=== PATIENT | male | born 1960 | race American Indian/Alaskan Native ===

== ENCOUNTER 2020-02-11 11:48 | Emergency (ER) | payer MEDICARE ==
--- NOTE | 2020-02-11 13:58 | Event Note ---
ED Screening Note ED Screening Note: lightheaded like he wants to pass out states only occurs when he stands up + exertional SOB and palpitations with standing denies any dizziness states it has been occurring for a week denies any headache states he lost 25 lbs in 6 weeks no fever no n/v/d no vision changes no abd pain no CP PMHx DM, thyroidectomy, HTN no allergies to meds This initial assessment/diagnostic orders/clinical plan/treatment(s) is/are subject to change based on patients health status, clinical progression and re-assessment by fellow clinical providers in the ED. Further treatment and workup at subsequent clinical providers discretion. Patient/guardian urged not to elope from the ED as their condition may be serious if not clinically assessed and managed. Initial orders include: labs, EKG, CXR
--- NOTE | 2020-02-11 14:29 | XRay Report ---
XR chest routine 2V INDICATION / CLINICAL INFORMATION: sob, palpitations, lightheadedness COMPARISON: None available. FINDINGS: SUPPORT DEVICES: None. HEART / MEDIASTINUM: No significant abnormality. LUNGS / PLEURA: Lungs are clear. 1.1 cm right lower lobe nodule. Costophrenic sulci are sharp. No pn eumothorax. ADDITIONAL FINDINGS: No significant additional findings. IMPRESSION: 1. 1.1 cm right lower lobe pulmonary nodule is most consistent with a calcified granuloma. Lungs are clear without acute abnormality. Signer Name: Graham Camara MD Signed: 02/11/2020 2:24 PM Workstation Name: [id number]
[2020-02-11 14:53] LABS: Basophils % (Auto) 0.6 % (0.0-1.8); Eosinophils % (Auto) 0.4 % (0.0-4.3); Hematocrit 32.2 % (35.5-45.6); Hemoglobin 10.8 gm/dl (11.8-15.2); Lymphocytes # (Auto) 1.3 K/mm3 (1.2-5.4); Lymphocytes % (Auto) 18.7 % (13.4-35.0); Mean Corpuscular HGB Conc 34 % (32-34); Mean Corpuscular Volume 79 fl (84-94); Monocytes # (Auto) 0.4 K/mm3 (0.0-0.8); Monocytes % (Auto) 6.1 % (0.0-7.3); Platelet Count 313 K/mm3 (140-440); Red Blood Count 4.09 M/mm3 (3.65-5.03); Red Cell Distribution Width 17.5 % (13.2-15.2)
[2020-02-11 15:16] LABS: Albumin 3.7 g/dL (3.9-5); Calcium 10.4 mg/dL (8.4-10.2)
[2020-02-11] MEDS ORDERED: LORazepam 2 MG/ML VIAL IV ONE (15:45)
--- NOTE | 2020-02-11 15:56 | Emergency Department Report ---
ED General Adult HPI - General Chief complaint: Weakness Stated complaint: DIZZY Time Seen by Provider: 02/11/20 13:55 Source: patient, EMS Mode of arrival: Stretcher Limitations: No Limitations - History of Present Illness Initial comments: Patient is a 59-year-old male past medical history of high blood pressure presents with vertigo that is been going on for 1 week. Patient states that whenever he tries to walk he feels like the room is spinning around nothing makes his symptoms better except for sitting down and walking makes them worse. Patient denies any pain any nausea or any vomiting. - Related Data Allergies Allergy/AdvReac Type Severity Reaction Status Date / Time No Known Allergies Allergy Unverified 02/11/20 12:08 ED Review of Systems ROS: Stated complaint: DIZZY Other details as noted in HPI Constitutional: denies: chills, fever Eyes: denies: eye pain, eye discharge, vision change ENT: denies: ear pain, throat pain Respiratory: denies: cough, shortness of breath, wheezing Cardiovascular: denies: chest pain, palpitations Endocrine: no symptoms reported Gastrointestinal: denies: abdominal pain, nausea, diarrhea Genitourinary: denies: urgency, dysuria Musculoskeletal: denies: back pain, joint swelling, arthralgia Skin: denies: rash, lesions Neurological: vertigo. denies: headache, weakness, paresthesias Psychiatric: denies: anxiety, depression Hematological/Lymphatic: denies: easy bleeding, easy bruising ED Past Medical Hx - Past Medical History Hx Hypertension: Yes Hx Diabetes: Yes Additional medical history: HLD, hypothyroidism - Surgical History Past Surgical History?: No - Social History Smoking Status: Current Every Day Smoker Substance Use Type: Alcohol ED Physical Exam - General Limitations: No Limitations General appearance: alert, in no apparent distress - Head Head exam: Present: atraumatic, normocephalic - Eye Eye exam: Present: normal appearance - ENT ENT exam: Present: mucous membranes moist - Neck Neck exam: Present: normal inspection - Respiratory Respiratory exam: Present: normal lung sounds bilaterally. Absent: respiratory distress - Cardiovascular Cardiovascular Exam: Present: regular rate, normal rhythm. Absent: systolic mur mur, diastolic murmur, rubs, gallop - GI/Abdominal GI/Abdominal exam: Present: soft, normal bowel sounds - Rectal Rectal exam: Present: deferred - Extremities Exam Extremities exam: Present: normal inspection - Back Exam Back exam: Present: normal inspection - Neurological Exam Neurological exam: Present: alert, oriented X3 - Psychiatric Psychiatric exam: Present: normal affect, normal mood - Skin Skin exam: Present: warm, dry, intact, normal color. Absent: rash ED Course Vital Signs 02/11/20 02/11/20 02/11/20 12:06 15:38 15:42 Temperature 98.0 F Pulse Rate 110 H 96 H Respiratory 18 20 17 Rate Blood Pressure 106/72 Blood Pressure [Left] O2 Sat by Pulse 100 100 97 Oximetry 02/11/20 02/11/20 02/11/20 15:46 16:00 16:16 Temperature Pulse Rate 96 H 88 86 Respiratory 24 16 15 Rate Blood Pressure Blood Pressure [Left] O2 Sat by Pulse 100 98 99 Oximetry 02/11/20 02/11/20 02/11/20 16:30 16:46 17:00 Temperature Pulse Rate 94 H 90 Respiratory 22 17 Rate Blood Pressure Blood Pressure [Left] O2 Sat by Pulse 96 Oximetry 02/11/20 02/11/20 02/11/20 17:16 18:10 19:13 Temperature Pulse Rate 89 92 H Respiratory 10 L 17 Rate Blood Pressure 162/90 162/90 Blood Pressure 138/82 [Left] O2 Sat by Pulse 97 Oximetry ED Medical Decision Making - Lab Data Result diagrams: 02/11/20 14:40 02/11/20 14:40 Lab Results 02/11/20 02/11/20 02/11/20 Range/Units 14:40 14:40 14:40 WBC 6.8 (4.5-11.0) K/mm3 RBC 4.09 (3.65-5.03) M/mm3 Hgb 10.8 L (11.8-15.2) gm/dl Hct 32.2 L (35.5-45.6) % MCV 79 L (84-94) fl MCH 26 L (28-32) pg MCHC 34 (32-34) % RDW 17.5 H (13.2-15.2) % Plt Count 313 (140-440) K/mm3 Lymph % (Auto) 18.7 (13.4-35.0) % [place] % (Auto) 6.1 (0.0-7.3) % Eos % (Auto) 0.4 (0.0-4.3) % Baso % (Auto) 0.6 (0.0-1.8) % Lymph # (Auto) 1.3 (1.2-5.4) K/mm3 [place] # (Auto) 0.4 (0.0-0.8) K/mm3 Eos # (Auto) 0.0 (0.0-0.4) K/mm3 Baso # (Auto) 0.0 (0.0-0.1) K/mm3 Seg Neutrophils % 74.2 H (40.0-70.0) % Seg Neutrophils # 5.1 (1.8-7.7) K/mm3 Sodium 127 L (137-145) mmol/L Potassium 4.3 (3.6-5.0) mmol/L Chloride 88.4 L (98-107) mmol/L Carbon Dioxide 19 L (22-30) mmol/L Anion Gap 24 mmol/L BUN 33 H (9-20) mg/dL Creatinine 2.6 H (0.8-1.3) mg/dL Estimated GFR 31 ml/min BUN/Creatinine Ratio 13 % Glucose 336 H (75-100) mg/dL Calcium 10.4 H (8.4-10.2) mg/dL Magnesium 2.10 (1.7-2.3) mg/dL Total Bilirubin 0.20 (0.1-1.2) mg/dL AST 12 (5-40) units/L ALT 9 (7-56) units/L Alkaline Phosphatase 101 (35-129) units/L Total Creatine Kinase 67 (55-170) units/L Total Protein 9.2 H (6.3-8.2) g/dL Albumin 3.7 L (3.9-5) g/dL Albumin/Globulin Ratio 0.7 % TSH 0.791 (0.270-4.200) mlU/mL - EKG Data -: EKG Interpreted by Me - Radiology Data Radiology results: report reviewed, image reviewed CT scan of head: Shows no acute intracranial process - Medical Decision Making Chief medical diagnosis: Benign positional vertigo Differential medical diagnosis: Posterior circulation stroke, electrolyte abnormality I will get CT scan of head neurology consult CBC BMP IV fluids and will reevaluate patient Patient states that he will leave AMA he states that "I will have no damn stroke I am leaving because guys are taking too long "discussed with patient the i mportance of neurology evaluation and the need for admission for further work-up for her symptoms. Patient has decision-making capacity is alert and oriented x4 patient decides to leave AMA Critical care attestation.: If time is entered above; I have spent that time in minutes in the direct care of this critically ill patient, excluding procedure time. ED Disposition Clinical Impression: Dizziness Disposition: DC-07 LEFT AGAINST MED ADVICE Is pt being admited?: No Does the pt Need Aspirin: No Condition: Stable Instructions: Dizziness (ED) Referrals: [facility] [Other] - 3-5 Days Forms: AMA Form
--- NOTE | 2020-02-11 16:39 | Cat Scan Report ---
CT head without contrast INDICATION : dizziness. TECHNIQUE: Axial imaging performed from the skull apex through the skull base without the use of con trast. All CT scans at this location are performed using CT dose reduction for ALARA by means of aut omated exposure control. COMPARISON: None FINDINGS: Parenchyma: No acute intracranial hemorrhage or parenchymal abnormality. Ventricles: Ventricles are normal in size and appear symmetric. Soft tissues: Soft tissues including the orbits appear normal. Bones: No acute osseous abnormality. Sinuses: Sinuses and mastoid air cells are clear. IMPRESSION: No acute abnormality. Signer Name: Iraj Ayala MD Signed: 02/11/2020 4:35 PM Workstation Name: [id number]
[2020-02-11] MEDS ORDERED: ASPIRIN 81 MG TAB CHEW PO ONE (17:22)
[2020-02-11 19:14] VITALS: BP 138/82
== END 2020-02-11 19:13 | disposition left against medical advice (07) ==
LOC: ED 11:48
DX: R42 Dizziness and giddiness (principal); I10 Essential (primary) hypertension; E11.9 Type 2 diabetes mellitus without complications; F17.200 Nicotine dependence, unspecified, uncomplicated
CPT/HCPCS: 36415; 70450; 71046; 80053; 82550; 83735; 84443; 85025; 93005; 96374; 99285; J2060

== ENCOUNTER 2020-10-14 14:08 | Inpatient (IN) | payer MEDICARE ==
--- NOTE | 2020-10-14 14:59 | Emergency Department Report ---
Blank Doc - Documentation Documentation: 60-year-old male who presents with shortness of breath, bilateral leg swelling and abdominal distention. Patient stated has history of cirrhosis of the liver. Patient stated has difficulty walking due to bilateral leg swelling. 1- This is a initial triage assessment/medical screening only. Full assessment and work-up will be completed once the patient is in proper hospital gown, ED bed and in a private room setting. This initial assessment/diagnostic orders/clinical plan/ treatment(s) is/are subject to change based on pt's health status, clinical progression and re-assessment by fellow clinical providers in the ED. Further treatment and workup at subsequent clinical providers discretion. Patient/guardians urged not to elope from ED as their condition may be serious if not clinically assessed and managed. 2-cardiac work-up
--- NOTE | 2020-10-14 15:46 | XRay Report ---
XR chest routine 2V INDICATION / CLINICAL INFORMATION: Chest Pain. COMPARISON: 02/11/2020 FINDINGS: SUPPORT DEVICES: None. HEART /PULMONARY VASCULATURE: Cardiac enlargement with pulmonary vasculature congestion. LUNGS / PLEURA: Patchy perihilar opacities likely reflect edema. No pleural effusion. No pneumothorax . ADDITIONAL FINDINGS: No significant additional findings. IMPRESSION: Findings most consistent with CHF with mild pulmonary edema. Signer Name: Leno Tristan MD Signed: 10/14/2020 3:41 PM Workstation Name: [id number]
[2020-10-14] MEDS ORDERED: DEXTROSE 50% IN WATER (25GM) 50 ML VIAL IV PRN (16:28)
[2020-10-14 16:33] LABS: Basophils % (Auto) 0.5 % (0.0-1.8); Eosinophils # (Auto) 0.1 K/mm3 (0.0-0.4); Eosinophils % (Auto) 1.7 % (0.0-4.3); Lymphocytes # (Auto) 1.1 K/mm3 (1.2-5.4); Lymphocytes % (Auto) 20.7 % (13.4-35.0); Mean Corpuscular HGB Conc 29 % (32-34); Monocytes # (Auto) 0.5 K/mm3 (0.0-0.8); Monocytes % (Auto) 10.2 % (0.0-7.3); Platelet Count 172 K/mm3 (140-440); Red Blood Count 2.67 M/mm3 (3.65-5.03)
[2020-10-14 16:34] LABS: Albumin 3.8 g/dL (3.9-5); Calcium 9.1 mg/dL (8.4-10.2)
--- NOTE | 2020-10-14 16:35 | Emergency Department Report ---
ED General Adult HPI - General Chief complaint: Weakness Stated complaint: LEGS WEAK, UNABLE TO WALK, SWELLING PUI?: No Time Seen by Provider: 10/14/20 14:58 Source: patient, RN notes reviewed, old records reviewed Mode of arrival: Wheelchair Limitations: No Limitations - History of Present Illness Initial comments: Primary CARE doctor: Selena Past medical history: Obesity, renal insufficiency of unknown duration, chronicity, end-stage, high cholesterol, hypertension, diabetes, psychiatric disease. The patient is a 60-year-old gentleman. He is not known to myself previously. He presents to the ER today with a complaint of 3months bilateral lower extremity swelling, cramping and discomfort, that radiates up to his abdominal region. The symptoms are constant. They worsen with physical exertion. They decreased with rest. Currently, denies headache, neck pain, chest pain. He endorses abdominal cramping, and tightness, but no pain. He endorses both constipation and diarrhea. He denies dysuria. He denies bladder/bowel retention or incontinence. He denies focal extremity weakness/numbness. He does not have a vamp stitcher or order dispatcher chief that he is aware of. He has not received his Covid vaccination. Patient has poor ambulation at baseline, walks with a cane and/or walker, and has been participating in home physical therapy for the past 2 months. He does not know if he has a diagnosis of obstructive sleep apnea. He sleeps in bed by himself. He reports he does not have a bed partner. He has intermittent shortness of breath. He has gained and unintentional 30 to 40 pounds in the past few months. He typically states that he takes Novolin, 30 units, in the morning and at night. He believes he took his novel and this morning, he is not quite sure if he ate breakfast. He denies fever. He denies loss of taste and smell. -: Gradual, week(s), month(s) Location: abdomen, left, right, lower extremity Radiation: other (Swelling starts for the bilateral lower extremities and radiates proximally to the mid abdominal region) Quality: constant Improves with: rest Worsens with: movement - Related Data Home Medications Medication Instructions Recorded Confirmed Last Taken Omeprazole 20 mg PO DAILY 10/14/20 10/16/20 Unknown Previous Rx's Medication Instructions Recorded Last Taken Type AtorvaSTATin [Lipitor] 40 mg PO QHS #30 10/17/20 Unknown Rx Furosemide [Lasix TAB] 20 mg PO QDAY #30 tablet 10/17/20 Unknown Rx Insulin NPH Hum/Reg Insulin Hm 30 units SUB-Q Q12HR #2 vial 10/17/20 Unknown Rx [Novolin 70-30 100 Unit/ml Vial] Levothyroxine Sodium 175 mcg PO DAILY #30 cap 10/17/20 Unknown Rx [Levothyroxine] Pantoprazole [Protonix] 40 mg PO BID #60 tablet 10/17/20 Unknown Rx Potassium Chloride [K-Dur] 10 meq PO QDAY #30 tablet 10/17/20 Unknown Rx QUEtiapine [SEROquel] 1,000 mg PO QDAY@2200 #30 tablet 10/17/20 Unknown Rx Sertraline [Zoloft] 100 mg PO QDAY #30 tablet 10/17/20 Unknown Rx Allergies Allergy/AdvReac Type Severity Reaction Status Date / Time No Known Allergies Allergy Unverified 02/11/20 12:08 ED Review of Systems ROS: Stated complaint: LEGS WEAK, UNABLE TO WALK, SWELLING Other details as noted in HPI Constitutional: malaise, weakness, other (Denies loss of taste and smell). denies: fever Eyes: denies: vision change ENT: denies: epistaxis Respiratory: shortness of breath Cardiovascular: dyspnea on exertion, edema. denies: chest pain Gastrointestinal: diarrhea, constipation. denies: nausea Genitourinary: denies: frequency Musculoskeletal: arthralgia, myalgia Neurological: weakness. denies: numbness, paresthesias Hematological/Lymphatic: denies: easy bleeding ED Past Medical Hx - Past Medical History Previous Medical History?: Yes Hx Hypertension: Yes Hx Diabetes: Yes Additional medical history: HLD, hypothyroidism - Surgical History Past Surgical History?: No - Social History Smoking Status: Current Every Day Smoker Substance Use Type: Alcohol - Medications Home Medications: Home Medications Medication Instructions Recorded Confirmed Last Taken Type Omeprazole 20 mg PO DAILY 10/14/20 10/16/20 Unknown History AtorvaSTATin [Lipitor] 40 mg PO QHS #30 10/17/20 Unknown Rx Furosemide [Lasix TAB] 20 mg PO QDAY #30 tablet 10/17/20 Unknown Rx Insulin NPH Hum/Reg Insulin Hm 30 units SUB-Q Q12HR #2 vial 10/17/20 Unknown Rx [Novolin 70-30 100 Unit/ml Vial] Levothyroxine Sodium 175 mcg PO DAILY #30 cap 10/17/20 Unknown Rx [Levothyroxine] Pantoprazole [Protonix] 40 mg PO BID #60 tablet 10/17/20 Unknown Rx Potassium Chloride [K-Dur] 10 meq PO QDAY #30 tablet 10/17/20 Unknown Rx QUEtiapine [SEROquel] 1,000 mg PO QDAY@2200 #30 tablet 10/17/20 Unknown Rx Sertraline [Zoloft] 100 mg PO QDAY #30 tablet 10/17/20 Unknown Rx ED Physical Exam - General Limitations: Physical Limitation General appearance: alert, in no apparent distress, obese - Head Head exam: Present: atraumatic, normocephalic - Eye Eye exam: Present: normal appearance, EOMI. Absent: nystagmus - ENT ENT exam: Present: normal exam, normal orophraynx, mucous membranes moist, normal external ear exam - Neck Neck exam: Present: normal inspection, full ROM. Absent: tenderness, meningismus - Respiratory Respiratory exam: Present: decreased breath sounds. Absent: wheezes, rales, rhonchi, stridor - Cardiovascular Cardiovascular Exam: Present: regular rate, normal rhythm, normal heart sounds, JVD. Absent: bradycardia, tachycardia, irregular rhythm, systolic murmur, diastolic murmur, rubs, gallop - GI/Abdominal GI/Abdominal exam: Present: soft. Absent: distended, tenderness, guarding, rebound, rigid, pulsatile mass - Rectal Rectal exam: Present: normal inspection, normal rectal tone, heme (-) stool, other (Chaperoned by nurse Cesar Ramos). Absent: heme (+) stool, black stool, bloody stool - Extremities Exam Extremities exam: Present: normal inspection, full ROM, pedal edema (3+ edema in the bilateral lower extremities), other (2+ pulses noted in the bilateral upper and lower extremities. There is no palpable cord. negative Homans sign. Muscular compartments are soft. The pelvis is stable.). Absent: calf tenderne ss - Back Exam Back exam: Present: normal inspection, full ROM. Absent: tenderness, CVA tenderness (R), CVA tenderness (L), paraspinal tenderness, vertebral tenderness - Neurological Exam Neurological exam: Present: alert, oriented X3, other (No facial droop. Tongue midline. Extraocular movements intact bilaterally. Facial sensation intact to light touch in V1, V2, V3 distribution bilaterally. 5 and a 5 strength in 4 extremities. Sensation intact to light touch in 4 extremities.). Absent: motor sensory deficit - Psychiatric Psychiatric exam: Present: normal affect, normal mood - Skin Skin exam: Present: warm, dry, intact, normal color. Absent: rash ED Course Vital Signs 10/14/20 10/14/20 10/14/20 14:55 14:59 16:40 Temperature 98.6 F Pulse Rate 81 63 Respiratory 20 19 Rate Blood Pressure 120/63 Blood Pressure 140/78 [Right] O2 Sat by Pulse 99 94 Oximetry 10/14/20 10/14/20 10/14/20 17:24 19:39 20:14 Temperature 98.4 F Pulse Rate 89 85 85 Respiratory 19 20 22 Rate Blood Pressure 122/68 Blood Pressure 139/89 155/84 [Right] O2 Sat by Pulse 97 98 100 Oximetry 10/14/20 20:30 Temperature 98.2 F Pulse Rate 91 H Respiratory 20 Rate Blood Pressure 141/74 Blood Pressure [Right] O2 Sat by Pulse 100 Oximetry - Reevaluation(s) Reevaluation #1: 10/14/20 16:36 Differential diagnosis, including but not limited to: Congestive heart failure, cardiorenal syndrome, electrolyte derangement, renal insufficiency, hepatic insufficiency, pneumonia, urinary tract infection, obesity, obstructive sleep apnea, pulmonary hypertension, hypoglycemia, now resolved Assessment and plan: 60-year-old gentleman, with body mass index of 37, probable undiagnosed obstructive sleep apnea, not currently on nocturnal CPAP/BiPAP, with evidence of decompensated acute congestive heart failure, manifest by JVD, diminished breath sounds, lower extremity edema, and unintentional weight gain. Patient has a GCS of 15, with no focal motor or sensory deficits. He denies most of the typical Covid symptoms. He has not received his Covid vaccination. Laboratory studies ordered and pending. Doubt DVT, but we will obtain bilateral lower extremity DVT study. Anticipate need for admission for diuresis, and medical optimization. Have discussed this plan of care with the patient, who verbalized understanding, and who is agreeable to this plan of care. He states he does not currently have a vamp stitcher or order dispatcher chief. Laboratory studies from prior evaluations have indicated a creatinine of 2.5. He is clinically sober at this time, he will be placed for every 1 hour Accu- Cheks, and as needed D50. 10/14/20 17:17 The patient is found to have an improved Accu-Chek. He is also found to have a microcytic anemia. I suspect that this is anemia of chronic disease. His rectal examination is negative for blood, chaperoned by nurse Cesar Ramos. Discussed recommendation for packed red blood cell with patient. Patient has no objections to receiving packed red blood cells and has provided consent. TSH, free T4 appreciated, defer to inpatient team to further manage this, patient currently on Synthroid. Hospital physician, Dr. Whelan, to admit patient to the medical service. Patient's laboratory studies today corroborate and suggest cardiorenal syndrome, with a probable type II troponin leak, renal insufficiency, microcytic anemia. Lower extremity DVT studies pending at this time. Repeat Accu-Chek is improved. 10/14/20 17:18 - Pulse Oximetry Interpretation Digit-Finger Initial Pulse Oximetry Readin O2 Sat by Pulse Oximetry: 97 Actions Taken: none ED Medical Decision Making - Lab Data Result diagrams: 10/17/20 04:43 10/17/20 04:43 Vital Signs 10/14/20 14:55 Temperature 98.6 F Lab Results 10/14/20 10/14/20 10/14/20 Range/Units 15:33 15:33 15:45 [place] % (Auto) 10.2 H (0.0-7.3) % Eos % (Auto) 1.7 (0.0-4.3) % [place] # (Auto) 0.5 (0.0-0.8) K/mm3 Eos # (Auto) 0.1 (0.0-0.4) K/mm3 Baso # (Auto) 0.0 (0.0-0.1) K/mm3 Seg Neutrophils % 66.9 (40.0-70.0) % Seg Neutrophils # 3.6 (1.8-7.7) K/mm3 Sodium 134 L (137-145) mmol/L Potassium 4.2 (3.6-5.0) mmol/L Chloride 97.6 L (98-107) mmol/L Carbon Dioxide 24 (22-30) mmol/L Anion Gap 17 mmol/L BUN 29 H (9-20) mg/dL Creatinine 2.9 H (0.8-1.3) mg/dL Estimated GFR 27 ml/min BUN/Creatinine Ratio 10 % Glucose 53 L (75-100) mg/dL POC Glucose 46 L (70-105) mg/dL Calcium 9.1 (8.4-10.2) mg/dL Total Bilirubin 0.30 (0.1-1.2) mg/dL AST 51 H (5-40) units/L ALT 52 (7-56) units/L Alkaline Phosphatase 131 H (35-129) units/L Troponin T 0.047 H (0.00-0.029) ng/mL NT-Pro-B Natriuret Pep 1660 H (0-900) pg/mL Total Protein 8.2 (6.3-8.2) g/dL Albumin 3.8 L (3.9-5) g/dL Albumin/Globulin Ratio 0.9 % Lipase 12 L (13-60) units/L Vital Signs 10/14/20 10/14/20 14:55 16:39 Temperature 98.6 F O2 Sat by Pulse 97 Oximetry [ Digit-Finger] Vital Signs 10/14/20 10/14/20 10/14/20 14:55 16:40 16:41 Temperature 98.6 F Pulse Rate 63 Respiratory 19 Rate Blood Pressure 140/78 [Right] O2 Sat by Pulse 94 Oximetry O2 Sat by Pulse 97 Oximetry [ Digit-Finger] - EKG Data -: EKG Interpreted by Ma EKG shows normal: sinus rhythm Rate: normal - EKG Data When compared to previous EKG there are: previous EKG unavailable 10/14/20 16:36 EKG interpreted at 15: 04 This is a sinus rhythm, rate 79 bpm, with a borderline normal P wave axis, first-degree AV block, motion artifact, QTC prolonged, low voltage, and poor R wave progression. This is an abnormal EKG. This is not a STEMI. - Radiology Data Radiology results: pending, report reviewed, image reviewed CHEST 2 VIEWS INDICATION / CLINICAL INFORMATION: NO SYMPTOMS/PPD ALLERGY. COMPARISON: None available. FINDINGS: SUPPORT DEVICES: None. HEART / MEDIASTINUM: No significant abnormality. LUNGS / PLEURA: No significant pulmonary or pleural abnormality. No pneumothorax. ADDITIONAL FINDINGS: No significant additional findings. IMPRESSION: 1. No acute findings. Signer Name: Pankaj Deutsch MD Signed: 10/14/2020 2:04 PM Workstation Name: [id number] Critical Care Time: Yes Critical care time in (mins) excluding proc time.: 35 Critical care attestation.: If time is entered above; I have spent that time in minutes in the direct care of this critically ill patient, excluding procedure time. ED Disposition Clinical Impression: Hypoglycemia, Cardiorenal syndrome with renal failure, Body mass index 37.0- 37.9, adult, Volume overload, History of hypothyroidism, Microcytic anemia Disposition: OP ADMIT IP TO THIS HOSP Is pt being admited?: Yes Does the pt Need Aspirin: Yes Condition: Serious
[2020-10-14] MEDS ORDERED: ASPIRIN 81 MG TAB CHEW PO ONE (16:39)
[2020-10-14] MEDS ORDERED: FUROSEMIDE 40 MG/4 ML INJ IV ONE (16:40)
[2020-10-14 16:45] LABS: Chol/HDL Ratio 1.71 %; INR 1.23 (0.87-1.13)
[2020-10-14 16:46] LABS: Partial Thromboplastin Time 32.8 Sec. (24.2-36.6)
[2020-10-14 16:57] LABS: Mean Corpuscular Volume 54 fl (84-94); Red Cell Distribution Width 22.7 % (13.2-15.2)
[2020-10-14 17:01] LABS: Hematocrit 14.6 % (35.5-45.6); Hemoglobin 4.1 gm/dl (11.8-15.2)
[2020-10-14] MEDS ORDERED: SODIUM CHLORIDE 0.9% 500 ML 500 ML IV ONE ×2 (17:09→17:45)
[2020-10-14 17:15] LABS: Free T4 (Free Thyroxine) 0.9 ng/dL (0.76-1.46)
--- NOTE | 2020-10-14 17:19 | History and Physical Report ---
History of Present Illness Chief complaint: My legs are swollen and I cannot breathe History of present illness: 60 YO Male with HTN, HLD, DM, Obesity Hypoventilation Syndrome, CKD, Hypothyroidism, GERD, Nicotine Dependence, Depression presents ED for evaluation. Patient reports "my legs are swollen, and I can't breathe". Patient states that he had experienced shortness of breath, decreased exercise tolerance, orthopnea, paroxysmal nocturnal dyspnea, dyspnea on exertion, dyspnea at rest over the past 3 months with worsening symptoms over the past 1 week. Patient states that due to his ill weakness he is currently unable to ambulate. Patient also acknowledges a 30 pound weight gain over the past 1 month. Patient transported to [facility] via private vehicle for further care and evaluation of the aforementioned symptoms. The patient was seen and evaluated in the emergency department. All lab and imaging studies reviewed. Patient found to have lab findings and clinical symptoms consistent with CHF decompensation, as well as cardiorenal syndrome, obesity hypoventilation syndrome, and symptomatic anemia with a hemoglobin of 4. Patient placed in observation status and admitted to telemetry and initiated on CHF protocol. Patient also transfused with packed red blood cells. Cardiology team consulted in ED. Nephrology team consulted in ED. Patient denies fever, chills, chest pain, palpitation, productive cough, skin rash, recent ill contacts, or known exposure to COVID-19. No prior admission for review. All medication listed at time of admission has been reconciled. Advanced care planning conducted in ED. Past History Past Medical History: diabetes, GERD, hypertension, hyperlipidemia, hypothyroidism Past Surgical History: No surgical history, Other (Reviewed) Social history: , smoking. denies: alcohol abuse, prescription drug abuse Family history: diabetes, hypertension Medications and Allergies Allergies Allergy/AdvReac Type Severity Reaction Status Date / Time No Known Allergies Allergy Unverified 02/11/20 12:08 Home Medications Medication Instructions Recorded Confirmed Last Taken Type AtorvaSTATin [Lipitor] 40 mg PO QHS 10/14/20 10/14/20 Unknown History Insulin NPH Hum/Reg Insulin Hm 30 1000units SUB-Q Q12HR 10/14/20 10/14/20 Unknown History [Novolin 70-30 100 Unit/ml Vial] Levothyroxine Sodium 175 mcg PO 10/14/20 Unknown History [Levothyroxine] Omeprazole 20 mg PO 10/14/20 Unknown History QUEtiapine [SEROquel] 1,000 mg PO QDAY 10/14/20 10/14/20 Unknown History Sertraline [Zoloft] 100 mg PO QDAY 10/14/20 10/14/20 Unknown History Active Meds: Active Medications Dextrose (Dextrose 50% In Water (25gm) 50 Ml Vial) 50 gm IV Q30MIN PRN; Protocol PRN Reason: Hypoglycemia Review of Systems Constitutional: weight gain, no fever, no chills, no sweats, no night sweats Ears, nose, mouth and throat: no ear pain, no ear discharge, no nose pain, no nasal congestion Cardiovascular: orthopnea, edema, shortness of breath, dyspnea on exertion, paroxysmal nocturnal dyspnea, leg edema, decreased exercise tolerance, no chest pain, no palpitations Respiratory: no cough, no cough with sputum, no hemoptysis Gastrointestinal: no nausea, no vomiting, no diarrhea, no constipation Genitourinary Male: no hematuria, no flank pain, no discharge, no urinary frequency, no urinary hesitancy Rectal: no pain, no incontinence, no bleeding Musculoskeletal: no neck stiffness, no neck pain, no shooting arm pain, no arm numbness/tingling, no low back pain, no shooting leg pain, no leg numbness/tingling Integumentary: no rash, no pruritis, no redness, no sores, no wounds Neurological: no paralysis, no weakness, no parathesias, no numbness, no tingling, no seizures, no syncope Psychiatric: no anxiety, no memory loss, no change in sleep habits, no sleep disturbances, no insomnia, no hypersomnia, no change in appetite, no change in libido Endocrine: no cold intolerance, no heat intolerance, no polyphagia, no polyuria Hematologic/Lymphatic: no easy bruising, no easy bleeding, no lymphadenopathy Allergic/Immunologic: no urticaria, no allergic rhinitis, no persistent i nfections, no anaphylaxis Exam - Constitutional Vitals: Temp Pulse Resp BP Pulse Ox 98.6 F 63 19 140/78 97 10/14/20 14:55 10/14/20 16:40 10/14/20 16:40 10/14/20 16:40 10/14/20 17:18 General appearance: Present: mild distress, obese - EENT Eyes: Present: PERRL (Conjunctival pallor) ENT: hearing intact, clear oral mucosa - Neck Neck: Present: supple, normal ROM, masses or JVD - Respiratory Respiratory effort: normal, labored, accessory muscle use Respiratory: bilateral: diminished, rales - Cardiovascular Heart Sounds: Present: S1 & S2. Absent: rub, click - Extremities Extremities: pulses symmetrical Extremity abnormal: edema Peripheral Pulses: within normal limits - Abdominal General gastrointestinal: Present: soft, non-tender, non-distended, normal bowel sounds Male genitourinary: Present: normal - Integumentary Integumentary: Present: clear, warm, dry - Musculoskeletal Musculoskeletal: generalized weakness - Psychiatric Psychiatric: appropriate mood/affect, intact judgment & insight - Neurologic Neurologic: CNII-XII intact, moves all extremities HEART Score - HEART Score Troponin: Troponin T 0.047 ng/mL (0.00-0.029) H 10/14/20 15:33 Results - Labs CBC & Chem 7: 10/14/20 15:33 10/14/20 15:33 Labs: Abnormal lab results 10/14/20 10/14/20 10/14/20 Range/Units 15:33 15:33 15:33 RBC 2.67 L (3.65-5.03) M/mm3 Hgb 4.1 L* (11.8-15.2) gm/dl Hct 14.6 L* (35.5-45.6) % MCV 54 L (84-94) fl MCH 16 L (28-32) pg MCHC 29 L (32-34) % RDW 22.7 H (13.2-15.2) % [place] % (Auto) 10.2 H (0.0-7.3) % Lymph # (Auto) 1.1 L (1.2-5.4) K/mm3 PT 16.1 H (12.2-14.9) Sec. INR 1.23 H (0.87-1.13) Sodium 134 L (137-145) mmol/L Chloride 97.6 L (98-107) mmol/L BUN 29 H (9-20) mg/dL Creatinine 2.9 H (0.8-1.3) mg/dL Glucose 53 L (75-100) mg/dL POC Glucose (70-105) mg/dL AST 51 H (5-40) units/L Alkaline Phosphatase 131 H (35-129) units/L Troponin T 0.047 H (0.00-0.029) ng/mL NT-Pro-B Natriuret Pep 1660 H (0-900) pg/mL Albumin 3.8 L (3.9-5) g/dL LDL Cholesterol Direct 24 L (50-130) mg/dL Lipase 12 L (13-60) units/L TSH (0.270-4.200) mlU/mL 10/14/20 10/14/20 Range/Units 15:45 16:34 RBC (3.65-5.03) M/mm3 Hgb (11.8-15.2) gm/dl Hct (35.5-45.6) % MCV (84-94) fl MCH (28-32) pg MCHC (32-34) % RDW (13.2-15.2) % [place] % (Auto) (0.0-7.3) % Lymph # (Auto) (1.2-5.4) K/mm3 PT (12.2-14.9) Sec. INR (0.87-1.13) Sodium (137-145) mmol/L Chloride (98-107) mmol/L BUN (9-20) mg/dL Creatinine (0.8-1.3) mg/dL Glucose (75-100) mg/dL POC Glucose 46 L (70-105) mg/dL AST (5-40) units/L Alkaline Phosphatase (35-129) units/L Troponin T (0.00-0.029) ng/mL NT-Pro-B Natriuret Pep (0-900) pg/mL Albumin (3.9-5) g/dL LDL Cholesterol Direct (50-130) mg/dL Lipase (13-60) units/L TSH 7.820 H (0.270-4.200) mlU/mL Assessment and Plan - Patient Problems (1) Heart failure, systolic, with acute decompensation Current Visit: Yes Status: Acute Plan to address problem: CHF protocol: Strict I's/O, monitor urine output every shift, afterload re duction, blood pressure control, thyroid panel, magnesium level, echocardiogram ordered and pending at time of admission, cardiology team consulted, chest x- ray, submental oxygen. (2) Obesity hypoventilation syndrome Current Visit: Yes Status: Acute Plan to address problem: Balanced diet, increase physical activity discharge, outpatient pulmonary follow-up for sleep study. (3) Symptomatic anemia Current Visit: Yes Status: Acute Plan to address problem: Packed red blood cell transfusion, supportive care, repeat CBC in a.m., (4) Cardiorenal syndrome with renal failure Current Visit: Yes Status: Acute Plan to address problem: Nephrology team consulted, monitor urine output every shift, further care and evaluation as per cardiology team as well as renal team. (5) History of hypothyroidism Current Visit: Yes Status: Acute Plan to address problem: Thyroid replacement with Synthroid therapy, thyroid panel, supportive care. (6) Microcytic anemia Current Visit: Yes Status: Acute Plan to address problem: Packed red blood cell transfusion, continue medical management. (7) DVT prophylaxis Current Visit: Yes Status: Acute Plan to address problem: SCD bilateral lower extremities while in bed (8) Advance care planning Current Visit: Yes Status: Acute Plan to address problem: Disease education conducted, care plan discussed, diagnosis discussed, prognosis discussed, patient knowledges understanding and agreement with care plan, +30 minutes.
[2020-10-14] MEDS ORDERED: ONDANSETRON 4 MG/2 ML INJ IV PRN (18:00)
[2020-10-14] MEDS ORDERED: DEXTROSE 50% IN WATER (25GM) 50 ML SYRINGE IV PRN (18:07)
--- NOTE | 2020-10-14 18:09 | Electrocardiograph Report ---
[facility] Test Date: 2020-10-14 Test Time: 15:04:29 Pat Name: JADE COTO Department: Room: Gender: M Mirror Maker: : [id number] Requested By: BRIAN GALICIA Order Number: [id number] Reading MD: Jorge Chilel Measurements Intervals [place] Rate: 79 P: 50 MO: 241 QRS: 5 QRSD: 109 T: 14 QT: 398 QTc: 458 Interpretive Statements Poor data quality with marked baseline artifact Probably sinus rhythm Prolonged MO interval Low voltage, extremity and precordial leads No previous ECG available for comparison Electronically Signed On 10-14-2020 18:09:43 EDT by Jorge Chilel
[2020-10-14] MEDS: FUROSEMIDE 40 MG/4 ML INJ IV SCH (18:28)
[2020-10-14] MEDS ORDERED: oxyCODONE /ACETAMINOPHEN 5-325MG TAB PO PRN (18:30)
[2020-10-14] MEDS ORDERED: ALBUTEROL 2.5 MG/3 ML NEBU IH PRN (18:30)
[2020-10-14] MEDS ORDERED: ACETAMINOPHEN 325 MG TAB PO PRN (18:30)
[2020-10-14] MEDS ORDERED: MORPHINE 4 MG/1 ML INJ IV PRN (18:30)
[2020-10-14] MEDS: INSULIN REGULAR, HUMAN 100 UNITS/1 ML SUB-Q SCH (21:20)
[2020-10-14 23:04] LABS: Bilirubin,Urine NEG (Negative); Blood,Urine SM (Negative); Color,Urine Colorless (Yellow); Protein,Urine <15 mg/dL mg/dL (Negative); RBC,Urine < 1.0 /HPF (0.0-6.0); Urobilinogen,Urine < 2.0 mg/dL (<2.0); WBC,Urine < 1.0 /HPF (0.0-6.0)
[2020-10-14 23:21] LABS: Creatinine,Urine 21.2 mg/dL (0.1-20.0); Protein/Creatinine Ratio,Urine 0.61
[2020-10-14] MEDS: QUEtiapine 200 MG TAB PO SCH (23:59)
[2020-10-15] MEDS: LEVOTHYROXINE 75 MCG TAB PO SCH (06:13)
[2020-10-15] MEDS: FUROSEMIDE 40 MG/4 ML INJ IV SCH ×2 (06:13→18:45)
[2020-10-15] MEDS: LEVOTHYROXINE 100 MCG TAB PO SCH (06:13)
--- NOTE | 2020-10-15 07:53 | Vascular Lab Report ---
Bilateral lower extremity Doppler venous ultrasound INDICATION: Swelling FINDINGS: Bilateral common femoral veins, superficial femoral veins and popliteal veins have normal c ompressibility and phasic flow. IMPRESSION: No evidence for DVT. Signer Name: Pankaj Deutsch MD Signed: 10/14/2020 6:00 PM Workstation Name: [id number]
[2020-10-15] MEDS: INSULIN REGULAR, HUMAN 100 UNITS/1 ML SUB-Q SCH ×4 (07:59→19:02)
[2020-10-15] MEDS ORDERED: NON-FORMULARY EACH (Omeprazole [Omeprazole] 20 MG Capsule.Dr) PO SCH (10:00)
[2020-10-15] MEDS ORDERED: QUEtiapine 100 MG TAB PO SCH (10:00)
[2020-10-15] MEDS ORDERED: LEVOTHYROXINE SODIUM 175 MCG PO SCH (10:00)
--- NOTE | 2020-10-15 10:19 | Progress Note ---
Assessment and Plan Assessment and plan: -- Heart failure, systolic, with acute decompensation Current Visit: Yes Status: Acute IV diuretics , input output monitoring , low-sodium diet , fluid restriction Echo for LV function ejection fraction , cardiology consulted Oxygen titrate O2 sats to more than 90% --Obesity hypoventilation syndrome Current Visit: Yes Status: Acute Dietary modification, exercise as tolerated and weight reduction When medically stable, outpatient pulmonary evaluation and sleep study Rule out CPAP -- Symptomatic anemia Current Visit: Yes Status: Acute Received 3 units PRBC transfusion, fourth unit transfuse Monitor H&H, stool for occult blood, GI consult Rule out GI causes of severe anemia --Cardiorenal syndrome with renal failure Current Visit: Yes Status: Acute Nephrology team consulted, monitor urine output Cardiology and nephrology following , follow echo for EF --History of hypothyroidism Current Visit: Yes Status: Acute Continue Synthroid therapy, thyroid panel, supportive care. --Microcytic anemia Current Visit: Yes Status: Acute Blood transfusion, supportive care Treat underlying cause -- DVT prophylaxis Current Visit: Yes Status: Acute Plan to address problem: SCD, no pharmacologic anticoagulation in view of severe anemia --Advance care planning Current Visit: Yes Status: Acute Discussed extensively with the patient, his condition tests and reports Treatment plan, patient is full CODE STATUS We will closely monitor the patient and adjust management as needed Plan of care reviewed with the patient and his nurse Brief history 60-year-old -[place] male patient was admitted with symptomatic anemia, acute kidney injury and generalized weakness Patient's hemoglobin was 4.1 received 3 units of PRBC and Hb improved to 6.9, fourth unit of PRBC started Patient also has acute kidney injury, nephrology following. Patient feels slightly better still has generalized weakness and abdominal pain GI consulted to rule out GI causes of severe anemia 10/15/2020; received 3 units of PRBC for severe anemia, fourth unit is running, GI consulted to rule out GI causes of anemia Continue supportive care, follow nephrology evaluation recommendations History Interval history: I have seen and examined the patient at the bedside this morning Patient's chart and medications reviewed Patient was admitted with severe anemia received 3 units of PRBC transfusion Acute kidney injury nephrology following Patient feels slightly better still complains of severe weakness Vital signs noted Hospitalist Physical - Constitutional Vitals: Temp Pulse Resp BP Pulse Ox 98.3 F 80 22 144/85 98 10/15/20 07:29 10/15/20 07:29 10/15/20 07:29 10/15/20 07:29 10/15/20 09:27 General appearance: Present: mild distress, well-nourished, obese - EENT Eyes: Present: PERRL, EOM intact - Neck Neck: Present: supple, normal ROM - Respiratory Respiratory effort: normal Respiratory: bilateral: diminished, rales, negative: rhonchi, wheezing - Cardiovascular Rhythm: regular Heart Sounds: Present: S1 & S2 - Extremities Extremities: no ischemia Extremity abnormal: edema - Abdominal General gastrointestinal: soft, non-tender, non-distended, normal bowel sounds - Integumentary Integumentary: Present: clear, warm - Psychiatric Psychiatric: appropriate mood/affect, cooperative - Neurologic Neurologic: CNII-XII intact, moves all extremities HEART Score - HEART Score Troponin: Troponin T 0.047 ng/mL (0.00-0.029) H 10/14/20 15:33 Results - Labs CBC & Chem 7: 10/15/20 10:55 10/15/20 10:55 Labs: Laboratory Last Values WBC 5.3 K/mm3 (4.5-11.0) 10/14/20 15:33 RBC 2.67 M/mm3 (3.65-5.03) L 10/14/20 15:33 Hgb 4.1 gm/dl (11.8-15.2) L* 10/14/20 15:33 Hct 14.6 % (35.5-45.6) L* 10/14/20 15:33 MCV 54 fl (84-94) L 10/14/20 15:33 MCH 16 pg (28-32) L 10/14/20 15:33 MCHC 29 % (32-34) L 10/14/20 15:33 RDW 22.7 % (13.2-15.2) H 10/14/20 15:33 Plt Count 172 K/mm3 (140-440) 10/14/20 15:33 Lymph % (Auto) 20.7 % (13.4-35.0) 10/14/20 15:33 [place] % (Auto) 10.2 % (0.0-7.3) H 10/14/20 15:33 Eos % (Auto) 1.7 % (0.0-4.3) 10/14/20 15:33 Baso % (Auto) 0.5 % (0.0-1.8) 10/14/20 15:33 Lymph # (Auto) 1.1 K/mm3 (1.2-5.4) L 10/14/20 15:33 [place] # (Auto) 0.5 K/mm3 (0.0-0.8) 10/14/20 15:33 Eos # (Auto) 0.1 K/mm3 (0.0-0.4) 10/14/20 15:33 Baso # (Auto) 0.0 K/mm3 (0.0-0.1) 10/14/20 15:33 Seg Neutrophils % 66.9 % (40.0-70.0) 10/14/20 15:33 Seg Neutrophils # 3.6 K/mm3 (1.8-7.7) 10/14/20 15:33 PT 16.1 Sec. (12.2-14.9) H 10/14/20 15:33 INR 1.23 (0.87-1.13) H 10/14/20 15:33 APTT 32.8 Sec. (24.2-36.6) 10/14/20 15:33 Sodium 134 mmol/L (137-145) L 10/14/20 15:33 Potassium 4.2 mmol/L (3.6-5.0) 10/14/20 15:33 Chloride 97.6 mmol/L (98-107) L 10/14/20 15:33 Carbon Dioxide 24 mmol/L (22-30) 10/14/20 15:33 Anion Gap 17 mmol/L 10/14/20 15:33 BUN 29 mg/dL (9-20) H 10/14/20 15:33 Creatinine 2.9 mg/dL (0.8-1.3) H 10/14/20 15:33 Estimated GFR 27 ml/min 10/14/20 15:33 BUN/Creatinine Ratio 10 % 10/14/20 15:33 Glucose 53 mg/dL (75-100) L 10/14/20 15:33 POC Glucose 140 mg/dL (70-105) H 10/15/20 07:40 Calcium 9.1 mg/dL (8.4-10.2) 10/14/20 15:33 Magnesium 1.90 mg/dL (1.7-2.3) 10/14/20 17:52 Total Bilirubin 0.30 mg/dL (0.1-1.2) 10/14/20 15:33 AST 51 units/L (5-40) H 10/14/20 15:33 ALT 52 units/L (7-56) 10/14/20 15:33 Alkaline Phosphatase 131 units/L (35-129) H 10/14/20 15:33 Total Creatine Kinase 140 units/L (55-170) 10/14/20 15:33 Troponin T 0.047 ng/mL (0.00-0.029) H 10/14/20 15:33 NT-Pro-B Natriuret Pep 1660 pg/mL (0-900) H 10/14/20 15:33 Total Protein 8.2 g/dL (6.3-8.2) 10/14/20 15:33 Albumin 3.8 g/dL (3.9-5) L 10/14/20 15:33 Albumin/Globulin Ratio 0.9 % 10/14/20 15:33 Triglycerides 37 mg/dL (2-149) 10/14/20 15:33 Cholesterol 77 mg/dL (50-199) 10/14/20 15:33 LDL Cholesterol Direct 24 mg/dL (50-130) L 10/14/20 15:33 HDL Cholesterol 45 mg/dL (40-59) 10/14/20 15:33 Cholesterol/HDL Ratio 1.71 % 10/14/20 15:33 Lipase 12 units/L (13-60) L 10/14/20 15:33 TSH 7.820 mlU/mL (0.270-4.200) H 10/14/20 16:34 Free T4 0.90 ng/dL (0.76-1.46) 10/14/20 16:34 Urine Color Colorless (Yellow) 10/14/20 22:39 Urine Turbidity Clear (Clear) 10/14/20 22:39 Urine pH 7.0 (5.0-7.0) 10/14/20 22:39 Ur Specific [place] 1.005 (1.003-1.030) 10/14/20 22:39 Urine Protein <15 mg/dl mg/dL (Negative) 10/14/20 22:39 Urine Glucose (UA) Neg mg/dL (Negative) 10/14/20 22:39 Urine Ketones Neg mg/dL (Negative) 10/14/20 22:39 Urine Blood Sm (Negative) 10/14/20 22:39 Urine Nitrite Neg (Negative) 10/14/20 22:39 Urine Bilirubin Neg (Negative) 10/14/20 22:39 Urine Urobilinogen < 2.0 mg/dL (<2.0) 10/14/20 22:39 Ur Leukocyte Esterase Neg (Negative) 10/14/20 22:39 Urine WBC (Auto) < 1.0 /HPF (0.0-6.0) 10/14/20 22:39 Urine RBC (Auto) < 1.0 /HPF (0.0-6.0) 10/14/20 22:39 Urine Creatinine 21.2 mg/dL (0.1-20.0) H 10/14/20 22:39 Protein/Creatinin Ratio 0.61 10/14/20 22:39 Urine Sodium 116 mmol/L 10/14/20 22:39 Urine Total Protein 13 mg/dL (5-11.8) H 10/14/20 22:39 Blood Type B POSITIVE 10/14/20 18:00 Antibody Screen Negative 10/14/20 18:00 Crossmatch See Detail 10/14/20 18:00 Active Medications - Current Medications Current Medications: Generic Name Dose Route Start Last Admin Trade Name Freq PRN Reason Stop Dose Admin Acetaminophen 650 mg 10/14/20 18:30 Acetaminophen 325 Mg Tab PO Q4H PRN Pain MILD(1-3)/Fever >100.5/SEALS Albuterol 2.5 mg 10/14/20 18:30 Albuterol 2.5 Mg/3 Ml Nebu IH Q4HRT PRN Shortness Of Breath Atorvastatin Calcium 40 mg 10/14/20 22:00 10/14/20 23:58 Atorvastatin 40 Mg Tab PO 40 mg QHS CHAKA Administration Dextrose 50 ml 10/14/20 18:07 Dextrose 50% In Water (25gm) 50 Ml Syringe IV Q30MIN PRN Hypoglycemia Protocol Furosemide 40 mg 10/14/20 18:00 10/15/20 06:13 Furosemide 40 Mg/4 Ml Inj IV 40 mg BID@0600,1800 CHAKA Administration Insulin Human Regular 0 units 10/14/20 19:00 10/15/20 00:00 Insulin Regular, Human 100 Units/1 Ml SUB-Q Not Given Q6H [facility] Protocol Levothyroxine Sodium 100 mcg 10/15/20 06:00 10/15/20 06:13 Levothyroxine 100 Mcg Tab PO 100 mcg DAILY@0600 CHAKA Administration Levothyroxine Sodium 75 mcg 10/15/20 06:00 10/15/20 06:13 Levothyroxine 75 Mcg Tab PO 75 mcg DAILY@0600 [facility] Administration Morphine Sulfate 1 mg 10/14/20 18:30 Morphine 4 Mg/1 Ml Inj IV Q6H PRN Pain , Severe (7-10) Ondansetron HCl 4 mg 10/14/20 18:00 Ondansetron 4 Mg/2 Ml Inj IV Q8H PRN Nausea And Vomiting Oxycodone/Acetaminophen 1 tab 10/14/20 18:30 Oxycodone /Acetaminophen 5-325mg Tab PO Q6H PRN Pain, Moderate (4-6) Pantoprazole Sodium 20 mg 10/15/20 10:00 Pantoprazole 20 Mg Tab PO QDAY [facility] Pneumococcal Polyvalent Vaccine 0.5 ml 10/15/20 12:00 Pneumococcal 23 Valent 0.5 Ml Vial IM 10/15/20 12:01 .ONCE ONE Quetiapine Fumarate 1,000 mg 10/14/20 23:00 10/14/20 23:59 Quetiapine 200 Mg Tab PO 1,000 mg QDAY@2200 CHAKA Administration Sertraline HCl 100 mg 10/15/20 10:00 Sertraline 100 Mg Tab PO QDAY [facility] Sodium Chloride 10 ml 10/14/20 22:00 10/14/20 23:59 Sodium Chloride 0.9% 10 Ml Flush Syringe IV 10 ml BID CHAKA Administration Sodium Chloride 10 ml 10/14/20 18:00 Sodium Chloride 0.9% 10 Ml Flush Syringe IV PRN PRN LINE FLUSH
[2020-10-15 11:10] LABS: Hematocrit 21.2 % (35.5-45.6); Hemoglobin 6.9 gm/dl (11.8-15.2); Mean Corpuscular HGB Conc 33 % (32-34); Platelet Count 181 K/mm3 (140-440); Red Blood Count 3.32 M/mm3 (3.65-5.03)
[2020-10-15 11:22] LABS: Mean Corpuscular Volume 64 fl (84-94); Red Cell Distribution Width 33.8 % (13.2-15.2)
[2020-10-15] MEDS ORDERED: PNEUMOCOCCAL 23 Valent 0.5 ML VIAL IM ONE (12:00)
[2020-10-15 12:01] LABS: Albumin 3.7 g/dL (3.9-5)
[2020-10-15 12:09] LABS: Total Cells Counted 100
[2020-10-15 12:14] LABS: Hypochromasia 2+; Ovalocytes 2+; Poikilocytosis 3+; Target Cells 2+
[2020-10-15 12:15] LABS: Platelet Estimate Consistent w Auto; Rouleaux 1+; Tear Drop Cells 1+
--- NOTE | 2020-10-15 12:43 | Consultation ---
History of Present Illness - Reason for Consult Consult date: 10/15/20 acute renal failure - History of Present Illness The patient is a 60 YO male with history significant for Morbid Obesity, HTN, HLD, DM, Hypothyroidism, GERD, Nicotine Dependence, Depression and CKD stage 3 who presented to [facility] 10/14 with c/o PAT for the past 3 months. Admits leg swelling, decreased exercise tolerance, orthopnea, paroxysmal nocturnal dyspnea, dyspnea on exertion and dyspnea at rest with worsening symptoms over the past 1 week. Patient also acknowledges a 30 pound weight gain over the past 1 month. Patient denies fever, chills, chest pain, palpitation, cough, skin rash, N, V, D, abd pain, dysuria, hematuria, recent ill contacts, or known exposure to COVID-19. Patient was seen and evaluated in the ED, found to have decompensated CHF, cardiorenal syndrome and symptomatic anemia with a hemoglobin of 4.1. Labs significant for Creat 3 and BUN 29. Nephrology was consulted for further evaluation and treatment of MOO. Past History Past Medical History: diabetes, GERD, hypertension, hyperlipidemia, hypothyroidism, renal failure Past Surgical History: No surgical history, Other (Reviewed) Social history: , smoking. denies: alcohol abuse, prescription drug abuse Family history: diabetes, hypertension Medications and Allergies Allergies Allergy/AdvReac Type Severity Reaction Status Date / Time No Known Allergies Allergy Unverified 02/11/20 12:08 Home Medications Medication Instructions Recorded Confirmed Last Taken Type AtorvaSTATin [Lipitor] 40 mg PO QHS 10/14/20 10/14/20 Unknown History Insulin NPH Hum/Reg Insulin Hm 30 1000units SUB-Q Q12HR 10/14/20 10/14/20 Unknown History [Novolin 70-30 100 Unit/ml Vial] Levothyroxine Sodium 175 mcg PO 10/14/20 Unknown History [Levothyroxine] Omeprazole 20 mg PO 10/14/20 Unknown History QUEtiapine [SEROquel] 1,000 mg PO QDAY 10/14/20 10/14/20 Unknown History Sertraline [Zoloft] 100 mg PO QDAY 10/14/20 10/14/20 Unknown History Active Meds: Active Medications Acetaminophen (Acetaminophen 325 Mg Tab) 650 mg PO Q4H PRN PRN Reason: Pain MILD(1-3)/Fever >100.5/SEALS Albuterol (Albuterol 2.5 Mg/3 Ml Nebu) 2.5 mg IH Q4HRT PRN PRN Reason: Shortness Of Breath Atorvastatin Calcium (Atorvastatin 40 Mg Tab) 40 mg PO QHS [facility] Last Admin: 10/14/20 23:58 Dose: 40 mg Documented by: Dextrose (Dextrose 50% In Water (25gm) 50 Ml Syringe) 50 ml IV Q30MIN PRN; Protocol PRN Reason: Hypoglycemia Furosemide (Furosemide 40 Mg/4 Ml Inj) 40 mg IV BID@0600,1800 [facility] Last Admin: 10/15/20 06:13 Dose: 40 mg Documented by: Insulin Human Regular (Insulin Regular, Human 100 Units/1 Ml) 0 units SUB-Q Q6H [facility]; Protocol Last Admin: 10/15/20 00:00 Dose: Not Given Documented by: Levothyroxine Sodium (Levothyroxine 100 Mcg Tab) 100 mcg PO DAILY@0600 [facility] Last Admin: 10/15/20 06:13 Dose: 100 mcg Documented by: Levothyroxine Sodium (Levothyroxine 75 Mcg Tab) 75 mcg PO DAILY@0600 [facility] Last Admin: 10/15/20 06:13 Dose: 75 mcg Documented by: Morphine Sulfate (Morphine 4 Mg/1 Ml Inj) 1 mg IV Q6H PRN PRN Reason: Pain , Severe (7-10) Ondansetron HCl (Ondansetron 4 Mg/2 Ml Inj) 4 mg IV Q8H PRN PRN Reason: Nausea And Vomiting Oxycodone/Acetaminophen (Oxycodone /Acetaminophen 5-325mg Tab) 1 tab PO Q6H PRN PRN Reason: Pain, Moderate (4-6) Pantoprazole Sodium (Pantoprazole 20 Mg Tab) 20 mg PO QDAY [facility] Quetiapine Fumarate (Quetiapine 200 Mg Tab) 1,000 mg PO QDAY@2200 [facility] Last Admin: 10/14/20 23:59 Dose: 1,000 mg Documented by: Sertraline HCl (Sertraline 100 Mg Tab) 100 mg PO QDAY [facility] Sodium Chloride (Sodium Chloride 0.9% 10 Ml Flush Syringe) 10 ml IV BID [facility] Last Admin: 10/14/20 23:59 Dose: 10 ml Documented by: Sodium Chloride (Sodium Chloride 0.9% 10 Ml Flush Syringe) 10 ml IV PRN PRN PRN Reason: LINE FLUSH Review of Systems Constitutional: weight gain, weakness, no weight loss, no fever, no chills, no anorexia, no poor appetite Cardiovascular: orthopnea, edema, shortness of breath, dyspnea on exertion, paroxysmal nocturnal dyspnea, high blood pressure, leg edema, no chest pain, no syncope, no lightheadedness Respiratory: shortness of breath, dyspnea on exertion, no cough, no hemoptysis Gastrointestinal: no abdominal pain, no nausea, no vomiting, no diarrhea, no melena Genitourinary Male: no dysuria, no hematuria Integumentary: no rash, no wounds Neurological: no convulsions, no aphasia, no change in speech, no change in mentation, no confusion Exam - Vital Signs Vital signs: Vital Signs Temp 98.6 F 10/14/20 14:55 Results - Lab Results 10/15/20 10:55 10/15/20 10:55 Most recent lab results Calcium 9.0 mg/dL (8.4-10.2) 10/15/20 10:55 Magnesium 1.90 mg/dL (1.7-2.3) 10/14/20 17:52 Urine Creatinine 21.2 mg/dL (0.1-20.0) H 10/14/20 22:39 Urine Sodium 116 mmol/L 10/14/20 22:39 Urine Total Protein 13 mg/dL (5-11.8) H 10/14/20 22:39 Assessment and Plan 1. Acute kidney injury: MOO superimposed on CKD in the setting of Cardio-renal syndrome. Urine studies and Renal US ordered. Monitor renal function. Creatinine level is about the same as yesterday. Renal prognosis is guarded. Avoid nephrotoxic agents. Meds dosage based on GFR. 2. FEN: Volume overload, IV Lasix. Monitor lytes. 3. Acute CHF: Echo pending. Limit fluid intake, low salt diet. Followed by Cards. 4. Elevated Troponin: Trend Troponin. Echocardiogram for LV function ejection fraction. Followed by Cards. 5. Symptomatic anemia: S/p PRBC. Monitor. 6. Diabetes mellitus: Accu-Chek, SSI. ADA diet. 7. Hypertension: Monitor BP. Adjust meds. Subjective: Patient was seen and examined at the bedside. Examination: General appearance: well-developed, obese, appears stated age, no distress HEENT: ATMARLYN, STACIE Neck: trachea midline Respiratory: Clear to Auscultation Heart: regular, S1S2, no murmur Gastrointestinal: soft, normoactive bowel sounds, not tender Integumentary: no obvious rash Neurologic: alert, follows command, able to move extremities Ext: no edema
--- NOTE | 2020-10-15 13:11 | Consultation ---
History of Present Illness Consult date: 10/15/20 Requesting physician: AZAR WRAY Consult reason: congestive heart failure History of present illness: This patient is a 60-year-old male with a significant history of chronic anemia, insulin-dependent diabetes, hypothyroidism secondary to thyroidectomy, Hypertension hyperlipidemia, diabetes, obesity, hypoventilation syndrome, CKD, hypothyroidism, GERD, tobacco use, depression. He is previously unknown to our practice and is followed by [facility]. Patient presents to [facility] ER complaining of bilateral lower extremity edema and shortness of breath x1 month. Patient endorses 30 pound weight gain over the last 3 months. In ER patient was found to be profoundly anemic with a hemoglobin of 4.1 and received PRBC transfusion. Cardiology is consulted for congestive heart failure. BNP is elevated on admission. Patient denies any chest pain, but does endorse decreased ADLs over the last several months. On exam patient has 2+ bilateral lower extremity edema. Patient denies any weakness, dizziness, chest pain, abdominal pain, N/V/D, recent illness or known exposures. Patient smokes half pack per day x40 years. No EtOH or illicit drug use. History of thyroidectomy. Past History Past Medical History: diabetes, GERD, hypertension, hyperlipidemia, hypothyroidism, other (See HPI) Past Surgical History: No surgical history, Other (Reviewed) Social history: , smoking. denies: alcohol abuse, prescription drug abuse Family history: diabetes, hypertension Medications and Allergies Allergies Allergy/AdvReac Type Severity Reaction Status Date / Time No Known Allergies Allergy Unverified 02/11/20 12:08 Home Medications Medication Instructions Recorded Confirmed Last Taken Type AtorvaSTATin [Lipitor] 40 mg PO QHS 10/14/20 10/14/20 Unknown History Insulin NPH Hum/Reg Insulin Hm 30 1000units SUB-Q Q12HR 10/14/20 10/14/20 Unknown History [Novolin 70-30 100 Unit/ml Vial] Levothyroxine Sodium 175 mcg PO 10/14/20 Unknown History [Levothyroxine] Omeprazole 20 mg PO 10/14/20 Unknown History QUEtiapine [SEROquel] 1,000 mg PO QDAY 10/14/20 10/14/20 Unknown History Sertraline [Zoloft] 100 mg PO QDAY 10/14/20 10/14/20 Unknown History Active Meds: Active Medications Acetaminophen (Acetaminophen 325 Mg Tab) 650 mg PO Q4H PRN PRN Reason: Pain MILD(1-3)/Fever >100.5/SEALS Albuterol (Albuterol 2.5 Mg/3 Ml Nebu) 2.5 mg IH Q4HRT PRN PRN Reason: Shortness Of Breath Atorvastatin Calcium (Atorvastatin 40 Mg Tab) 40 mg PO QHS [facility] Last Admin: 10/14/20 23:58 Dose: 40 mg Documented by: Dextrose (Dextrose 50% In Water (25gm) 50 Ml Syringe) 50 ml IV Q30MIN PRN; Protocol PRN Reason: Hypoglycemia Furosemide (Furosemide 40 Mg/4 Ml Inj) 40 mg IV BID@0600,1800 [facility] Last Admin: 10/15/20 06:13 Dose: 40 mg Documented by: Insulin Human Regular (Insulin Regular, Human 100 Units/1 Ml) 0 units SUB-Q Q6H [facility]; Protocol Last Admin: 10/15/20 00:00 Dose: Not Given Documented by: Levothyroxine Sodium (Levothyroxine 100 Mcg Tab) 100 mcg PO DAILY@0600 [facility] Last Admin: 10/15/20 06:13 Dose: 100 mcg Documented by: Levothyroxine Sodium (Levothyroxine 75 Mcg Tab) 75 mcg PO DAILY@0600 [facility] Last Admin: 10/15/20 06:13 Dose: 75 mcg Documented by: Morphine Sulfate (Morphine 4 Mg/1 Ml Inj) 1 mg IV Q6H PRN PRN Reason: Pain , Severe (7-10) Ondansetron HCl (Ondansetron 4 Mg/2 Ml Inj) 4 mg IV Q8H PRN PRN Reason: Nausea And Vomiting Oxycodone/Acetaminophen (Oxycodone /Acetaminophen 5-325mg Tab) 1 tab PO Q6H PRN PRN Reason: Pain, Moderate (4-6) Pantoprazole Sodium (Pantoprazole 20 Mg Tab) 20 mg PO QDAY [facility] Quetiapine Fumarate (Quetiapine 200 Mg Tab) 1,000 mg PO QDAY@2200 [facility] Last Admin: 10/14/20 23:59 Dose: 1,000 mg Documented by: Sertraline HCl (Sertraline 100 Mg Tab) 100 mg PO QDAY [facility] Sodium Chloride (Sodium Chloride 0.9% 10 Ml Flush Syringe) 10 ml IV BID [facility] Last Admin: 10/14/20 23:59 Dose: 10 ml Documented by: Sodium Chloride (Sodium Chloride 0.9% 10 Ml Flush Syringe) 10 ml IV PRN PRN PRN Reason: LINE FLUSH Review of Systems Constitutional: weight gain, no weight loss, no fever, no chills, no sweats Ears, nose, mouth and throat: no ear pain, no ear discharge, no nose pain, no nasal congestion, no nasal discharge Cardiovascular: edema, shortness of breath, dyspnea on exertion, leg edema, no chest pain, no orthopnea, no palpitations, no rapid/irregular heart beat, no syncope, no lightheadedness, no paroxysmal nocturnal dyspnea, no claudication, no high blood pressure Respiratory: shortness of breath, dyspnea on exertion, no cough, no cough with sputum, no hemoptysis Gastrointestinal: no abdominal pain, no nausea, no vomiting, no diarrhea Genitourinary Male: no flank pain Musculoskeletal: no neck stiffness, no neck pain, no shooting arm pain, no arm numbness/tingling, no low back pain Integumentary: no rash, no pruritis, no redness, no sores, no wounds Neurological: no head injury, no paralysis, no weakness, no parathesias, no numbness, no tingling, no seizures, no syncope Psychiatric: no anxiety Endocrine: no cold intolerance, no heat intolerance Hematologic/Lymphatic: no easy bruising, no easy bleeding Allergic/Immunologic: no urticaria Physical Examination Vital Signs Temp 98.6 F 10/14/20 14:55 General appearance: no acute distress HEENT: Positive: PERRL, Normocephaly, Mucus Membranes Moist Neck: Positive: neck supple, trachea midline Cardiac: Positive: Reg Rate and Rhythm, S1/S2 Lungs: Positive: Normal Exam Neuro: Positive: Grossly Intact Abdomen: Positive: Unremarkable, Soft Skin: Negative: Rash, Wound Musculoskeletal: No Pain Extremities: Present: upper extr. pulses, lower extr. pulses, +2 Edema Results 10/15/20 10:55 10/15/20 10:55 Cardiac Enzymes 10/14/20 10/15/20 Range/Units 15:33 10:55 AST 51 H 41 H (5-40) units/L Coagulation 10/14/20 Range/Units 15:33 PT 16.1 H (12.2-14.9) Sec. INR 1.23 H (0.87-1.13) APTT 32.8 (24.2-36.6) Sec. Lipids 10/14/20 Range/Units 15:33 Triglycerides 37 (2-149) mg/dL Cholesterol 77 (50-199) mg/dL HDL Cholesterol 45 (40-59) mg/dL Cholesterol/HDL Ratio 1.71 % CBC 10/14/20 10/15/20 Range/Units 15:33 10:55 WBC 5.3 5.0 (4.5-11.0) K/mm3 RBC 2.67 L 3.32 L (3.65-5.03) M/mm3 Hgb 4.1 L* 6.9 L (11.8-15.2) gm/dl Hct 14.6 L* 21.2 L D (35.5-45.6) % Plt Count 172 181 (140-440) K/mm3 Lymph # (Auto) 1.1 L (1.2-5.4) K/mm3 Dewitt # (Auto) 0.5 (0.0-0.8) K/mm3 Eos # (Auto) 0.1 (0.0-0.4) K/mm3 Baso # (Auto) 0.0 (0.0-0.1) K/mm3 Comprehensive Metabolic Panel 10/14/20 10/15/20 Range/Units 15:33 10:55 Sodium 134 L 137 (137-145) mmol/L Potassium 4.2 4.0 (3.6-5.0) mmol/L Chloride 97.6 L 98.7 (98-107) mmol/L Carbon Dioxide 24 25 (22-30) mmol/L BUN 29 H 29 H (9-20) mg/dL Creatinine 2.9 H 3.0 H (0.8-1.3) mg/dL Glucose 53 L 170 H (75-100) mg/dL Calcium 9.1 9.0 (8.4-10.2) mg/dL AST 51 H 41 H (5-40) units/L ALT 52 46 (7-56) units/L Alkaline Phosphatase 131 H 126 (35-129) units/L Total Protein 8.2 7.9 (6.3-8.2) g/dL Albumin 3.8 L 3.7 L (3.9-5) g/dL - Imaging and Cardiology Echo: pending EKG: report reviewed, image reviewed EKG interpretations - Telemetry EKG Rhythm: Sinus Rhythm - EKG Sinus rhythms and dysrhythmias: sinus rhythm Assessment and Plan Elevated troponins * Patient is currently chest pain-free with no cardiac complaints. Twelve-lead reviewed shows sinus rhythm with no acute ischemic changes. Troponin is elevated x1, subacute and nonspecific. Suspect this is secondary to renal injury. Continue to trend CE's Suspected heart failure with volume overload in setting of MOO * Echocardiogram is pending * 2+ bilateral lower extremity edema. Continue diuresis with Lasix 40 mg IV twice daily pending nephrology recommendations. Strict I/O's. Repeat BMP in a.m. * Avoid nephrotoxic agents. No SAMMY/ARB in setting of MOO Echo is pending. We will follow This patient was seen in conjunction with Dr Fletcher who agrees with assessment and plan of care - Patient Problems (1) Insulin dependent diabetes mellitus Current Visit: Yes Status: Chronic (2) Acute kidney injury Current Visit: Yes Status: Acute (3) DVT prophylaxis Current Visit: Yes Status: Acute (4) History of hypothyroidism Current Visit: Yes Status: Chronic (5) Microcytic anemia Current Visit: Yes Status: Chronic (6) Obesity hypoventilation syndrome Current Visit: Yes Status: Chronic (7) Elevated troponin Current Visit: Yes Status: Acute
[2020-10-15] MEDS: SERTRALINE 100 MG TAB PO SCH (13:20)
[2020-10-15] MEDS: PANTOPRAZOLE 20 MG TAB PO SCH (13:20)
--- NOTE | 2020-10-15 18:49 | Ultrasound Report ---
ULTRASOUND RENAL INDICATION / CLINICAL INFORMATION: Acute renal failure.. COMPARISON: None available. FINDINGS: RIGHT KIDNEY: Length = 10.7 cm. - Echogenicity: Normal. - Cortical Thickness: Normal. - Hydronephrosis: None. - Cyst / Mass: None. - Stones: None seen. LEFT KIDNEY: Length = 10.6 cm. - Echogenicity: Normal. - Cortical Thickness: Normal. - Hydronephrosis: None. - Cyst / Mass: None. - Stones: None seen. URINARY BLADDER: No significant abnormality. FREE FLUID: None. ADDITIONAL FINDINGS: None. IMPRESSION: 1. No significant abnormality. Signer Name: Wilda Juarez MD Signed: 10/15/2020 6:45 PM Workstation Name: [id number]
[2020-10-15] MEDS: QUEtiapine 200 MG TAB PO SCH (22:13)
[2020-10-16] MEDS: INSULIN REGULAR, HUMAN 100 UNITS/1 ML SUB-Q SCH ×5 (01:24→22:39)
[2020-10-16 05:17] LABS: Hemoglobin 7.5 gm/dl (11.8-15.2); Red Blood Count 3.59 M/mm3 (3.65-5.03)
[2020-10-16 05:18] LABS: Hematocrit 23.1 % (35.5-45.6); Mean Corpuscular HGB Conc 32 % (32-34); Mean Corpuscular Volume 65 fl (84-94); Platelet Count 196 K/mm3 (140-440); Red Cell Distribution Width 33.8 % (13.2-15.2)
[2020-10-16 05:19] LABS: Calcium 8.9 mg/dL (8.4-10.2)
[2020-10-16] MEDS: LEVOTHYROXINE 100 MCG TAB PO SCH (06:03)
[2020-10-16] MEDS: LEVOTHYROXINE 75 MCG TAB PO SCH (06:03)
[2020-10-16] MEDS: FUROSEMIDE 40 MG/4 ML INJ IV SCH ×2 (06:03→18:17)
[2020-10-16] MEDS: SERTRALINE 100 MG TAB PO SCH (09:06)
[2020-10-16] MEDS: PANTOPRAZOLE 20 MG TAB PO SCH (09:06)
--- NOTE | 2020-10-16 10:23 | Progress Note ---
Assessment and Plan Elevated troponins * Patient is currently chest pain-free with no cardiac complaints. Twelve-lead reviewed shows sinus rhythm with no acute ischemic changes. Troponin is elevated x2, subacute and nonspecific and stable. Suspect this is secondary to renal injury. Continue to trend CE's. Suspected heart failure with volume overload in setting of MOO * Echocardiogram is pending * 1+ bilateral lower extremity edema. Continue diuresis with Lasix 40 mg IV twice daily pending nephrology recommendations. Anticipate conversion to PO diuretic tomorrow. Strict I/O's. Repeat BMP in a.m. * Avoid nephrotoxic agents. No SAMMY/ARB in setting of MOO Severe Anemia * Mgmt per primary team. Receiving blood products as needed. Echo is pending. We will follow This patient was seen in conjunction with Dr Fletcher who agrees with assessment and plan of care - Patient Problems (1) Insulin dependent diabetes mellitus Current Visit: Yes Status: Chronic (2) Acute kidney injury Current Visit: Yes Status: Acute (3) DVT prophylaxis Current Visit: Yes Status: Acute (4) History of hypothyroidism Current Visit: Yes Status: Chronic (5) Microcytic anemia Current Visit: Yes Status: Chronic (6) Obesity hypoventilation syndrome Current Visit: Yes Status: Chronic (7) Elevated troponin Current Visit: Yes Status: Acute Subjective Date of service: 10/16/20 Principal diagnosis: a/c HF, MOO Interval history: Pt resting comfortably in bed. No CP or PAT overnight. Telemetry Reviewed: SR 80. No events Objective Last Vital Signs Temp 98.2 F 10/16/20 07:29 Pulse 87 10/16/20 08:38 Resp 17 10/16/20 08:38 BP 119/58 10/16/20 07:29 Pulse Ox 97 10/16/20 08:38 - Physical Examination General: No Apparent Distress HEENT: Positive: PERRL, Normocephaly, Mucus Membranes Moist Neck: Positive: neck supple, trachea midline Cardiac: Positive: Reg Rate and Rhythm, S1/S2 Lungs: Positive: Normal Exam, Normal Breath Sounds Neuro: Positive: Grossly Intact Abdomen: Positive: Unremarkable, Soft Skin: Negative: Rash, Wound Musculoskeletal: No Pain Extremities: Present: upper extr. pulses, lower extr. pulses, +1 Edema - Labs and Meds Cardiac Enzymes 10/15/20 Range/Units 10:55 AST 41 H (5-40) units/L CBC 10/15/20 10/16/20 Range/Units 10:55 03:53 WBC 5.0 6.6 (4.5-11.0) K/mm3 RBC 3.32 L 3.59 L (3.65-5.03) M/mm3 Hgb 6.9 L 7.5 L (11.8-15.2) gm/dl Hct 21.2 L D 23.1 L (35.5-45.6) % Plt Count 181 196 (140-440) K/mm3 Comprehensive Metabolic Panel 10/15/20 10/16/20 Range/Units 10:55 03:53 Sodium 137 136 L (137-145) mmol/L Potassium 4.0 3.8 (3.6-5.0) mmol/L Chloride 98.7 99.0 (98-107) mmol/L Carbon Dioxide 25 25 (22-30) mmol/L BUN 29 H 28 H (9-20) mg/dL Creatinine 3.0 H 3.0 H (0.8-1.3) mg/dL Glucose 170 H 160 H (75-100) mg/dL Calcium 9.0 8.9 (8.4-10.2) mg/dL AST 41 H (5-40) units/L ALT 46 (7-56) units/L Alkaline Phosphatase 126 (35-129) units/L Total Protein 7.9 (6.3-8.2) g/dL Albumin 3.7 L (3.9-5) g/dL - Imaging and Cardiology EKG: report reviewed, image reviewed Echo: pending - Telemetry EKG Rhythm: Sinus Rhythm - EKG Sinus rhythms and dysrhythmias: sinus rhythm
--- NOTE | 2020-10-16 10:50 | Progress Note ---
Assessment and Plan 1. Acute kidney injury: MOO superimposed on CKD in the setting of Cardio-renal syndrome. Renal US negative. Monitor renal function. Creatinine level is about the same as yesterday. Renal prognosis is guarded. Avoid nephrotoxic agents. Meds dosage based on GFR. 2. FEN: Volume overload, IV Lasix. Monitor lytes. 3. Acute CHF: EF 50%, DD noted. Limit fluid intake, low salt diet. Followed by Cards. 4. Elevated Troponin: Trend Troponin. Echo showed EF 50%. Followed by Cards. 5. Symptomatic anemia: S/p PRBC. GI consulted. Monitor. 6. Diabetes mellitus: Accu-Chek, SSI. ADA diet. 7. Hypertension: Monitor BP. Adjust meds. Subjective: Patient was seen and examined at the bedside. Doing better. Examination: General appearance: well-developed, obese, appears stated age, no distress HEENT: ATNC, STACIE Neck: trachea midline Respiratory: Clear to Auscultation Heart: regular, S1S2, no murmur Gastrointestinal: soft, normoactive bowel sounds, not tender Integumentary: no obvious rash Neurologic: alert, follows command, able to move extremities Ext: no edema Subjective Date of service: 10/16/20 Principal diagnosis: a/c HF, MOO Objective - Vital Signs Vital signs: Vital Signs - 12hr 10/15/20 10/16/20 10/16/20 23:10 04:04 07:29 Temperature 99.5 F 97.9 F 98.2 F Pulse Rate 84 81 74 Pulse Rate [ Apical] Pulse Rate [ From Monitor] Respiratory 19 19 17 Rate Blood Pressure 126/60 108/56 119/58 O2 Sat by Pulse 97 95 99 Oximetry 10/16/20 08:38 Temperature Pulse Rate Pulse Rate [ 87 Apical] Pulse Rate [ 87 From Monitor] Respiratory 17 Rate Blood Pressure O2 Sat by Pulse 97 Oximetry - Lab 10/16/20 03:53 10/16/20 03:53 Most recent lab results Calcium 8.9 mg/dL (8.4-10.2) 10/16/20 03:53 Magnesium 1.90 mg/dL (1.7-2.3) 10/14/20 17:52 Urine Creatinine 21.2 mg/dL (0.1-20.0) H 10/14/20 22:39 Urine Sodium 116 mmol/L 10/14/20 22:39 Urine Total Protein 13 mg/dL (5-11.8) H 10/14/20 22:39 Medications & Allergies - Medications Allergies/Adverse Reactions: Allergies No Known Allergies Allergy (Unverified 02/11/20 12:08) Home Medications: Home Medications Medication Instructions Recorded Confirmed Last Taken Type AtorvaSTATin [Lipitor] 40 mg PO QHS 10/14/20 10/14/20 Unknown History Insulin NPH Hum/Reg Insulin Hm 30 1000units SUB-Q Q12HR 10/14/20 10/14/20 Unknown History [Novolin 70-30 100 Unit/ml Vial] Levothyroxine Sodium 175 mcg PO 10/14/20 Unknown History [Levothyroxine] Omeprazole 20 mg PO 10/14/20 Unknown History QUEtiapine [SEROquel] 1,000 mg PO QDAY 10/14/20 10/14/20 Unknown History Sertraline [Zoloft] 100 mg PO QDAY 10/14/20 10/14/20 Unknown History Active Medications: Generic Name Dose Route Start Last Admin Trade Name Freq PRN Reason Stop Dose Admin Acetaminophen 650 mg 10/14/20 18:30 Acetaminophen 325 Mg Tab PO Q4H PRN Pain MILD(1-3)/Fever >100.5/SEALS Albuterol 2.5 mg 10/14/20 18:30 Albuterol 2.5 Mg/3 Ml Nebu IH Q4HRT PRN Shortness Of Breath Atorvastatin Calcium 40 mg 10/14/20 22:00 10/15/20 22:12 Atorvastatin 40 Mg Tab PO 40 mg QHS [facility] Administration Furosemide 40 mg 10/14/20 18:00 10/16/20 06:03 Furosemide 40 Mg/4 Ml Inj IV 40 mg BID@0600,1800 [facility] Administration Insulin Human Regular 0 units 10/16/20 11:30 Insulin Regular, Human 100 Units/1 Ml SUB-Q ACHS [facility] Protocol Levothyroxine Sodium 100 mcg 10/15/20 06:00 10/16/20 06:03 Levothyroxine 100 Mcg Tab PO 100 mcg DAILY@0600 [facility] Administration Levothyroxine Sodium 75 mcg 10/15/20 06:00 10/16/20 06:03 Levothyroxine 75 Mcg Tab PO 75 mcg DAILY@0600 [facility] Administration Morphine Sulfate 1 mg 10/14/20 18:30 Morphine 4 Mg/1 Ml Inj IV Q6H PRN Pain , Severe (7-10) Nicotine 14 mg 10/16/20 11:00 Nicotine 14 Mg/24 Hr Patch TD 10/16/20 11:01 ONCE ONE Ondansetron HCl 4 mg 10/14/20 18:00 Ondansetron 4 Mg/2 Ml Inj IV Q8H PRN Nausea And Vomiting Oxycodone/Acetaminophen 1 tab 10/14/20 18:30 Oxycodone /Acetaminophen 5-325mg Tab PO Q6H PRN Pain, Moderate (4-6) Pantoprazole Sodium 20 mg 10/15/20 10:00 10/16/20 09:06 Pantoprazole 20 Mg Tab PO 20 mg QDAY [facility] Administration Quetiapine Fumarate 1,000 mg 10/14/20 23:00 10/15/20 22:13 Quetiapine 200 Mg Tab PO 1,000 mg QDAY@2200 [facility] Administration Sertraline HCl 100 mg 10/15/20 10:00 10/16/20 09:06 Sertraline 100 Mg Tab PO 100 mg QDAY [facility] Administration Sodium Chloride 10 ml 10/14/20 22:00 10/16/20 09:06 Sodium Chloride 0.9% 10 Ml Flush Syringe IV 10 ml BID [facility] Administration Sodium Chloride 10 ml 10/14/20 18:00 10/16/20 06:06 Sodium Chloride 0.9% 10 Ml Flush Syringe IV 10 ml PRN PRN Administration LINE FLUSH
[2020-10-16] MEDS ORDERED: NICOTINE 14 MG/24 HR PATCH TD ONE (11:00)
[2020-10-16] MEDS ORDERED: INSULIN LISPRO 100 UNIT/ML SUB-Q SCH (11:30)
[2020-10-16] MEDS ORDERED: INSULIN REGULAR, HUMAN 100 UNITS/1 ML SUB-Q SCH (11:30)
--- NOTE | 2020-10-16 12:07 | Consultation ---
History of Present Illness - Reason for Consult Consult date: 10/16/20 Anemia Requesting physician: JOSH AGUILAR - History of Present Illness Mr. Greco is a 60-year-old man who comes in with a 3-month history of increasing dyspnea lower extremity edema and lower abdominal pain. He was found to be markedly anemic with a hemoglobin of 4 on admission and an MCV of 54. GI consultation is obtained. Patient does have a longstanding history of anemia and states he underwent a colonoscopy approximately 3 years ago that was unremarkable. His primary care physician just started him on B vitamins. He does not know what his most recent hemoglobin was, though we do have a hemoglobin of 10.8 with an MCV of 79 in February 2020. He takes [place] on a daily basis for headaches. His bowel movements are irregular with constipation alternating with diarrhea, without any recent changes. There is been no hematochezia hematemesis or melena. He has gained for 30 pounds in the last month. He denies any abdominal pain nausea or vomiting. His appetite is good. Medications reviewed. Past History Past Medical History: diabetes, GERD, hypertension, hyperlipidemia, hypothyroidism, renal failure Past Surgical History: Other (Thyroidectomy) Social history: , smoking. denies: alcohol abuse, prescription drug abuse Family history: diabetes, hypertension Medications and Allergies Allergies Allergy/AdvReac Type Severity Reaction Status Date / Time No Known Allergies Allergy Unverified 02/11/20 12:08 Home Medications Medication Instructions Recorded Confirmed Last Taken Type AtorvaSTATin [Lipitor] 40 mg PO QHS 10/14/20 10/14/20 Unknown History Insulin NPH Hum/Reg Insulin Hm 30 1000units SUB-Q Q12HR 10/14/20 10/14/20 Unknown History [Novolin 70-30 100 Unit/ml Vial] Levothyroxine Sodium 175 mcg PO 10/14/20 Unknown History [Levothyroxine] Omeprazole 20 mg PO 10/14/20 Unknown History QUEtiapine [SEROquel] 1,000 mg PO QDAY 10/14/20 10/14/20 Unknown History Sertraline [Zoloft] 100 mg PO QDAY 10/14/20 10/14/20 Unknown History Active Meds: Active Medications Acetaminophen (Acetaminophen 325 Mg Tab) 650 mg PO Q4H PRN PRN Reason: Pain MILD(1-3)/Fever >100.5/SEALS Albuterol (Albuterol 2.5 Mg/3 Ml Nebu) 2.5 mg IH Q4HRT PRN PRN Reason: Shortness Of Breath Atorvastatin Calcium (Atorvastatin 40 Mg Tab) 40 mg PO QHS [facility] Last Admin: 10/15/20 22:12 Dose: 40 mg Documented by: Furosemide (Furosemide 40 Mg/4 Ml Inj) 40 mg IV BID@0600,1800 [facility] Last Admin: 10/16/20 06:03 Dose: 40 mg Documented by: Insulin Human Regular (Insulin Regular, Human 100 Units/1 Ml) 0 units SUB-Q ACHS [facility]; Protocol Levothyroxine Sodium (Levothyroxine 100 Mcg Tab) 100 mcg PO DAILY@0600 [facility] Last Admin: 10/16/20 06:03 Dose: 100 mcg Documented by: Levothyroxine Sodium (Levothyroxine 75 Mcg Tab) 75 mcg PO DAILY@0600 [facility] Last Admin: 10/16/20 06:03 Dose: 75 mcg Documented by: Morphine Sulfate (Morphine 4 Mg/1 Ml Inj) 1 mg IV Q6H PRN PRN Reason: Pain , Severe (7-10) Ondansetron HCl (Ondansetron 4 Mg/2 Ml Inj) 4 mg IV Q8H PRN PRN Reason: Nausea And Vomiting Oxycodone/Acetaminophen (Oxycodone /Acetaminophen 5-325mg Tab) 1 tab PO Q6H PRN PRN Reason: Pain, Moderate (4-6) Pantoprazole Sodium (Pantoprazole 20 Mg Tab) 20 mg PO QDAY [facility] Last Admin: 10/16/20 09:06 Dose: 20 mg Documented by: Quetiapine Fumarate (Quetiapine 200 Mg Tab) 1,000 mg PO QDAY@2200 [facility] Last Admin: 10/15/20 22:13 Dose: 1,000 mg Documented by: Sertraline HCl (Sertraline 100 Mg Tab) 100 mg PO QDAY [facility] Last Admin: 10/16/20 09:06 Dose: 100 mg Documented by: Sodium Chloride (Sodium Chloride 0.9% 10 Ml Flush Syringe) 10 ml IV BID [facility] Last Admin: 10/16/20 09:06 Dose: 10 ml Documented by: Sodium Chloride (Sodium Chloride 0.9% 10 Ml Flush Syringe) 10 ml IV PRN PRN PRN Reason: LINE FLUSH Last Admin: 10/16/20 06:06 Dose: 10 ml Documented by: Review of Systems All systems: negative (as per HPI) Exam - Constitutional Vitals: Temp Pulse Resp BP Pulse Ox 98.2 F 87 17 119/58 97 10/16/20 07:29 10/16/20 08:38 10/16/20 08:38 10/16/20 07:29 10/16/20 08:38 General appearance: Present: no acute distress, other (Obese) - EENT Eyes: Present: PERRL, EOM intact ENT: hearing intact - Respiratory Respiratory effort: normal Respiratory: bilateral: CTA - Cardiovascular Rhythm: regular Heart Sounds: Present: S1 & S2 - Abdominal General gastrointestinal: Present: soft, non-tender Results - Labs CBC & Chem 7: 10/16/20 03:53 10/16/20 03:53 Labs: Abnormal lab results 10/14/20 10/15/20 10/15/20 Range/Units 18:00 10:55 10:55 RBC (3.65-5.03) M/mm3 Hgb (11.8-15.2) gm/dl Hct (35.5-45.6) % MCV (84-94) fl MCH (28-32) pg RDW (13.2-15.2) % Seg Neuts % (Manual) 88.0 H (40.0-70.0) % Lymphocytes % (Manual) 11.0 L (13.4-35.0) % Lymphocytes # (Manual) 0.6 L (1.2-5.4) K/mm3 Sodium (137-145) mmol/L BUN 29 H (9-20) mg/dL Creatinine 3.0 H (0.8-1.3) mg/dL Glucose 170 H (75-100) mg/dL POC Glucose (70-105) mg/dL AST 41 H (5-40) units/L Troponin T (0.00-0.029) ng/mL Albumin 3.7 L (3.9-5) g/dL Crossmatch See Detail 10/15/20 10/15/20 10/16/20 Range/Units 12:20 16:41 01:07 RBC (3.65-5.03) M/mm3 Hgb (11.8-15.2) gm/dl Hct (35.5-45.6) % MCV (84-94) fl MCH (28-32) pg RDW (13.2-15.2) % Seg Neuts % (Manual) (40.0-70.0) % Lymphocytes % (Manual) (13.4-35.0) % Lymphocytes # (Manual) (1.2-5.4) K/mm3 Sodium (137-145) mmol/L BUN (9-20) mg/dL Creatinine (0.8-1.3) mg/dL Glucose (75-100) mg/dL POC Glucose 196 H 180 H 179 H (70-105) mg/dL AST (5-40) units/L Troponin T (0.00-0.029) ng/mL Albumin (3.9-5) g/dL Crossmatch 10/16/20 10/16/20 10/16/20 Range/Units 03:53 03:53 07:27 RBC 3.59 L (3.65-5.03) M/mm3 Hgb 7.5 L (11.8-15.2) gm/dl Hct 23.1 L (35.5-45.6) % MCV 65 L (84-94) fl MCH 21 L (28-32) pg RDW 33.8 H (13.2-15.2) % Seg Neuts % (Manual) (40.0-70.0) % Lymphocytes % (Manual) (13.4-35.0) % Lymphocytes # (Manual) (1.2-5.4) K/mm3 Sodium 136 L (137-145) mmol/L BUN 28 H (9-20) mg/dL Creatinine 3.0 H (0.8-1.3) mg/dL Glucose 160 H (75-100) mg/dL POC Glucose 160 H (70-105) mg/dL AST (5-40) units/L Troponin T 0.041 H (0.00-0.029) ng/mL Albumin (3.9-5) g/dL Crossmatch 10/16/20 Range/Units 11:57 RBC (3.65-5.03) M/mm3 Hgb (11.8-15.2) gm/dl Hct (35.5-45.6) % MCV (84-94) fl MCH (28-32) pg RDW (13.2-15.2) % Seg Neuts % (Manual) (40.0-70.0) % Lymphocytes % (Manual) (13.4-35.0) % Lymphocytes # (Manual) (1.2-5.4) K/mm3 Sodium (137-145) mmol/L BUN (9-20) mg/dL Creatinine (0.8-1.3) mg/dL Glucose (75-100) mg/dL POC Glucose 212 H (70-105) mg/dL AST (5-40) units/L Troponin T (0.00-0.029) ng/mL Albumin (3.9-5) g/dL Crossmatch Assessment and Plan 1. Microcytic anemia -stool is negative for occult blood. Apparently this is not a new problem for the patient, though the degree of anemia this admission is profound. He may well have GI blood loss, or he may malabsorb. He has no active bleeding, and he has been transfused. -Check iron studies and B12 -May discharge home on oral PPI empirically, and have patient follow-up as outpatient with GI so repeat endoscopic evaluation can be performed -Patient advised to stop [place]-Bourbon, and use Tylenol for headaches. Will sign off. Thanks.
[2020-10-16 14:44] LABS: Iron 19 ug/dL (49-181); Total Iron Binding Capacity 382 mcg/dL (250-450)
--- NOTE | 2020-10-16 19:43 | Progress Note ---
Assessment and Plan Assessment and plan: -- Symptomatic severe anemia Current Visit: Yes Status: Acute Received 3-4 units PRBC transfusion, fourth unit transfuse Monitor H&H, stool for occult blood negative GI evaluation noted and appreciated Hb improved from 4.1-7.5 Closely monitor H&H transfuse additional PRBC as needed If GI causes are not found will consult hematology for further evaluation -- Heart failure, systolic, with acute decompensation Current Visit: Yes Status: Acute IV diuretics , input output monitoring , low-sodium diet , fluid restriction Echo for LV function ejection fraction 50%, cardiology evaluation noted and appreciated --Obesity hypoventilation syndrome Current Visit: Yes Status: Acute Dietary modification, exercise as tolerated and weight reduction When medically stable, outpatient pulmonary evaluation and sleep study Rule out CPAP --Cardiorenal syndrome with renal failure Current Visit: Yes Status: Acute Nephrology team consulted, monitor urine output Cardiology and nephrology following , follow echo for EF --History of hypothyroidism Current Visit: Yes Status: Acute Continue Synthroid therapy, thyroid panel, supportive care. --Microcytic anemia Current Visit: Yes Status: Acute Blood transfusion, supportive care Treat underlying cause -- DVT prophylaxis Current Visit: Yes Status: Acute Plan to address problem: SCD, no pharmacologic anticoagulation in view of severe anemia --Advance care planning Current Visit: Yes Status: Acute Discussed extensively with the patient, his condition tests and reports Treatment plan, patient is full CODE STATUS We will closely monitor the patient and adjust management as needed Plan of care reviewed with the patient and his nurse Brief history 60-year-old -[place] male patient was admitted with symptomatic anemia, acute kidney injury and generalized weakness Patient's hemoglobin was 4.1 received 3 units of PRBC and Hb improved to 6.9, fourth unit of PRBC started Patient also has acute kidney injury, nephrology following. Patient feels slightly better still has generalized weakness and abdominal pain GI consulted to rule out GI causes of severe anemia 10/15/2020; received 3 units of PRBC for severe anemia, fourth unit is running, GI consulted to rule out GI causes of anemia Continue supportive care, follow nephrology evaluation recommendations 10/16/2020; patient's Hb increased to 7.2, GI evaluation noted and appreciated, closely monitor the patient Possible discharge in 1 to 2 days if stable Disposition follow consultants recommendations, discharge when clinically stable Hospitalist Physical - Constitutional Vitals: Temp Pulse Resp BP Pulse Ox 98.6 F 81 14 127/68 97 10/16/20 16:38 10/16/20 16:38 10/16/20 16:38 10/16/20 16:38 10/16/20 16:38 General appearance: Present: no acute distress, well-nourished, obese, other (Obese) - EENT Eyes: Present: PERRL, EOM intact - Neck Neck: Present: supple, normal ROM - Respiratory Respiratory effort: normal Respiratory: bilateral: diminished, negative: rales, rhonchi, wheezing - Cardiovascular Rhythm: regular Heart Sounds: Present: S1 & S2 - Extremities Extremities: no ischemia, No edema - Abdominal General gastrointestinal: soft, non-tender, non-distended, normal bowel sounds - Integumentary Integumentary: Present: clear, warm - Psychiatric Psychiatric: agitated, other - Neurologic Neurologic: moves all extremities (Confused), other (Confused) HEART Score - HEART Score Troponin: Troponin T 0.041 ng/mL (0.00-0.029) H 10/16/20 03:53 Results - Labs CBC & Chem 7: 10/16/20 03:53 10/16/20 03:53 Labs: Laboratory Last Values WBC 6.6 K/mm3 (4.5-11.0) 10/16/20 03:53 RBC 3.59 M/mm3 (3.65-5.03) L 10/16/20 03:53 Hgb 7.5 gm/dl (11.8-15.2) L 10/16/20 03:53 Hct 23.1 % (35.5-45.6) L 10/16/20 03:53 MCV 65 fl (84-94) L 10/16/20 03:53 MCH 21 pg (28-32) L 10/16/20 03:53 MCHC 32 % (32-34) 10/16/20 03:53 RDW 33.8 % (13.2-15.2) H 10/16/20 03:53 Plt Count 196 K/mm3 (140-440) 10/16/20 03:53 Lymph % (Auto) 20.7 % (13.4-35.0) 10/14/20 15:33 Becker % (Auto) 10.2 % (0.0-7.3) H 10/14/20 15:33 Eos % (Auto) 1.7 % (0.0-4.3) 10/14/20 15:33 Baso % (Auto) 0.5 % (0.0-1.8) 10/14/20 15:33 Lymph # (Auto) 1.1 K/mm3 (1.2-5.4) L 10/14/20 15:33 Becker # (Auto) 0.5 K/mm3 (0.0-0.8) 10/14/20 15:33 Eos # (Auto) 0.1 K/mm3 (0.0-0.4) 10/14/20 15:33 Baso # (Auto) 0.0 K/mm3 (0.0-0.1) 10/14/20 15:33 Add Manual Diff Complete 10/15/20 10:55 Total Counted 100 10/15/20 10:55 Seg Neutrophils % 66.9 % (40.0-70.0) 10/14/20 15:33 Seg Neuts % (Manual) 88.0 % (40.0-70.0) H 10/15/20 10:55 Lymphocytes % (Manual) 11.0 % (13.4-35.0) L 10/15/20 10:55 Monocytes % (Manual) 1.0 % (0.0-7.3) 10/15/20 10:55 Nucleated RBC % Not Reportable 10/15/20 10:55 Seg Neutrophils # 3.6 K/mm3 (1.8-7.7) 10/14/20 15:33 Seg Neutrophils # Man 4.4 K/mm3 (1.8-7.7) 10/15/20 10:55 Band Neutrophils # 0.0 K/mm3 10/15/20 10:55 Lymphocytes # (Manual) 0.6 K/mm3 (1.2-5.4) L 10/15/20 10:55 Abs React Lymphs (Man) 0.0 K/mm3 10/15/20 10:55 Monocytes # (Manual) 0.1 K/mm3 (0.0-0.8) 10/15/20 10:55 Eosinophils # (Manual) 0.0 K/mm3 (0.0-0.4) 10/15/20 10:55 Basophils # (Manual) 0.0 K/mm3 (0.0-0.1) 10/15/20 10:55 Metamyelocytes # 0.0 K/mm3 10/15/20 10:55 Myelocytes # 0.0 K/mm3 10/15/20 10:55 Promyelocytes # 0.0 K/mm3 10/15/20 10:55 Blast Cells # 0.0 K/mm3 10/15/20 10:55 WBC Morphology Not Reportable 10/15/20 10:55 Hypersegmented Neuts Not Reportable 10/15/20 10:55 Hyposegmented Neuts Not Reportable 10/15/20 10:55 Hypogranular Neuts Not Reportable 10/15/20 10:55 Smudge Cells Not Reportable 10/15/20 10:55 Toxic Granulation Not Reportable 10/15/20 10:55 Toxic Vacuolation Not Reportable 10/15/20 10:55 Dohle Bodies Not Reportable 10/15/20 10:55 Pelger-Huet Anomaly Not Reportable 10/15/20 10:55 Placido Rods Not Reportable 10/15/20 10:55 Platelet Estimate Consistent w auto 10/15/20 10:55 Clumped Platelets Not Reportable 10/15/20 10:55 Plt Clumps, EDTA Not Reportable 10/15/20 10:55 Large Platelets Not Reportable 10/15/20 10:55 Giant Platelets Not Reportable 10/15/20 10:55 Platelet Satelliting Not Reportable 10/15/20 10:55 Plt Morphology Comment Not Reportable 10/15/20 10:55 RBC Morphology Not Reportable 10/15/20 10:55 Dimorphic RBCs Not Reportable 10/15/20 10:55 Polychromasia 1+ 10/15/20 10:55 Hypochromasia 2+ 10/15/20 10:55 Poikilocytosis 3+ 10/15/20 10:55 Anisocytosis Not Reportable 10/15/20 10:55 Microcytosis 3+ 10/15/20 10:55 Macrocytosis Not Reportable 10/15/20 10:55 Spherocytes Not Reportable 10/15/20 10:55 Pappenheimer Bodies Not Reportable 10/15/20 10:55 Sickle Cells Not Reportable 10/15/20 10:55 Target Cells 2+ 10/15/20 10:55 Tear Drop Cells 1+ 10/15/20 10:55 Ovalocytes 2+ 10/15/20 10:55 Helmet Cells Not Reportable 10/15/20 10:55 [place] Bodies Not Reportable 10/15/20 10:55 [place] Rings Not Reportable 10/15/20 10:55 Hussain Cells Not Reportable 10/15/20 10:55 Bite Cells Not Reportable 10/15/20 10:55 Crenated Cell Not Reportable 10/15/20 10:55 Elliptocytes Not Reportable 10/15/20 10:55 Acanthocytes (Spur) 1+ 10/15/20 10:55 Rouleaux 1+ 10/15/20 10:55 Hemoglobin C Crystals Not Reportable 10/15/20 10:55 Schistocytes Not Reportable 10/15/20 10:55 Malaria parasites Not Reportable 10/15/20 10:55 Ezequiel Bodies Not Reportable 10/15/20 10:55 Hem Pathologist Commnt No 10/15/20 10:55 PT 16.1 Sec. (12.2-14.9) H 10/14/20 15:33 INR 1.23 (0.87-1.13) H 10/14/20 15:33 APTT 32.8 Sec. (24.2-36.6) 10/14/20 15:33 Sodium 136 mmol/L (137-145) L 10/16/20 03:53 Potassium 3.8 mmol/L (3.6-5.0) 10/16/20 03:53 Chloride 99.0 mmol/L (98-107) 10/16/20 03:53 Carbon Dioxide 25 mmol/L (22-30) 10/16/20 03:53 Anion Gap 16 mmol/L 10/16/20 03:53 BUN 28 mg/dL (9-20) H 10/16/20 03:53 Creatinine 3.0 mg/dL (0.8-1.3) H 10/16/20 03:53 Estimated GFR 26 ml/min 10/16/20 03:53 BUN/Creatinine Ratio 9 % 10/16/20 03:53 Glucose 160 mg/dL (75-100) H 10/16/20 03:53 POC Glucose 266 mg/dL (70-105) H 10/16/20 16:25 Calcium 8.9 mg/dL (8.4-10.2) 10/16/20 03:53 Magnesium 1.90 mg/dL (1.7-2.3) 10/14/20 17:52 Iron 19 ug/dL (49-181) L 10/16/20 13:48 TIBC 382 mcg/dL (250-450) 10/16/20 13:48 Ferritin 10.7 ng/mL (30.0-300.0) L 10/16/20 13:48 Total Bilirubin 0.80 mg/dL (0.1-1.2) 10/15/20 10:55 AST 41 units/L (5-40) H 10/15/20 10:55 ALT 46 units/L (7-56) 10/15/20 10:55 Alkaline Phosphatase 126 units/L (35-129) 10/15/20 10:55 Total Creatine Kinase 140 units/L (55-170) 10/14/20 15:33 Troponin T 0.041 ng/mL (0.00-0.029) H 10/16/20 03:53 NT-Pro-B Natriuret Pep 1660 pg/mL (0-900) H 10/14/20 15:33 Total Protein 7.9 g/dL (6.3-8.2) 10/15/20 10:55 Albumin 3.7 g/dL (3.9-5) L 10/15/20 10:55 Albumin/Globulin Ratio 0.9 % 10/15/20 10:55 Triglycerides 37 mg/dL (2-149) 10/14/20 15:33 Cholesterol 77 mg/dL (50-199) 10/14/20 15:33 LDL Cholesterol Direct 24 mg/dL (50-130) L 10/14/20 15:33 HDL Cholesterol 45 mg/dL (40-59) 10/14/20 15:33 Cholesterol/HDL Ratio 1.71 % 10/14/20 15:33 Lipase 12 units/L (13-60) L 10/14/20 15:33 Vitamin B12 1040 pg/mL (211-911) H 10/16/20 13:48 TSH 7.820 mlU/mL (0.270-4.200) H 10/14/20 16:34 Free T4 0.90 ng/dL (0.76-1.46) 10/14/20 16:34 PTH Intact 145.8 pg/mL (15-65) H 10/15/20 10:55 Urine Color Colorless (Yellow) 10/14/20 22:39 Urine Turbidity Clear (Clear) 10/14/20 22:39 Urine pH 7.0 (5.0-7.0) 10/14/20 22:39 Ur Specific [place] 1.005 (1.003-1.030) 10/14/20 22:39 Urine Protein <15 mg/dl mg/dL (Negative) 10/14/20 22:39 Urine Glucose (UA) Neg mg/dL (Negative) 10/14/20 22:39 Urine Ketones Neg mg/dL (Negative) 10/14/20 22:39 Urine Blood Sm (Negative) 10/14/20 22:39 Urine Nitrite Neg (Negative) 10/14/20 22:39 Urine Bilirubin Neg (Negative) 10/14/20 22:39 Urine Urobilinogen < 2.0 mg/dL (<2.0) 10/14/20 22:39 Ur Leukocyte Esterase Neg (Negative) 10/14/20 22:39 Urine WBC (Auto) < 1.0 /HPF (0.0-6.0) 10/14/20 22:39 Urine RBC (Auto) < 1.0 /HPF (0.0-6.0) 10/14/20 22:39 Urine Creatinine 21.2 mg/dL (0.1-20.0) H 10/14/20 22:39 Protein/Creatinin Ratio 0.61 10/14/20 22:39 Urine Sodium 116 mmol/L 10/14/20 22:39 Urine Total Protein 13 mg/dL (5-11.8) H 10/14/20 22:39 Blood Type B POSITIVE 10/14/20 18:00 Antibody Screen Negative 10/14/20 18:00 Crossmatch See Detail 10/14/20 18:00 Microbiology: Microbiology 10/15/20 Unknown Stool Stool Occult Blood (DEEPTI) - Final Choudhary/IV: Voiding Method Toilet Active Medications - Current Medications Current Medications: Generic Name Dose Route Start Last Admin Trade Name Freq PRN Reason Stop Dose Admin Acetaminophen 650 mg 10/14/20 18:30 Acetaminophen 325 Mg Tab PO Q4H PRN Pain MILD(1-3)/Fever >100.5/SEALS Albuterol 2.5 mg 10/14/20 18:30 Albuterol 2.5 Mg/3 Ml Nebu IH Q4HRT PRN Shortness Of Breath Atorvastatin Calcium 40 mg 10/14/20 22:00 10/15/20 22:12 Atorvastatin 40 Mg Tab PO 40 mg QHS [facility] Administration Furosemide 40 mg 10/14/20 18:00 10/16/20 18:17 Furosemide 40 Mg/4 Ml Inj IV 40 mg BID@0600,1800 [facility] Administration Insulin Human Isoph/Insulin Regular 10 unit 10/17/20 08:00 Insulin Nph/Regular 70/30 Inj SUB-Q BIDDIAB [facility] Insulin Human Regular 0 units 10/16/20 11:30 10/16/20 16:49 Insulin Regular, Human 100 Units/1 Ml SUB-Q 4 units ACHS [facility] Administration Protocol Levothyroxine Sodium 100 mcg 10/15/20 06:00 10/16/20 06:03 Levothyroxine 100 Mcg Tab PO 100 mcg DAILY@0600 [facility] Administration Levothyroxine Sodium 75 mcg 10/15/20 06:00 10/16/20 06:03 Levothyroxine 75 Mcg Tab PO 75 mcg DAILY@0600 [facility] Administration Morphine Sulfate 1 mg 10/14/20 18:30 Morphine 4 Mg/1 Ml Inj IV Q6H PRN Pain , Severe (7-10) Ondansetron HCl 4 mg 10/14/20 18:00 Ondansetron 4 Mg/2 Ml Inj IV Q8H PRN Nausea And Vomiting Oxycodone/Acetaminophen 1 tab 10/14/20 18:30 Oxycodone /Acetaminophen 5-325mg Tab PO Q6H PRN Pain, Moderate (4-6) Pantoprazole Sodium 20 mg 10/15/20 10:00 10/16/20 09:06 Pantoprazole 20 Mg Tab PO 20 mg QDAY [facility] Administration Quetiapine Fumarate 1,000 mg 10/14/20 23:00 10/15/20 22:13 Quetiapine 200 Mg Tab PO 1,000 mg QDAY@2200 [facility] Administration Sertraline HCl 100 mg 10/15/20 10:00 10/16/20 09:06 Sertraline 100 Mg Tab PO 100 mg QDAY [facility] Administration Sodium Chloride 10 ml 10/14/20 22:00 10/16/20 09:06 Sodium Chloride 0.9% 10 Ml Flush Syringe IV 10 ml BID [facility] Administration Sodium Chloride 10 ml 10/14/20 18:00 10/16/20 06:06 Sodium Chloride 0.9% 10 Ml Flush Syringe IV 10 ml PRN PRN Administration LINE FLUSH
[2020-10-16] MEDS: QUEtiapine 200 MG TAB PO SCH (21:50)
[2020-10-17] MEDS: LEVOTHYROXINE 100 MCG TAB PO SCH (06:17)
[2020-10-17] MEDS: FUROSEMIDE 40 MG/4 ML INJ IV SCH (06:17)
[2020-10-17] MEDS: LEVOTHYROXINE 75 MCG TAB PO SCH (06:17)
[2020-10-17 06:28] LABS: Hematocrit 24.5 % (35.5-45.6); Hemoglobin 7.9 gm/dl (11.8-15.2); Mean Corpuscular HGB Conc 32 % (32-34); Platelet Count 190 K/mm3 (140-440); Red Blood Count 3.76 M/mm3 (3.65-5.03)
[2020-10-17 06:43] LABS: Calcium 8.6 mg/dL (8.4-10.2)
[2020-10-17 06:50] LABS: Mean Corpuscular Volume 65 fl (84-94); Red Cell Distribution Width 34.6 % (13.2-15.2)
[2020-10-17] MEDS ORDERED: POTASSIUM CHLORIDE ER 20 MEQ TAB PO SCH (08:30)
--- NOTE | 2020-10-17 09:04 | Progress Note ---
Assessment and Plan Elevated troponins * Patient is currently chest pain-free with no cardiac complaints. Twelve-lead reviewed shows sinus rhythm with no acute ischemic changes. Troponin is elevated x3, subacute and nonspecific and trending downward. Suspect this is secondary to renal injury. Continue to trend CE's. Heart failure preserved ejection fraction with volume overload in setting of MOO * Echocardiogram 1961: LVEF is 50%. LV normal size. LV SF is borderline. Mild LVH. Mild diastolic dysfunction. RV SF is normal. Right atrium is mil dly dilated. Mild MR. Mild TR RVSP 26 mmHg. * Trace to 1+ bilateral lower extremity edema, significantly improved. * Optimize volume control: Discontinue Lasix IV, initiate Lasix 20 mg p.o. daily. * Avoid nephrotoxic agents. No SAMMY/ARB in setting of MOO Severe Anemia * Mgmt per primary team. Receiving blood products as needed. Patient is currently stable cardiac status. Recommend discharge medication of ASA 81, atorvastatin 40, Lasix 20 mg p.o. daily. Patient may discharge from cardiology standpoint. Will follow on as-needed basis. Patient should follow-up with established cardiology with [facility] care within 1 to 2 weeks of discharge. This patient was seen in conjunction with Dr Fletcher who agrees with assessment and plan of care - Patient Problems (1) Insulin dependent diabetes mellitus Current Visit: Yes Status: Chronic (2) Acute kidney injury Current Visit: Yes Status: Acute (3) DVT prophylaxis Current Visit: Yes Status: Acute (4) History of hypothyroidism Current Visit: Yes Status: Chronic (5) Microcytic anemia Current Visit: Yes Status: Chronic (6) Obesity hypoventilation syndrome Current Visit: Yes Status: Chronic (7) Elevated troponin Current Visit: Yes Status: Acute Subjective Date of service: 10/17/20 Principal diagnosis: a/c HF, MOO Interval history: Patient resting comfortably in bed. No shortness of breath or chest pain overnight Objective Last Vital Signs Temp 97.9 F 10/17/20 07:52 Pulse 78 10/17/20 07:52 Resp 18 10/17/20 07:52 BP 124/65 10/17/20 07:52 Pulse Ox 99 10/17/20 07:52 - Physical Examination General: No Apparent Distress HEENT: Positive: PERRL, Normocephaly, Mucus Membranes Moist Neck: Positive: neck supple, trachea midline Cardiac: Positive: Reg Rate and Rhythm, S1/S2 Lungs: Positive: Normal Exam, Normal Breath Sounds Neuro: Positive: Grossly Intact Abdomen: Positive: Unremarkable, Soft Skin: Negative: Rash, Wound Musculoskeletal: No Pain Extremities: Present: upper extr. pulses, lower extr. pulses, edema, +1 Edema (Trace to 1+ edema) - Labs and Meds CBC 10/17/20 Range/Units 04:43 WBC 8.5 (4.5-11.0) K/mm3 RBC 3.76 (3.65-5.03) M/mm3 Hgb 7.9 L (11.8-15.2) gm/dl Hct 24.5 L (35.5-45.6) % Plt Count 190 (140-440) K/mm3 Comprehensive Metabolic Panel 10/17/20 Range/Units 04:43 Sodium 135 L (137-145) mmol/L Potassium 3.5 L (3.6-5.0) mmol/L Chloride 96.6 L (98-107) mmol/L Carbon Dioxide 26 (22-30) mmol/L BUN 23 H (9-20) mg/dL Creatinine 3.0 H (0.8-1.3) mg/dL Glucose 195 H (75-100) mg/dL Calcium 8.6 (8.4-10.2) mg/dL - Imaging and Cardiology EKG: report reviewed, image reviewed Echo: report reviewed (12.5 mg with hold parameters. Echocardiogram October 14, 2020: LVEF is 50%. LV normal size. LV SF is borderline. Mild LVH. Mild diastolic dysfunction. RV SF is normal. RA is mildly dilated. Mild MR. Mild TR, RVSP is 26 mmHg.) - Telemetry EKG Rhythm: Sinus Rhythm - EKG Sinus rhythms and dysrhythmias: sinus rhythm
[2020-10-17] MEDS: INSULIN NPH/REGULAR 70/30 INJ SUB-Q SCH ×2 (10:16→17:04)
[2020-10-17] MEDS: SERTRALINE 100 MG TAB PO SCH (10:16)
[2020-10-17] MEDS: PANTOPRAZOLE 20 MG TAB PO SCH (10:16)
[2020-10-17] MEDS: INSULIN REGULAR, HUMAN 100 UNITS/1 ML SUB-Q SCH ×3 (10:16→17:03)
--- NOTE | 2020-10-17 14:22 | Progress Note ---
Assessment and Plan 1. Acute kidney injury: MOO superimposed on CKD in the setting of Cardio-renal syndrome. Renal US negative. Monitor renal function. Creatinine leveled off. Renal prognosis is guarded. Avoid nephrotoxic agents. Meds dosage based on GFR. 2. FEN: Volume overload, IV Lasix. Monitor lytes. 3. Acute CHF: EF 50%, DD noted. Limit fluid intake, low salt diet. Followed by Cards. 4. Elevated Troponin: Trend Troponin. Echo showed EF 50%. Followed by Cards. 5. Symptomatic anemia: S/p PRBC. GI consulted. Monitor. 6. Diabetes mellitus: Accu-Chek, SSI. ADA diet. 7. Hypertension: Monitor BP. Adjust meds. F/u with me 1-2 weeks, if discharged. Subjective: Patient was seen and examined at the bedside. Doing better. Examination: General appearance: well-developed, obese, appears stated age, no distress HEENT: ATNC, STACIE Neck: trachea midline Respiratory: Clear to Auscultation Heart: regular, S1S2, no murmur Gastrointestinal: soft, normoactive bowel sounds, not tender Integumentary: no obvious rash Neurologic: alert, follows command, able to move extremities Ext: no edema Subjective Date of service: 10/17/20 Principal diagnosis: a/c HF, MOO Objective - Vital Signs Vital signs: Vital Signs - 12hr 10/17/20 10/17/20 10/17/20 04:00 04:12 07:37 Temperature 97.4 F L 97.4 F L 98.8 F Pulse Rate 87 81 Respiratory 20 20 18 Rate Blood Pressure 145/72 Blood Pressure 160/75 [Right] O2 Sat by Pulse 99 93 Oximetry 10/17/20 10/17/20 07:52 11:45 Temperature 97.9 F 98.2 F Pulse Rate 78 89 Respiratory 18 18 Rate Blood Pressure 124/65 150/84 Blood Pressure [Right] O2 Sat by Pulse 99 99 Oximetry - Lab 10/17/20 04:43 10/17/20 04:43 Most recent lab results Calcium 8.6 mg/dL (8.4-10.2) 10/17/20 04:43 Magnesium 1.90 mg/dL (1.7-2.3) 10/14/20 17:52 Urine Creatinine 21.2 mg/dL (0.1-20.0) H 10/14/20 22:39 Urine Sodium 116 mmol/L 10/14/20 22:39 Urine Total Protein 13 mg/dL (5-11.8) H 10/14/20 22:39 Medications & Allergies - Medications Allergies/Adverse Reactions: Allergies No Known Allergies Allergy (Unverified 02/11/20 12:08) Home Medications: Home Medications Medication Instructions Recorded Confirmed Last Taken Type Omeprazole 20 mg PO DAILY 10/14/20 10/16/20 Unknown History AtorvaSTATin [Lipitor] 40 mg PO QHS #30 10/17/20 Unknown Rx Furosemide [Lasix TAB] 20 mg PO QDAY #30 tablet 10/17/20 Unknown Rx Insulin NPH Hum/Reg Insulin Hm 30 units SUB-Q Q12HR #2 vial 10/17/20 Unknown Rx [Novolin 70-30 100 Unit/ml Vial] Levothyroxine Sodium 175 mcg PO DAILY #30 cap 10/17/20 Unknown Rx [Levothyroxine] Pantoprazole [Protonix] 40 mg PO BID #60 tablet 10/17/20 Unknown Rx Potassium Chloride [K-Dur] 10 meq PO QDAY #30 tablet 10/17/20 Unknown Rx QUEtiapine [SEROquel] 1,000 mg PO QDAY@2200 #30 tablet 10/17/20 Unknown Rx Sertraline [Zoloft] 100 mg PO QDAY #30 tablet 10/17/20 Unknown Rx Active Medications: Generic Name Dose Route Start Last Admin Trade Name Freq PRN Reason Stop Dose Admin Acetaminophen 650 mg 10/14/20 18:30 10/17/20 00:10 Acetaminophen 325 Mg Tab PO 650 mg Q4H PRN Administration Pain MILD(1-3)/Fever >100.5/SEALS Albuterol 2.5 mg 10/14/20 18:30 Albuterol 2.5 Mg/3 Ml Nebu IH Q4HRT PRN Shortness Of Breath Atorvastatin Calcium 40 mg 10/14/20 22:00 10/16/20 21:49 Atorvastatin 40 Mg Tab PO 40 mg QHS CHAKA Administration Furosemide 20 mg 10/18/20 10:00 Furosemide 20 Mg Tab PO QDAY CHAKA Insulin Human Isoph/Insulin Regular 10 unit 10/17/20 08:00 10/17/20 10:16 Insulin Nph/Regular 70/30 Inj SUB-Q 10 unit BIDDIAB CHAKA Administration Insulin Human Regular 0 units 10/16/20 11:30 10/17/20 12:16 Insulin Regular, Human 100 Units/1 Ml SUB-Q 8 units ACHS CHAKA Administration Protocol Levothyroxine Sodium 100 mcg 10/15/20 06:00 10/17/20 06:17 Levothyroxine 100 Mcg Tab PO 100 mcg DAILY@0600 CHAKA Administration Levothyroxine Sodium 75 mcg 10/15/20 06:00 10/17/20 06:17 Levothyroxine 75 Mcg Tab PO 75 mcg DAILY@0600 CHAKA Administration Morphine Sulfate 1 mg 10/14/20 18:30 Morphine 4 Mg/1 Ml Inj IV Q6H PRN Pain , Severe (7-10) Ondansetron HCl 4 mg 10/14/20 18:00 Ondansetron 4 Mg/2 Ml Inj IV Q8H PRN Nausea And Vomiting Oxycodone/Acetaminophen 1 tab 10/14/20 18:30 Oxycodone /Acetaminophen 5-325mg Tab PO Q6H PRN Pain, Moderate (4-6) Pantoprazole Sodium 20 mg 10/15/20 10:00 10/17/20 10:16 Pantoprazole 20 Mg Tab PO 20 mg QDAY CHAKA Administration Quetiapine Fumarate 1,000 mg 10/14/20 23:00 10/16/20 21:50 Quetiapine 200 Mg Tab PO 1,000 mg QDAY@2200 CHAKA Administration Sertraline HCl 100 mg 10/15/20 10:00 10/17/20 10:16 Sertraline 100 Mg Tab PO 100 mg QDAY CHAKA Administration Sodium Chloride 10 ml 10/14/20 22:00 10/17/20 10:17 Sodium Chloride 0.9% 10 Ml Flush Syringe IV 10 ml BID CHAKA Administration Sodium Chloride 10 ml 10/14/20 18:00 10/17/20 06:18 Sodium Chloride 0.9% 10 Ml Flush Syringe IV 10 ml PRN PRN Administration LINE FLUSH
[2020-10-17 16:54] VITALS: BP 142/86
--- NOTE | 2020-10-17 17:35 | Discharge Summary ---
Providers - Providers Date of Admission: 10/15/20 14:12 Date of discharge: 10/17/20 Attending physician: ESSENCE ROOT 10/14/20 17:49 Consult to Physician [CONS] Routine Comment: Consulting Provider: ALFREDO MYERS Physician Instructions: Reason For Exam: cardiorenal syndrome 10/14/20 17:50 Consult to Physician [CONS] Routine Comment: Consulting Provider: ONEAL YEBOAH Physician Instructions: Reason For Exam: chf 10/15/20 12:26 Consult to Physician [CONS] Routine Comment: Consulting Provider: DARSHANA WEISS Physician Instructions: Reason For Exam: Symptomatic anemia/Hb 4.1/rule out GI causes 10/15/20 12:38 Physical Therapy Evaluation and Treat [CONS] Routine Comment: walks with cane Reason For Exam: PT to eval and treat for abnormal gait Primary care physician: [employer] Hospitalization Condition: Serious Hospital course: Brief history 60-year-old -[place]i male patient was admitted with symptomatic anemia, acute kidney injury and generalized weakness Patient's hemoglobin was 4.1 received 3 units of PRBC and Hb improved to 6.9, fourth unit of PRBC started Patient also has acute kidney injury, nephrology following. Patient feels slightly better still has generalized weakness and abdominal pain GI consulted to rule out GI causes of severe anemia 10/15/2020; received 3 units of PRBC for severe anemia, fourth unit is running, GI consulted to rule out GI causes of anemia Continue supportive care, follow nephrology evaluation recommendations 10/16/2020; patient's Hb increased to 7.2, GI evaluation noted and appreciated, closely monitor the patient Possible discharge in 1 to 2 days if stable 10/17/20 Hyperglycemia; blood sugars more than 200s, Accu-Cheks, sliding scale coverage, ADA diet Insulin as needed, check hemoglobin A1c, diabetic education, diabetic diet education and supportive care Possible home health nurse for disease monitoring at discharge Plan of care reviewed with the patient, his nurse and the case management Disposition follow consultants recommendations, discharge when clinically stable Patient has a baseline creatinine of 2.6 on 02/11/2020 Patient does not follow with any renal building energy consultant Patient goes to [facility] for his primary care Patient was advised to follow-up with cardiology and nephrology urgent care and also his primary care physician Labs were given to the patient Patient's hemoglobin is stable now Patient advised not to take any NSAIDs Assessment and Plan Assessment and plan: -- Symptomatic severe anemia Current Visit: Yes Status: Acute Received 3-4 units PRBC transfusion, fourth unit transfuse Monitor H&H, stool for occult blood negative GI evaluation noted and appreciated Hb improved from 4.1-7.9 Patient to follow-up with GI as outpatient -- Heart failure, systolic, with acute decompensation Current Visit: Yes Status: Acute IV diuretics , input output monitoring , low-sodium diet , fluid restriction Echo for LV function ejection fraction 50%, cardiology evaluation noted and appreciated --Obesity hypoventilation syndrome Current Visit: Yes Status: Acute Dietary modification, exercise as tolerated and weight reduction When medically stable, outpatient pulmonary evaluation and sleep study Rule out CPAP --CKD - Patient to follow with nephrology as outpatient --History of hypothyroidism Current Visit: Yes Status: Acute Continue Synthroid therapy, thyroid panel, supportive care. --Microcytic anemia Current Visit: Yes Status: Acute Blood transfusion, supportive care Treat underlying cause -- DVT prophylaxis Current Visit: Yes Status: Acute Plan to address problem: SCD, no pharmacologic anticoagulation in view of severe anemia --Advance care planning Current Visit: Yes Status: Acute Discussed extensively with the patient, his condition tests and reports Treatment plan, patient is full CODE STATUS We will closely monitor the patient and adjust management as needed Plan of care reviewed with the patient and his nurse Disposition: DC-01 TO HOME OR SELFCARE Final Discharge Diagnosis (Prints w/discharge instructions): Symptomatic anemia. Acute kidney injury on CKD. Congestive heart failure. Hypertension. IDDM Time spent for discharge: 35 minutes Core Measure Documentation - Palliative Care Palliative Care/ Comfort Measures: Not Applicable - Core Measures Any of the following diagnoses?: none Exam - Constitutional Vitals: Temp Pulse Resp BP Pulse Ox 97.8 F 79 18 142/86 97 10/17/20 16:03 10/17/20 16:03 10/17/20 16:03 10/17/20 16:03 10/17/20 16:03 General appearance: Present: no acute distress, well-nourished - EENT Eyes: Present: PERRL ENT: hearing intact, clear oral mucosa - Neck Neck: Present: supple, normal ROM - Respiratory Respiratory effort: normal Respiratory: bilateral: CTA - Cardiovascular Heart rate: 78 Rhythm: regular Heart Sounds: Present: S1 & S2. Absent: rub, click - Extremities Extremities: pulses symmetrical, No edema Peripheral Pulses: within normal limits - Abdominal General gastrointestinal: Present: soft, non-tender, non-distended, normal bowel sounds Male genitourinary: Present: normal - Integumentary Integumentary: Present: clear, warm, dry - Musculoskeletal Musculoskeletal: gait normal, strength equal bilaterally - Psychiatric Psychiatric: appropriate mood/affect, intact judgment & insight - Neurologic Neurologic: CNII-XII intact, moves all extremities Plan Activity: no restrictions Diet: low salt, renal Follow up with: PRIMARY CARE, [Primary Care Provider] - 3-5 Days ERNESTINA MEYERS MD [Staff Physician] - 7 Days DARSHANA WEISS MD [Staff Physician] - 7 Days ALFREDO MYERS MD [Staff Physician] - 7 Days
[2020-10-18] MEDS ORDERED: FUROSEMIDE 20 MG TAB PO SCH (10:00)
== END 2020-10-17 18:33 | disposition home health service (06) | DRG 682 ==
LOC: ED 14:08 → 4A 17:45 → OBSVTOIN 10-15 14:12
PROVIDERS: ADMIT Internal Medicine; ATTEND Internal Medicine
PROC: 30233N1 Transfusion of Nonautologous Red Blood Cells into Peripheral Vein, Percutaneous Approach (ICD-10-PCS; principal; 2020-10-14)
DX: N17.9 Acute kidney failure, unspecified (principal); I50.23 Acute on chronic systolic (congestive) heart failure; I13.0 Hypertensive heart and chronic kidney disease with heart failure and stage 1 through stage 4 chronic kidney disease, or unspecified chronic kidney disease; E66.2 Morbid (severe) obesity with alveolar hypoventilation; D50.9 Iron deficiency anemia, unspecified; E78.00 Pure hypercholesterolemia, unspecified; F17.200 Nicotine dependence, unspecified, uncomplicated; E78.5 Hyperlipidemia, unspecified; E03.9 Hypothyroidism, unspecified; E11.22 Type 2 diabetes mellitus with diabetic chronic kidney disease; F32.9 Major depressive disorder, single episode, unspecified; N18.30 Chronic kidney disease, stage 3 unspecified; R79.89 Other specified abnormal findings of blood chemistry; K21.9 Gastro-esophageal reflux disease without esophagitis; E11.649 Type 2 diabetes mellitus with hypoglycemia without coma; E87.70 Fluid overload, unspecified; D64.9 Anemia, unspecified; Z79.899 Other long term (current) drug therapy; Z79.891 Long term (current) use of opiate analgesic; Z79.01 Long term (current) use of anticoagulants; Z79.4 Long term (current) use of insulin; Z68.37 Body mass index [BMI] 37.0-37.9, adult; Z83.3 Family history of diabetes mellitus; Z82.49 Family history of ischemic heart disease and other diseases of the circulatory system; Z63.5 Disruption of family by separation and divorce
CPT/HCPCS: 36415; 71046; 76770; 80048; 80053; 80061; 81001; 82270; 82550; 82570; 82607; 82728; 82962; 83550; 83690; 83735; 83880; 83970; 84156; 84300; 84439; 84443; 84484; 85007; 85014; 85018; 85025; 85027; 85610; 85730; 86850; 86900; 86901; 86920; 90732; 93005; 93306; 93970; 96365; 96375; G0378; A9270-GY; J1815; J1940; J7040; P9016

== ENCOUNTER 2021-08-23 08:40 | Inpatient (IN) | payer MEDICARE ==
[2021-08-23] MEDS ORDERED: MORPHINE 4 MG/1 ML INJ IV ONE (11:24)
[2021-08-23] MEDS ORDERED: ONDANSETRON 4 MG/2 ML INJ IV ONE (11:25)
[2021-08-23 11:51] LABS: Hematocrit 37.5 % (35.5-45.6); Hemoglobin 12.1 gm/dl (11.8-15.2); Mean Corpuscular HGB Conc 32 % (32-34); Mean Corpuscular Volume 85 fl (84-94); Platelet Count 295 K/mm3 (140-440); Red Blood Count 4.43 M/mm3 (3.65-5.03); Red Cell Distribution Width 18.1 % (13.2-15.2)
--- NOTE | 2021-08-23 12:07 | Cat Scan Report ---
CT ABDOMEN AND PELVIS WITHOUT CONTRAST INDICATION / CLINICAL INFORMATION: abdominal pain. TECHNIQUE: Axial CT images were obtained through the abdomen and pelvis without IV contrast. Sagittal and cummings l reformatted images. All CT scans at this location are performed using CT dose reduction for ALARA b y means of automated exposure control. COMPARISON: None available. FINDINGS: LOWER CHEST: No significant abnormality. 1.8 cm calcified granuloma at the right lung base is noted. LIVER: No significant abnormality. GALLBLADDER: No significant abnormality. BILE DUCTS: No significant abnormality. PANCREAS: The pancreatic head is enlarged and contains a 4.3 cm hypodense region with internal densit y measuring 17 Hounsfield units. There are mild inflammatory changes surrounding the pancreatic head. The pancreatic body and tail are unremarkable. SPLEEN: No significant abnormality. ADRENALS: No significant abnormality. RIGHT KIDNEY and URETER: No significant abnormality. LEFT KIDNEY and URETER: No significant abnormality. STOMACH and SMALL BOWEL: No significant abnormality. COLON: No significant abnormality. APPENDIX: No significant abnormality. PERITONEUM: No free fluid. No free air. No fluid collection. LYMPH NODES: No significant adenopathy. AORTA and ARTERIES: Mild atherosclerotic calcification without acute abnormality. IVC and VEINS: No significant abnormality. URINARY BLADDER: No significant abnormality. REPRODUCTIVE ORGANS: No significant abnormality. ADDITIONAL FINDINGS: None. SKELETAL SYSTEM: No significant abnormality. IMPRESSION: Abnormal pancreas. The pancreatic head is enlarged with mild surrounding fat stranding. This may repr esent acute pancreatitis. There is a 4.3 cm hypodense region within the pancreatic head which may rep resent a pseudocyst although cystic neoplasm is difficult to exclude. Further evaluation with CT with contrast or MRI with contrast pancreas protocol is recommended. Please correlate with the clinical p resentation of the patient. There is no obvious evidence for cholelithiasis on noncontrast CT. Signer Name: Anival Wesley Jr, MD Signed: 08/23/2021 12:03 PM Workstation Name: [id number]
[2021-08-23 12:11] LABS: Albumin 2.9 g/dL (3.9-5)
[2021-08-23] MEDS ORDERED: SODIUM CHLORIDE 0.9% 1000 ML 1,000 ML IV ONE (12:20)
[2021-08-23] MEDS ORDERED: INSULIN REGULAR, HUMAN 100 UNITS/1 ML IV ONE (12:42)
[2021-08-23 12:51] LABS: Bilirubin,Urine NEG (Negative); Blood,Urine SM (Negative); Color,Urine Yellow (Yellow)
[2021-08-23] MEDS ORDERED: IBUPROFEN 600 MG TAB PO PRN (15:13)
[2021-08-23] MEDS ORDERED: ALBUTEROL 2.5 MG/3 ML NEBU IH PRN (15:13)
--- NOTE | 2021-08-23 15:13 | History and Physical Report ---
History of Present Illness Chief complaint: My stomach hurts History of present illness: 61 YO Male with HTN, HLD, DM, CKD, Hypothyroidism, GERD, Nicotine Dependence, Depression presents ED for evaluation. Patient reports "my stomach hurts". Patient states that he has experienced abdominal discomfort over the past 3 weeks with persistent and worsening symptoms over the same timeframe. Patient states that symptoms are intermittent. Patient states his pain is currently 4/10, intermittent, associated with nausea, associate with multiple episodes of vomiting. Patient knowledges diminished oral intake. Patient denies polydipsia, polyuria, and noncompliance with home medication due to nausea. Patient also acknowledges a 30 pound weight gain over the past 1 month. EMS was notified and upon arrival the patient was found to be in distress and subsequently transported to [facility] for further care and evaluation of the aforementioned symptoms. The patient was seen and evaluated in the emergency department. All lab and imaging studies reviewed. The patient was found to have diabetic ketoacidosis, metabolic acidosis, acute kidney injury, hyponatremia, and acute pancreatitis. Patient also found to have a pancreatic head mass suspicious for pancreatic malignancy. Patient admitted to ICU and initiated on DKA protocol. Critical care team consulted in ED. GI team consulted in ED. Patient denies fever, chills, chest pain, palpitation, productive cough, skin rash, recent contact, or known exposure to COVID-19. Prior admission on 10/15/2020 reviewed. All medication listed at time of admission has been reconciled. Advanced care planning conducted in ED. Past History Past Medical History: GERD, hypertension, hyperlipidemia, hypothyroidism, renal failure Past Surgical History: No surgical history, Other (Reviewed) Social history: , smoking. denies: alcohol abuse, prescription drug abuse Family history: diabetes, hypertension Medications and Allergies Allergies Allergy/AdvReac Type Severity Reaction Status Date / Time No Known Allergies Allergy Unverified 02/11/20 12:08 Home Medications Medication Instructions Recorded Confirmed Last Taken Type Omeprazole 20 mg PO DAILY 10/14/20 10/16/20 Unknown History AtorvaSTATin [Lipitor] 40 mg PO QHS #30 10/17/20 Unknown Rx Furosemide [Lasix TAB] 20 mg PO QDAY #30 tablet 10/17/20 Unknown Rx Insulin NPH Hum/Reg Insulin Hm 30 units SUB-Q Q12HR #2 vial 10/17/20 Unknown Rx [Novolin 70-30 100 Unit/ml Vial] Levothyroxine Sodium 175 mcg PO DAILY #30 cap 10/17/20 Unknown Rx [Levothyroxine] Pantoprazole [Protonix] 40 mg PO BID #60 tablet 10/17/20 Unknown Rx Potassium Chloride [K-Dur] 10 meq PO QDAY #30 tablet 10/17/20 Unknown Rx QUEtiapine [SEROquel] 1,000 mg PO QDAY@2200 #30 tablet 10/17/20 Unknown Rx Sertraline [Zoloft] 100 mg PO QDAY #30 tablet 10/17/20 Unknown Rx Review of Systems Constitutional: weight loss, fatigue, weakness, no weight gain, no fever Ears, nose, mouth and throat: no ear pain, no tinnitis, no nose pain, no nasal congestion, no nasal discharge Cardiovascular: no chest pain, no orthopnea, no rapid/irregular heart beat, no edema, no syncope Respiratory: no cough, no cough with sputum, no hemoptysis, no shortness of breath Gastrointestinal: abdominal pain, nausea, no diarrhea, no constipation, no coffee ground emesis Genitourinary Male: no hematuria, no flank pain, no discharge, no urinary frequency, no nocturia Rectal: no pain, no incontinence, no bleeding Musculoskeletal: no neck stiffness, no shooting arm pain, no low back pain, no shooting leg pain Integumentary: no rash, no pruritis, no redness, no jaundice, no boils Neurological: no head injury, no paralysis, no parathesias, no tingling, no seiz ures, no tremors Psychiatric: no anxiety, no change in sleep habits, no change in appetite, no suicidal ideation, no disorientation Endocrine: polyphagia, excessive thirst, polydipsia, polyuria, nocturia, high blood sugars, no cold intolerance, no heat intolerance Hematologic/Lymphatic: no easy bruising, no easy bleeding Allergic/Immunologic: no urticaria, no allergic rhinitis Exam - Constitutional Vitals: Temp Pulse Resp BP Pulse Ox 98.5 F 106 H 18 124/88 98 08/23/21 08:48 08/23/21 08:48 08/23/21 08:48 08/23/21 08:48 08/23/21 08:48 General appearance: Present: mild distress - EENT Eyes: Present: PERRL ENT: hearing intact, clear oral mucosa, other (Oral mucosa dry) - Neck Neck: Present: supple, normal ROM - Respiratory Respiratory effort: normal Respiratory: bilateral: CTA - Cardiovascular Heart Sounds: Present: S1 & S2. Absent: rub, click - Extremities Extremities: pulses symmetrical, No edema Peripheral Pulses: within normal limits - Abdominal General gastrointestinal: Present: soft, tender, non-distended, normal bowel sounds Localized gastrointestinal: tender: epigastric periumbilical Male genitourinary: Present: normal - Integumentary Integumentary: Present: dry, clammy, decreased turgor - Musculoskeletal Musculoskeletal: generalized weakness - Psychiatric Psychiatric: appropriate mood/affect, intact judgment & insight - Neurologic Neurologic: CNII-XII intact, moves all extremities Results - Labs CBC & Chem 7: 08/23/21 10:59 08/23/21 15:36 Labs: Abnormal lab results 08/23/21 08/23/21 08/23/21 Range/Units 10:59 10:59 13:28 MCH 27 L (28-32) pg RDW 18.1 H (13.2-15.2) % VBG pH 7.254 L (7.320-7.420) Sodium 130 L (137-145) mmol/L Chloride 87.7 L (98-107) mmol/L Carbon Dioxide 17 L (22-30) mmol/L Creatinine 2.4 H (0.8-1.3) mg/dL Glucose 524 H* (75-100) mg/dL Total Bilirubin 4.20 H (0.1-1.2) mg/dL AST 67 H (5-40) units/L Alkaline Phosphatase 442 H (35-129) units/L Albumin 2.9 L (3.9-5) g/dL Lipase 245 H (13-60) units/L Assessment and Plan - Patient Problems (1) DKA (diabetic ketoacidosis) Current Visit: Yes Status: Acute Qualifiers: Diabetes mellitus type: type 2 Diabetes mellitus complication detail: without coma Qualified Code(s): E11.10 - Type 2 diabetes mellitus with ketoacidosis without coma Plan to address problem: DKA protocol: IV fluid resuscitation therapy, insulin drip, serial BMP, monitor anion gap, monitor urine output every shift, monitor fluid balance, serial BMP, potassium repletion as per protocol. The high probability of a clinically significant, sudden or life threatening deterioration of the [endocrine, pulmonary, cardiac, renal] system(s) required my full and direct attention, intervention and personal management. The aggregate critical care time was [95] minutes. This time is in addition to time spent performing reported procedures but includes the following: [x] Data Review and interpretation [x] Patient assessment and monitoring of vital signs [x] Documentation [x] Medication orders and management (2) Pancreatic mass Current Visit: Yes Status: Acute Plan to address problem: CT scan abdomen and pelvis, GI team consulted. Further care and evaluation as per cardiology team. (3) Acute kidney injury Current Visit: No Status: Acute Plan to address problem: BMP, IV fluid resuscitation therapy, repeat BMP in a.m. to monitor serum creatinine as well as GFR. (4) Nicotine dependence Current Visit: Yes Status: Acute Qualifiers: Nicotine product type: cigarettes Substance use status: in withdrawal Qualified Code(s): F17.213 - Nicotine dependence, cigarettes, with withdrawal Plan to address problem: Smoking cessation counseling, supportive care, behavior change counseling, +15 minutes. (5) Hypothyroidism Current Visit: Yes Status: Acute Plan to address problem: Continue Synthroid therapy, supportive care. (6) Pancreatitis Current Visit: Yes Status: Acute Qualifiers: Chronicity: acute Pancreatitis type: unspecified pancreatitis type Acute pancreatitis complication: unspecified Qualified Code(s): K85.90 - Acute pancreatitis without necrosis or infection, unspecified Plan to address problem: Acute pancreatitis: CT scan abdomen pelvis, IV fluid resuscitation therapy, pain control, bowel rest, supportive care. GI team consulted. Lipase level, repeat lipase level in a.m. (7) DVT prophylaxis Current Visit: No Status: Acute Plan to address problem: SCD to bilateral lower extremities while in bed (8) Hypertension Current Visit: Yes Status: Acute Qualifiers: Hypertension type: primary hypertension Qualified Code(s): I10 - Essential (primary) hypertension Plan to address problem: Monitor blood pressure every shift, continue medical management. (9) Hyperlipidemia Current Visit: Yes Status: Acute Plan to address problem: Low-cholesterol diet, supportive care, statin therapy as clinically indicated. (10) Advance care planning Current Visit: Yes Status: Acute Plan to address problem: Disease education data, care plan discussed, diagnosis discussed, prognosis discussed, patient is full code. Patient acknowledges understanding and agreement with care plan, +30 minutes. (11) Preventative health care Current Visit: Yes Status: Acute Plan to address problem: Patient counseled regarding follow-up with primary care physician for all age and risk factor related screening tests, work-up for pancreatic head mass. Risk of pancreatic cancer. +30 minutes.
--- NOTE | 2021-08-23 15:27 | Emergency Department Report ---
ED Abdominal Pain HPI - General Chief Complaint: Abdominal Pain Stated Complaint: RT FLANK PAIN/RT GROIN/LOWER ABD PAIN Time Seen by Provider: 08/23/21 10:05 Source: patient, EMS Mode of arrival: Stretcher Limitations: No Limitations - History of Present Illness Initial Comments: 61-year-old black male with a past medical history of diabetes, hypertension, hyperlipidemia, and hypothyroidism and a surgical history of a thyroidectomy presents to the emergency department for evaluation of 3-week history of abdominal pain. He states that for the past 3 weeks he has had persistent pain in his epigastric and right upper quadrant that radiates around to his back. He states that pain has been 10 out of 10 and associated with nausea and vomiting. He states that for the past 2 weeks he has not been able to tolerate any solid foods so he has not been taking his diabetes medication. He denies diarrhea, fever, dysuria. MD Complaint: abdominal pain, flank pain -: Gradual, week(s) (3) Location: RUQ, epigastric Radiation: back Migration to: no migration Severity: severe Severity scale (0 -10): 10 Quality: cramping, aching Consistency: constant Worsens With: eating, movement Associated Symptoms: nausea, vomiting. denies: diarrhea, fever, chills, dysuria, hematemesis, hematochezia, melena, hematuria, anorexia, syncope - Related Data Home Medications Medication Instructions Recorded Confirmed Last Taken Omeprazole 20 mg PO DAILY 10/14/20 10/16/20 Unknown Previous Rx's Medication Instructions Recorded Last Taken Type AtorvaSTATin [Lipitor] 40 mg PO QHS #30 10/17/20 Unknown Rx Furosemide [Lasix TAB] 20 mg PO QDAY #30 tablet 10/17/20 Unknown Rx Insulin NPH Hum/Reg Insulin Hm 30 units SUB-Q Q12HR #2 vial 10/17/20 Unknown Rx [Novolin 70-30 100 Unit/ml Vial] Levothyroxine Sodium 175 mcg PO DAILY #30 cap 10/17/20 Unknown Rx [Levothyroxine] Pantoprazole [Protonix] 40 mg PO BID #60 tablet 10/17/20 Unknown Rx Potassium Chloride [K-Dur] 10 meq PO QDAY #30 tablet 10/17/20 Unknown Rx QUEtiapine [SEROquel] 1,000 mg PO QDAY@2200 #30 tablet 10/17/20 Unknown Rx Sertraline [Zoloft] 100 mg PO QDAY #30 tablet 10/17/20 Unknown Rx Allergies Allergy/AdvReac Type Severity Reaction Status Date / Time No Known Allergies Allergy Unverified 02/11/20 12:08 ED Review of Systems ROS: Stated complaint: RT FLANK PAIN/RT GROIN/LOWER ABD PAIN Other details as noted in HPI Comment: All other systems reviewed and negative Constitutional: malaise, weakness. denies: chills, fever Eyes: denies: vision change ENT: denies: throat pain, congestion Respiratory: denies: cough, shortness of breath, SOB with exertion, SOB at rest, stridor, wheezing Cardiovascular: denies: chest pain, palpitations, dyspnea on exertion, orthopnea, edema, syncope, paroxysmal nocturnal dyspnea Gastrointestinal: abdominal pain, nausea, vomiting. denies: diarrhea, hematemesis, melena, hematochezia Genitourinary: denies: urgency, dysuria, frequency, hematuria, discharge, testicular pain Musculoskeletal: back pain Skin: denies: rash, lesions Neurological: weakness. denies: headache, numbness, paresthesias, confusion Hematological/Lymphatic: denies: easy bleeding, easy bruising ED Past Medical Hx - Past Medical History Hx Hypertension: Yes Hx Congestive Heart Failure: No Hx Diabetes: Yes Hx Asthma: No Hx COPD: No Additional medical history: HLD, hypothyroidism - Social History Smoking Status: Current Every Day Smoker Substance Use Type: Alcohol - Medications Home Medications: Home Medications Medication Instructions Recorded Confirmed Last Taken Type Omeprazole 20 mg PO DAILY 10/14/20 10/16/20 Unknown History AtorvaSTATin [Lipitor] 40 mg PO QHS #30 10/17/20 Unknown Rx Furosemide [Lasix TAB] 20 mg PO QDAY #30 tablet 10/17/20 Unknown Rx Insulin NPH Hum/Reg Insulin Hm 30 units SUB-Q Q12HR #2 vial 10/17/20 Unknown Rx [Novolin 70-30 100 Unit/ml Vial] Levothyroxine Sodium 175 mcg PO DAILY #30 cap 10/17/20 Unknown Rx [Levothyroxine] Pantoprazole [Protonix] 40 mg PO BID #60 tablet 10/17/20 Unknown Rx Potassium Chloride [K-Dur] 10 meq PO QDAY #30 tablet 10/17/20 Unknown Rx QUEtiapine [SEROquel] 1,000 mg PO QDAY@2200 #30 tablet 10/17/20 Unknown Rx Sertraline [Zoloft] 100 mg PO QDAY #30 tablet 10/17/20 Unknown Rx ED Physical Exam - General Limitations: No Limitations General appearance: alert, in no apparent distress - Head Head exam: Present: atraumatic, normocephalic - Eye Eye exam: Present: scleral icterus. Absent: periorbital swelling, periorbital tenderness - Neck Neck exam: Present: normal inspection. Absent: tenderness - Respiratory Respiratory exam: Present: normal lung sounds bilaterally. Absent: respiratory distress, wheezes, rales, stridor, chest wall tenderness - Cardiovascular Cardiovascular Exam: Present: tachycardia, normal heart sounds - GI/Abdominal GI/Abdominal exam: Present: soft, tenderness (Generalized), guarding, normal bowel sounds. Absent: distended, rebound, rigid - Extremities Exam Extremities exam: Present: normal inspection, normal capillary refill. Absent: pedal edema, joint swelling, calf tenderness - Back Exam Back exam: Present: normal inspection, tenderness. Absent: CVA tenderness (R), CVA tenderness (L), vertebral tenderness - Neurological Exam Neurological exam: Present: alert, oriented X3 - Psychiatric Psychiatric exam: Present: normal affect, normal mood - Skin Skin exam: Present: warm, dry, intact ED Course Vital Signs 08/23/21 08:48 Temperature 98.5 F Pulse Rate 106 H Respiratory 18 Rate Blood Pressure 124/88 [Left] O2 Sat by Pulse 98 Oximetry ED Medical Decision Making - Lab Data Result diagrams: 08/23/21 10:59 08/23/21 10:59 - Radiology Data Radiology results: report reviewed - Medical Decision Making 61-year-old black male with a past medical history of diabetes, hypertension, hyperlipidemia, and hypothyroidism and a surgical history of a thyroidectomy pre sents to the emergency department for evaluation of 3-week history of abdominal pain. He states that for the past 3 weeks he has had persistent pain in his epigastric and right upper quadrant that radiates around to his back. He states that pain has been 10 out of 10 and associated with nausea and vomiting. He states that for the past 2 weeks he has not been able to tolerate any solid foods so he has not been taking his diabetes medication. He denies diarrhea, fever, dysuria. Patient noted to have elevated LFTs, elevated creatinine, anion gap of 30, serum blood glucose of 524, venous pH of 7.25, and CT scan of abdomen and pelvis concerning for acute pancreatitis along with pancreatic mass. Pain and nausea are moderately improved after medication. Patient given 1 L of normal saline w hile in the emergency department. Case discussed with Dr. Whelan of the hospital medicine service and he has agreed to admit patient for further evaluation and management. Plan of care discussed with patient and he verbalizes understanding of and agreement with it. Critical care attestation.: If time is entered above; I have spent that time in minutes in the direct care of this critically ill patient, excluding procedure time. ED Disposition Clinical Impression: Pancreatic mass Pancreatitis Qualifiers: Chronicity: acute Pancreatitis type: unspecified pancreatitis type Acute pancreatitis complication: unspecified Qualified Code(s): K85.90 - Acute pancreatitis without necrosis or infection, unspecified DKA (diabetic ketoacidosis) Qualifiers: Diabetes mellitus type: type 2 Diabetes mellitus complication detail: without coma Qualified Code(s): E11.10 - Type 2 diabetes mellitus with ketoacidosis without coma Disposition: 09 ADMITTED INPATIENT Is pt being admited?: Yes Does the pt Need Aspirin: No Condition: Stable Instructions: Diabetic Ketoacidosis (ED) Referrals: PRIMARY CARE, [Primary Care Provider] - 3-5 Days
[2021-08-23] MEDS ORDERED: INSULIN REGULAR, HUMAN 100 UNITS in SODIUM CHLORIDE 0.9% 99 ML IV SCH (16:00)
[2021-08-23 16:16] LABS: Calcium 9.5 mg/dL (8.4-10.2)
[2021-08-23] MEDS ORDERED: INSULIN REGULAR, HUMAN 100 UNITS/1 ML ONE (16:39)
[2021-08-23] MEDS: HYDROmorphone 1 MG/1 ML INJ IV PRN ×2 (16:54→21:48)
[2021-08-23 20:02] LABS: Calcium 9.7 mg/dL (8.4-10.2)
[2021-08-23 21:38] LABS: Calcium 9.8 mg/dL (8.4-10.2)
[2021-08-23] MEDS: D5W/0.45% NACL/KCL 20 MEQ 20 MEQ/1,000 ML BAG IV SCH (22:42)
[2021-08-24 00:54] LABS: Calcium 10.2 mg/dL (8.4-10.2)
[2021-08-24] MEDS: HYDROmorphone 1 MG/1 ML INJ IV PRN ×4 (02:15→20:26)
[2021-08-24 06:15] LABS: Basophils % (Auto) 0.3 % (0.0-1.8); Eosinophils # (Auto) 0.1 K/mm3 (0.0-0.4); Eosinophils % (Auto) 0.9 % (0.0-4.3); Hematocrit 35.8 % (35.5-45.6); Hemoglobin 11.8 gm/dl (11.8-15.2); Lymphocytes # (Auto) 0.8 K/mm3 (1.2-5.4); Lymphocytes % (Auto) 6.5 % (13.4-35.0); Mean Corpuscular HGB Conc 33 % (32-34); Mean Corpuscular Volume 82 fl (84-94); Monocytes # (Auto) 0.7 K/mm3 (0.0-0.8); Monocytes % (Auto) 6.1 % (0.0-7.3); Platelet Count 284 K/mm3 (140-440); Red Blood Count 4.38 M/mm3 (3.65-5.03); Red Cell Distribution Width 18.1 % (13.2-15.2)
[2021-08-24 06:40] LABS: Albumin 3.3 g/dL (3.9-5); Calcium 9.7 mg/dL (8.4-10.2)
--- NOTE | 2021-08-24 08:40 | Progress Note ---
Assessment and Plan Assessment and plan: History of present illness (per admitting doctor): 61 YO Male with HTN, HLD, DM, CKD, Hypothyroidism, GERD, Nicotine Dependence, Depression presents ED for evaluation. Patient reports "my stomach hurts". Patient states that he has experienced abdominal discomfort over the past 3 weeks with persistent and worsening symptoms over the same timeframe. Patient states that symptoms are intermittent. Patient states his pain is currently 4/10, intermittent, associated with nausea, associate with multiple episodes of vomiting. Patient knowledges diminished oral intake. Patient denies polydipsia, polyuria, and noncompliance with home medication due to nausea. Patient also acknowledges a 30 pound weight gain over the past 1 month. EMS was notified and upon arrival the patient was found to be in distress and subsequently transported to [facility] for further care and evaluation of the aforementioned symptoms. The patient was seen and evaluated in the emergency department. All lab and imaging studies reviewed. The patient was found to have diabetic ketoacidosis, metabolic acidosis, acute kidney injury, hyponatremia, and acute pancreatitis. Patient also found to have a pancreatic head mass suspicious for pancreatic malignancy. Patient admitted to ICU and initiated on DKA protocol. Critical care team consulted in ED. GI team consulted in ED. Patient denies fever, chills, chest pain, palpitation, productive cough, skin rash, recent contact, or known exposure to COVID-19. Prior admission on 10/15/2020 reviewed. All medication listed at time of admission has been reconciled. Advanced care planning conducted in ED. Hospital Course: 08/24: MRCP ordered to further characterize suspicious mass. Pending results. Will await GI final recommendations. Will likely need to attempt transfer to tertiary tomorrow. DKA resolved, on clear liquid diet. Transfer to floor Assessment and Plan: #Diabetic ketoacidosis - A, BG in 524, ketonuria, VB.25 - abd pain, nausea, vomiting - DKA protocol: IV insulin, IVF. - NPO until AG closes - once AG closed (< 14), can start lantus 10 mg subq. Please run insulin gtt 1hr after lantus admin. Can initiate diabetic diet as well - accuchecks q1 hr until AG closed - BMP q4hr until AG closed - Critical care consulted #Pancreatic head mass - CTAP: findings suggestive of 4.3 cm pancreatic hypoechoic density - MRCP ordered - CA 19-9 ordered - GI consulted #Acute pancreatitis - IVF, NPO, pain control, supportive therapy #Acute kidney injury due to vasomotor nephropathy - Admission Cr: , Baseline Cr: - etiology: - avoid nephrotoxic agents - monitor I/O's - renal adjust medications - daily renal profile #Metabolic Acidosis #Hyponatremia #Essential hypertension #Hyperlipidemia #Type 2 diabetes with hyperglycemia #Nicotine dependence - Smoking cessation counseling, supportive care, behavior change counseling, +15 minutes. #Preventative health care - preventative health counseling regarding management of life stressors, medication compliance and overall effect of chronic medical conditionas on overall health. Encourage patient to follow up closely with with OP providers +30 minutes. The high probability of a clinically significant, sudden or life threatening deterioration of the [pulmonary, neuro] system(s) required my full and direct attention, intervention and personal management. The aggregate critical care time was [60] minutes. This time is in addition to time spent performing reported procedures but includes the following: [x] Data Review and interpretation [x] Patient assessment and monitoring of vital signs [x] Documentation [x] Medication orders and management History Interval history: In mild abdominal discomfort on my encounter. Hemodynamically stable otherwise. S Hospitalist Physical - Physical exam Narrative exam: Physical Exam: VITAL SIGNS: Reviewed. GENERAL: The patient appears normally developed, Vital signs as documented. HEAD: No signs of head trauma. EYES: Pupils are equal. Extraocular motions intact. EARS: Hearing grossly intact. MOUTH: Oropharynx is normal. NECK: No adenopathy, no JVD. CHEST: Chest with clear breath sounds bilaterally. No wheezes, rales, or rhonchi. CARDIAC: Regular rate and rhythm. S1 and S2, without murmurs, gallops, or rubs. VASCULAR: No Edema. Peripheral pulses normal and equal in all extremities. ABDOMEN: mild epigastric tenderness No rebound or guarding, and no masses palpated. Bowel Sounds normal. MUSCULOSKELETAL: Good range of motion of all major joints. Extremities without clubbing, cyanosis or edema. NEUROLOGIC EXAM: Alert and oriented x 4. no focal sensory or strength deficits. PSYCHIATRIC: Mood normal. SKIN: detail exam as documented in skin assessment - Constitutional Vitals: Temp Pulse Resp BP Pulse Ox 98.9 F 86 13 154/97 98 08/24/21 07:11 08/24/21 06:14 08/24/21 06:11 08/24/21 06:11 08/24/21 06:14 General appearance: Present: mild distress Results - Labs CBC & Chem 7: 08/24/21 05:04 08/24/21 05:04 Labs: Laboratory Last Values WBC 11.8 K/mm3 (4.5-11.0) H 08/24/21 05:04 RBC 4.38 M/mm3 (3.65-5.03) 08/24/21 05:04 Hgb 11.8 gm/dl (11.8-15.2) 08/24/21 05:04 Hct 35.8 % (35.5-45.6) 08/24/21 05:04 MCV 82 fl (84-94) L 08/24/21 05:04 MCH 27 pg (28-32) L 08/24/21 05:04 MCHC 33 % (32-34) 08/24/21 05:04 RDW 18.1 % (13.2-15.2) H 08/24/21 05:04 Plt Count 284 K/mm3 (140-440) 08/24/21 05:04 Lymph % (Auto) 6.5 % (13.4-35.0) L 08/24/21 05:04 [place] % (Auto) 6.1 % (0.0-7.3) 08/24/21 05:04 Eos % (Auto) 0.9 % (0.0-4.3) 08/24/21 05:04 Baso % (Auto) 0.3 % (0.0-1.8) 08/24/21 05:04 Lymph # (Auto) 0.8 K/mm3 (1.2-5.4) L 08/24/21 05:04 [place] # (Auto) 0.7 K/mm3 (0.0-0.8) 08/24/21 05:04 Eos # (Auto) 0.1 K/mm3 (0.0-0.4) 08/24/21 05:04 Baso # (Auto) 0.0 K/mm3 (0.0-0.1) 08/24/21 05:04 Seg Neutrophils % 86.2 % (40.0-70.0) H 08/24/21 05:04 Seg Neutrophils # 10.1 K/mm3 (1.8-7.7) H 08/24/21 05:04 VBG pH 7.254 (7.320-7.420) L 08/23/21 13:28 Sodium 137 mmol/L (137-145) 08/24/21 05:04 Potassium 4.2 mmol/L (3.6-5.0) 08/24/21 05:04 Chloride 97.9 mmol/L (98-107) L 08/24/21 05:04 Carbon Dioxide 26 mmol/L (22-30) 08/24/21 05:04 Anion Gap 17 mmol/L 08/24/21 05:04 BUN 14 mg/dL (9-20) 08/24/21 05:04 Creatinine 2.0 mg/dL (0.8-1.3) H 08/24/21 05:04 Estimated GFR 41 ml/min 08/24/21 05:04 BUN/Creatinine Ratio 7 % 08/24/21 05:04 Glucose 133 mg/dL (75-100) H 08/24/21 05:04 POC Glucose 149 mg/dL (70-105) H 08/24/21 03:59 Calcium 9.7 mg/dL (8.4-10.2) 08/24/21 05:04 Phosphorus 3.60 mg/dL (2.5-4.5) 08/23/21 15:36 Magnesium 1.60 mg/dL (1.7-2.3) L 08/23/21 15:36 Total Bilirubin 3.90 mg/dL (0.1-1.2) H 08/24/21 05:04 AST 93 units/L (5-40) H 08/24/21 05:04 ALT 52 units/L (7-56) 08/24/21 05:04 Alkaline Phosphatase 443 units/L (35-129) H 08/24/21 05:04 Total Protein 7.1 g/dL (6.3-8.2) 08/24/21 05:04 Albumin 3.3 g/dL (3.9-5) L 08/24/21 05:04 Albumin/Globulin Ratio 0.9 % 08/24/21 05:04 Lipase 245 units/L (13-60) H 08/23/21 10:59 Urine Color Yellow (Yellow) 08/23/21 11:21 Urine Turbidity Clear (Clear) 08/23/21 11:21 Urine pH 7.0 (5.0-7.0) 08/23/21 11:21 Ur Specific [place] 1.021 (1.003-1.030) 08/23/21 11:21 Urine Protein 100 mg/dl mg/dL (Negative) 08/23/21 11:21 Urine Glucose (UA) >=500 mg/dL (Negative) 08/23/21 11:21 Urine Ketones 20 mg/dL (Negative) 08/23/21 11:21 Urine Blood Sm (Negative) 08/23/21 11:21 Urine Nitrite Neg (Negative) 08/23/21 11:21 Urine Bilirubin Neg (Negative) 08/23/21 11:21 Urine Urobilinogen 2.0 mg/dL (<2.0) 08/23/21 11:21 Ur Leukocyte Esterase Neg (Negative) 08/23/21 11:21 Urine WBC (Auto) 1.0 /HPF (0.0-6.0) 08/23/21 11:21 Urine RBC (Auto) 2.0 /HPF (0.0-6.0) 08/23/21 11:21 Active Medications - Current Medications Current Medications: Generic Name Dose Route Start Last Admin Trade Name Freq PRN Reason Stop Dose Admin Albuterol 2.5 mg 08/23/21 15:13 Albuterol 2.5 Mg/3 Ml Nebu IH Q3HRT PRN Shortness Of Breath Hydromorphone HCl 0.5 mg 08/23/21 15:13 08/24/21 08:29 Hydromorphone 1 Mg/1 Ml Inj IV 0.5 mg Q6H PRN Administration Pain , Severe (7-10) Insulin Human Regular 100 100 mls @ 1 mls/hr 08/23/21 16:00 08/24/21 08:23 units/ Sodium Chloride IV 2 units/hr TITR CHAKA 2 mls/hr Titration Protocol 1 UNITS/HR Potassium Chloride/Dextrose/Sod Cl 20 meq in 1,000 mls @ 75 mls/hr 08/23/21 23:00 08/23/21 22:42 D5w/0.45% Nacl/Kcl 20 Meq IV 75 mls/hr DIRECT CHAKA Administration Ibuprofen 600 mg 08/23/21 15:13 Ibuprofen 600 Mg Tab PO Q6H PRN Pain, Mild (1-3) Oxycodone/Acetaminophen 1 tab 08/23/21 15:13 Oxycodone /Acetaminophen 5-325mg Tab PO Q6H PRN Pain, Moderate (4-6) Pneumococcal Polyvalent Vaccine 0.5 ml 08/24/21 12:00 Pneumococcal 23 Valent 0.5 Ml Vial IM 08/24/21 12:01 .ONCE ONE Sodium Chloride 10 ml 08/23/21 22:00 08/23/21 21:49 Sodium Chloride 0.9% 10 Ml Flush Syringe IV 10 ml BID CHAKA Administration Sodium Chloride 10 ml 08/23/21 15:13 08/24/21 02:15 Sodium Chloride 0.9% 10 Ml Flush Syringe IV 10 ml PRN PRN Administration LINE FLUSH
--- NOTE | 2021-08-24 11:06 | Consultation ---
History of Present Illness - Reason for Consult Consult date: 08/24/21 DKA Requesting physician: AZAR WRAY - History of Present Illness 61 y/o who presents to the ED with one months of abdominal pain, a 30lb weight loss associated with decrease appetite and not able to keep down solids admitted with DKA. Subsequently on CT scan found to have pancreatic head mass with multiple things in differential. BS was elevated so started IVF and insulin drip. This am gap resolved but patient does not feel any better. had MRCP done this am. Per patient was waiting on an outpatient appointment prior to coming to ED after he could not wait any more. Patient has no family here but does have a daughter in [place] and a Mother in [place] but she has Alzheimer's. Past History Past Medical History: diabetes, GERD, hypertension, hyperlipidemia, hypothyroidism, renal failure Past Surgical History: No surgical history, Other (Reviewed) Social history: , smoking. denies: alcohol abuse, prescription drug abuse Family history: diabetes, hypertension, other (mother with alzheimers) Medications and Allergies Allergies Allergy/AdvReac Type Severity Reaction Status Date / Time No Known Allergies Allergy Unverified 02/11/20 12:08 Home Medications Medication Instructions Recorded Confirmed Last Taken Type Omeprazole 20 mg PO DAILY 10/14/20 08/23/21 08/21/21 History Pantoprazole [Protonix] 40 mg PO BID #60 tablet 10/17/20 08/23/21 08/21/21 Rx Potassium Chloride [K-Dur] 10 meq PO QDAY #30 tablet 10/17/20 08/23/21 08/21/21 Rx AtorvaSTATin [Lipitor] 40 mg PO QHS 08/23/21 08/23/21 08/20/21 History Furosemide [Lasix TAB] 20 mg PO QDAY 08/23/21 08/23/21 08/20/21 History Insulin NPH Hum/Reg Insulin Hm 25 units SUB-Q AC 08/23/21 08/23/21 08/22/21 Hi story [Novolin 70-30 100 Unit/ml Vial] Levothyroxine Sodium 175 mcg PO DAILY 08/23/21 08/23/21 08/22/21 History [Levothyroxine] Novolin 70-30 100 Unit/ml Vial 25 units SQ HS 08/23/21 08/23/21 08/22/21 History QUEtiapine [SEROquel] 1,000 mg PO QDAY@2200 08/23/21 08/23/21 08/22/21 History Sertraline [Zoloft] 100 mg PO QDAY 08/23/21 08/23/21 08/22/21 History Active Meds: Active Medications Albuterol (Albuterol 2.5 Mg/3 Ml Nebu) 2.5 mg IH Q3HRT PRN PRN Reason: Shortness Of Breath Hydromorphone HCl (Hydromorphone 1 Mg/1 Ml Inj) 0.5 mg IV Q6H PRN PRN Reason: Pain , Severe (7-10) Last Admin: 08/24/21 08:29 Dose: 0.5 mg Insulin Human Regular 100 (units/ Sodium Chloride) 100 mls @ 1 mls/hr IV TITR CHAKA; Protocol Last Titration: 08/24/21 10:47 Dose: 1.5 units/hr, 1.5 mls/hr Potassium Chloride/Dextrose/Sod Cl (D5w/0.45% Nacl/Kcl 20 Meq) 20 meq in 1,000 mls @ 75 mls/hr IV DIRECT CHAKA Last Admin: 08/23/21 22:42 Dose: 75 mls/hr Oxycodone/Acetaminophen (Oxycodone /Acetaminophen 5-325mg Tab) 1 tab PO Q6H PRN PRN Reason: Pain, Moderate (4-6) Pneumococcal Polyvalent Vaccine (Pneumococcal 23 Valent 0.5 Ml Vial) 0.5 ml IM .ONCE ONE Stop: 08/24/21 12:01 Sodium Chloride (Sodium Chloride 0.9% 10 Ml Flush Syringe) 10 ml IV BID CHAKA Last Admin: 08/24/21 10:47 Dose: 10 ml Sodium Chloride (Sodium Chloride 0.9% 10 Ml Flush Syringe) 10 ml IV PRN PRN PRN Reason: LINE FLUSH Last Admin: 08/24/21 02:15 Dose: 10 ml Review of Systems All systems: negative Constitutional: weight loss, weakness, malaise, poor appetite Exam - Constitutional Vitals: Temp Pulse Resp BP Pulse Ox 98.9 F 89 13 154/97 98 08/24/21 07:11 08/24/21 10:00 08/24/21 06:11 08/24/21 06:11 08/24/21 10:00 Results - Labs CBC & Chem 7: 08/24/21 05:04 08/24/21 05:04 Labs: Abnormal lab results 08/23/21 08/23/21 08/23/21 Range/Units 10:59 10:59 13:28 WBC (4.5-11.0) K/mm3 MCV (84-94) fl MCH 27 L (28-32) pg RDW 18.1 H (13.2-15.2) % Lymph % (Auto) (13.4-35.0) % Lymph # (Auto) (1.2-5.4) K/mm3 Seg Neutrophils % (40.0-70.0) % Seg Neutrophils # (1.8-7.7) K/mm3 VBG pH 7.254 L (7.320-7.420) Sodium 130 L (137-145) mmol/L Potassium (3.6-5.0) mmol/L Chloride 87.7 L (98-107) mmol/L Carbon Dioxide 17 L (22-30) mmol/L Creatinine 2.4 H (0.8-1.3) mg/dL Glucose 524 H* (75-100) mg/dL POC Glucose (70-105) mg/dL Magnesium (1.7-2.3) mg/dL Total Bilirubin 4.20 H (0.1-1.2) mg/dL AST 67 H (5-40) units/L Alkaline Phosphatase 442 H (35-129) units/L Albumin 2.9 L (3.9-5) g/dL Lipase 245 H (13-60) units/L 08/23/21 08/23/21 08/23/21 Range/Units 15:36 16:38 17:58 WBC (4.5-11.0) K/mm3 MCV (84-94) fl MCH (28-32) pg RDW (13.2-15.2) % Lymph % (Auto) (13.4-35.0) % Lymph # (Auto) (1.2-5.4) K/mm3 Seg Neutrophils % (40.0-70.0) % Seg Neutrophils # (1.8-7.7) K/mm3 VBG pH (7.320-7.420) Sodium 128 L (137-145) mmol/L Potassium 5.2 H (3.6-5.0) mmol/L Chloride 88.8 L (98-107) mmol/L Carbon Dioxide 19 L (22-30) mmol/L Creatinine 2.1 H (0.8-1.3) mg/dL Glucose 499 H (75-100) mg/dL POC Glucose 433 H 347 H (70-105) mg/dL Magnesium 1.60 L (1.7-2.3) mg/dL Total Bilirubin (0.1-1.2) mg/dL AST (5-40) units/L Alkaline Phosphatase (35-129) units/L Albumin (3.9-5) g/dL Lipase (13-60) units/L 08/23/21 08/23/21 08/23/21 Range/Units 18:57 19:08 20:28 WBC (4.5-11.0) K/mm3 MCV (84-94) fl MCH (28-32) pg RDW (13.2-15.2) % Lymph % (Auto) (13.4-35.0) % Lymph # (Auto) (1.2-5.4) K/mm3 Seg Neutrophils % (40.0-70.0) % Seg Neutrophils # (1.8-7.7) K/mm3 VBG pH (7.320-7.420) Sodium 133 L (137-145) mmol/L Potassium (3.6-5.0) mmol/L Chloride 93.8 L (98-107) mmol/L Carbon Dioxide (22-30) mmol/L Creatinine 2.2 H (0.8-1.3) mg/dL Glucose 282 H (75-100) mg/dL POC Glucose 306 H 193 H (70-105) mg/dL Magnesium (1.7-2.3) mg/dL Total Bilirubin (0.1-1.2) mg/dL AST (5-40) units/L Alkaline Phosphatase (35-129) units/L Albumin (3.9-5) g/dL Lipase (13-60) units/L 08/23/21 08/23/21 08/23/21 Range/Units 20:58 21:39 22:35 WBC (4.5-11.0) K/mm3 MCV (84-94) fl MCH (28-32) pg RDW (13.2-15.2) % Lymph % (Auto) (13.4-35.0) % Lymph # (Auto) (1.2-5.4) K/mm3 Seg Neutrophils % (40.0-70.0) % Seg Neutrophils # (1.8-7.7) K/mm3 VBG pH (7.320-7.420) Sodium 133 L (137-145) mmol/L Potassium (3.6-5.0) mmol/L Chloride 95.1 L (98-107) mmol/L Carbon Dioxide (22-30) mmol/L Creatinine 2.2 H (0.8-1.3) mg/dL Glucose 183 H (75-100) mg/dL POC Glucose 152 H 116 H (70-105) mg/dL Magnesium (1.7-2.3) mg/dL Total Bilirubin (0.1-1.2) mg/dL AST (5-40) units/L Alkaline Phosphatase (35-129) units/L Albumin (3.9-5) g/dL Lipase (13-60) units/L 08/23/21 08/24/21 08/24/21 Range/Units 23:42 00:24 01:40 WBC (4.5-11.0) K/mm3 MCV (84-94) fl MCH (28-32) pg RDW (13.2-15.2) % Lymph % (Auto) (13.4-35.0) % Lymph # (Auto) (1.2-5.4) K/mm3 Seg Neutrophils % (40.0-70.0) % Seg Neutrophils # (1.8-7.7) K/mm3 VBG pH (7.320-7.420) Sodium 135 L (137-145) mmol/L Potassium (3.6-5.0) mmol/L Chloride 95.2 L (98-107) mmol/L Carbon Dioxide (22-30) mmol/L Creatinine 2.1 H (0.8-1.3) mg/dL Glucose 107 H (75-100) mg/dL POC Glucose 118 H 128 H (70-105) mg/dL Magnesium (1.7-2.3) mg/dL Total Bilirubin (0.1-1.2) mg/dL AST (5-40) units/L Alkaline Phosphatase (35-129) units/L Albumin (3.9-5) g/dL Lipase (13-60) units/L 08/24/21 08/24/21 08/24/21 Range/Units 02:55 03:31 03:59 WBC (4.5-11.0) K/mm3 MCV (84-94) fl MCH (28-32) pg RDW (13.2-15.2) % Lymph % (Auto) (13.4-35.0) % Lymph # (Auto) (1.2-5.4) K/mm3 Seg Neutrophils % (40.0-70.0) % Seg Neutrophils # (1.8-7.7) K/mm3 VBG pH (7.320-7.420) Sodium (137-145) mmol/L Potassium (3.6-5.0) mmol/L Chloride (98-107) mmol/L Carbon Dioxide (22-30) mmol/L Creatinine (0.8-1.3) mg/dL Glucose (75-100) mg/dL POC Glucose 196 H 174 H 149 H (70-105) mg/dL Magnesium (1.7-2.3) mg/dL Total Bilirubin (0.1-1.2) mg/dL AST (5-40) units/L Alkaline Phosphatase (35-129) units/L Albumin (3.9-5) g/dL Lipase (13-60) units/L 08/24/21 08/24/21 08/24/21 Range/Units 05:04 05:04 05:09 WBC 11.8 H (4.5-11.0) K/mm3 MCV 82 L (84-94) fl MCH 27 L (28-32) pg RDW 18.1 H (13.2-15.2) % Lymph % (Auto) 6.5 L (13.4-35.0) % Lymph # (Auto) 0.8 L (1.2-5.4) K/mm3 Seg Neutrophils % 86.2 H (40.0-70.0) % Seg Neutrophils # 10.1 H (1.8-7.7) K/mm3 VBG pH (7.320-7.420) Sodium (137-145) mmol/L Potassium (3.6-5.0) mmol/L Chloride 97.9 L (98-107) mmol/L Carbon Dioxide (22-30) mmol/L Creatinine 2.0 H (0.8-1.3) mg/dL Glucose 133 H (75-100) mg/dL POC Glucose 140 H (70-105) mg/dL Magnesium (1.7-2.3) mg/dL Total Bilirubin 3.90 H (0.1-1.2) mg/dL AST 93 H (5-40) units/L Alkaline Phosphatase 443 H (35-129) units/L Albumin 3.3 L (3.9-5) g/dL Lipase (13-60) units/L 08/24/21 08/24/21 08/24/21 Range/Units 06:17 08:22 09:34 WBC (4.5-11.0) K/mm3 MCV (84-94) fl MCH (28-32) pg RDW (13.2-15.2) % Lymph % (Auto) (13.4-35.0) % Lymph # (Auto) (1.2-5.4) K/mm3 Seg Neutrophils % (40.0-70.0) % Seg Neutrophils # (1.8-7.7) K/mm3 VBG pH (7.320-7.420) Sodium (137-145) mmol/L Potassium (3.6-5.0) mmol/L Chloride (98-107) mmol/L Carbon Dioxide (22-30) mmol/L Creatinine (0.8-1.3) mg/dL Glucose (75-100) mg/dL POC Glucose 121 H 132 H 117 H (70-105) mg/dL Magnesium (1.7-2.3) mg/dL Total Bilirubin (0.1-1.2) mg/dL AST (5-40) units/L Alkaline Phosphatase (35-129) units/L Albumin (3.9-5) g/dL Lipase (13-60) units/L - Imaging and Cardiology CT scan - abdomen: report reviewed CT scan - pelvis: report reviewed Assessment and Plan 61 y/o male with abdominal pain, weight loss and elevated blood sugar admitted w ith DKA, found to have pancreatic head lesion and possibly acute pancreatitis. 1. Endo- DKA has resolved however patient cannot and does not want to eat. May need to just cover with sliding scale for right now. Continue IVF's. Ok with trying to transition off insulin drip. 2. GI- Follow up MRCP results 3. Pain control CCT 31 minutes.
--- NOTE | 2021-08-24 11:12 | Magnetic Resonance Report ---
MR abdomen MRCP INDICATION / CLINICAL INFORMATION: pancreatic head mass, SEVERE ABD PAIN. TECHNIQUE: Multiplanar, multisequence MR images were obtained. Routine MRI abdomen with MRCP COMPARISON: 08/23/2021. FINDINGS: MRI abdomen with MRCP: There is a large solid appearing 6.7 x 5.9 cm mass centered at the pancreatic head. There appears to be a small amount of cystic internal component of this mass. The mass causes severe obstruction of th e distal common bile duct at the pancreatic segment with the more cephalad common bile duct measuring up to 1.5 cm in diameter. The main pancreatic duct is obstructed measuring 1.5 cm in greatest diamet er. There is slight atrophy of the tail the pancreas. The gallbladder is fluid distended and contains small filling defects which could represent sludge or gallstones. No focal hepatic lesion identified within the limited images of the liver. Motion artifact limits evaluation of the kidneys and spleen. Several borderline enlarged nodes are identified in the ana hepatis region that appear suspicious. The mass causes severe mass effect on the portal confluence as well as the common and proper hepatic arteries. IMPRESSION: 1. Large 6.7 x 5.9 cm primary neoplasm of the head of the pancreas probably related to adenocarcinoma . This mass causes moderate obstruction of the pancreatic segment of the common bile duct measuring u p to 1.5 cm in diameter cephalad, as above. There is also prominent obstruction of the main pancreati c duct measuring up to 1.5 cm in diameter. There is only slight intrahepatic biliary dilatation at th is time. Signer Name: Jenaro Allan MD Signed: 08/24/2021 11:08 AM Workstation Name: [id number]
--- NOTE | 2021-08-24 11:55 | Gastroenterology Consultation ---
<STACEY DONALD - Last Filed: 08/24/21 12:21> History of Present Illness - Reason for Consult Consult date: 08/24/21 pancreatic mass/lesion - History of Present Illness Mr. Greco is a 61 y/o M with a PMHx significant for DM, HTN, thyroidectomy, and "liver issues" who presented to the ED with abdominal pain x30 days. Prior to admission pt states that he had been having 9/10 upper abdominal pain that radiated to his back. Pt states that about x30 days ago he started having n/v with solids and then switched to only consuming liquids as these initially did not cause vomiting. Now pt complains of inability to keep liquids down and severe, radiating abdominal pain. Endorses 30 lb wt loss in the last month. Pt states that he has been "drinking bottles of ibuprofen" for the pain w/ relief and reports completing x2 bottles of ibuprofen in the last month. PCP encouraged pt to stop taking and pt has stopped within the last few days. Pt states that he has normal, formed BMs every other day and last BM was x2 days ago. Denies signs of upper/lower GI bleeding. Pt reports last colonoscopy was last year and was "normal." Pt states that he has had nothing to drink for 60 days. Prior to that, endorses consuming a 6 pack every other day and hard liquor (amount unknown). Endorses smoking 1/2 PPD since he was 13. Past History Past Medical History: diabetes, GERD, hypertension, hyperlipidemia, hypothyroidism, renal failure Past Surgical History: No surgical history, Other (Reviewed) Social history: , smoking. denies: alcohol abuse, prescription drug abuse Family history: diabetes, hypertension, other (mother with alzheimers) Medications and Allergies Allergies Allergy/AdvReac Type Severity Reaction Status Date / Time No Known Allergies Allergy Unverified 02/11/20 12:08 Home Medications Medication Instructions Recorded Confirmed Last Taken Type Omeprazole 20 mg PO DAILY 10/14/20 08/23/21 08/21/21 History Pantoprazole [Protonix] 40 mg PO BID #60 tablet 10/17/20 08/23/21 08/21/21 Rx Potassium Chloride [K-Dur] 10 meq PO QDAY #30 tablet 10/17/20 08/23/21 08/21/21 Rx AtorvaSTATin [Lipitor] 40 mg PO QHS 08/23/21 08/23/21 08/20/21 History Furosemide [Lasix TAB] 20 mg PO QDAY 08/23/21 08/23/21 08/20/21 History Insulin NPH Hum/Reg Insulin Hm 25 units SUB-Q AC 08/23/21 08/23/21 08/22/21 History [Novolin 70-30 100 Unit/ml Vial] Levothyroxine Sodium 175 mcg PO DAILY 08/23/21 08/23/21 08/22/21 History [Levothyroxine] Novolin 70-30 100 Unit/ml Vial 25 units SQ HS 08/23/21 08/23/21 08/22/21 History QUEtiapine [SEROquel] 1,000 mg PO QDAY@2200 08/23/21 08/23/21 08/22/21 History Sertraline [Zoloft] 100 mg PO QDAY 08/23/21 08/23/21 08/22/21 History Active Meds: Active Medications Albuterol (Albuterol 2.5 Mg/3 Ml Nebu) 2.5 mg IH Q3HRT PRN PRN Reason: Shortness Of Breath Hydromorphone HCl (Hydromorphone 1 Mg/1 Ml Inj) 0.5 mg IV Q6H PRN PRN Reason: Pain , Severe (7-10) Last Admin: 08/24/21 08:29 Dose: 0.5 mg Insulin Human Regular 100 (units/ Sodium Chloride) 100 mls @ 1 mls/hr IV TITR CHAKA; Protocol Last Titration: 08/24/21 11:27 Dose: 3 units/hr, 3 mls/hr Potassium Chloride/Dextrose/Sod Cl (D5w/0.45% Nacl/Kcl 20 Meq) 20 meq in 1,000 mls @ 75 mls/hr IV DIRECT CHAKA Last Admin: 08/23/21 22:42 Dose: 75 mls/hr Oxycodone/Acetaminophen (Oxycodone /Acetaminophen 5-325mg Tab) 1 tab PO Q6H PRN PRN Reason: Pain, Moderate (4-6) Pneumococcal Polyvalent Vaccine (Pneumococcal 23 Valent 0.5 Ml Vial) 0.5 ml IM .ONCE ONE Stop: 08/24/21 12:01 Last Admin: 08/24/21 11:29 Dose: Not Given Sodium Chloride (Sodium Chloride 0.9% 10 Ml Flush Syringe) 10 ml IV BID CHAKA Last Admin: 08/24/21 10:47 Dose: 10 ml Sodium Chloride (Sodium Chloride 0.9% 10 Ml Flush Syringe) 10 ml IV PRN PRN PRN Reason: LINE FLUSH Last Admin: 08/24/21 02:15 Dose: 10 ml Review of Systems - Review of Systems Constitutional: weight loss Gastrointestinal: abdominal pain, nausea, vomiting Exam - Constitutional Vital Signs: Temp Pulse Resp BP Pulse Ox 98.9 F 89 13 154/97 98 08/24/21 07:11 08/24/21 10:00 08/24/21 06:11 08/24/21 06:11 08/24/21 10:00 General appearance: mild distress - EENT ENT: hearing intact, clear oral mucosa, dentition normal - Neck Neck: supple, normal ROM - Respiratory Respiratory effort: normal - Cardiovascular Rhythm: regular - Gastrointestinal General gastrointestinal: Present: soft, tender, non-distended Rectal Exam: deferred - Integumentary Integumentary: Present: clear, warm, dry - Neurologic Neurological: alert and oriented x3 - Psychiatric Psychiatric: appropriate mood/affect, intact judgment & insight, memory intact, cooperative - Labs CBC & Chem 7: 08/24/21 05:04 08/24/21 05:04 Lab Results: Laboratory Results - last 24 hr 08/23/21 08/23/21 08/23/21 10:59 10:59 11:21 WBC 10.5 RBC 4.43 Hgb 12.1 Hct 37.5 MCV 85 MCH 27 L MCHC 32 RDW 18.1 H Plt Count 295 Lymph % (Auto) [place] % (Auto) Eos % (Auto) Baso % (Auto) Lymph # (Auto) [place] # (Auto) Eos # (Auto) Baso # (Auto) Seg Neutrophils % Seg Neutrophils # VBG pH Sodium 130 L Potassium 4.9 Chloride 87.7 L Carbon Dioxide 17 L Anion Gap 30 BUN 14 Creatinine 2.4 H Estimated GFR 34 BUN/Creatinine Ratio 6 Glucose 524 H* POC Glucose Calcium 10.0 Phosphorus Magnesium Total Bilirubin 4.20 H AST 67 H ALT 45 Alkaline Phosphatase 442 H Total Protein 7.8 Albumin 2.9 L Albumin/Globulin Ratio 0.6 Lipase 245 H Urine Color Yellow Urine Turbidity Clear Urine pH 7.0 Ur Specific Wyatt 1.021 Urine Protein 100 mg/dl Urine Glucose (UA) >=500 Urine Ketones 20 Urine Blood Sm Urine Nitrite Neg Urine Bilirubin Neg Urine Urobilinogen 2.0 Ur Leukocyte Esterase Neg Urine WBC (Auto) 1.0 Urine RBC (Auto) 2.0 08/23/21 08/23/21 08/23/21 13:28 15:36 16:38 WBC RBC Hgb Hct MCV MCH MCHC RDW Plt Count Lymph % (Auto) [place] % (Auto) Eos % (Auto) Baso % (Auto) Lymph # (Auto) [place] # (Auto) Eos # (Auto) Baso # (Auto) Seg Neutrophils % Seg Neutrophils # VBG pH 7.254 L Sodium 128 L Potassium 5.2 H Chloride 88.8 L Carbon Dioxide 19 L Anion Gap 25 BUN 15 Creatinine 2.1 H Estimated GFR 39 BUN/Creatinine Ratio 7 Glucose 499 H POC Glucose 433 H Calcium 9.5 Phosphorus 3.60 Magnesium 1.60 L Total Bilirubin AST ALT Alkaline Phosphatase Total Protein Albumin Albumin/Globulin Ratio Lipase Urine Color Urine Turbidity Urine pH Ur Specific [place] Urine Protein Urine Glucose (UA) Urine Ketones Urine Blood Urine Nitrite Urine Bilirubin Urine Urobilinogen Ur Leukocyte Esterase Urine WBC (Auto) Urine RBC (Auto) 08/23/21 08/23/21 08/23/21 17:58 18:57 19:08 WBC RBC Hgb Hct MCV MCH MCHC RDW Plt Count Lymph % (Auto) [place] % (Auto) Eos % (Auto) Baso % (Auto) Lymph # (Auto) [place] # (Auto) Eos # (Auto) Baso # (Auto) Seg Neutrophils % Seg Neutrophils # VBG pH Sodium 133 L Potassium 3.8 D Chloride 93.8 L Carbon Dioxide 25 Anion Gap 18 BUN 14 Creatinine 2.2 H Estimated GFR 37 BUN/Creatinine Ratio 6 Glucose 282 H POC Glucose 347 H 306 H Calcium 9.7 Phosphorus Magnesium Total Bilirubin AST ALT Alkaline Phosphatase Total Protein Albumin Albumin/Globulin Ratio Lipase Urine Color Urine Turbidity Urine pH Ur Specific [place] Urine Protein Urine Glucose (UA) Urine Ketones Urine Blood Urine Nitrite Urine Bilirubin Urine Urobilinogen Ur Leukocyte Esterase Urine WBC (Auto) Urine RBC (Auto) 08/23/21 08/23/21 08/23/21 20:28 20:58 21:39 WBC RBC Hgb Hct MCV MCH MCHC RDW Plt Count Lymph % (Auto) [place] % (Auto) Eos % (Auto) Baso % (Auto) Lymph # (Auto) [place] # (Auto) Eos # (Auto) Baso # (Auto) Seg Neutrophils % Seg Neutrophils # VBG pH Sodium 133 L Potassium 3.6 Chloride 95.1 L Carbon Dioxide 26 Anion Gap 16 BUN 14 Creatinine 2.2 H Estimated GFR 37 BUN/Creatinine Ratio 6 Glucose 183 H POC Glucose 193 H 152 H Calcium 9.8 Phosphorus Magnesium Total Bilirubin AST ALT Alkaline Phosphatase Total Protein Albumin Albumin/Globulin Ratio Lipase Urine Color Urine Turbidity Urine pH Ur Specific [place] Urine Protein Urine Glucose (UA) Urine Ketones Urine Blood Urine Nitrite Urine Bilirubin Urine Urobilinogen Ur Leukocyte Esterase Urine WBC (Auto) Urine RBC (Auto) 08/23/21 08/23/21 08/24/21 22:35 23:42 00:24 WBC RBC Hgb Hct MCV MCH MCHC RDW Plt Count Lymph % (Auto) [place] % (Auto) Eos % (Auto) Baso % (Auto) Lymph # (Auto) [place] # (Auto) Eos # (Auto) Baso # (Auto) Seg Neutrophils % Seg Neutrophils # VBG pH Sodium 135 L Potassium 4.3 Chloride 95.2 L Carbon Dioxide 27 Anion Gap 17 BUN 14 Creatinine 2.1 H Estimated GFR 39 BUN/Creatinine Ratio 7 Glucose 107 H POC Glucose 116 H 118 H Calcium 10.2 Phosphorus Magnesium Total Bilirubin AST ALT Alkaline Phosphatase Total Protein Albumin Albumin/Globulin Ratio Lipase Urine Color Urine Turbidity Urine pH Ur Specific [place] Urine Protein Urine Glucose (UA) Urine Ketones Urine Blood Urine Nitrite Urine Bilirubin Urine Urobilinogen Ur Leukocyte Esterase Urine WBC (Auto) Urine RBC (Auto) 08/24/21 08/24/21 08/24/21 01:40 02:55 03:31 WBC RBC Hgb Hct MCV MCH MCHC RDW Plt Count Lymph % (Auto) [place] % (Auto) Eos % (Auto) Baso % (Auto) Lymph # (Auto) [place] # (Auto) Eos # (Auto) Baso # (Auto) Seg Neutrophils % Seg Neutrophils # VBG pH Sodium Potassium Chloride Carbon Dioxide Anion Gap BUN Creatinine Estimated GFR BUN/Creatinine Ratio Glucose POC Glucose 128 H 196 H 174 H Calcium Phosphorus Magnesium Total Bilirubin AST ALT Alkaline Phosphatase Total Protein Albumin Albumin/Globulin Ratio Lipase Urine Color Urine Turbidity Urine pH Ur Specific [place] Urine Protein Urine Glucose (UA) Urine Ketones Urine Blood Urine Nitrite Urine Bilirubin Urine Urobilinogen Ur Leukocyte Esterase Urine WBC (Auto) Urine RBC (Auto) 08/24/21 08/24/21 08/24/21 03:59 05:04 05:04 WBC 11.8 H RBC 4.38 Hgb 11.8 Hct 35.8 MCV 82 L MCH 27 L MCHC 33 RDW 18.1 H Plt Count 284 Lymph % (Auto) 6.5 L [place] % (Auto) 6.1 Eos % (Auto) 0.9 Baso % (Auto) 0.3 Lymph # (Auto) 0.8 L [place] # (Auto) 0.7 Eos # (Auto) 0.1 Baso # (Auto) 0.0 Seg Neutrophils % 86.2 H Seg Neutrophils # 10.1 H VBG pH Sodium 137 Potassium 4.2 Chloride 97.9 L Carbon Dioxide 26 Anion Gap 17 BUN 14 Creatinine 2.0 H Estimated GFR 41 BUN/Creatinine Ratio 7 Glucose 133 H POC Glucose 149 H Calcium 9.7 Phosphorus Magnesium Total Bilirubin 3.90 H AST 93 H ALT 52 Alkaline Phosphatase 443 H Total Protein 7.1 Albumin 3.3 L Albumin/Globulin Ratio 0.9 Lipase Urine Color Urine Turbidity Urine pH Ur Specific [place] Urine Protein Urine Glucose (UA) Urine Ketones Urine Blood Urine Nitrite Urine Bilirubin Urine Urobilinogen Ur Leukocyte Esterase Urine WBC (Auto) Urine RBC (Auto) 08/24/21 08/24/21 08/24/21 05:09 06:17 07:06 WBC RBC Hgb Hct MCV MCH MCHC RDW Plt Count Lymph % (Auto) [place] % (Auto) Eos % (Auto) Baso % (Auto) Lymph # (Auto) [place] # (Auto) Eos # (Auto) Baso # (Auto) Seg Neutrophils % Seg Neutrophils # VBG pH Sodium Potassium Chloride Carbon Dioxide Anion Gap BUN Creatinine Estimated GFR BUN/Creatinine Ratio Glucose POC Glucose 140 H 121 H 123 H Calcium Phosphorus Magnesium Total Bilirubin AST ALT Alkaline Phosphatase Total Protein Albumin Albumin/Globulin Ratio Lipase Urine Color Urine Turbidity Urine pH Ur Specific [place] Urine Protein Urine Glucose (UA) Urine Ketones Urine Blood Urine Nitrite Urine Bilirubin Urine Urobilinogen Ur Leukocyte Esterase Urine WBC (Auto) Urine RBC (Auto) 08/24/21 08/24/21 08/24/21 08:22 09:34 10:45 WBC RBC Hgb Hct MCV MCH MCHC RDW Plt Count Lymph % (Auto) [place] % (Auto) Eos % (Auto) Baso % (Auto) Lymph # (Auto) [place] # (Auto) Eos # (Auto) Baso # (Auto) Seg Neutrophils % Seg Neutrophils # VBG pH Sodium Potassium Chloride Carbon Dioxide Anion Gap BUN Creatinine Estimated GFR BUN/Creatinine Ratio Glucose POC Glucose 132 H 117 H 126 H Calcium Phosphorus Magnesium Total Bilirubin AST ALT Alkaline Phosphatase Total Protein Albumin Albumin/Globulin Ratio Lipase Urine Color Urine Turbidity Urine pH Ur Specific [place] Urine Protein Urine Glucose (UA) Urine Ketones Urine Blood Urine Nitrite Urine Bilirubin Urine Urobilinogen Ur Leukocyte Esterase Urine WBC (Auto) Urine RBC (Auto) 08/24/21 11:23 WBC RBC Hgb Hct MCV MCH MCHC RDW Plt Count Lymph % (Auto) [place] % (Auto) Eos % (Auto) Baso % (Auto) Lymph # (Auto) [place] # (Auto) Eos # (Auto) Baso # (Auto) Seg Neutrophils % Seg Neutrophils # VBG pH Sodium Potassium Chloride Carbon Dioxide Anion Gap BUN Creatinine Estimated GFR BUN/Creatinine Ratio Glucose POC Glucose 170 H Calcium Phosphorus Magnesium Total Bilirubin AST ALT Alkaline Phosphatase Total Protein Albumin Albumin/Globulin Ratio Lipase Urine Color Urine Turbidity Urine pH Ur Specific [place] Urine Protein Urine Glucose (UA) Urine Ketones Urine Blood Urine Nitrite Urine Bilirubin Urine Urobilinogen Ur Leukocyte Esterase Urine WBC (Auto) Urine RBC (Auto) Assessment and Plan 1. Pancreatic head mass/lesion -Per MRCP: 6.7x5.9 cm likely d/t adenocarcinoma, moderate obs of pancreatic segment of common bile duct (1.5cm), slight intrahepatic biliary dilation -CA-[id number] ordered <DARSHANA WEISS - Last Filed: 08/24/21 18:28> Medications and Allergies Active Meds: Active Medications Albuterol (Albuterol 2.5 Mg/3 Ml Nebu) 2.5 mg IH Q3HRT PRN PRN Reason: Shortness Of Breath Dextrose (Dextrose 50% In Water (25gm) 50 Ml Syringe) 50 ml IV Q30MIN PRN; Protocol PRN Reason: Hypoglycemia Hydromorphone HCl (Hydromorphone 1 Mg/1 Ml Inj) 0.5 mg IV Q6H PRN PRN Reason: Pain , Severe (7-10) Last Admin: 08/24/21 14:40 Dose: 0.5 mg Potassium Chloride/Dextrose/Sod Cl (D5w/0.45% Nacl/Kcl 20 Meq) 20 meq in 1,000 mls @ 75 mls/hr IV DIRECT CHAKA Last Admin: 08/24/21 14:16 Dose: 75 mls/hr Insulin Glargine (Insulin Glargine 100 Units/Ml) 10 units SUB-Q QHS CHAKA Insulin Human Lispro (Insulin Lispro 100 Unit/Ml) 0 unit SUB-Q ACHS CHAKA; Protocol Last Admin: 08/24/21 16:57 Dose: 2 unit Oxycodone/Acetaminophen (Oxycodone /Acetaminophen 5-325mg Tab) 1 tab PO Q6H PRN PRN Reason: Pain, Moderate (4-6) Sodium Chloride (Sodium Chloride 0.9% 10 Ml Flush Syringe) 10 ml IV BID CHAKA Last Admin: 08/24/21 10:47 Dose: 10 ml Sodium Chloride (Sodium Chloride 0.9% 10 Ml Flush Syringe) 10 ml IV PRN PRN PRN Reason: LINE FLUSH Last Admin: 08/24/21 02:15 Dose: 10 ml Exam - Constitutional Vital Signs: Temp Pulse Resp BP Pulse Ox 99.0 F 111 H 17 122/67 100 08/24/21 17:35 08/24/21 17:30 08/24/21 17:30 08/24/21 17:30 08/24/21 17:30 - Labs CBC & Chem 7: 08/24/21 05:04 08/24/21 05:04 Lab Results: Laboratory Results - last 24 hr 08/23/21 08/23/21 08/23/21 17:58 18:57 19:08 WBC RBC Hgb Hct MCV MCH MCHC RDW Plt Count Lymph % (Auto) [place] % (Auto) Eos % (Auto) Baso % (Auto) Lymph # (Auto) [place] # (Auto) Eos # (Auto) Baso # (Auto) Seg Neutrophils % Seg Neutrophils # Sodium 133 L Potassium 3.8 D Chloride 93.8 L Carbon Dioxide 25 Anion Gap 18 BUN 14 Creatinine 2.2 H Estimated GFR 37 BUN/Creatinine Ratio 6 Glucose 282 H POC Glucose 347 H 306 H Calcium 9.7 Total Bilirubin AST ALT Alkaline Phosphatase Total Protein Albumin Albumin/Globulin Ratio 08/23/21 08/23/21 08/23/21 20:28 20:58 21:39 WBC RBC Hgb Hct MCV MCH MCHC RDW Plt Count Lymph % (Auto) [place] % (Auto) Eos % (Auto) Baso % (Auto) Lymph # (Auto) [place] # (Auto) Eos # (Auto) Baso # (Auto) Seg Neutrophils % Seg Neutrophils # Sodium 133 L Potassium 3.6 Chloride 95.1 L Carbon Dioxide 26 Anion Gap 16 BUN 14 Creatinine 2.2 H Estimated GFR 37 BUN/Creatinine Ratio 6 Glucose 183 H POC Glucose 193 H 152 H Calcium 9.8 Total Bilirubin AST ALT Alkaline Phosphatase Total Protein Albumin Albumin/Globulin Ratio 08/23/21 08/23/21 08/24/21 22:35 23:42 00:24 WBC RBC Hgb Hct MCV MCH MCHC RDW Plt Count Lymph % (Auto) [place] % (Auto) Eos % (Auto) Baso % (Auto) Lymph # (Auto) [place] # (Auto) Eos # (Auto) Baso # (Auto) Seg Neutrophils % Seg Neutrophils # Sodium 135 L Potassium 4.3 Chloride 95.2 L Carbon Dioxide 27 Anion Gap 17 BUN 14 Creatinine 2.1 H Estimated GFR 39 BUN/Creatinine Ratio 7 Glucose 107 H POC Glucose 116 H 118 H Calcium 10.2 Total Bilirubin AST ALT Alkaline Phosphatase Total Protein Albumin Albumin/Globulin Ratio 08/24/21 08/24/21 08/24/21 01:40 02:55 03:31 WBC RBC Hgb Hct MCV MCH MCHC RDW Plt Count Lymph % (Auto) [place] % (Auto) Eos % (Auto) Baso % (Auto) Lymph # (Auto) [place] # (Auto) Eos # (Auto) Baso # (Auto) Seg Neutrophils % Seg Neutrophils # Sodium Potassium Chloride Carbon Dioxide Anion Gap BUN Creatinine Estimated GFR BUN/Creatinine Ratio Glucose POC Glucose 128 H 196 H 174 H Calcium Total Bilirubin AST ALT Alkaline Phosphatase Total Protein Albumin Albumin/Globulin Ratio 08/24/21 08/24/21 08/24/21 03:59 05:04 05:04 WBC 11.8 H RBC 4.38 Hgb 11.8 Hct 35.8 MCV 82 L MCH 27 L MCHC 33 RDW 18.1 H Plt Count 284 Lymph % (Auto) 6.5 L [place] % (Auto) 6.1 Eos % (Auto) 0.9 Baso % (Auto) 0.3 Lymph # (Auto) 0.8 L [place] # (Auto) 0.7 Eos # (Auto) 0.1 Baso # (Auto) 0.0 Seg Neutrophils % 86.2 H Seg Neutrophils # 10.1 H Sodium 137 Potassium 4.2 Chloride 97.9 L Carbon Dioxide 26 Anion Gap 17 BUN 14 Creatinine 2.0 H Estimated GFR 41 BUN/Creatinine Ratio 7 Glucose 133 H POC Glucose 149 H Calcium 9.7 Total Bilirubin 3.90 H AST 93 H ALT 52 Alkaline Phosphatase 443 H Total Protein 7.1 Albumin 3.3 L Albumin/Globulin Ratio 0.9 08/24/21 08/24/21 08/24/21 05:09 06:17 07:06 WBC RBC Hgb Hct MCV MCH MCHC RDW Plt Count Lymph % (Auto) [place] % (Auto) Eos % (Auto) Baso % (Auto) Lymph # (Auto) [place] # (Auto) Eos # (Auto) Baso # (Auto) Seg Neutrophils % Seg Neutrophils # Sodium Potassium Chloride Carbon Dioxide Anion Gap BUN Creatinine Estimated GFR BUN/Creatinine Ratio Glucose POC Glucose 140 H 121 H 123 H Calcium Total Bilirubin AST ALT Alkaline Phosphatase Total Protein Albumin Albumin/Globulin Ratio 08/24/21 08/24/21 08/24/21 08:22 09:34 10:45 WBC RBC Hgb Hct MCV MCH MCHC RDW Plt Count Lymph % (Auto) [place] % (Auto) Eos % (Auto) Baso % (Auto) Lymph # (Auto) [place] # (Auto) Eos # (Auto) Baso # (Auto) Seg Neutrophils % Seg Neutrophils # Sodium Potassium Chloride Carbon Dioxide Anion Gap BUN Creatinine Estimated GFR BUN/Creatinine Ratio Glucose POC Glucose 132 H 117 H 126 H Calcium Total Bilirubin AST ALT Alkaline Phosphatase Total Protein Albumin Albumin/Globulin Ratio 08/24/21 11:23 WBC RBC Hgb Hct MCV MCH MCHC RDW Plt Count Lymph % (Auto) [place] % (Auto) Eos % (Auto) Baso % (Auto) Lymph # (Auto) [place] # (Auto) Eos # (Auto) Baso # (Auto) Seg Neutrophils % Seg Neutrophils # Sodium Potassium Chloride Carbon Dioxide Anion Gap BUN Creatinine Estimated GFR BUN/Creatinine Ratio Glucose POC Glucose 170 H Calcium Total Bilirubin AST ALT Alkaline Phosphatase Total Protein Albumin Albumin/Globulin Ratio Assessment and Plan 61-year-old man who is on disability with PTSD and bipolar disorder as well as other medical problems. He has abdominal pain and abnormal liver enzymes, with a 6.7 x 5.9 cm mass at the head of the pancreas with biliary obstruction and mass-effect on the portal confluence and hepatic artery. He also has some mild lymphadenopathy. Findings are most consistent with pancreatic neoplasm. -Would manage pain -Ideally, if can manage pain and tolerate p.o., would discharge to home with rapid outpatient evaluation at [facility] for endoscopic ultrasound and biliary decompression as well as biopsies and further planning. -If patient cannot be discharged due to inability to tolerate p.o. or some other process, would transfer to [facility]. I have discussed the situation with Dr. Dwight Jauregui, surgeon at [facility], and he is willing to see the patient either is outpatient, or help arrange transfer.
[2021-08-24] MEDS ORDERED: PNEUMOCOCCAL 23 Valent 0.5 ML VIAL IM ONE (12:00)
[2021-08-24] MEDS ORDERED: FLU VACC QUAD 2021-22(6MOS UP)/PF 60 MCG/0.5 ML SYRINGE IM ONE (12:00)
[2021-08-24] MEDS: D5W/0.45% NACL/KCL 20 MEQ 20 MEQ/1,000 ML BAG IV SCH (14:16)
[2021-08-24] MEDS ORDERED: DEXTROSE 50% IN WATER (25GM) 50 ML SYRINGE IV PRN (15:11)
[2021-08-24] MEDS: INSULIN LISPRO 100 UNIT/ML SUB-Q SCH ×2 (16:57→21:32)
[2021-08-24] MEDS: INSULIN GLARGINE 100 UNITS/ML SUB-Q SCH (21:32)
[2021-08-25] MEDS: hydrALAZINE 20 MG/1 ML INJ IV PRN (01:54)
[2021-08-25] MEDS: HYDROmorphone 1 MG/1 ML INJ IV PRN ×4 (02:33→23:21)
[2021-08-25 06:40] LABS: Albumin 3.1 g/dL (3.9-5); Calcium 9.8 mg/dL (8.4-10.2)
[2021-08-25] MEDS: ONDANSETRON 4 MG/2 ML INJ IV PRN (09:57)
[2021-08-25] MEDS: oxyCODONE /ACETAMINOPHEN 5-325MG TAB PO PRN (10:09)
[2021-08-25] MEDS: INSULIN LISPRO 100 UNIT/ML SUB-Q SCH ×4 (10:17→22:06)
--- NOTE | 2021-08-25 10:42 | Gastroenterology Progress Note ---
<STACEY DONALD - Last Filed: 08/25/21 10:43> Assessment and Plan 1. Pancreatic head mass/lesion -Per MRCP: 6.7x5.9 cm likely d/t adenocarcinoma, moderate obs of pancreatic segment of common bile duct (1.5cm), slight intrahepatic biliary dilation -CA-19-9 ordered, waiting on results - Pt will be transferred to [facility] and admitted under hospital medicine and will be cared for by Dr. Shirley. - Keep NPO as Dr. Shirley has opening is his schedule today and tomorrow - GI will sign off Subjective Date of service: 08/25/21 Interval history: Pt seen an examined. Stated he's in much pain and needs pain medication. Notified RN. Dr. Hutchinson made contact with Dr. Shirley at [facility] regarding pt. Dr. Shirley has agreed to assume care of pt. Will plan to transfer pt today. Contacted hospitalist, Dr. Santiago, regarding discharge and coordinating transfer to [facility]. Informed pt of plans as well and he agreed. Objective - Constitutional Vitals: Temp Pulse Resp BP Pulse Ox 98.5 F 92 H 20 158/83 94 08/25/21 08:00 08/25/21 08:00 08/25/21 08:00 08/25/21 08:00 08/25/21 08:00 General appearance: mild distress - EENT Eyes: PERRL, EOM intact ENT: hearing intact, clear oral mucosa, dentition normal - Neck Neck: supple, normal ROM - Cardiovascular Rhythm: regular - Extremities Extremities: No edema - Gastrointestinal General gastrointestinal: Present: tender Rectal Exam: deferred - Genitourinary Male Genitourinary: deferred - Integumentary Integumentary: Present: clear, warm, dry - Neurologic Neurological: alert and oriented x3 - Psychiatric Psychiatric: appropriate mood/affect, intact judgment & insight, memory intact, cooperative, agitated - Labs CBC & Chem 7: 08/24/21 05:04 08/25/21 05:38 Labs: Laboratory Results - last 24 hr 08/24/21 08/24/21 08/24/21 05:09 06:17 07:06 Sodium Potassium Chloride Carbon Dioxide Anion Gap BUN Creatinine Estimated GFR BUN/Creatinine Ratio Glucose POC Glucose 140 H 121 H 123 H Calcium Total Bilirubin AST ALT Alkaline Phosphatase Total Protein Albumin Albumin/Globulin Ratio 08/24/21 08/24/21 08/24/21 08:22 09:34 10:45 Sodium Potassium Chloride Carbon Dioxide Anion Gap BUN Creatinine Estimated GFR BUN/Creatinine Ratio Glucose POC Glucose 132 H 117 H 126 H Calcium Total Bilirubin AST ALT Alkaline Phosphatase Total Protein Albumin Albumin/Globulin Ratio 08/24/21 08/24/21 08/24/21 11:23 12:22 14:07 Sodium Potassium Chloride Carbon Dioxide Anion Gap BUN Creatinine Estimated GFR BUN/Creatinine Ratio Glucose POC Glucose 170 H 228 H 195 H Calcium Total Bilirubin AST ALT Alkaline Phosphatase Total Protein Albumin Albumin/Globulin Ratio 08/24/21 08/24/21 08/24/21 16:28 17:14 20:40 Sodium Potassium Chloride Carbon Dioxide Anion Gap BUN Creatinine Estimated GFR BUN/Creatinine Ratio Glucose POC Glucose 191 H 231 H 219 H Calcium Total Bilirubin AST ALT Alkaline Phosphatase Total Protein Albumin Albumin/Globulin Ratio 08/25/21 08/25/21 05:38 08:11 Sodium 133 L Potassium 3.9 Chloride 94.1 L Carbon Dioxide 24 Anion Gap 19 BUN 12 Creatinine 1.8 H Estimated GFR 47 BUN/Creatinine Ratio 7 Glucose 299 H POC Glucose 308 H Calcium 9.8 Total Bilirubin 4.70 H AST 145 H ALT 68 H Alkaline Phosphatase 454 H Total Protein 7.7 Albumin 3.1 L Albumin/Globulin Ratio 0.7 <DARSHANA HUTCHINSON R - Last Filed: 08/25/21 14:06> Assessment and Plan Patient seen and examined. I spoke with Dr. Shirley at [facility] yesterday, and they have agreed to accept the patient in transfer for endoscopic ultrasound to stage and diagnosis as well as stent to relieve biliary obstruction. Transfer is in process, per hospitalist. -Will place empirically on antibiotics to preclude possible onset of cholangitis in the future Otherwise, we will sign off. Please call as needed Objective - Constitutional Vitals: Temp Pulse Resp BP Pulse Ox 98.5 F 90 18 158/83 99 08/25/21 08:00 08/25/21 10:00 08/25/21 10:00 08/25/21 08:00 08/25/21 10:00 - Labs CBC & Chem 7: 08/24/21 05:04 08/25/21 05:38 Labs: Laboratory Results - last 24 hr 08/24/21 08/24/21 08/24/21 12:22 14:07 16:28 Sodium Potassium Chloride Carbon Dioxide Anion Gap BUN Creatinine Estimated GFR BUN/Creatinine Ratio Glucose POC Glucose 228 H 195 H 191 H Calcium Total Bilirubin AST ALT Alkaline Phosphatase Total Protein Albumin Albumin/Globulin Ratio 08/24/21 08/24/21 08/25/21 17:14 20:40 05:38 Sodium 133 L Potassium 3.9 Chloride 94.1 L Carbon Dioxide 24 Anion Gap 19 BUN 12 Creatinine 1.8 H Estimated GFR 47 BUN/Creatinine Ratio 7 Glucose 299 H POC Glucose 231 H 219 H Calcium 9.8 Total Bilirubin 4.70 H AST 145 H ALT 68 H Alkaline Phosphatase 454 H Total Protein 7.7 Albumin 3.1 L Albumin/Globulin Ratio 0.7 08/25/21 08/25/21 08:11 11:50 Sodium Potassium Chloride Carbon Dioxide Anion Gap BUN Creatinine Estimated GFR BUN/Creatinine Ratio Glucose POC Glucose 308 H 313 H Calcium Total Bilirubin AST ALT Alkaline Phosphatase Total Protein Albumin Albumin/Globulin Ratio
--- NOTE | 2021-08-25 12:29 | Discharge Summary ---
Providers - Providers Date of Admission: 08/23/21 15:13 Date of discharge: 08/27/21 Attending physician: JOSH AGUILAR 08/23/21 15:18 Consult to Physician [CONS] Routine Comment: Consulting Provider: PAULINE VILLA Physician Instructions: Reason For Exam: Pancreatic mass/lesion 08/23/21 17:20 Consult to Physician [CONS] Routine Comment: Consulting Provider: ZAHIDA WANG Physician Instructions: Reason For Exam: dka Primary care physician: [facility] Hospitalization Reason for admission: Diabetic ketoacidosis/abdominal pain Condition: Fair Pertinent studies: CT abdomen and pelvis; 08/23/2021 abnormal pancreas, the pancreatic head is enlarged with mild surrounding fat stranding may represent acute pancreatitis, there is a 4.3 centimeters hypodense lesion within the pancreatic head which may represent pseudocyst or cystic neoplasm is difficult to exclude no evidence of cholelithiasis. MRCP: 08/25/2019 large 6.7 x 5.9 cm primary neoplasm of the head of the pancreas probably related to adenocarcinoma This mass causes moderate obstruction of the pancreatic segment of the common bile duct measuring 1.5 cm in diameter there is also prominent obstruction of the main pancreatic duct measuring up to 1.5 cm in diameter there is only slight intrahepatic biliary dilation at the time of evaluation Hospital course: 61-year-old male patient with significant past medical history of hypertension, dyslipidemia, diabetes mellitus, chronic kidney disease, hypothyroidism, GERD, nicotine dependence, depression was admitted through emergency room with abdominal pain and diabetic ketoacidosis. Patient was admitted to ICU managed per DKA pathway and transition to long-act ing insulin stabilized and transferred to the floor Patient CT abdomen and pelvis, showed abnormal pancreas and enlarged pancreatic head. Patient was evaluated by GI in consultation and recommended MRCP, which revealed large 6.7 x 5.9 cm primary neoplasm of the head of the pancreas probably related to adenocarcinoma with moderate obstruction of common bile duct as well as pancreatic duct. GI recommended endoscopic ultrasound and ERCP and advised to transfer the patient to [facility] for higher level of care, consulted Dr. Pilo Shirley who accepted the patient for further evaluation and management. [facility] transfer center was contacted at [phone] and discussed with transfer center nurse and the accepting hospitalist Dr. Waggoner. They accepted the patient for transfer. COVID-19 test is negative Beds were not available, transfer center will call back pending bed availability Patient is hemodynamically stable for discharge and transfer. As requested, patient's CT scan and MRI imaging studies CD will be sent along with the patient. However patient could not be transferred till this afternoon 08/27/2021. GI specialist , recommended to discharge on Protonix, Levaquin Follow-up with GI Dr. Mitch Hernandez, on 08/31/2021 at 9 AM Patient was given the details of the appointment Patient is hemodynamically and clinically stable at discharge home Final diagnosis: # Pancreatic head mass/lesion GI evaluated the patient -Per MRCP: 6.7x5.9 cm likely d/t adenocarcinoma, moderate obs of pancreatic segment of common bile duct (1.5cm), slight intrahepatic biliary dilation -CA-19-9 ordered, waiting on results Initiated transfer to [facility] to be evaluated by by Dr. Shirley. However beds were not available, could not accept the patient even today GI advised to discharge on Levaquin and Protonix, and follow-up with Dr. Mitch Hernandez, on 08/31/2021 at 9 AM #Diabetic ketoacidosis; on admission now resolved s/p DKA pathway, blood sugars reasonable control Accu-Cheks sliding scale coverage , long-acting insulin Monitor blood sugars and adjust as needed Patient takes Novolin 70/30 insulin 30 units a.m. and 30 units p.m. Patient is advised to follow the same dosages upon discharge #Acute pancreatitis : - IVF, NPO, pain control, supportive therapy #Acute kidney injury: Mild improvement due to vasomotor nephropathy Closely monitor renal function Avoid nephrotoxins, gentle hydration Follow-up with nutrition assistant #Metabolic Acidosis: IV hydration, supportive care #Hyponatremia; Closely monitor electrolytes IV hydration Supportive care #Essential hypertension Moderate control, continue current antihypertensives As needed medications #Hyperlipidemia #Type 2 diabetes with hyperglycemia #Nicotine dependence - Smoking cessation counseling, supportive care, behavior change counseling, +15 minutes. Advised nicotine patch as needed #Preventive health care - preventative health counseling regarding management of life stressors, medication compliance and overall effect of chronic medical conditionas on overall health. Encourage patient to follow up closely with with OP providers +30 minutes. Initially patient was being transferred to [facility] to be evaluated and managed by Dr. Pilo Shirley However beds were not available in the last 3 days, GI reevaluated patient today and cleared for discharge home And recommended outpatient follow-up by Dr. Mitch Hernandez, The details of the follow-up visits was given to the patient Stable at discharge Disposition: 01 HOME / SELF CARE / HOMELESS Final Discharge Diagnosis (Prints w/discharge instructions): Pancreatic head mass/lesion. Acute pancreatitis. Diabetic ketoacidosis. Acute kidney injury/vasomotor nephropathy. Metabolic acidosis. Hyponatremia. Hypertension. Hyperlipidemia. Type 2 diabetes mellitus. Nicotine dependence. Preventative health care Time spent for discharge: 45 min Core Measure Documentation - Palliative Care Palliative Care/ Comfort Measures: Not Applicable - Core Measures Any of the following diagnoses?: none Exam - Constitutional Vitals: Temp Pulse Resp BP Pulse Ox 98.5 F 90 18 158/83 99 08/25/21 08:00 08/25/21 10:00 08/25/21 10:00 08/25/21 08:00 08/25/21 10:00 General appearance: Present: no acute distress, well-nourished - EENT Eyes: Present: PERRL, EOM intact - Neck Neck: Present: supple, normal ROM - Respiratory Respiratory effort: normal Respiratory: bilateral: diminished, negative: rales, rhonchi, wheezing - Cardiovascular Rhythm: regular - Extremities Extremities: no ischemia, No edema - Abdominal General gastrointestinal: Present: soft, non-tender, non-distended, normal bowel sounds - Integumentary Integumentary: Present: clear, warm - Musculoskeletal Musculoskeletal: strength equal bilaterally - Psychiatric Psychiatric: appropriate mood/affect, cooperative - Neurologic Neurologic: moves all extremities Plan Activity: advance as tolerated, fall precautions Diet: other (NPO status) Additional Instructions: Outpatient follow-up by Dr. Mitch Gomez, scheduled08/31/21 at 9:30 am. Follow GI in 2 weeks. If you have worsening symptoms contact MD or go to the nearest emergency room as needed. Advised to continue your home insulin 70/30, 25 units a.m. and 25 units p.m. as before. Avoid hypoglycemia Follow up with: DARSHANA WEISS MD [Staff Physician] - 14 Days PRIMARY CARE, [Primary Care Provider] - 3-5 Days Prescriptions: Cyclobenzaprine [Flexeril 10 MG TAB] 5 mg PO TID PRN #15 tablet PRN Reason: Muscle Spasm levoFLOXacin [Levaquin TAB] 500 mg PO QDAY #5 tablet oxyCODONE /ACETAMINOPHEN [Percocet 5/325] 1 tab PO Q6HR PRN #12 tablet PRN Reason: Pain Pantoprazole [Protonix] 40 mg PO QDAY #30 tablet
--- NOTE | 2021-08-25 12:44 | Event Note ---
Date: 08/25/21 I called [facility] transfer center at [phone] and discussed with transfer center nurse Ms. Ortiz patient's condition tests and reports, GI recomm endations of transfer to [facility] and that [facility] Dr. Pilo Nava has accepted the patient, She took the information and he informed me that she would call me back with the status. I informed patient's nurse Ms. Mtz and also requested a stat rapid COVID test prior to transfer. We will follow-up with the transfer process
--- NOTE | 2021-08-25 13:17 | Progress Note ---
Assessment and Plan 61 y/o male with abdominal pain, weight loss and elevated blood sugar admitted with DKA, found to have pancreatic head lesion and possibly acute pancreatitis. 08/25/21: Transfer to [facility]. 1. Endo- DKA has resolved however patient cannot and does not want to eat. May need to just cover with sliding scale for right now. Continue IVF's. Ok with trying to transition off insulin drip. 2. GI- Follow up MRCP results 3. Pain control CCT 31 minutes. Subjective Date of service: 08/25/21 Interval history: Successful transfer out of unit, patient being transferred to [facility] today for further work up of pancreatic mass. Objective - Constitutional Vitals: Vital Signs - 12hr 08/25/21 08/25/21 08/25/21 01:54 04:23 08:00 Temperature 98.5 F 98.5 F Pulse Rate 105 H 92 H Pulse Rate [ From Monitor] Respiratory 14 20 Rate Blood Pressure 157/106 Blood Pressure 161/97 158/83 [Left] O2 Sat by Pulse 97 94 Oximetry 08/25/21 10:00 Temperature Pulse Rate 90 Pulse Rate [ 90 From Monitor] Respiratory 18 Rate Blood Pressure Blood Pressure [Left] O2 Sat by Pulse 99 Oximetry - Labs CBC & Chem 7: 08/24/21 05:04 08/25/21 05:38 Labs: Abnormal lab results 08/24/21 08/24/21 08/24/21 Range/Units 12:22 14:07 16:28 Sodium (137-145) mmol/L Chloride (98-107) mmol/L Creatinine (0.8-1.3) mg/dL Glucose (75-100) mg/dL POC Glucose 228 H 195 H 191 H (70-105) mg/dL Total Bilirubin (0.1-1.2) mg/dL AST (5-40) units/L ALT (7-56) units/L Alkaline Phosphatase (35-129) units/L Albumin (3.9-5) g/dL 08/24/21 08/24/21 08/25/21 Range/Units 17:14 20:40 05:38 Sodium 133 L (137-145) mmol/L Chloride 94.1 L (98-107) mmol/L Creatinine 1.8 H (0.8-1.3) mg/dL Glucose 299 H (75-100) mg/dL POC Glucose 231 H 219 H (70-105) mg/dL Total Bilirubin 4.70 H (0.1-1.2) mg/dL AST 145 H (5-40) units/L ALT 68 H (7-56) units/L Alkaline Phosphatase 454 H (35-129) units/L Albumin 3.1 L (3.9-5) g/dL 08/25/21 08/25/21 Range/Units 08:11 11:50 Sodium (137-145) mmol/L Chloride (98-107) mmol/L Creatinine (0.8-1.3) mg/dL Glucose (75-100) mg/dL POC Glucose 308 H 313 H (70-105) mg/dL Total Bilirubin (0.1-1.2) mg/dL AST (5-40) units/L ALT (7-56) units/L Alkaline Phosphatase (35-129) units/L Albumin (3.9-5) g/dL Medications & Allergies - Medications Allergies/Adverse Reactions: Allergies No Known Allergies Allergy (Unverified 02/11/20 12:08) Home Medications: Home Medications Medication Instructions Recorded Confirmed Last Taken Type Omeprazole 20 mg PO DAILY 10/14/20 08/23/21 08/21/21 History Pantoprazole [Protonix] 40 mg PO BID #60 tablet 10/17/20 08/23/21 08/21/21 Rx Potassium Chloride [K-Dur] 10 meq PO QDAY #30 tablet 10/17/20 08/23/21 08/21/21 Rx AtorvaSTATin [Lipitor] 40 mg PO QHS 08/23/21 08/23/21 08/20/21 History Furosemide [Lasix TAB] 20 mg PO QDAY 08/23/21 08/23/21 08/20/21 History Insulin NPH Hum/Reg Insulin Hm 25 units SUB-Q AC 08/23/21 08/23/21 08/22/21 History [Novolin 70-30 100 Unit/ml Vial] Levothyroxine Sodium 175 mcg PO DAILY 08/23/21 08/23/21 08/22/21 History [Levothyroxine] Novolin 70-30 100 Unit/ml Vial 25 units SQ HS 08/23/21 08/23/21 08/22/21 History QUEtiapine [SEROquel] 1,000 mg PO QDAY@2200 08/23/21 08/23/21 08/22/21 History Sertraline [Zoloft] 100 mg PO QDAY 08/23/21 08/23/21 08/22/21 History Active Medications: Generic Name Dose Route Start Last Admin Trade Name Freq PRN Reason Stop Dose Admin Albuterol 2.5 mg 08/23/21 15:13 Albuterol 2.5 Mg/3 Ml Nebu IH Q3HRT PRN Shortness Of Breath Dextrose 50 ml 08/24/21 15:11 Dextrose 50% In Water (25gm) 50 Ml Syringe IV Q30MIN PRN Hypoglycemia Protocol Hydralazine HCl 10 mg 08/25/21 01:37 08/25/21 01:54 Hydralazine 20 Mg/1 Ml Inj IV 10 mg Q6HR PRN Administration SBP>160 OR DBP>90 Hydromorphone HCl 0.5 mg 08/23/21 15:13 08/25/21 09:56 Hydromorphone 1 Mg/1 Ml Inj IV 0.5 mg Q6H PRN Administration Pain , Severe (7-10) Potassium Chloride/Dextrose/Sod Cl 20 meq in 1,000 mls @ 75 mls/hr 08/23/21 23:00 08/24/21 14:16 D5w/0.45% Nacl/Kcl 20 Meq IV 75 mls/hr DIRECT CHAKA Administration Insulin Glargine 10 units 08/24/21 22:00 08/24/21 21:32 Insulin Glargine 100 Units/Ml SUB-Q 10 units QHS CHAKA Administration Insulin Human Lispro 0 unit 08/24/21 16:30 08/25/21 10:17 Insulin Lispro 100 Unit/Ml SUB-Q 6 unit ACHS CHAKA Administration Protocol Ondansetron HCl 4 mg 08/25/21 02:40 08/25/21 09:57 Ondansetron 4 Mg/2 Ml Inj IV 4 mg Q4H PRN Administration Nausea And Vomiting Oxycodone/Acetaminophen 1 tab 08/23/21 15:13 08/25/21 10:09 Oxycodone /Acetaminophen 5-325mg Tab PO 1 tab Q6H PRN Administration Pain, Moderate (4-6) Sodium Chloride 10 ml 08/23/21 22:00 08/25/21 09:57 Sodium Chloride 0.9% 10 Ml Flush Syringe IV 10 ml BID CHAKA Administration Sodium Chloride 10 ml 08/23/21 15:13 08/24/21 02:15 Sodium Chloride 0.9% 10 Ml Flush Syringe IV 10 ml PRN PRN Administration LINE FLUSH
[2021-08-25] MEDS ORDERED: SODIUM CHLORIDE 0.9% 1000 ML 1,000 ML IV SCH (17:30)
[2021-08-25] MEDS: INSULIN GLARGINE 100 UNITS/ML SUB-Q SCH (22:07)
[2021-08-26] MEDS: ONDANSETRON 4 MG/2 ML INJ IV PRN ×2 (01:09→22:21)
[2021-08-26 06:26] LABS: Basophils % (Auto) 0.2 % (0.0-1.8); Eosinophils % (Auto) 0.2 % (0.0-4.3); Hematocrit 35.4 % (35.5-45.6); Hemoglobin 11.7 gm/dl (11.8-15.2); Lymphocytes # (Auto) 0.6 K/mm3 (1.2-5.4); Lymphocytes % (Auto) 6.3 % (13.4-35.0); Mean Corpuscular HGB Conc 33 % (32-34); Mean Corpuscular Volume 83 fl (84-94); Monocytes # (Auto) 0.4 K/mm3 (0.0-0.8); Monocytes % (Auto) 4.1 % (0.0-7.3); Platelet Count 248 K/mm3 (140-440); Red Blood Count 4.25 M/mm3 (3.65-5.03); Red Cell Distribution Width 18.6 % (13.2-15.2)
[2021-08-26 06:48] LABS: Albumin 3.3 g/dL (3.9-5); Calcium 10.1 mg/dL (8.4-10.2)
[2021-08-26] MEDS: INSULIN LISPRO 100 UNIT/ML SUB-Q SCH ×5 (07:45→21:57)
[2021-08-26] MEDS: PANTOPRAZOLE 40 MG INJ IV SCH (10:15)
[2021-08-26] MEDS: oxyCODONE /ACETAMINOPHEN 5-325MG TAB PO PRN ×2 (10:16→21:09)
[2021-08-26] MEDS: HYDROmorphone 1 MG/1 ML INJ IV PRN ×3 (12:33→23:58)
[2021-08-26] MEDS ORDERED: CYCLOBENZAPRINE 10 MG TAB PO PRN (12:52)
--- NOTE | 2021-08-26 19:53 | Progress Note ---
Assessment and Plan Assessment and plan: GI has recommended to transfer the patient to [facility] under the service of GI Dr.Stephen Shirley For endoscopic ultrasound and ERCP Dr. Shirley accepted the patient for further evaluation and management. Transfer center accepted the patient pending bed availability. Still waiting for callback from [facility] [place] with a bed assignment # Pancreatic head mass/lesion GI evaluated the patient -Per MRCP: 6.7x5.9 cm likely d/t adenocarcinoma, moderate obs of pancreatic se gment of common bile duct (1.5cm), slight intrahepatic biliary dilation -CA-19-9 ordered, waiting on results - Pt will be transferred to [place] and admitted to hospital medicine service and will be consulted by Dr. Shirley. - Keep NPO as Dr. Shirley has opening in his schedule today and tomorrow We will start clear liquids and advance to mechanical soft, and start n.p.o. status once bed is available in [facility] #Diabetic ketoacidosis; on admission now resolved s/p DKA pathway Accu-Cheks sliding scale coverage , long-acting insulin Monitor blood sugars and adjust as needed #Acute pancreatitis : - IVF, NPO, pain control, supportive therapy #Acute kidney injury: due to vasomotor nephropathy Closely monitor renal function Avoid nephrotoxins, gentle hydration Creatinine slowly trending down #Metabolic Acidosis: IV hydration, supportive care #Hyponatremia; Closely monitor electrolytes IV hydration Supportive care #Essential hypertension Moderate control, continue current antihypertensives As needed medications #Hyperlipidemia #Type 2 diabetes with hyperglycemia #Nicotine dependence - Smoking cessation counseling, supportive care, behavior change counseling, +15 minutes. #Preventative health care - preventative health counseling regarding management of life stressors, medication compliance and overall effect of chronic medical conditionas on overall health. Encourage patient to follow up closely with with OP providers +30 minutes. Closely monitor the patient and adjust management as needed Plan of care reviewed with the patient and his nurse Transfer process initiated to transfer the patient to [facility] for further evaluation However they do not have any beds of beds available Patient will be transferred pending bed availability Plan of care reviewed with the patient patient's nurse and the charge nurse Patient still waiting for callback from [facility] with bed availability History Interval history: I have seen and examined the patient at the bedside this morning Patient's chart and medications reviewed. GI has recommended to transfer the patient to [facility] under the service of GI Dr.Stephen Shirley For endoscopic ultrasound and ERCP Dr. Shirley accepted the patient for further evaluation and management. Transfer center accepted the patient pending bed availability. Still waiting for callback from [place] with a bed assignment Patient is upset and frustrated Complains of vague abdominal pain Denies nausea vomiting Hospitalist Physical - Constitutional Vitals: Temp Pulse Resp BP Pulse Ox 98.6 F 89 18 159/99 98 08/26/21 16:17 08/26/21 16:17 08/26/21 16:17 08/26/21 16:17 08/26/21 16:17 General appearance: Present: no acute distress, well-nourished - EENT Eyes: Present: PERRL, EOM intact - Neck Neck: Present: supple, normal ROM - Respiratory Respiratory effort: normal Respiratory: bilateral: diminished, negative: rales, rhonchi, wheezing - Cardiovascular Rhythm: regular Heart Sounds: Present: S1 & S2 - Extremities Extremities: no ischemia, No edema - Abdominal General gastrointestinal: soft, non-tender, non-distended, normal bowel sounds - Integumentary Integumentary: Present: clear, warm - Psychiatric Psychiatric: appropriate mood/affect, cooperative - Neurologic Neurologic: CNII-XII intact, moves all extremities Results - Labs CBC & Chem 7: 08/26/21 05:55 08/27/21 05:52 Labs: Laboratory Last Values WBC 10.1 K/mm3 (4.5-11.0) 08/26/21 05:55 RBC 4.25 M/mm3 (3.65-5.03) 08/26/21 05:55 Hgb 11.7 gm/dl (11.8-15.2) L 08/26/21 05:55 Hct 35.4 % (35.5-45.6) L 08/26/21 05:55 MCV 83 fl (84-94) L 08/26/21 05:55 MCH 28 pg (28-32) 08/26/21 05:55 MCHC 33 % (32-34) 08/26/21 05:55 RDW 18.6 % (13.2-15.2) H 08/26/21 05:55 Plt Count 248 K/mm3 (140-440) 08/26/21 05:55 Lymph % (Auto) 6.3 % (13.4-35.0) L 08/26/21 05:55 [place] % (Auto) 4.1 % (0.0-7.3) 08/26/21 05:55 Eos % (Auto) 0.2 % (0.0-4.3) 08/26/21 05:55 Baso % (Auto) 0.2 % (0.0-1.8) 08/26/21 05:55 Lymph # (Auto) 0.6 K/mm3 (1.2-5.4) L 08/26/21 05:55 [place] # (Auto) 0.4 K/mm3 (0.0-0.8) 08/26/21 05:55 Eos # (Auto) 0.0 K/mm3 (0.0-0.4) 08/26/21 05:55 Baso # (Auto) 0.0 K/mm3 (0.0-0.1) 08/26/21 05:55 Seg Neutrophils % 89.2 % (40.0-70.0) H 08/26/21 05:55 Seg Neutrophils # 9.0 K/mm3 (1.8-7.7) H 08/26/21 05:55 VBG pH 7.254 (7.320-7.420) L 08/23/21 13:28 Sodium 132 mmol/L (137-145) L 08/26/21 05:55 Potassium 4.9 mmol/L (3.6-5.0) D 08/26/21 05:55 Chloride 92.9 mmol/L (98-107) L 08/26/21 05:55 Carbon Dioxide 19 mmol/L (22-30) L 08/26/21 05:55 Anion Gap 25 mmol/L 08/26/21 05:55 BUN 13 mg/dL (9-20) 08/26/21 05:55 Creatinine 1.8 mg/dL (0.8-1.3) H 08/26/21 05:55 Estimated GFR 47 ml/min 08/26/21 05:55 BUN/Creatinine Ratio 7 % 08/26/21 05:55 Glucose 454 mg/dL (75-100) H 08/26/21 05:55 POC Glucose 90 mg/dL (70-105) 08/26/21 16:18 Calcium 10.1 mg/dL (8.4-10.2) 08/26/21 05:55 Phosphorus 3.60 mg/dL (2.5-4.5) 08/23/21 15:36 Magnesium 1.60 mg/dL (1.7-2.3) L 08/26/21 05:55 Total Bilirubin 6.10 mg/dL (0.1-1.2) H 08/26/21 05:55 AST 156 units/L (5-40) H 08/26/21 05:55 ALT 80 units/L (7-56) H 08/26/21 05:55 Alkaline Phosphatase 469 units/L (35-129) H 08/26/21 05:55 Total Protein 7.1 g/dL (6.3-8.2) 08/26/21 05:55 Albumin 3.3 g/dL (3.9-5) L 08/26/21 05:55 Albumin/Globulin Ratio 0.9 % 08/26/21 05:55 Lipase 245 units/L (13-60) H 08/23/21 10:59 Urine Color Yellow (Yellow) 08/23/21 11:21 Urine Turbidity Clear (Clear) 08/23/21 11:21 Urine pH 7.0 (5.0-7.0) 08/23/21 11:21 Ur Specific [place] 1.021 (1.003-1.030) 08/23/21 11:21 Urine Protein 100 mg/dl mg/dL (Negative) 08/23/21 11:21 Urine Glucose (UA) >=500 mg/dL (Negative) 08/23/21 11:21 Urine Ketones 20 mg/dL (Negative) 08/23/21 11:21 Urine Blood Sm (Negative) 08/23/21 11:21 Urine Nitrite Neg (Negative) 08/23/21 11:21 Urine Bilirubin Neg (Negative) 08/23/21 11:21 Urine Urobilinogen 2.0 mg/dL (<2.0) 08/23/21 11:21 Ur Leukocyte Esterase Neg (Negative) 08/23/21 11:21 Urine WBC (Auto) 1.0 /HPF (0.0-6.0) 08/23/21 11:21 Urine RBC (Auto) 2.0 /HPF (0.0-6.0) 08/23/21 11:21 SARS-CoV-2 (PCR) Negative (Negative) 08/25/21 13:48 Choudhary/IV: Voiding Method Urinal Active Medications - Current Medications Current Medications: Generic Name Dose Route Start Last Admin Trade Name Freq PRN Reason Stop Dose Admin Albuterol 2.5 mg 08/23/21 15:13 Albuterol 2.5 Mg/3 Ml Nebu IH Q3HRT PRN Shortness Of Breath Cyclobenzaprine HCl 5 mg 08/26/21 12:52 Cyclobenzaprine 10 Mg Tab PO TID PRN Muscle Spasm Dextrose 50 ml 08/24/21 15:11 Dextrose 50% In Water (25gm) 50 Ml Syringe IV Q30MIN PRN Hypoglycemia Protocol Hydralazine HCl 10 mg 08/25/21 01:37 08/25/21 01:54 Hydralazine 20 Mg/1 Ml Inj IV 10 mg Q6HR PRN Administration SBP>160 OR DBP>90 Hydromorphone HCl 0.5 mg 08/23/21 15:13 08/26/21 17:39 Hydromorphone 1 Mg/1 Ml Inj IV 0.5 mg Q6H PRN Administration Pain , Severe (7-10) Levofloxacin/Dextrose 500 mg in 100 mls @ 100 mls/hr 08/25/21 15:00 08/26/21 15:21 Levaquin 500mg/100ml IV 100 mls/hr Q24H CHAKA Administration Protocol Sodium Chloride 1,000 mls @ 125 mls/hr 08/25/21 17:30 Nacl 0.9% 1000 Ml IV DIRECT CHAKA Insulin Glargine 10 units 08/24/21 22:00 08/25/21 22:07 Insulin Glargine 100 Units/Ml SUB-Q 10 units QHS CHAKA Administration Insulin Human Lispro 0 unit 08/24/21 16:30 08/26/21 16:43 Insulin Lispro 100 Unit/Ml SUB-Q Not Given ACHS CHAKA Protocol Ondansetron HCl 4 mg 08/25/21 02:40 08/26/21 01:09 Ondansetron 4 Mg/2 Ml Inj IV 4 mg Q4H PRN Administration Nausea And Vomiting Oxycodone/Acetaminophen 1 tab 08/23/21 15:13 08/26/21 10:16 Oxycodone /Acetaminophen 5-325mg Tab PO 1 tab Q6H PRN Administration Pain, Moderate (4-6) Pantoprazole Sodium 40 mg 08/26/21 10:00 08/26/21 10:15 Pantoprazole 40 Mg Inj IV 40 mg QDAY CHAKA Administration Sodium Chloride 10 ml 08/23/21 22:00 08/26/21 10:17 Sodium Chloride 0.9% 10 Ml Flush Syringe IV 10 ml BID CHAKA Administration Sodium Chloride 10 ml 08/23/21 15:13 08/24/21 02:15 Sodium Chloride 0.9% 10 Ml Flush Syringe IV 10 ml PRN PRN Administration LINE FLUSH
[2021-08-26] MEDS: hydrALAZINE 20 MG/1 ML INJ IV PRN (21:09)
[2021-08-26] MEDS: INSULIN GLARGINE 100 UNITS/ML SUB-Q SCH ×2 (21:14→23:58)
[2021-08-27 07:12] LABS: Albumin 3.4 g/dL (3.9-5); Calcium 9.9 mg/dL (8.4-10.2)
[2021-08-27] MEDS: INSULIN LISPRO 100 UNIT/ML SUB-Q SCH ×3 (07:50→16:30)
[2021-08-27] MEDS: oxyCODONE /ACETAMINOPHEN 5-325MG TAB PO PRN ×2 (09:10→16:30)
[2021-08-27] MEDS: hydrALAZINE 20 MG/1 ML INJ IV PRN (09:11)
--- NOTE | 2021-08-27 09:57 | Gastroenterology Progress Note ---
<STACEY DONALD - Last Filed: 08/27/21 09:54> Assessment and Plan 1. Pancreatic head mass/lesion -Per MRCP: 6.7x5.9 cm likely d/t adenocarcinoma, moderate obs of pancreatic segment of common bile duct (1.5cm), slight intrahepatic biliary dilation -Pt is waiting for a bed at [place]. If pt is not transferred to [place] by this afternoon, plan to discharge and follow-up outpatient at [place]. Subjective Date of service: 08/27/21 Interval history: Pt seen an examined. No new complaints. Pt is currently waiting on a bed at [place]. Spoke w/ pt regarding discharge and outpatient follow/up. Pt agreed and would like to go home and follow-up outpatient. Objective - Constitutional Vitals: Temp Pulse Resp BP Pulse Ox 98.1 F 99 H 14 170/95 100 08/27/21 04:04 08/27/21 09:11 08/27/21 08:27 08/27/21 09:11 08/27/21 08:27 General appearance: no acute distress - EENT Eyes: PERRL, EOM intact ENT: hearing intact, clear oral mucosa - Neck Neck: supple, normal ROM - Respiratory Respiratory effort: normal - Gastrointestinal General gastrointestinal: Present: soft, tender - Integumentary Integumentary: Present: clear, warm, dry - Neurologic Neurological: alert and oriented x3 - Labs CBC & Chem 7: 08/26/21 05:55 08/27/21 05:52 Labs: Laboratory Results - last 24 hr 08/24/21 08/26/21 08/26/21 09:38 11:31 16:18 Sodium Potassium Chloride Carbon Dioxide Anion Gap BUN Creatinine Estimated GFR BUN/Creatinine Ratio Glucose POC Glucose 376 H 90 Calcium Total Bilirubin AST ALT Alkaline Phosphatase Total Protein Albumin Albumin/Globulin Ratio CA 19-9 Antigen 1190 H 08/26/21 08/27/21 21:37 05:52 Sodium 135 L Potassium 4.1 Chloride 98.4 Carbon Dioxide 18 L Anion Gap 23 BUN 12 Creatinine 1.8 H Estimated GFR 47 BUN/Creatinine Ratio 7 Glucose 228 H POC Glucose 222 H Calcium 9.9 Total Bilirubin 6.10 H AST 155 H ALT 89 H Alkaline Phosphatase 457 H Total Protein 7.0 Albumin 3.4 L Albumin/Globulin Ratio 0.9 CA 19-9 Antigen <DARSHANA WEISS Last Filed: 08/27/21 14:06> Assessment and Plan Patient seen and examined. He is quite frustrated with the waiting for a bed at [place]. Unfortunately, we have no visibility on whether a transfer would occur. He is actually doing well and can be managed as an outpatient. I have spoken with the patient, and made arrangements for him to be managed as an outpatient by Dr. Mitch Hernandez, with [facility] at [facility]. He has the contact information and he will be contacting the patient to bring him in as an outpatient early next week for EUS and ERCP. In the interim, please discharge the patient on Levaquin daily for 5 days to preclude cholangitis. He may go home. I have spoken with Dr. Santiago. We will sign off. Objective - Constitutional Vitals: Temp Pulse Resp BP Pulse Ox 98.1 F 78 14 120/84 97 08/27/21 04:04 08/27/21 11:24 08/27/21 10:55 08/27/21 11:24 08/27/21 10:55 - Labs CBC & Chem 7: 08/26/21 05:55 08/27/21 05:52 Labs: Laboratory Results - last 24 hr 08/24/21 08/26/21 08/26/21 09:38 11:31 16:18 Sodium Potassium Chloride Carbon Dioxide Anion Gap BUN Creatinine Estimated GFR BUN/Creatinine Ratio Glucose POC Glucose 376 H 90 Calcium Total Bilirubin AST ALT Alkaline Phosphatase Total Protein Albumin Albumin/Globulin Ratio CA 19-9 Antigen 1190 H 08/26/21 08/27/21 08/27/21 21:37 05:52 08:26 Sodium 135 L Potassium 4.1 Chloride 98.4 Carbon Dioxide 18 L Anion Gap 23 BUN 12 Creatinine 1.8 H Estimated GFR 47 BUN/Creatinine Ratio 7 Glucose 228 H POC Glucose 222 H 261 H Calcium 9.9 Total Bilirubin 6.10 H AST 155 H ALT 89 H Alkaline Phosphatase 457 H Total Protein 7.0 Albumin 3.4 L Albumin/Globulin Ratio 0.9 CA 19-9 Antigen 08/27/21 11:09 Sodium Potassium Chloride Carbon Dioxide Anion Gap BUN Creatinine Estimated GFR BUN/Creatinine Ratio Glucose POC Glucose 209 H Calcium Total Bilirubin AST ALT Alkaline Phosphatase Total Protein Albumin Albumin/Globulin Ratio CA 19-9 Antigen
[2021-08-27] MEDS: PANTOPRAZOLE 40 MG INJ IV SCH (10:48)
[2021-08-27] MEDS: HYDROmorphone 1 MG/1 ML INJ IV PRN (12:15)
--- NOTE | 2021-08-27 16:07 | Progress Note ---
Assessment and Plan Assessment and plan: GI has recommended to transfer the patient to [facility] under the service of GI Dr.Stephen Shirley For endoscopic ultrasound and ERCP Transfer process initiated Dr. Shirley accepted the patient for further evaluation and management. However beds were not available, patient was accepted pending bed availability Call the transfer arrangements were made, awaiting bed availability Assessment and plan; # Pancreatic head mass/lesion GI evaluated the patient -Per MRCP: 6.7x5.9 cm likely d/t adenocarcinoma, moderate obs of pancreatic segment of common bile duct (1.5cm), slight intrahepatic biliary dilation -CA-19-9 ordered, waiting on results - Pt will be transferred to [place] and admitted to hospital medicine service and will be consulted by Dr. Shirley. - Keep NPO as Dr. Shirley has opening in his schedule today and tomorrow We will start clear liquids and advance to mechanical soft, and start n.p.o. status once bed is available in [facility] #Diabetic ketoacidosis; on admission now resolved s/p DKA pathway Accu-Cheks sliding scale coverage , long-acting insulin Monitor blood sugars and adjust as needed #Acute pancreatitis : - IVF, NPO, pain control, supportive therapy #Acute kidney injury: due to vasomotor nephropathy Closely monitor renal function Avoid nephrotoxins, gentle hydration Creatinine slowly trending down #Metabolic Acidosis: IV hydration, supportive care #Hyponatremia; Closely monitor electrolytes IV hydration Supportive care #Essential hypertension Moderate control, continue current antihypertensives As needed medications #Hyperlipidemia #Type 2 diabetes with hyperglycemia #Nicotine dependence - Smoking cessation counseling, supportive care, behavior change counseling, +15 minutes. #Preventative health care - preventative health counseling regarding management of life stressors, medication compliance and overall effect of chronic medical conditionas on overall health. Encourage patient to follow up closely with with OP providers +30 minutes. Will constantly be in touch with transfer center of [facility] to speed up the transfer process Plan of care reviewed with the patient his nurse and the charge nurse Faviola recommendations and appreciated History Interval history: I have seen and examined the patient in the morning Patient's chart and medications reviewed Patient with DKA, abdominal pain with pancreatic head mass Evaluated by GI, advised transfer to [facility] for further evaluation manag ement Will initiate transfer process Patient complains of some vague abdominal pain Vital signs Hospitalist Physical - Constitutional Vitals: Temp Pulse Resp BP Pulse Ox 98.1 F 78 14 120/84 97 08/27/21 04:04 08/27/21 11:24 08/27/21 10:55 08/27/21 11:24 08/27/21 10:55 General appearance: Present: mild distress, well-nourished - EENT Eyes: Present: PERRL, EOM intact - Neck Neck: Present: supple, normal ROM - Respiratory Respiratory effort: normal Respiratory: bilateral: diminished, negative: rales, rhonchi, wheezing - Cardiovascular Rhythm: regular Heart Sounds: Present: S1 & S2 - Extremities Extremities: no ischemia, No edema - Abdominal General gastrointestinal: soft, non-tender, non-distended, normal bowel sounds - Integumentary Integumentary: Present: clear, warm - Psychiatric Psychiatric: appropriate mood/affect, cooperative - Neurologic Neurologic: moves all extremities Results - Labs CBC & Chem 7: 08/26/21 05:55 08/27/21 05:52 Labs: Laboratory Last Values WBC 10.1 K/mm3 (4.5-11.0) 08/26/21 05:55 RBC 4.25 M/mm3 (3.65-5.03) 08/26/21 05:55 Hgb 11.7 gm/dl (11.8-15.2) L 08/26/21 05:55 Hct 35.4 % (35.5-45.6) L 08/26/21 05:55 MCV 83 fl (84-94) L 08/26/21 05:55 MCH 28 pg (28-32) 08/26/21 05:55 MCHC 33 % (32-34) 08/26/21 05:55 RDW 18.6 % (13.2-15.2) H 08/26/21 05:55 Plt Count 248 K/mm3 (140-440) 08/26/21 05:55 Lymph % (Auto) 6.3 % (13.4-35.0) L 08/26/21 05:55 [place] % (Auto) 4.1 % (0.0-7.3) 08/26/21 05:55 Eos % (Auto) 0.2 % (0.0-4.3) 08/26/21 05:55 Baso % (Auto) 0.2 % (0.0-1.8) 08/26/21 05:55 Lymph # (Auto) 0.6 K/mm3 (1.2-5.4) L 08/26/21 05:55 [place] # (Auto) 0.4 K/mm3 (0.0-0.8) 08/26/21 05:55 Eos # (Auto) 0.0 K/mm3 (0.0-0.4) 08/26/21 05:55 Baso # (Auto) 0.0 K/mm3 (0.0-0.1) 08/26/21 05:55 Seg Neutrophils % 89.2 % (40.0-70.0) H 08/26/21 05:55 Seg Neutrophils # 9.0 K/mm3 (1.8-7.7) H 08/26/21 05:55 VBG pH 7.254 (7.320-7.420) L 08/23/21 13:28 Sodium 135 mmol/L (137-145) L 08/27/21 05:52 Potassium 4.1 mmol/L (3.6-5.0) 08/27/21 05:52 Chloride 98.4 mmol/L (98-107) 08/27/21 05:52 Carbon Dioxide 18 mmol/L (22-30) L 08/27/21 05:52 Anion Gap 23 mmol/L 08/27/21 05:52 BUN 12 mg/dL (9-20) 08/27/21 05:52 Creatinine 1.8 mg/dL (0.8-1.3) H 08/27/21 05:52 Estimated GFR 47 ml/min 08/27/21 05:52 BUN/Creatinine Ratio 7 % 08/27/21 05:52 Glucose 228 mg/dL (75-100) H 08/27/21 05:52 POC Glucose 209 mg/dL (70-105) H 08/27/21 11:09 Calcium 9.9 mg/dL (8.4-10.2) 08/27/21 05:52 Phosphorus 3.60 mg/dL (2.5-4.5) 08/23/21 15:36 Magnesium 1.60 mg/dL (1.7-2.3) L 08/26/21 05:55 Total Bilirubin 6.10 mg/dL (0.1-1.2) H 08/27/21 05:52 AST 155 units/L (5-40) H 08/27/21 05:52 ALT 89 units/L (7-56) H 08/27/21 05:52 Alkaline Phosphatase 457 units/L (35-129) H 08/27/21 05:52 Total Protein 7.0 g/dL (6.3-8.2) 08/27/21 05:52 Albumin 3.4 g/dL (3.9-5) L 08/27/21 05:52 Albumin/Globulin Ratio 0.9 % 08/27/21 05:52 Lipase 245 units/L (13-60) H 08/23/21 10:59 CA 19-9 Antigen 1190 U/mL (<34) H 08/24/21 09:38 Urine Color Yellow (Yellow) 08/23/21 11:21 Urine Turbidity Clear (Clear) 08/23/21 11:21 Urine pH 7.0 (5.0-7.0) 08/23/21 11:21 Ur Specific [place] 1.021 (1.003-1.030) 08/23/21 11:21 Urine Protein 100 mg/dl mg/dL (Negative) 08/23/21 11:21 Urine Glucose (UA) >=500 mg/dL (Negative) 08/23/21 11:21 Urine Ketones 20 mg/dL (Negative) 08/23/21 11:21 Urine Blood Sm (Negative) 08/23/21 11:21 Urine Nitrite Neg (Negative) 08/23/21 11:21 Urine Bilirubin Neg (Negative) 08/23/21 11:21 Urine Urobilinogen 2.0 mg/dL (<2.0) 08/23/21 11:21 Ur Leukocyte Esterase Neg (Negative) 08/23/21 11:21 Urine WBC (Auto) 1.0 /HPF (0.0-6.0) 08/23/21 11:21 Urine RBC (Auto) 2.0 /HPF (0.0-6.0) 08/23/21 11:21 SARS-CoV-2 (PCR) Negative (Negative) 08/25/21 13:48 Choudhary/IV: Voiding Method Toilet Active Medications - Current Medications Current Medications: Generic Name Dose Route Start Last Admin Trade Name Freq PRN Reason Stop Dose Admin Albuterol 2.5 mg 08/23/21 15:13 Albuterol 2.5 Mg/3 Ml Nebu IH Q3HRT PRN Shortness Of Breath Cyclobenzaprine HCl 5 mg 08/26/21 12:52 Cyclobenzaprine 10 Mg Tab PO TID PRN Muscle Spasm Dextrose 50 ml 08/24/21 15:11 Dextrose 50% In Water (25gm) 50 Ml Syringe IV Q30MIN PRN Hypoglycemia Protocol Hydralazine HCl 10 mg 08/25/21 01:37 08/27/21 09:11 Hydralazine 20 Mg/1 Ml Inj IV 10 mg Q6HR PRN Administration SBP>160 OR DBP>90 Hydromorphone HCl 0.5 mg 08/23/21 15:13 08/27/21 12:15 Hydromorphone 1 Mg/1 Ml Inj IV 0.5 mg Q6H PRN Administration Pain , Severe (7-10) Levofloxacin/Dextrose 500 mg in 100 mls @ 100 mls/hr 08/25/21 15:00 08/26/21 15:21 Levaquin 500mg/100ml IV 100 mls/hr Q24H CHAKA Administration Protocol Sodium Chloride 1,000 mls @ 125 mls/hr 08/25/21 17:30 08/26/21 22:21 Nacl 0.9% 1000 Ml IV 125 mls/hr DIRECT CHAKA Administration Insulin Glargine 10 units 08/24/21 22:00 08/26/21 23:58 Insulin Glargine 100 Units/Ml SUB-Q 10 units QHS CHAKA Administration Insulin Human Lispro 0 unit 08/24/21 16:30 08/27/21 12:14 Insulin Lispro 100 Unit/Ml SUB-Q 3 unit ACHS CHAKA Administration Protocol Ondansetron HCl 4 mg 08/25/21 02:40 08/26/21 22:21 Ondansetron 4 Mg/2 Ml Inj IV 4 mg Q4H PRN Administration Nausea And Vomiting Oxycodone/Acetaminophen 1 tab 08/23/21 15:13 08/27/21 09:10 Oxycodone /Acetaminophen 5-325mg Tab PO 1 tab Q6H PRN Administration Pain, Moderate (4-6) Pantoprazole Sodium 40 mg 08/26/21 10:00 08/27/21 10:48 Pantoprazole 40 Mg Inj IV 40 mg QDAY CHAKA Administration Sodium Chloride 10 ml 08/23/21 22:00 08/27/21 10:49 Sodium Chloride 0.9% 10 Ml Flush Syringe IV 10 ml BID CHAKA Administration Sodium Chloride 10 ml 08/23/21 15:13 08/24/21 02:15 Sodium Chloride 0.9% 10 Ml Flush Syringe IV 10 ml PRN PRN Administration LINE FLUSH
[2021-08-27 18:04] VITALS: BP 151/82
== END 2021-08-27 17:50 | disposition home or self-care (01) | DRG 637 ==
LOC: ED 08:40 → CC1 15:13 → 4A 08-24 18:32
PROVIDERS: ADMIT Internal Medicine; ATTEND Internal Medicine
DX: E11.10 Type 2 diabetes mellitus with ketoacidosis without coma (principal); K85.90 Acute pancreatitis without necrosis or infection, unspecified; N17.0 Acute kidney failure with tubular necrosis; E87.1 Hypo-osmolality and hyponatremia; N18.9 Chronic kidney disease, unspecified; E11.22 Type 2 diabetes mellitus with diabetic chronic kidney disease; E78.5 Hyperlipidemia, unspecified; I12.9 Hypertensive chronic kidney disease with stage 1 through stage 4 chronic kidney disease, or unspecified chronic kidney disease; K21.9 Gastro-esophageal reflux disease without esophagitis; Z83.3 Family history of diabetes mellitus; Z82.49 Family history of ischemic heart disease and other diseases of the circulatory system; E03.9 Hypothyroidism, unspecified; E11.65 Type 2 diabetes mellitus with hyperglycemia; Z20.822 Contact with and (suspected) exposure to COVID-19
CPT/HCPCS: 36415; 74176; 74181; 80048; 80053; 81001; 82805; 82962; 83690; 83735; 84100; 85025; 85027; 86301; 99406; G0378; J3480; Q9967; C9113; J0360; J1170; J1815; J1956; J2270; J2405; J7030; U0003

== ENCOUNTER 2021-10-09 22:15 | Inpatient (IN) | payer MEDICARE ==
--- NOTE | 2021-10-09 22:58 | Emergency Department Report ---
ED Altered Mental Status HPI - General Chief Complaint: Altered Mental Status Stated Complaint: UNRESPONSIVE Source: EMS Mode of arrival: Stretcher Limitations: Altered Mental Status - History of Present Illness Initial Comments: Patient is 61-year-old male with history of end-stage renal disease on dialysis brought in by EMS for altered mental status. Apparently he was found at his home on the floor by a friend yesterday and refused to come in for evaluation. He was found today in the same place on the floor altered. EMS was called to scene. Patient with agonal respirations on arrival. Fingerstick glucose was 22. He was given 1 L of D5 normal saline on the way here. GCS 3. - Related Data Home Medications Medication Instructions Recorded Confirmed Last Taken Levothyroxine Sodium 175 mcg PO DAILY 08/23/21 08/23/21 08/22/21 [Levothyroxine] Sertraline [Zoloft] 100 mg PO QDAY 08/23/21 08/23/21 08/22/21 Previous Rx's Medication Instructions Recorded Last Taken Type Cyclobenzaprine [Flexeril 10 MG 5 mg PO TID PRN #15 tablet 08/27/21 Unknown Rx TAB] Pantoprazole [Protonix TAB] 40 mg PO QDAY #30 tablet 08/27/21 Unknown Rx Insulin Glargine [Lantus VIAL] 30 units SUB-Q QHS units 09/02/21 Unknown Rx Lispro Insulin [HumaLOG] 0 unit SUB-Q ACHS units 09/02/21 Unknown Rx Midodrine [Proamatine] 10 mg PO TID tablet 09/02/21 Unknown Rx Allergies Allergy/AdvReac Type Severity Reaction Status Date / Time No Known Allergies Allergy Verified 10/09/21 23:38 ED Review of Systems ROS: Stated complaint: UNRESPONSIVE Other details as noted in HPI Comment: Unobtainable due to pts medical conditions ED Past Medical Hx - Past Medical History Previous Medical History?: Yes Hx Hypertension: Yes Hx Congestive Heart Failure: No Hx Diabetes: Yes Hx GERD: Yes Hx Renal Disease: Yes Hx Sickle Cell Disease: No Hx Asthma: No Hx COPD: No Additional medical history: HLD, hypothyroidism - Surgical History Past Surgical History?: No - Social History Smoking Status: Unknown if ever smoked - Medications Home Medications: Home Medications Medication Instructions Recorded Confirmed Last Taken Type Levothyroxine Sodium 175 mcg PO DAILY 08/23/21 08/23/2122 History [Levothyroxine] Sertraline [Zoloft] 100 mg PO QDAY 08/23/21 08/23/21 08/22/21 History Cyclobenzaprine [Flexeril 10 MG 5 mg PO TID PRN #15 tablet 08/27/21 Unknown Rx TAB] Pantoprazole [Protonix TAB] 40 mg PO QDAY #30 tablet 08/27/21 Unknown Rx Insulin Glargine [Lantus VIAL] 30 units SUB-Q QHS units 09/02/21 Unknown Rx Lispro Insulin [HumaLOG] 0 unit SUB-Q ACHS units 09/02/21 Unknown Rx Midodrine [Proamatine] 10 mg PO TID tablet 09/02/21 Unknown Rx ED Physical Exam - General Limitations: Altered Mental Status General appearance: obtunded - Head Head exam: Present: atraumatic, normocephalic - Eye Eye exam: Present: PERRL - Respiratory Respiratory exam: Present: respiratory distress, rales, accessory muscle use, other (Agonal respirations) - Cardiovascular Cardiovascular Exam: Present: regular rate, normal rhythm, normal heart sounds - GI/Abdominal GI/Abdominal exam: Present: soft. Absent: distended - Rectal Rectal exam: Present: deferred - Extremities Exam Extremities exam: Present: pedal edema - Skin Skin exam: Present: warm, dry, intact, normal color ED Course Vital Signs 10/09/21 10/09/21 10/09/21 22:25 22:30 22:46 Temperature Pulse Rate 65 65 75 Respiratory 19 14 17 Rate Blood Pressure 72/51 O2 Sat by Pulse 88 100 100 Oximetry 10/09/21 10/09/21 10/09/21 23:00 23:11 23:16 Temperature 91.7 F L Pulse Rate 118 H 73 73 Respiratory 17 18 Rate Blood Pressure 95/66 122/88 117/87 O2 Sat by Pulse 91 100 100 Oximetry 10/09/21 10/09/21 10/10/21 23:30 23:46 00:00 Temperature Pulse Rate 71 70 68 Respiratory 17 19 18 Rate Blood Pressure 120/86 120/86 120/86 O2 Sat by Pulse 100 100 100 Oximetry 10/10/21 10/10/21 10/10/21 00:02 00:16 00:37 Temperature Pulse Rate 68 66 Respiratory 18 18 Rate Blood Pressure 120/86 120/86 O2 Sat by Pulse 100 100 100 Oximetry - Intubation Time Out Performed: Yes Sedative: Etomidate Mg Given: 20 Paralytic: Rocuronium Mg Given: 100 Laryngoscope: fiberoptic video scope Size: 4 ET Tube Size: 8 Tube Secured Depth (cm): 22 Tube Secured Location: lips Tube Placement Confirmation: visualized tube passing t Patient Tolerated Procedure: well, no complications Intubation Complications: none Additional Comments: Right mainstem intubation on chest x-ray. Recommended retraction of tube by 5 cm. I notified the respiratory therapist. - Lab Data Result diagrams: 10/09/21 23:30 10/09/21 23:30 Lab Results 10/09/21 10/09/21 10/09/21 Range/Units 22:21 23:20 23:30 WBC 17.4 H (4.5-11.0) K/mm3 RBC 3.32 L (3.65-5.03) M/mm3 Hgb 9.2 L (11.8-15.2) gm/dl Hct 28.2 L (35.5-45.6) % MCV 85 (84-94) fl MCH 28 (28-32) pg MCHC 32 (32-34) % RDW 17.4 H (13.2-15.2) % Plt Count 45 L (140-440) K/mm3 Add Manual Diff Complete Total Counted 100 Seg Neutrophils % Air Shovel Operator Seg Neuts % (Manual) 98.0 H (40.0-70.0) % Band Neutrophils % 0 % Lymphocytes % (Manual) 1.0 L (13.4-35.0) % Reactive Lymphs % (Man) 0 % Monocytes % (Manual) 0 (0.0-7.3) % Eosinophils % (Manual) 1.0 (0.0-4.3) % Basophils % (Manual) 0 (0.0-1.8) % Metamyelocytes % 0 % Myelocytes % 0 % Promyelocytes % 0 % Blast Cells % 0 % Nucleated RBC % Not Reportable Seg Neutrophils # Man 17.1 H (1.8-7.7) K/mm3 Band Neutrophils # 0.0 K/mm3 Lymphocytes # (Manual) 0.2 L (1.2-5.4) K/mm3 Abs React Lymphs (Man) 0.0 K/mm3 Monocytes # (Manual) 0.0 (0.0-0.8) K/mm3 Eosinophils # (Manual) 0.2 (0.0-0.4) K/mm3 Basophils # (Manual) 0.0 (0.0-0.1) K/mm3 Metamyelocytes # 0.0 K/mm3 Myelocytes # 0.0 K/mm3 Promyelocytes # 0.0 K/mm3 Blast Cells # 0.0 K/mm3 WBC Morphology Not Reportable Hypersegmented Neuts Not Reportable Hyposegmented Neuts Not Reportable Hypogranular Neuts Not Reportable Smudge Cells Not Reportable Toxic Granulation Not Reportable Toxic Vacuolation Not Reportable Dohle Bodies Not Reportable Pelger-Huet Anomaly Not Reportable Placido Rods Not Reportable Platelet Estimate Consistent w auto Clumped Platelets Not Reportable Plt Clumps, EDTA Not Reportable Large Platelets Not Reportable Giant Platelets Not Reportable Platelet Satelliting Not Reportable Plt Morphology Comment Not Reportable RBC Morphology Not Reportable Dimorphic RBCs Not Reportable Polychromasia Not Reportable Hypochromasia Not Reportable Poikilocytosis Not Reportable Anisocytosis 1+ Microcytosis Not Reportable Macrocytosis Not Reportable Spherocytes Not Reportable Pappenheimer Bodies Not Reportable Sickle Cells Not Reportable Target Cells Not Reportable Tear Drop Cells Not Reportable Ovalocytes Not Reportable Helmet Cells Not Reportable [place] Bodies Not Reportable [place] Rings Not Reportable [place] Cells Not Reportable Bite Cells Not Reportable Crenated Cell Not Reportable Elliptocytes Not Reportable Acanthocytes (Spur) Not Reportable Rouleaux Not Reportable Hemoglobin C Crystals Not Reportable Schistocytes Not Reportable Malaria parasites Not Reportable Ezequiel Bodies Not Reportable Hem Pathologist Commnt No ABG pH 7.301 L (7.350-7.450) pH Units ABG pCO2 50.4 mm Hg ABG pO2 162.1 H (80.0-90.0) mm Hg ABG HCO3 24.3 (20.0-26.0) mmol/L ABG O2 Saturation 98.9 (95.0-99.0) % ABG O2 Content 14.1 (0.0-44) ABG Base Excess -2.3 L (-2.0-3.0) mmol/L ABG Hemoglobin 10.2 L (14.0-18.0) gm/dl ABG Carboxyhemoglobin 2.6 (0.0-5.0) % ABG Methemoglobin 0.3 (0.0-1.5) % Oxyhemoglobin 95.9 (95.0-99.0) % FiO2 100 % Sodium (137-145) mmol/L Potassium (3.6-5.0) mmol/L Chloride (98-107) mmol/L Carbon Dioxide (22-30) mmol/L Anion Gap mmol/L BUN (9-20) mg/dL Creatinine (0.8-1.3) mg/dL Estimated GFR ml/min BUN/Creatinine Ratio % Glucose (75-100) mg/dL POC Glucose 151 H (70-105) mg/dL Lactic Acid (0.7-2.0) mmol/L Calcium (8.4-10.2) mg/dL Total Bilirubin (0.1-1.2) mg/dL AST (5-40) units/L ALT (7-56) units/L Alkaline Phosphatase (35-129) units/L Total Creatine Kinase (55-170) units/L Troponin T (0.00-0.029) ng/mL Total Protein (6.3-8.2) g/dL Albumin (3.9-5) g/dL Albumin/Globulin Ratio % Triglycerides (2-149) mg/dL Cholesterol (50-199) mg/dL LDL Cholesterol Direct (50-130) mg/dL HDL Cholesterol (40-59) mg/dL Cholesterol/HDL Ratio % Urine Color (Yellow) Urine Turbidity (Clear) Urine pH (5.0-7.0) Ur Specific [place] (1.003-1.030) Urine Protein (Negative) mg/dL Urine Glucose (UA) (Negative) mg/dL Urine Ketones (Negative) mg/dL Urine Blood (Negative) Urine Nitrite (Negative) Urine Bilirubin (Negative) Urine Urobilinogen (<2.0) mg/dL Ur Leukocyte Esterase (Negative) Urine WBC (Auto) (0.0-6.0) /HPF Urine RBC (Auto) (0.0-6.0) /HPF Urine Bacteria (Auto) (Negative) /HPF Urine WBC Clumps /HPF 10/09/21 10/09/21 10/10/21 Range/Units 23:30 23:30 01:30 WBC (4.5-11.0) K/mm3 RBC (3.65-5.03) M/mm3 Hgb (11.8-15.2) gm/dl Hct (35.5-45.6) % MCV (84-94) fl MCH (28-32) pg MCHC (32-34) % RDW (13.2-15.2) % Plt Count (140-440) K/mm3 Add Manual Diff Total Counted Seg Neutrophils % Seg Neuts % (Manual) (40.0-70.0) % Band Neutrophils % % Lymphocytes % (Manual) (13.4-35.0) % Reactive Lymphs % (Man) % Monocytes % (Manual) (0.0-7.3) % Eosinophils % (Manual) (0.0-4.3) % Basophils % (Manual) (0.0-1.8) % Metamyelocytes % % Myelocytes % % Promyelocytes % % Blast Cells % % Nucleated RBC % Seg Neutrophils # Man (1.8-7.7) K/mm3 Band Neutrophils # K/mm3 Lymphocytes # (Manual) (1.2-5.4) K/mm3 Abs React Lymphs (Man) K/mm3 Monocytes # (Manual) (0.0-0.8) K/mm3 Eosinophils # (Manual) (0.0-0.4) K/mm3 Basophils # (Manual) (0.0-0.1) K/mm3 Metamyelocytes # K/mm3 Myelocytes # K/mm3 Promyelocytes # K/mm3 Blast Cells # K/mm3 WBC Morphology Hypersegmented Neuts Hyposegmented Neuts Hypogranular Neuts Smudge Cells Toxic Granulation Toxic Vacuolation Dohle Bodies Pelger-Huet Anomaly Placido Rods Platelet Estimate Clumped Platelets Plt Clumps, EDTA Large Platelets Giant Platelets Platelet Satelliting Plt Morphology Comment RBC Morphology Dimorphic RBCs Polychromasia Hypochromasia Poikilocytosis Anisocytosis Microcytosis Macrocytosis Spherocytes Pappenheimer Bodies Sickle Cells Target Cells Tear Drop Cells Ovalocytes Helmet Cells [place] Bodies [place] Rings [place] Cells Bite Cells Crenated Cell Elliptocytes Acanthocytes (Spur) Rouleaux Hemoglobin C Crystals Schistocytes Malaria parasites Ezequiel Bodies Hem Pathologist Commnt ABG pH (7.350-7.450) pH Units ABG pCO2 mm Hg ABG pO2 (80.0-90.0) mm Hg ABG HCO3 (20.0-26.0) mmol/L ABG O2 Saturation (95.0-99.0) % ABG O2 Content (0.0-44) ABG Base Excess (-2.0-3.0) mmol/L ABG Hemoglobin (14.0-18.0) gm/dl ABG Carboxyhemoglobin (0.0-5.0) % ABG Methemoglobin (0.0-1.5) % Oxyhemoglobin (95.0-99.0) % FiO2 % Sodium 132 L (137-145) mmol/L Potassium 1.7 L* (3.6-5.0) mmol/L Chloride 96.6 L (98-107) mmol/L Carbon Dioxide 25 (22-30) mmol/L Anion Gap 12 mmol/L BUN 17 (9-20) mg/dL Creatinine 4.8 H (0.8-1.3) mg/dL Estimated GFR 15 ml/min BUN/Creatinine Ratio 4 % Glucose 70 L (75-100) mg/dL POC Glucose (70-105) mg/dL Lactic Acid 2.10 H* (0.7-2.0) mmol/L Calcium 8.0 L (8.4-10.2) mg/dL Total Bilirubin 1.10 (0.1-1.2) mg/dL AST 68 H (5-40) units/L ALT 12 (7-56) units/L Alkaline Phosphatase 161 H (35-129) units/L Total Creatine Kinase 644 H (55-170) units/L Troponin T 1.970 H* (0.00-0.029) ng/mL Total Protein 7.1 (6.3-8.2) g/dL Albumin 2.1 L (3.9-5) g/dL Albumin/Globulin Ratio 0.4 % Triglycerides 68 (2-149) mg/dL Cholesterol 81 (50-199) mg/dL LDL Cholesterol Direct 21 L (50-130) mg/dL HDL Cholesterol 44 (40-59) mg/dL Cholesterol/HDL Ratio 1.84 % Urine Color Yellow (Yellow) Urine Turbidity Turbid (Clear) Urine pH 6.0 (5.0-7.0) Ur Specific [place] 1.018 (1.003-1.030) Urine Protein 100 mg/dl (Negative) mg/dL Urine Glucose (UA) Neg (Negative) mg/dL Urine Ketones Tr (Negative) mg/dL Urine Blood Mod (Negative) Urine Nitrite Neg (Negative) Urine Bilirubin Neg (Negative) Urine Urobilinogen < 2.0 (<2.0) mg/dL Ur Leukocyte Esterase Mod (Negative) Urine WBC (Auto) > 182.0 H (0.0-6.0) /HPF Urine RBC (Auto) 70.0 (0.0-6.0) /HPF Urine Bacteria (Auto) 1+ (Negative) /HPF Urine WBC Clumps 3+ /HPF - EKG Data -: EKG Interpreted by Me (Sinus rhythm with prolonged NE interval. Rate 70) Rate: normal - Radiology Data Radiology results: report reviewed Patchy consolidation in the lung bases possibly infiltrate or edema. No acute findings on CT head. - Medical Decision Making Patient brought in by EMS for altered mental status and respiratory distress. He was emergently intubated on arrival with GCS of 3. CT head is unremarkable. Chest x-ray shows bilateral lower patchiness suggestive of possible edema or infiltrate. IV fluids held on account of this. White blood cell count 17. Patient covered empirically with IV Levaquin. Serum potassium 1.7. Patient was started on IV potassium chloride. Troponin 1.9. On review of his previous labs his troponin was 0.15 last month. Started on heparin infusion. I discussed case with Dr. Gilliland. Will admit to ICU. Critical Care Time: Yes Critical care time in (mins) excluding proc time.: 60 Critical care attestation.: If time is entered above; I have spent that time in minutes in the direct care of this critically ill patient, excluding procedure time. ED Disposition Clinical Impression: Acute respiratory failure, Altered mental status, Hypokalemia, NSTEMI (non-ST elevated myocardial infarction) Disposition: 09 ADMITTED INPATIENT Is pt being admited?: Yes Condition: Stable
[2021-10-09] MEDS ORDERED: MIDAZOLAM 2 MG/2 ML INJ IV PRN (23:40)
--- NOTE | 2021-10-09 23:43 | XRay Report ---
XR chest 1V ap, XR abdomen 1V ap INDICATION / CLINICAL INFORMATION: Altered Mental Status. COMPARISON: CT from 09/02/2021 FINDINGS: SUPPORT DEVICES: Endotracheal tube terminates over the right mainstem bronchus. Right IJ central veno us catheter projects in the right atrium. Enteric catheter tip and side-port project in the stomach. Choudhary catheter is not well seen. CHEST: HEART /PULMONARY VASCULATURE: No significant abnormality. LUNGS / PLEURA: Low lung volumes. Patchy airspace consolidation of the right lung base with mild patc hy airspace opacities in the left lung base. No sizable pleural effusion. No pneumothorax. ABDOMEN: Bowel gas pattern is nonobstructive. Biliary stent noted. No free air. IMPRESSION: Endotracheal tube terminates over the right mainstem bronchus. Recommend retraction by approximately 5 cm. Other lines and tubes as above. Patchy airspace consolidation lung bases, may reflect edema or pneumonia. Findings were discussed with Dr. Owen by phone on 10/09/2021 at 10:30 PM Signer Name: Leno Tristan MD Signed: 10/09/2021 11:39 PM Workstation Name: [id number]
[2021-10-09 23:44] LABS: Hematocrit 28.2 % (35.5-45.6); Hemoglobin 9.2 gm/dl (11.8-15.2); Mean Corpuscular HGB Conc 32 % (32-34); Mean Corpuscular Volume 85 fl (84-94); Red Blood Count 3.32 M/mm3 (3.65-5.03); Red Cell Distribution Width 17.4 % (13.2-15.2)
[2021-10-09] MEDS ORDERED: MIDAZOLAM/NS Drip 100mg/100ml 100 MG/100 ML BAG IV SCH (23:45)
[2021-10-09 23:46] LABS: ABG Base Excess -2.3 mmol/L (-2.0-3.0); ABG HCO3 24.3 mmol/L (20.0-26.0); ABG Methemoglobin 0.3 % (0.0-1.5); ABG Oxygen Saturation 98.9 % (95.0-99.0); ABG PCO2 50.4 mm Hg; ABG PH 7.301 pH Units (7.350-7.450); ABG PO2 162.1 mm Hg (80.0-90.0)
[2021-10-10 00:02] LABS: Albumin 2.1 g/dL (3.9-5)
[2021-10-10 00:03] LABS: Platelet Count 45 K/mm3 (140-440)
[2021-10-10 00:49] LABS: Chol/HDL Ratio 1.84 %
[2021-10-10 01:02] LABS: Anisocytosis 1+; Basophils % (Manual) 0 % (0.0-1.8); Monocytes % (Manual) 0 % (0.0-7.3); Platelet Estimate Consistent w Auto; Total Cells Counted 100
--- NOTE | 2021-10-10 01:18 | Cat Scan Report ---
CT HEAD WITHOUT CONTRAST INDICATION / CLINICAL INFORMATION: AMS. TECHNIQUE: All CT scans at this location are performed using CT dose reduction for ALARA by means of automated exposure control. COMPARISON: CT from 08/31/2021 FINDINGS: BRAIN PARENCHYMA: No acute intracranial hemorrhage. No evidence of recent infarct. No mass effect or midline shift. White matter chronic small vessel ischemic changes. VENTRICULAR SYSTEM/EXTRA-AXIAL SPACES: Age-related cerebral atrophy. No extra-axial fluid collection. ORBITS: Normal as visualized. SKELETAL SYSTEM/SOFT TISSUES: Normal bones and soft tissues. PARANASAL SINUSES/MASTOID AIR CELLS: No significant abnormality. ADDITIONAL FINDINGS: None. IMPRESSION: 1. No acute intracranial abnormality. Signer Name: Leno Tristna MD Signed: 10/10/2021 1:14 AM Workstation Name: [id number]
[2021-10-10] MEDS ORDERED: ACETAMINOPHEN 325 MG TAB PO PRN (01:37)
[2021-10-10] MEDS ORDERED: ALBUTEROL 2.5 MG/3 ML NEBU IH PRN (01:37)
[2021-10-10] MEDS ORDERED: MORPHINE 4 MG/1 ML INJ IV PRN (01:37)
[2021-10-10] MEDS ORDERED: ONDANSETRON 4 MG/2 ML INJ IV PRN (01:37)
[2021-10-10] MEDS ORDERED: MORPHINE 2 MG/1 ML INJ IV PRN (01:37)
--- NOTE | 2021-10-10 01:49 | History and Physical Report ---
History of Present Illness Date of examination: 10/10/21 Date of admission: 10/10/21 Chief complaint: Altered mental status History of present illness: 61-year-old male with history of diabetes and end-stage renal disease on dialysis brought in by EMS for altered mental status. Patient was found at his home on the floor by a friend yesterday and refused to come in for evaluation. He was found today in the same place on the floor altered. EMS was called to scene. Patient with agonal respirations on arrival. Fingerstick glucose was 22. He was given 1 L of D5 normal saline on the way here. GCS 3. In the emergency room patient is found to have WBC of 17.4, potassium 1.7 lactic acid 2.10 BUN of 17 creatinine 4.8, ABG shows pH 7.301, PCO2 50.4, PO2 162.1 bicarb 24.3 O2 sat 98.9. Subsequently patient was intubated by the ER physician. We are going to admit the patient to the ICU will consult critical care and nephrology for evaluation Past History Past Medical History: diabetes, ESRD, GERD, hypertension, hyperlipidemia, renal failure, other (Hypothyroidism) Past Surgical History: No surgical history Social history: no significant social history Family history: hypertension Medications and Allergies Allergies Allergy/AdvReac Type Severity Reaction Status Date / Time No Known Allergies Allergy Verified 10/09/21 23:38 Home Medications Medication Instructions Recorded Confirmed Last Taken Type Levothyroxine Sodium 175 mcg PO DAILY 08/23/21 08/23/21 08/22/21 History [Levothyroxine] Sertraline [Zoloft] 100 mg PO QDAY 08/23/21 08/23/21 08/22/21 History Cyclobenzaprine [Flexeril 10 MG 5 mg PO TID PRN #15 tablet 08/27/21 Unknown Rx TAB] Pantoprazole [Protonix TAB] 40 mg PO QDAY #30 tablet 08/27/21 Unknown Rx Insulin Glargine [Lantus VIAL] 30 units SUB-Q QHS units 09/02/21 Unknown Rx Lispro Insulin [HumaLOG] 0 unit SUB-Q ACHS units 09/02/21 Unknown Rx Midodrine [Proamatine] 10 mg PO TID tablet 09/02/21 Unknown Rx Active Meds: Active Medications Acetaminophen (Acetaminophen 325 Mg Tab) 650 mg PO Q4H PRN PRN Reason: Pain MILD(1-3)/Fever >100.5/SEALS Albuterol (Albuterol 2.5 Mg/3 Ml Nebu) 2.5 mg IH Q3HRT PRN PRN Reason: Shortness Of Breath Albuterol/Ipratropium (Ipratropium/Albuterol Sulfate 3 Ml Ampul.Neb) 1 ampul IH Q6HRT [facility] Dextrose (Dextrose 50% In Water (25gm) 50 Ml Syringe) 50 ml IV Q30MIN PRN; Protocol PRN Reason: Hypoglycemia Famotidine (Famotidine 20 Mg/2 Ml Inj) 20 mg IV BID [facility]AKA MIDAZOLAM/NS Drip 100mg/100ml (Midazolam/Ns Drip 100mg/100ml) 100 mg in 100 mls @ 1 mls/hr IV TITR [facility]AKA; Protocol Potassium Chloride (Kcl 10meq/100ml) 10 meq in 100 mls @ 100 mls/hr IV Q1H [facility] Stop: 10/10/21 04:59 Dextrose/Sodium Chloride (D5ns) 1,000 mls @ 75 mls/hr IV DIRECT [facility] Levofloxacin/Dextrose (Levaquin 750mg/150ml) 750 mg in 150 mls @ 100 mls/hr IV Q24H [facility]; Protocol Insulin Human Lispro (Insulin Lispro 100 Unit/Ml) 0 unit SUB-Q Q6HR [facility]AKA; Protocol Midazolam HCl (Midazolam 2 Mg/2 Ml Inj) 2 mg IV Q10MIN PRN PRN Reason: Sedation Midodrine (Midodrine 10 Mg Tab) 10 mg PO TID [facility] Miscellaneous Medication (Levothyroxine Sodium [Levothyroxine]) 175 mcg PO DAILY [facility] Morphine Sulfate (Morphine 2 Mg/1 Ml Inj) 2 mg IV Q4H PRN PRN Reason: Pain, Moderate (4-6) Morphine Sulfate (Morphine 4 Mg/1 Ml Inj) 4 mg IV Q4H PRN PRN Reason: Pain , Severe (7-10) Ondansetron HCl (Ondansetron 4 Mg/2 Ml Inj) 4 mg IV Q8H PRN PRN Reason: Nausea And Vomiting Pantoprazole Sodium (Pantoprazole 40 Mg Tab) 40 mg PO QDAY [facility] Sodium Chloride (Sodium Chloride 0.9% 10 Ml Flush Syringe) 10 ml IV BID [facility] Sodium Chloride (Sodium Chloride 0.9% 10 Ml Flush Syringe) 10 ml IV PRN PRN PRN Reason: LINE FLUSH Review of Systems All systems: negative Constitutional: fatigue, malaise, lethargy, other (Altered mental status) Exam - Constitutional Vitals: Temp Pulse Resp BP Pulse Ox 91.7 F L 66 18 120/86 100 10/09/21 23:00 10/10/21 00:16 10/10/21 00:16 10/10/21 00:16 10/10/21 00:37 General appearance: Present: no acute distress, well-nourished - EENT Eyes: Present: PERRL ENT: hearing intact, clear oral mucosa - Neck Neck: Present: supple, normal ROM - Respiratory Respiratory effort: normal Respiratory: bilateral: CTA - Cardiovascular Heart Sounds: Present: S1 & S2. Absent: rub, click - Extremities Extremities: pulses symmetrical, No edema Peripheral Pulses: within normal limits - Abdominal General gastrointestinal: Present: soft, non-tender, non-distended, normal bowel sounds Male genitourinary: Present: normal - Integumentary Integumentary: Present: clear, warm, dry - Musculoskeletal Musculoskeletal: gait normal, strength equal bilaterally - Psychiatric Psychiatric: other (Patient is altered mental status) - Neurologic Neurologic: CNII-XII intact, moves all extremities, other (Patient is altered mental status) HEART Score - HEART Score Troponin: Troponin T 1.970 ng/mL (0.00-0.029) H* 10/09/21 23:30 Results - Labs CBC & Chem 7: 10/09/21 23:30 10/09/21 23:30 Labs: Laboratory Last Values WBC 17.4 K/mm3 (4.5-11.0) H 10/09/21 23:30 RBC 3.32 M/mm3 (3.65-5.03) L 10/09/21 23:30 Hgb 9.2 gm/dl (11.8-15.2) L 10/09/21 23:30 Hct 28.2 % (35.5-45.6) L 10/09/21 23:30 MCV 85 fl (84-94) 10/09/21 23:30 MCH 28 pg (28-32) 10/09/21 23:30 MCHC 32 % (32-34) 10/09/21 23:30 RDW 17.4 % (13.2-15.2) H 10/09/21 23:30 Plt Count 45 K/mm3 (140-440) L 10/09/21 23:30 Add Manual Diff Complete 10/09/21 23:30 Total Counted 100 10/09/21 23:30 Seg Neutrophils % Unarmed Security Officer 10/09/21 23:30 Seg Neuts % (Manual) 98.0 % (40.0-70.0) H 10/09/21 23:30 Band Neutrophils % 0 % 10/09/21 23:30 Lymphocytes % (Manual) 1.0 % (13.4-35.0) L 10/09/21 23:30 Reactive Lymphs % (Man) 0 % 10/09/21 23:30 Monocytes % (Manual) 0 % (0.0-7.3) 10/09/21 23:30 Eosinophils % (Manual) 1.0 % (0.0-4.3) 10/09/21 23:30 Basophils % (Manual) 0 % (0.0-1.8) 10/09/21 23:30 Metamyelocytes % 0 % 10/09/21 23:30 Myelocytes % 0 % 10/09/21 23:30 Promyelocytes % 0 % 10/09/21 23:30 Blast Cells % 0 % 10/09/21 23:30 Nucleated RBC % Not Reportable 10/09/21 23:30 Seg Neutrophils # Man 17.1 K/mm3 (1.8-7.7) H 10/09/21 23:30 Band Neutrophils # 0.0 K/mm3 10/09/21 23:30 Lymphocytes # (Manual) 0.2 K/mm3 (1.2-5.4) L 10/09/21 23:30 Abs React Lymphs (Man) 0.0 K/mm3 10/09/21 23:30 Monocytes # (Manual) 0.0 K/mm3 (0.0-0.8) 10/09/21 23:30 Eosinophils # (Manual) 0.2 K/mm3 (0.0-0.4) 10/09/21 23:30 Basophils # (Manual) 0.0 K/mm3 (0.0-0.1) 10/09/21 23:30 Metamyelocytes # 0.0 K/mm3 10/09/21 23:30 Myelocytes # 0.0 K/mm3 10/09/21 23:30 Promyelocytes # 0.0 K/mm3 10/09/21 23:30 Blast Cells # 0.0 K/mm3 10/09/21 23:30 WBC Morphology Not Reportable 10/09/21 23:30 Hypersegmented Neuts Not Reportable 10/09/21 23:30 Hyposegmented Neuts Not Reportable 10/09/21 23:30 Hypogranular Neuts Not Reportable 10/09/21 23:30 Smudge Cells Not Reportable 10/09/21 23:30 Toxic Granulation Not Reportable 10/09/21 23:30 Toxic Vacuolation Not Reportable 10/09/21 23:30 Dohle Bodies Not Reportable 10/09/21 23:30 Pelger-Huet Anomaly Not Reportable 10/09/21 23:30 Placido Rods Not Reportable 10/09/21 23:30 Platelet Estimate Consistent w auto 10/09/21 23:30 Clumped Platelets Not Reportable 10/09/21 23:30 Plt Clumps, EDTA Not Reportable 10/09/21 23:30 Large Platelets Not Reportable 10/09/21 23:30 Giant Platelets Not Reportable 10/09/21 23:30 Platelet Satelliting Not Reportable 10/09/21 23:30 Plt Morphology Comment Not Reportable 10/09/21 23:30 RBC Morphology Not Reportable 10/09/21 23:30 Dimorphic RBCs Not Reportable 10/09/21 23:30 Polychromasia Not Reportable 10/09/21 23:30 Hypochromasia Not Reportable 10/09/21 23:30 Poikilocytosis Not Reportable 10/09/21 23:30 Anisocytosis 1+ 10/09/21 23:30 Microcytosis Not Reportable 10/09/21 23:30 Macrocytosis Not Reportable 10/09/21 23:30 Spherocytes Not Reportable 10/09/21 23:30 Pappenheimer Bodies Not Reportable 10/09/21 23:30 Sickle Cells Not Reportable 10/09/21 23:30 Target Cells Not Reportable 10/09/21 23:30 Tear Drop Cells Not Reportable 10/09/21 23:30 Ovalocytes Not Reportable 10/09/21 23:30 Helmet Cells Not Reportable 10/09/21 23:30 [place]-Wil[place] Bodies Not Reportable 10/09/21 23:30 [place] Rings Not Reportable 10/09/21 23:30 [place] Cells Not Reportable 10/09/21 23:30 Bite Cells Not Reportable 10/09/21 23:30 Crenated Cell Not Reportable 10/09/21 23:30 Elliptocytes Not Reportable 10/09/21 23:30 Acanthocytes (Spur) Not Reportable 10/09/21 23:30 Rouleaux Not Reportable 10/09/21 23:30 Hemoglobin C Crystals Not Reportable 10/09/21 23:30 Schistocytes Not Reportable 10/09/21 23:30 Malaria parasites Not Reportable 10/09/21 23:30 Ezequiel Bodies Not Reportable 10/09/21 23:30 Hem Pathologist Commnt No 10/09/21 23:30 ABG pH 7.301 pH Units (7.350-7.450) L 10/09/21 23:20 ABG pCO2 50.4 mm Hg 10/09/21 23:20 ABG pO2 162.1 mm Hg (80.0-90.0) H 10/09/21 23:20 ABG HCO3 24.3 mmol/L (20.0-26.0) 10/09/21 23:20 ABG O2 Saturation 98.9 % (95.0-99.0) 10/09/21 23:20 ABG O2 Content 14.1 (0.0-44) 10/09/21 23:20 ABG Base Excess -2.3 mmol/L (-2.0-3.0) L 10/09/21 23:20 ABG Hemoglobin 10.2 gm/dl (14.0-18.0) L 10/09/21 23:20 ABG Carboxyhemoglobin 2.6 % (0.0-5.0) 10/09/21 23:20 ABG Methemoglobin 0.3 % (0.0-1.5) 10/09/21 23:20 Oxyhemoglobin 95.9 % (95.0-99.0) 10/09/21 23:20 FiO2 100 % 10/09/21 23:20 Sodium 132 mmol/L (137-145) L 10/09/21 23:30 Potassium 1.7 mmol/L (3.6-5.0) L* 10/09/21 23:30 Chloride 96.6 mmol/L (98-107) L 10/09/21 23:30 Carbon Dioxide 25 mmol/L (22-30) 10/09/21 23:30 Anion Gap 12 mmol/L 10/09/21 23:30 BUN 17 mg/dL (9-20) 10/09/21 23:30 Creatinine 4.8 mg/dL (0.8-1.3) H 10/09/21 23:30 Estimated GFR 15 ml/min 10/09/21 23:30 BUN/Creatinine Ratio 4 % 10/09/21 23:30 Glucose 70 mg/dL (75-100) L 10/09/21 23: POC Glucose 151 mg/dL (70-105) H 10/09/21 22:21 Lactic Acid 2.10 mmol/L (0.7-2.0) H* 10/09/21 23:30 Calcium 8.0 mg/dL (8.4-10.2) L 10/09/21 23:30 Total Bilirubin 1.10 mg/dL (0.1-1.2) 10/09/21 23:30 AST 68 units/L (5-40) H 10/09/21 23:30 ALT 12 units/L (7-56) 10/09/21 23:30 Alkaline Phosphatase 161 units/L (35-129) H 10/09/21 23:30 Total Creatine Kinase 644 units/L (55-170) H 10/09/21 23:30 Troponin T 1.970 ng/mL (0.00-0.029) H* 10/09/21 23:30 Total Protein 7.1 g/dL (6.3-8.2) 10/09/21 23:30 Albumin 2.1 g/dL (3.9-5) L 10/09/21 23:30 Albumin/Globulin Ratio 0.4 % 10/09/21 23:30 Triglycerides 68 mg/dL (2-149) 10/09/21 23:30 Cholesterol 81 mg/dL (50-199) 10/09/21 23:30 LDL Cholesterol Direct 21 mg/dL (50-130) L 10/09/21 23:30 HDL Cholesterol 44 mg/dL (40-59) 10/09/21 23:30 Cholesterol/HDL Ratio 1.84 % 10/09/21 23:30 - Imaging and Cardiology Chest x-ray: report reviewed CT Scan - head: report reviewed Assessment and Plan VTE prophylaxis?: Mechanical Plan of care discussed with patient/family: Yes - Patient Problems (1) Acute metabolic encephalopathy Status: Acute Plan to address problem: Admit the patient to the critical care unit. Metabolic encephalopathy most likely secondary to end-stage renal disease, sepsis and hypoglycemia. D5 normal saline at the rate of 75 cc/h. Levaquin 750 IV daily. Will consult nephrology and critical care evaluation (2) End-stage renal disease on hemodialysis Status: Acute Plan to address problem: Avoid nephrotoxic drug. Renally dose medication. Consult nephrology for hemodialysis. recheck BMP in the morning (3) Hypertension Status: Acute Plan to address problem: Hydralazine 10 mg IV every 6 hours as needed. We continue the home medication (4) Elevated troponin Status: Acute Plan to address problem: Aspirin 81 mg p.o. daily. Lipitor 40 mg p.o. daily. Serial cardiac enzymes. Nitroglycerin as needed. Consult cardiology. Echocardiogram (5) Nicotine dependence Status: Acute Qualifiers: Plan to address problem: We counseled the patient regarding quitting smoking. We will put the patient nicotine patch if needed (6) Sepsis Status: Acute Plan to address problem: Levaquin 750 mg IV daily. D5 normal saline at the rate of 75 cc/h. We will do the blood culture. Recheck CBC and lactic acid in the morning (7) History of hypothyroidism Status: Chronic Plan to address problem: Stable continue the home medication (8) Insulin dependent diabetes mellitus Status: Chronic Plan to address problem: Accu-Chek every 6 hours with Humalog low-dose coverage. Diabetic education. (9) Hypokalemia Status: Acute Plan to address problem: Potassium 10 mEq IV x4 is getting in the emergency room. Will consult nephrology for evaluation. Recheck BMP in the morning (10) Hypoglycemia Status: Acute Plan to address problem: Patient is getting D5 normal saline at the rate of 75 cc/h. We will monitor the blood glucose closely. We will consult nutrition for evaluation (11) DVT prophylaxis Status: Acute Plan to address problem: SCD for DVT prophylaxis. Pepcid 20 mg IV every 12 hours for GI prophylaxis. Patient is a full code
[2021-10-10] MEDS: POTASSIUM CHLORIDE 10 MEQ 10 MEQ/100 ML BAG IV SCH ×8 (02:00→16:19)
[2021-10-10] MEDS ORDERED: D5W/0.9% NACL 1,000 ML IV SCH (02:00)
[2021-10-10 02:01] LABS: Bilirubin,Urine NEG (Negative); Blood,Urine MOD (Negative); Color,Urine Yellow (Yellow); Urobilinogen,Urine < 2.0 mg/dL (<2.0)
[2021-10-10 02:04] LABS: Bacteria,Urine 1+ /HPF (Negative)
[2021-10-10 02:05] LABS: WBC,Urine > 182.0 /HPF (0.0-6.0)
[2021-10-10] MEDS: IPRATROPIUM/ALBUTEROL SULFATE 3 ML AMPUL.NEB IH SCH ×2 (02:46→08:58)
[2021-10-10] MEDS ORDERED: SODIUM CHLORIDE 0.9% 1000 ML 1,000 ML IV ONE ×2 (02:52→12:30)
[2021-10-10] MEDS: DEXTROSE 50% IN WATER (25GM) 50 ML SYRINGE IV PRN ×3 (03:08→06:39)
--- NOTE | 2021-10-10 04:12 | XRay Report ---
XR chest 1V ap INDICATION / CLINICAL INFORMATION: Tube placement. COMPARISON: Radiograph from yesterday. FINDINGS: SUPPORT DEVICES: Endotracheal tube projects 5.3 cm above the leonardo. Right IJ central venous catheter projects in the right atrium. Enteric catheter extends below the diaphragm. HEART /PULMONARY VASCULATURE: Unchanged. LUNGS / PLEURA: Lung parenchyma is not significantly changed. No pneumothorax. IMPRESSION: Satisfactory position of endotracheal tube. Otherwise stable chest. Signer Name: Leno Tristan MD Signed: 10/10/2021 4:08 AM Workstation Name: [id number]
[2021-10-10] MEDS ORDERED: LEVOTHYROXINE 75 MCG TAB PO SCH (06:00)
[2021-10-10] MEDS ORDERED: LEVOTHYROXINE 100 MCG TAB PO SCH (06:00)
[2021-10-10] MEDS: INSULIN LISPRO 100 UNIT/ML SUB-Q SCH ×3 (06:35→18:21)
[2021-10-10 06:36] LABS: ABG Base Excess -1.5 mmol/L (-2.0-3.0); ABG HCO3 21.8 mmol/L (20.0-26.0); ABG Methemoglobin 0.5 % (0.0-1.5); ABG Oxygen Saturation 99.4 % (95.0-99.0); ABG PCO2 30.7 mm Hg; ABG PH 7.469 pH Units (7.350-7.450); ABG PO2 217.7 mm Hg (80.0-90.0)
[2021-10-10] MEDS: MIDODRINE 10 MG TAB PO SCH ×3 (07:24→16:18)
--- NOTE | 2021-10-10 08:15 | Progress Note ---
Assessment and Plan Assessment and plan: History of present illness: 61-year-old male with history of diabetes and end-stage renal disease on dialysis brought in by EMS for altered mental status. Patient was found at his home on the floor by a friend yesterday and refused to come in for evaluation. He was found today in the same place on the floor altered. EMS was called to scene. Patient with agonal respirations on arrival. Fingerstick glucose was 22. He was given 1 L of D5 normal saline on the way here. GCS 3. In the emergency room patient is found to have WBC of 17.4, potassium 1.7 lactic acid 2.10 BUN of 17 creatinine 4.8, ABG shows pH 7.301, PCO2 50.4, PO2 162.1 bicarb 24.3 O2 sat 98.9. Subsequently patient was intubated by the ER physician. We are going to admit the patient to the ICU will consult critical care and nephrology for evaluation Hospital Course: 10/10/2021: Assessment and Plan: #Acute Respiratory Failure with Hypoxia #Acute metabolic encephalopathy #Adrenal insufficiency #Hypothyroidism #ESRD on HD # The high probability of a clinically significant, sudden or life threatening deterioration of the [multi] system(s) required my full and direct attention, intervention and personal management. The aggregate critical care time was [60] minutes. This time is in addition to time spent performing reported procedures but includes the following: [x] Data Review and interpretation [x] Patient assessment and monitoring of vital signs [x] Documentation [x] Medication orders and management Hospitalist Physical - Constitutional Vitals: Temp Pulse Resp BP Pulse Ox 97.4 F L 77 21 79/54 100 10/10/21 08:00 10/10/21 08:02 10/10/21 08:00 10/10/21 08:00 10/10/21 08:00 General appearance: Present: no acute distress, well-nourished HEART Score - HEART Score Troponin: Troponin T 1.970 ng/mL (0.00-0.029) H* 10/09/21 23:30 Results - Labs CBC & Chem 7: 10/10/21 12:25 10/10/21 12:25 Labs: Laboratory Last Values WBC 17.4 K/mm3 (4.5-11.0) H 10/09/21 23:30 RBC 3.32 M/mm3 (3.65-5.03) L 10/09/21 23:30 Hgb 9.2 gm/dl (11.8-15.2) L 10/09/21 23:30 Hct 28.2 % (35.5-45.6) L 10/09/21 23:30 MCV 85 fl (84-94) 10/09/21 23:30 MCH 28 pg (28-32) 10/09/21 23:30 MCHC 32 % (32-34) 10/09/21 23:30 RDW 17.4 % (13.2-15.2) H 10/09/21 23:30 Plt Count 45 K/mm3 (140-440) L 10/09/21 23:30 Add Manual Diff Complete 10/09/21 23: Total Counted 100 10/09/21 23:30 Seg Neutrophils % Job Development Specialist 10/09/21 23:30 Seg Neuts % (Manual) 98.0 % (40.0-70.0) H 10/09/21 23:30 Band Neutrophils % 0 % 10/09/21 23:30 Lymphocytes % (Manual) 1.0 % (13.4-35.0) L 10/09/21 23:30 Reactive Lymphs % (Man) 0 % 10/09/21 23:30 Monocytes % (Manual) 0 % (0.0-7.3) 10/09/21 23:30 Eosinophils % (Manual) 1.0 % (0.0-4.3) 10/09/21 23:30 Basophils % (Manual) 0 % (0.0-1.8) 10/09/21 23:30 Metamyelocytes % 0 % 10/09/21 23:30 Myelocytes % 0 % 10/09/21 23:30 Promyelocytes % 0 % 10/09/21 23:30 Blast Cells % 0 % 10/09/21 23:30 Nucleated RBC % Not Reportable 10/09/21 23:30 Seg Neutrophils # Man 17.1 K/mm3 (1.8-7.7) H 10/09/21 23:30 Band Neutrophils # 0.0 K/mm3 10/09/21 23:30 Lymphocytes # (Manual) 0.2 K/mm3 (1.2-5.4) L 10/09/21 23:30 Abs React Lymphs (Man) 0.0 K/mm3 10/09/21 23:30 Monocytes # (Manual) 0.0 K/mm3 (0.0-0.8) 10/09/21 23:30 Eosinophils # (Manual) 0.2 K/mm3 (0.0-0.4) 10/09/21 23:30 Basophils # (Manual) 0.0 K/mm3 (0.0-0.1) 10/09/21 23:30 Metamyelocytes # 0.0 K/mm3 10/09/21 23:30 Myelocytes # 0.0 K/mm3 10/09/21 23:30 Promyelocytes # 0.0 K/mm3 10/09/21 23:30 Blast Cells # 0.0 K/mm3 10/09/21 23:30 WBC Morphology Not Reportable 10/09/21 23:30 Hypersegmented Neuts Not Reportable 10/09/21 23:30 Hyposegmented Neuts Not Reportable 10/09/21 23:30 Hypogranular Neuts Not Reportable 10/09/21 23:30 Smudge Cells Not Reportable 10/09/21 23:30 Toxic Granulation Not Reportable 10/09/21 23:30 Toxic Vacuolation Not Reportable 10/09/21 23:30 Dohle Bodies Not Reportable 10/09/21 23:30 Pelger-Huet Anomaly Not Reportable 10/09/21 23:30 Placido Rods Not Reportable 10/09/21 23:30 Platelet Estimate Consistent w auto 10/09/21 23:30 Clumped Platelets Not Reportable 10/09/21 23:30 Plt Clumps, EDTA Not Reportable 10/09/21 23:30 Large Platelets Not Reportable 10/09/21 23:30 Giant Platelets Not Reportable 10/09/21 23:30 Platelet Satelliting Not Reportable 10/09/21 23:30 Plt Morphology Comment Not Reportable 10/09/21 23:30 RBC Morphology Not Reportable 10/09/21 23:30 Dimorphic RBCs Not Reportable 10/09/21 23:30 Polychromasia Not Reportable 10/09/21 23:30 Hypochromasia Not Reportable 10/09/21 23:30 Poikilocytosis Not Reportable 10/09/21 23:30 Anisocytosis 1+ 10/09/21 23:30 Microcytosis Not Reportable 10/09/21 23:30 Macrocytosis Not Reportable 10/09/21 23:30 Spherocytes Not Reportable 10/09/21 23:30 Pappenheimer Bodies Not Reportable 10/09/21 23:30 Sickle Cells Not Reportable 10/09/21 23:30 Target Cells Not Reportable 10/09/21 23:30 Tear Drop Cells Not Reportable 10/09/21 23:30 Ovalocytes Not Reportable 10/09/21 23:30 Helmet Cells Not Reportable 10/09/21 23:30 [place]ytle Bodies Not Reportable 10/09/21 23:30 [place] Rings Not Reportable 10/09/21 23:30 [place] Cells Not Reportable 10/09/21 23:30 Bite Cells Not Reportable 10/09/21 23:30 Crenated Cell Not Reportable 10/09/21 23:30 Elliptocytes Not Reportable 10/09/21 23:30 Acanthocytes (Spur) Not Reportable 10/09/21 23:30 Rouleaux Not Reportable 10/09/21 23:30 Hemoglobin C Crystals Not Reportable 10/09/21 23:30 Schistocytes Not Reportable 10/09/21 23:30 Malaria parasites Not Reportable 10/09/21 23:30 Ezequiel Bodies Not Reportable 10/09/21 23:30 Hem Pathologist Commnt No 10/09/21 23:30 ABG pH 7.469 pH Units (7.350-7.450) H 10/10/21 05:40 ABG pCO2 30.7 mm Hg 10/10/21 05:40 ABG pO2 217.7 mm Hg (80.0-90.0) H 10/10/21 05:40 ABG HCO3 21.8 mmol/L (20.0-26.0) 10/10/21 05:40 ABG O2 Saturation 99.4 % (95.0-99.0) H 10/10/21 05:40 ABG O2 Content 12.3 (0.0-44) 10/10/21 05:40 ABG Base Excess -1.5 mmol/L (-2.0-3.0) 10/10/21 05:40 ABG Hemoglobin 8.6 gm/dl (14.0-18.0) L 10/10/21 05:40 ABG Carboxyhemoglobin 1.3 % (0.0-5.0) 10/10/21 05:40 ABG Methemoglobin 0.5 % (0.0-1.5) 10/10/21 05:40 Oxyhemoglobin 97.7 % (95.0-99.0) 10/10/21 05:40 FiO2 75 % 10/10/21 05:40 Sodium 132 mmol/L (137-145) L 10/09/21 23:30 Potassium 1.7 mmol/L (3.6-5.0) L* 10/09/21 23:30 Chloride 96.6 mmol/L (98-107) L 10/09/21 23:30 Carbon Dioxide 25 mmol/L (22-30) 10/09/21 23:30 Anion Gap 12 mmol/L 10/09/21 23:30 BUN 17 mg/dL (9-20) 10/09/21 23:30 Creatinine 4.8 mg/dL (0.8-1.3) H 10/09/21 23:30 Estimated GFR 15 ml/min 10/09/21 23:30 BUN/Creatinine Ratio 4 % 10/09/21 23:30 Glucose 70 mg/dL (75-100) L 10/09/21 23:30 POC Glucose 58 mg/dL (70-105) L 10/10/21 04:15 Lactic Acid 2.10 mmol/L (0.7-2.0) H* 10/09/21 23:30 Calcium 8.0 mg/dL (8.4-10.2) L 10/09/21 23:30 Total Bilirubin 1.10 mg/dL (0.1-1.2) 10/09/21 23:30 AST 68 units/L (5-40) H 10/09/21 23:30 ALT 12 units/L (7-56) 10/09/21 23:30 Alkaline Phosphatase 161 units/L (35-129) H 10/09/21 23:30 Total Creatine Kinase 644 units/L (55-170) H 10/09/21 23:30 Troponin T 1.970 ng/mL (0.00-0.029) H* 10/09/21 23:30 Total Protein 7.1 g/dL (6.3-8.2) 10/09/21 23:30 Albumin 2.1 g/dL (3.9-5) L 10/09/21 23:30 Albumin/Globulin Ratio 0.4 % 10/09/21 23:30 Triglycerides 68 mg/dL (2-149) 10/09/21 23:30 Cholesterol 81 mg/dL (50-199) 10/09/21 23:30 LDL Cholesterol Direct 21 mg/dL (50-130) L 10/09/21 23:30 HDL Cholesterol 44 mg/dL (40-59) 10/09/21 23:30 Cholesterol/HDL Ratio 1.84 % 10/09/21 23:30 Urine Color Yellow (Yellow) 10/10/21 01:30 Urine Turbidity Turbid (Clear) 10/10/21 01:30 Urine pH 6.0 (5.0-7.0) 10/10/21 01:30 Ur Specific [place] 1.018 (1.003-1.030) 10/10/21 01:30 Urine Protein 100 mg/dl mg/dL (Negative) 10/10/21 01:30 Urine Glucose (UA) Neg mg/dL (Negative) 10/10/21 01:30 Urine Ketones Tr mg/dL (Negative) 10/10/21 01:30 Urine Blood Mod (Negative) 10/10/21 01:30 Urine Nitrite Neg (Negative) 10/10/21 01:30 Urine Bilirubin Neg (Negative) 10/10/21 01:30 Urine Urobilinogen < 2.0 mg/dL (<2.0) 10/10/21 01:30 Ur Leukocyte Esterase Mod (Negative) 10/10/21 01:30 Urine WBC (Auto) > 182.0 /HPF (0.0-6.0) H 10/10/21 01:30 Urine RBC (Auto) 70.0 /HPF (0.0-6.0) 10/10/21 01:30 Urine Bacteria (Auto) 1+ /HPF (Negative) 10/10/21 01:30 Urine WBC Clumps 3+ /HPF 10/10/21 01:30 Active Medications - Current Medications Current Medications: Generic Name Dose Route Start Last Admin Trade Name Freq PRN Reason Stop Dose Admin Acetaminophen 650 mg 10/10/21 01:37 Acetaminophen 325 Mg Tab PO Q4H PRN Pain MILD(1-3)/Fever >100.5/SEALS Albuterol 2.5 mg 10/10/21 01:37 Albuterol 2.5 Mg/3 Ml Nebu IH Q3HRT PRN Shortness Of Breath Albuterol/Ipratropium 1 ampul 10/10/21 02:00 10/10/21 02:46 Ipratropium/Albuterol Sulfate 3 Ml Ampul.Neb IH Not Given Q6HRT CHAKA Dextrose 50 ml 10/10/21 01:37 10/10/21 06:39 Dextrose 50% In Water (25gm) 50 Ml Syringe IV 50 ml Q30MIN PRN Administration Hypoglycemia Protocol MIDAZOLAM/NS Drip 100mg/100ml 100 mg in 100 mls @ 1 mls/hr 10/09/21 23:45 Midazolam/Ns Drip 100mg/100ml IV TITR [facility] Protocol 1 MG/HR Dextrose/Sodium Chloride 1,000 mls @ 75 mls/hr 10/10/21 02:00 10/10/21 03:10 D5ns IV 75 mls/hr DIRECT [facility] Administration Levofloxacin/Dextrose 750 mg in 150 mls @ 100 mls/hr 10/12/21 00:30 Levaquin 750mg/150ml IV Q48H [facility] Protocol Sodium Chloride 1,000 mls @ 75 mls/hr 10/10/21 02:52 Nacl 0.9% 1000 Ml IV 10/10/21 16:11 ONCE ONE Insulin Human Lispro 0 unit 10/10/21 06:00 10/10/21 06:35 Insulin Lispro 100 Unit/Ml SUB-Q Not Given Q6HR [facility] Protocol Levothyroxine Sodium 100 mcg 10/10/21 06:00 Levothyroxine 100 Mcg Tab PO DAILY@0600 [facility] Levothyroxine Sodium 75 mcg 10/10/21 06:00 Levothyroxine 75 Mcg Tab PO DAILY@0600 [facility] Midazolam HCl 2 mg 10/09/21 23:40 Midazolam 2 Mg/2 Ml Inj IV Q10MIN PRN Sedation Midodrine 10 mg 10/10/21 08:00 10/10/21 07:24 Midodrine 10 Mg Tab PO 10 mg TID@0800,1200,1600 [facility] Administration Morphine Sulfate 2 mg 10/10/21 01:37 Morphine 2 Mg/1 Ml Inj IV Q4H PRN Pain, Moderate (4-6) Morphine Sulfate 4 mg 10/10/21 01:37 Morphine 4 Mg/1 Ml Inj IV Q4H PRN Pain , Severe (7-10) Ondansetron HCl 4 mg 10/10/21 01:37 Ondansetron 4 Mg/2 Ml Inj IV Q8H PRN Nausea And Vomiting Pantoprazole Sodium 40 mg 10/10/21 10:00 Pantoprazole 40 Mg Tab PO QDAY [facility] Sodium Chloride 10 ml 10/10/21 10:00 Sodium Chloride 0.9% 10 Ml Flush Syringe IV BID [facility] Sodium Chloride 10 ml 10/10/21 01:37 Sodium Chloride 0.9% 10 Ml Flush Syringe IV PRN PRN LINE FLUSH
[2021-10-10] MEDS ORDERED: PANTOPRAZOLE 40 MG TAB PO SCH (10:00)
[2021-10-10] MEDS ORDERED: FAMOTIDINE 20 MG/2 ML INJ IV SCH (10:00)
[2021-10-10] MEDS ORDERED: DEXTROSE 10% IN WATER 1,000 ML IV SCH (10:00)
[2021-10-10] MEDS ORDERED: LEVOTHYROXINE SODIUM 175 MCG PO SCH (10:00)
--- NOTE | 2021-10-10 10:03 | Consultation ---
History of Present Illness Consult date: 10/10/21 History of present illness: 61 y/o male found down at home, unresponsive. FSBS was 22. GCS was 3 on arrival so intubated by ED. More awake this am. Not on sedation, but still hypoglycemic. Has some hypotension as well. Weaned down to minimal vent settings. No family present. Past History Past Medical History: diabetes, ESRD, GERD, hypertension, hyperlipidemia, renal failure, other (Hypothyroidism) Past Surgical History: No surgical history Social history: no significant social history Family history: hypertension Medications and Allergies Allergies Allergy/AdvReac Type Severity Reaction Status Date / Time No Known Allergies Allergy Verified 10/09/21 23:38 Home Medications Medication Instructions Recorded Confirmed Last Taken Type Levothyroxine Sodium 175 mcg PO DAILY 08/23/21 08/23/21 08/22/21 History [Levothyroxine] Sertraline [Zoloft] 100 mg PO QDAY 08/23/21 08/23/21 08/22/21 History Cyclobenzaprine [Flexeril 10 MG 5 mg PO TID PRN #15 tablet 08/27/21 Unknown Rx TAB] Pantoprazole [Protonix TAB] 40 mg PO QDAY #30 tablet 08/27/21 Unknown Rx Insulin Glargine [Lantus VIAL] 30 units SUB-Q QHS units 09/02/21 Unknown Rx Lispro Insulin [HumaLOG] 0 unit SUB-Q ACHS units 09/02/21 Unknown Rx Midodrine [Proamatine] 10 mg PO TID tablet 09/02/21 Unknown Rx Active Meds: Active Medications Acetaminophen (Acetaminophen 325 Mg Tab) 650 mg PO Q4H PRN PRN Reason: Pain MILD(1-3)/Fever >100.5/SEALS Dextrose (Dextrose 50% In Water (25gm) 50 Ml Syringe) 50 ml IV Q30MIN PRN; Protocol PRN Reason: Hypoglycemia Last Admin: 10/10/21 06:39 Dose: 50 ml Levofloxacin/Dextrose (Levaquin 750mg/150ml) 750 mg in 150 mls @ 100 mls/hr IV Q48H [facility]; Protocol Dextrose (D10w) 1,000 mls @ 50 mls/hr IV DIRECT [facility] Insulin Human Lispro (Insulin Lispro 100 Unit/Ml) 0 unit SUB-Q Q6HR [facility]; Protocol Last Admin: 10/10/21 06:35 Dose: Not Given Levothyroxine Sodium (Levothyroxine 100 Mcg Tab) 100 mcg PO DAILY@0600 [facility] Levothyroxine Sodium (Levothyroxine 75 Mcg Tab) 75 mcg PO DAILY@0600 [facility] Midodrine (Midodrine 10 Mg Tab) 10 mg PO TID@0800,1200,1600 [facility] Last Admin: 10/10/21 07:24 Dose: 10 mg Morphine Sulfate (Morphine 2 Mg/1 Ml Inj) 2 mg IV Q4H PRN PRN Reason: Pain, Moderate (4-6) Morphine Sulfate (Morphine 4 Mg/1 Ml Inj) 4 mg IV Q4H PRN PRN Reason: Pain , Severe (7-10) Ondansetron HCl (Ondansetron 4 Mg/2 Ml Inj) 4 mg IV Q8H PRN PRN Reason: Nausea And Vomiting Pantoprazole Sodium (Pantoprazole 40 Mg Inj) 40 mg IV QDAY [facility] Sodium Chloride (Sodium Chloride 0.9% 10 Ml Flush Syringe) 10 ml IV BID [facility] Sodium Chloride (Sodium Chloride 0.9% 10 Ml Flush Syringe) 10 ml IV PRN PRN PRN Reason: LINE FLUSH Review of Systems ROS unobtainable: due to endotracheal tube, due to mental status Physical Examination Vital signs: Vital Signs Pulse Resp Pulse Ox 65 19 88 10/09/21 22:25 10/09/21 22:25 10/09/21 22:25 General appearance: no acute distress Eyes: non-icteric ENT: other (orally intubated) Neck: supple Effort: normal Ascultation: Bilateral: clear Percussion: Bilateral: not dull Cardiovascular: regular rate and rhythm Gastrointestinal: normoactive bowel sounds, soft Extremities: no cyanosis, no edema Musculoskeletal: no deformities unable to assess mood appropriate Results - Laboratory Findings CBC and BMP: 10/09/21 23:30 10/09/21 23:30 ABG ABG pH 7.469 pH Units (7.350-7.450) H 10/10/21 05:40 ABG pCO2 30.7 mm Hg 10/10/21 05:40 ABG pO2 217.7 mm Hg (80.0-90.0) H 10/10/21 05:40 ABG O2 Saturation 99.4 % (95.0-99.0) H 10/10/21 05:40 Abnormal lab findings: Abnormal Labs 10/09/21 10/09/21 10/09/21 22:21 23:20 23:30 WBC 17.4 H RBC 3.32 L Hgb 9.2 L Hct 28.2 L RDW 17.4 H Plt Count 45 L Seg Neuts % (Manual) 98.0 H Lymphocytes % (Manual) 1.0 L Seg Neutrophils # Man 17.1 H Lymphocytes # (Manual) 0.2 L ABG pH 7.301 L ABG pO2 162.1 H ABG O2 Saturation ABG Base Excess -2.3 L ABG Hemoglobin 10.2 L Sodium Potassium Chloride Creatinine Glucose POC Glucose 151 H Lactic Acid Calcium AST Alkaline Phosphatase Total Creatine Kinase Troponin T Albumin LDL Cholesterol Direct Urine WBC (Auto) 10/09/21 10/09/21 10/10/21 23:30 23:30 01:30 WBC RBC Hgb Hct RDW Plt Count Seg Neuts % (Manual) Lymphocytes % (Manual) Seg Neutrophils # Man Lymphocytes # (Manual) ABG pH ABG pO2 ABG O2 Saturation ABG Base Excess ABG Hemoglobin Sodium 132 L Potassium 1.7 L* Chloride 96.6 L Creatinine 4.8 H Glucose 70 L POC Glucose Lactic Acid 2.10 H* Calcium 8.0 L AST 68 H Alkaline Phosphatase 161 H Total Creatine Kinase 644 H Troponin T 1.970 H* Albumin 2.1 L LDL Cholesterol Direct 21 L Urine WBC (Auto) > 182.0 H 10/10/21 10/10/21 10/10/21 02:59 04:15 05:40 WBC RBC Hgb Hct RDW Plt Count Seg Neuts % (Manual) Lymphocytes % (Manual) Seg Neutrophils # Man Lymphocytes # (Manual) ABG pH 7.469 H ABG pO2 217.7 H ABG O2 Saturation 99.4 H ABG Base Excess ABG Hemoglobin 8.6 L Sodium Potassium Chloride Creatinine Glucose POC Glucose 16 L 58 L Lactic Acid Calcium AST Alkaline Phosphatase Total Creatine Kinase Troponin T Albumin LDL Cholesterol Direct Urine WBC (Auto) 10/10/21 08:32 WBC RBC Hgb Hct RDW Plt Count Seg Neuts % (Manual) Lymphocytes % (Manual) Seg Neutrophils # Man Lymphocytes # (Manual) ABG pH ABG pO2 ABG O2 Saturation ABG Base Excess ABG Hemoglobin Sodium Potassium Chloride Creatinine Glucose POC Glucose Lactic Acid 3.40 H* Calcium AST Alkaline Phosphatase Total Creatine Kinase Troponin T Albumin LDL Cholesterol Direct Urine WBC (Auto) - Diagnostic Findings Chest x-ray: image reviewed Assessment and Plan 61 y/o male with respiratory failure secondary to altered mental status secondary to hypoglycemia. 1. State repeat CMP and CBC, follow up K replacement 2. Will start stress dose steroids given history of Hypothyroid and current hyoglycemia 3. q1 hour fsbs 4. Stop D5 and start d10 at 50mls/hr 5. Dropped peep to 6 6. No sedation 7. Once more awake will extubate, no matter what time of day 8. guarded prognosis. CCT 31 minutes.
[2021-10-10] MEDS: PANTOPRAZOLE 40 MG INJ IV SCH (10:11)
[2021-10-10] MEDS: HYDROCORTISONE SOD SUCC 100 MG/2 ML VIAL IV SCH ×3 (10:11→21:12)
--- NOTE | 2021-10-10 11:36 | Consultation ---
History of Present Illness - Reason for Consult Consult date: 10/10/21 end stage renal disease - History of Present Illness Patient is 61-year-old male with history of end-stage renal disease on dialysis brought in by EMS for altered mental status. currently intubated in n ICU, he was found to be hypoglycemic and started on IV dextorse. renal consult was requested for HD management Past History Past Medical History: diabetes, ESRD, GERD, hypertension, hyperlipidemia, renal failure, other (Hypothyroidism) Past Surgical History: No surgical history Social history: no significant social history Family history: hypertension Medications and Allergies Allergies Allergy/AdvReac Type Severity Reaction Status Date / Time No Known Allergies Allergy Verified 10/09/21 23:38 Home Medications Medication Instructions Recorded Confirmed Last Taken Type Levothyroxine Sodium 175 mcg PO DAILY 08/23/21 08/23/21 08/22/21 History [Levothyroxine] Sertraline [Zoloft] 100 mg PO QDAY 08/23/21 08/23/21 08/22/21 History Cyclobenzaprine [Flexeril 10 MG 5 mg PO TID PRN #15 tablet 08/27/21 Unknown Rx TAB] Pantoprazole [Protonix TAB] 40 mg PO QDAY #30 tablet 08/27/21 Unknown Rx Insulin Glargine [Lantus VIAL] 30 units SUB-Q QHS units 09/02/21 Unknown Rx Lispro Insulin [HumaLOG] 0 unit SUB-Q ACHS units 09/02/21 Unknown Rx Midodrine [Proamatine] 10 mg PO TID tablet 09/02/21 Unknown Rx Active Meds: Active Medications Acetaminophen (Acetaminophen 325 Mg Tab) 650 mg PO Q4H PRN PRN Reason: Pain MILD(1-3)/Fever >100.5/SEALS Dextrose (Dextrose 50% In Water (25gm) 50 Ml Syringe) 50 ml IV Q30MIN PRN; Protocol PRN Reason: Hypoglycemia Last Admin: 10/10/21 06:39 Dose: 50 ml Hydrocortisone Sodium Succinate (Hydrocortisone Sod Succ 100 Mg/2 Ml Vial) 100 mg IV Q8HR [facility] Last Admin: 10/10/21 10:11 Dose: 100 mg Levofloxacin/Dextrose (Levaquin 750mg/150ml) 750 mg in 150 mls @ 100 mls/hr IV Q48H [facility]; Protocol Dextrose (D10w) 1,000 mls @ 50 mls/hr IV DIRECT [facility] Last Admin: 10/10/21 10:12 Dose: 50 mls/hr Sodium Chloride (Nacl 0.9% 1000 Ml) 1,000 mls @ 999 mls/hr IV BOLUS ONE Stop: 10/10/21 13:30 Last Admin: 10/10/21 11:33 Dose: 999 mls/hr Insulin Human Lispro (Insulin Lispro 100 Unit/Ml) 0 unit SUB-Q Q6HR [facility]; Protoc ol Last Admin: 10/10/21 06:35 Dose: Not Given Levothyroxine Sodium (Levothyroxine 100 Mcg Tab) 100 mcg PO DAILY@0600 [facility] Last Admin: 10/10/21 10:11 Dose: 100 mcg Levothyroxine Sodium (Levothyroxine 75 Mcg Tab) 75 mcg PO DAILY@0600 [facility] Last Admin: 10/10/21 10:11 Dose: 75 mcg Midodrine (Midodrine 10 Mg Tab) 10 mg PO TID@0800,1200,1600 [facility] Last Admin: 10/10/21 07:24 Dose: 10 mg Morphine Sulfate (Morphine 2 Mg/1 Ml Inj) 2 mg IV Q4H PRN PRN Reason: Pain, Moderate (4-6) Morphine Sulfate (Morphine 4 Mg/1 Ml Inj) 4 mg IV Q4H PRN PRN Reason: Pain , Severe (7-10) Ondansetron HCl (Ondansetron 4 Mg/2 Ml Inj) 4 mg IV Q8H PRN PRN Reason: Nausea And Vomiting Pantoprazole Sodium (Pantoprazole 40 Mg Inj) 40 mg IV QDAY [facility] Last Admin: 10/10/21 10:11 Dose: 40 mg Sodium Chloride (Sodium Chloride 0.9% 10 Ml Flush Syringe) 10 ml IV BID [facility] Last Admin: 10/10/21 10:11 Dose: 10 ml Sodium Chloride (Sodium Chloride 0.9% 10 Ml Flush Syringe) 10 ml IV PRN PRN PRN Reason: LINE FLUSH Review of Systems ROS unobtainable: due to endotracheal tube Exam - Vital Signs Vital signs: Vital Signs Pulse Resp Pulse Ox 65 19 88 10/09/21 22:25 10/09/21 22:25 10/09/21 22:25 - General Appearance General appearance: intubated EENT: ATNC, PERRL, mucous membranes dry Respiratory: Clear to Ascultation Heart: tachycardia Gastrointestinal: Present: normoactive bowel sounds. Absent: tenderness, distended Integumentary: no rash, warm and dry Neurologic: other (intubated) Musculoskeletal: Present: other (no edema in BLE) Results - Lab Results 10/09/21 23:30 10/09/21 23:30 Most recent lab results ABG pH 7.469 pH Units (7.350-7.450) H 10/10/21 05:40 ABG pCO2 30.7 mm Hg 10/10/21 05:40 ABG pO2 217.7 mm Hg (80.0-90.0) H 10/10/21 05:40 ABG HCO3 21.8 mmol/L (20.0-26.0) 10/10/21 05:40 ABG O2 Saturation 99.4 % (95.0-99.0) H 10/10/21 05:40 Calcium 8.0 mg/dL (8.4-10.2) L 10/09/21 23:30 Assessment and Plan (1) Acute metabolic encephalopathy (2) End-stage renal disease on hemodialysis (3) Hypertension 4) Elevated troponin (5) Nicotine dependence (6) Sepsis (7) History of hypothyroidism (8) Insulin dependent diabetes mellitus (9) Hypokalemia (10) Hypoglycemia No indication for HD today will assess dialysis needs daily K replacement was ordered, repeated BMP is pending renally dose meds strict I&O daily weight
[2021-10-10 12:36] LABS: Hematocrit 26.6 % (35.5-45.6); Hemoglobin 8.6 gm/dl (11.8-15.2); Mean Corpuscular HGB Conc 32 % (32-34); Mean Corpuscular Volume 86 fl (84-94); Platelet Count 38 K/mm3 (140-440); Red Blood Count 3.11 M/mm3 (3.65-5.03); Red Cell Distribution Width 17.4 % (13.2-15.2)
[2021-10-10 12:52] LABS: Calcium 7.4 mg/dL (8.4-10.2)
[2021-10-10] MEDS ORDERED: MAGNESIUM SULFATE 2 GM/50 ML BAG IV ONE (14:00)
--- NOTE | 2021-10-10 14:03 | Progress Note ---
Assessment and Plan Assessment and plan: History of present illness: 61-year-old male with history of diabetes and end-stage renal disease on dialysis brought in by EMS for altered mental status. Patient was found at his home on the floor by a friend yesterday and refused to come in for evaluation. He was found today in the same place on the floor altered. EMS was called to scene. Patient with agonal respirations on arrival. Fingerstick glucose was 22. He was given 1 L of D5 normal saline on the way here. GCS 3. In the emergency room patient is found to have WBC of 17.4, potassium 1.7 lactic acid 2.10 BUN of 17 creatinine 4.8, ABG shows pH 7.301, PCO2 50.4, PO2 162.1 bicarb 24.3 O2 sat 98.9. Subsequently patient was intubated by the ER physician. We are going to admit the patient to the ICU will consult critical care and nephrology for evaluation Assessment and Plan: #Acute Respiratory Failure with Hypoxia - altered, intubated for airway protection on admission - ABG: pH 7.301, PCO2 50.4, PO2 162.1 bicarb 24.3 O2 sat 98.9 Chest x-ray: no acute abnl identified does not appear to be primary pulmonary process -Serial cxr q48hr while intubated/abg daily -PCCM following #Acute metabolic encephalopathy #Adrenal insufficiency #Hypothyroidism #Hypothermia #Hypoglycemia #Hypotension - AMS, bl le edema, hypotensive, hypothermic, hypoglycemia - etiology: possibly due to hypothyroidism vs adrenal insuffciency - TSH/T4 not ordered on admission, sent - D10W for hypoglycemia - Hydrocortisone 100 mg IV q8hr ordered - Levothyroxine 150 mcg IV ordered - hypothermic since admission, advised ICU to place warming blankets and steve hugger if possible. #Severe sepsis POA #Urinary tract infection - Elevated wbc ct, UA wbc noted - levaquin IV initiated for UTI #ESRD on HD #Hypokalemia #Uremia - correction with hemodialysis - management of HD per nephrology - significant hypokalemia/hypomagnesemia noted: 40 MEQ K, and 2g Mg ordered. Will need to take precaution with replacement given renal fx. - strict I/O, place merrill - nephrology following #GERD GI Ppx with pantoprazole 40 mg IV daily #Hypertension - hypotensive at the moment The high probability of a clinically significant, sudden or life threatening deterioration of the [multi] system(s) required my full and direct attention, intervention and personal management. The aggregate critical care time was [60] minutes. This time is in addition to time spent performing reported procedures but includes the following: [x] Data Review and interpretation [x] Patient assessment and monitoring of vital signs [x] Documentation [x] Medication orders and management History Interval history: intubated and sedated. Hospitalist Physical - Physical exam Narrative exam: Physical Exam: VITAL SIGNS: Reviewed. hypothermic, hypotensive GENERAL: The patient appears normally developed, Vital signs as documented. intubated. Obtunded, MS however now improving on f/u encounter. followed commands. HEAD: No signs of head trauma. EYES: Pupils are equal. Extraocular motions intact. EARS: Hearing grossly intact. MOUTH: Oropharynx is normal. NECK: No adenopathy, no JVD. CHEST: Chest with clear breath sounds bilaterally. No wheezes, rales, or rhonchi. CARDIAC: Regular rate and rhythm. S1 and S2, without murmurs, gallops, or rubs. VASCULAR: bl le edema. Peripheral pulses normal and equal in all extremities. ABDOMEN: Soft, non tender and non distended. No rebound or guarding, and no masses palpated. Bowel Sounds normal. MUSCULOSKELETAL: Good range of motion of all major joints. Extremities without clubbing, cyanosis or edema. NEUROLOGIC EXAM: Fluctuating level of alertness. follows commands mostly, withdraws to pain. PSYCHIATRIC: unable to properly assess SKIN: detail exam as documented in skin assessment - Constitutional Vitals: Temp Pulse Resp BP Pulse Ox 93.6 F L 75 18 79/60 100 10/10/21 13:04 10/10/21 13:00 10/10/21 13:00 10/10/21 13:00 10/10/21 13:00 General appearance: Present: no acute distress, well-nourished HEART Score - HEART Score Troponin: Troponin T 1.970 ng/mL (0.00-0.029) H* 10/09/21 23:30 Results - Labs CBC & Chem 7: 10/10/21 12:25 10/10/21 12:25 Labs: Laboratory Last Values WBC 15.3 K/mm3 (4.5-11.0) H 10/10/21 12:25 RBC 3.11 M/mm3 (3.65-5.03) L 10/10/21 12:25 Hgb 8.6 gm/dl (11.8-15.2) L 10/10/21 12:25 Hct 26.6 % (35.5-45.6) L 10/10/21 12:25 MCV 86 fl (84-94) 10/10/21 12:25 MCH 28 pg (28-32) 10/10/21 12:25 MCHC 32 % (32-34) 10/10/21 12:25 RDW 17.4 % (13.2-15.2) H 10/10/21 12:25 Plt Count 38 K/mm3 (140-440) L 10/10/21 12:25 Add Manual Diff Complete 10/09/21 23:30 Total Counted 100 10/09/21 23:30 Seg Neutrophils % Gleason Operator 10/09/21 23:30 Seg Neuts % (Manual) 98.0 % (40.0-70.0) H 10/09/21 23:30 Band Neutrophils % 0 % 10/09/21 23:30 Lymphocytes % (Manual) 1.0 % (13.4-35.0) L 10/09/21 23:30 Reactive Lymphs % (Man) 0 % 10/09/21 23:30 Monocytes % (Manual) 0 % (0.0-7.3) 10/09/21 23:30 Eosinophils % (Manual) 1.0 % (0.0-4.3) 10/09/21 23:30 Basophils % (Manual) 0 % (0.0-1.8) 10/09/21 23:30 Metamyelocytes % 0 % 10/09/21 23:30 Myelocytes % 0 % 10/09/21 23:30 Promyelocytes % 0 % 10/09/21 23:30 Blast Cells % 0 % 10/09/21 23:30 Nucleated RBC % Not Reportable 10/09/21 23:30 Seg Neutrophils # Man 17.1 K/mm3 (1.8-7.7) H 10/09/21 23:30 Band Neutrophils # 0.0 K/mm3 10/09/21 23:30 Lymphocytes # (Manual) 0.2 K/mm3 (1.2-5.4) L 10/09/21 23:30 Abs React Lymphs (Man) 0.0 K/mm3 10/09/21 23:30 Monocytes # (Manual) 0.0 K/mm3 (0.0-0.8) 10/09/21 23:30 Eosinophils # (Manual) 0.2 K/mm3 (0.0-0.4) 10/09/21 23:30 Basophils # (Manual) 0.0 K/mm3 (0.0-0.1) 10/09/21 23:30 Metamyelocytes # 0.0 K/mm3 10/09/21 23:30 Myelocytes # 0.0 K/mm3 10/09/21 23:30 Promyelocytes # 0.0 K/mm3 10/09/21 23:30 Blast Cells # 0.0 K/mm3 10/09/21 23:30 WBC Morphology Not Reportable 10/09/21 23:30 Hypersegmented Neuts Not Reportable 10/09/21 23:30 Hyposegmented Neuts Not Reportable 10/09/21 23:30 Hypogranular Neuts Not Reportable 10/09/21 23:30 Smudge Cells Not Reportable 10/09/21 23:30 Toxic Granulation Not Reportable 10/09/21 23:30 Toxic Vacuolation Not Reportable 10/09/21 23:30 Dohle Bodies Not Reportable 10/09/21 23:30 Pelger-Huet Anomaly Not Reportable 10/09/21 23:30 Placido Rods Not Reportable 10/09/21 23:30 Platelet Estimate Consistent w auto 10/09/21 23:30 Clumped Platelets Not Reportable 10/09/21 23:30 Plt Clumps, EDTA Not Reportable 10/09/21 23:30 Large Platelets Not Reportable 10/09/21 23:30 Giant Platelets Not Reportable 10/09/21 23:30 Platelet Satelliting Not Reportable 10/09/21 23:30 Plt Morphology Comment Not Reportable 10/09/21 23:30 RBC Morphology Not Reportable 10/09/21 23:30 Dimorphic RBCs Not Reportable 10/09/21 23:30 Polychromasia Not Reportable 10/09/21 23:30 Hypochromasia Not Reportable 10/09/21 23:30 Poikilocytosis Not Reportable 10/09/21 23:30 Anisocytosis 1+ 10/09/21 23:30 Microcytosis Not Reportable 10/09/21 23:30 Macrocytosis Not Reportable 10/09/21 23:30 Spherocytes Not Reportable 10/09/21 23:30 Pappenheimer Bodies Not Reportable 10/09/21 23:30 Sickle Cells Not Reportable 10/09/21 23:30 Target Cells Not Reportable 10/09/21 23:30 Tear Drop Cells Not Reportable 10/09/21 23:30 Ovalocytes Not Reportable 10/09/21 23:30 Helmet Cells Not Reportable 10/09/21 23:30 [place] Bodies Not Reportable 10/09/21 23:30 [place] Rings Not Reportable 10/09/21 23:30 Hussain Cells Not Reportable 10/09/21 23:30 Bite Cells Not Reportable 10/09/21 23:30 Crenated Cell Not Reportable 10/09/21 23:30 Elliptocytes Not Reportable 10/09/21 23:30 Acanthocytes (Spur) Not Reportable 10/09/21 23:30 Rouleaux Not Reportable 10/09/21 23:30 Hemoglobin C Crystals Not Reportable 10/09/21 23:30 Schistocytes Not Reportable 10/09/21 23:30 Malaria parasites Not Reportable 10/09/21 23:30 Ezequiel Bodies Not Reportable 10/09/21 23:30 Hem Pathologist Commnt No 10/09/21 23:30 ABG pH 7.469 pH Units (7.350-7.450) H 10/10/21 05:40 ABG pCO2 30.7 mm Hg 10/10/21 05:40 ABG pO2 217.7 mm Hg (80.0-90.0) H 10/10/21 05:40 ABG HCO3 21.8 mmol/L (20.0-26.0) 10/10/21 05:40 ABG O2 Saturation 99.4 % (95.0-99.0) H 10/10/21 05:40 ABG O2 Content 12.3 (0.0-44) 10/10/21 05:40 ABG Base Excess -1.5 mmol/L (-2.0-3.0) 10/10/21 05:40 ABG Hemoglobin 8.6 gm/dl (14.0-18.0) L 10/10/21 05:40 ABG Carboxyhemoglobin 1.3 % (0.0-5.0) 10/10/21 05:40 ABG Methemoglobin 0.5 % (0.0-1.5) 10/10/21 05:40 Oxyhemoglobin 97.7 % (95.0-99.0) 10/10/21 05:40 FiO2 75 % 10/10/21 05:40 Sodium 131 mmol/L (137-145) L 10/10/21 12:25 Potassium 2.1 mmol/L (3.6-5.0) L* D 10/10/21 12:25 Chloride 97.2 mmol/L (98-107) L 10/10/21 12:25 Carbon Dioxide 20 mmol/L (22-30) L 10/10/21 12:25 Anion Gap 16 mmol/L 10/10/21 12:25 BUN 17 mg/dL (9-20) 10/10/21 12:25 Creatinine 4.9 mg/dL (0.8-1.3) H 10/10/21 12:25 Estimated GFR 15 ml/min 10/10/21 12:25 BUN/Creatinine Ratio 3 % 10/10/21 12:25 Glucose 129 mg/dL (75-100) H 10/10/21 12:25 POC Glucose 58 mg/dL (70-105) L 10/10/21 04:15 Lactic Acid 2.80 mmol/L (0.7-2.0) H* 10/10/21 12:25 Calcium 7.4 mg/dL (8.4-10.2) L 10/10/21 12:25 Magnesium 1.50 mg/dL (1.7-2.3) L 10/10/21 12:25 Total Bilirubin 1.10 mg/dL (0.1-1.2) 10/10/21 12:25 AST 52 units/L (5-40) H 10/10/21 12:25 ALT 12 units/L (7-56) 10/10/21 12:25 Alkaline Phosphatase 169 units/L (35-129) H 10/10/21 12:25 Total Creatine Kinase 644 units/L (55-170) H 10/09/21 23:30 Troponin T 1.970 ng/mL (0.00-0.029) H* 10/09/21 23:30 Total Protein 5.8 g/dL (6.3-8.2) L 10/10/21 12:25 Albumin 2.0 g/dL (3.9-5) L 10/10/21 12:25 Albumin/Globulin Ratio 0.5 % 10/10/21 12:25 Triglycerides 68 mg/dL (2-149) 10/09/21 23:30 Cholesterol 81 mg/dL (50-199) 10/09/21 23:30 LDL Cholesterol Direct 21 mg/dL (50-130) L 10/09/21 23:30 HDL Cholesterol 44 mg/dL (40-59) 10/09/21 23:30 Cholesterol/HDL Ratio 1.84 % 10/09/21 23:30 Urine Color Yellow (Yellow) 10/10/21 01:30 Urine Turbidity Turbid (Clear) 10/10/21 01:30 Urine pH 6.0 (5.0-7.0) 10/10/21 01:30 Ur Specific [place] 1.018 (1.003-1.030) 10/10/21 01:30 Urine Protein 100 mg/dl mg/dL (Negative) 10/10/21 01:30 Urine Glucose (UA) Neg mg/dL (Negative) 10/10/21 01:30 Urine Ketones Tr mg/dL (Negative) 10/10/21 01:30 Urine Blood Mod (Negative) 10/10/21 01:30 Urine Nitrite Neg (Negative) 10/10/21 01:30 Urine Bilirubin Neg (Negative) 10/10/21 01:30 Urine Urobilinogen < 2.0 mg/dL (<2.0) 10/10/21 01:30 Ur Leukocyte Esterase Mod (Negative) 10/10/21 01:30 Urine WBC (Auto) > 182.0 /HPF (0.0-6.0) H 10/10/21 01:30 Urine RBC (Auto) 70.0 /HPF (0.0-6.0) 10/10/21 01:30 Urine Bacteria (Auto) 1+ /HPF (Negative) 10/10/21 01:30 Urine WBC Clumps 3+ /HPF 10/10/21 01:30 Active Medications - Current Medications Current Medications: Generic Name Dose Route Start Last Admin Trade Name Arnaldo PRN Reason Stop Dose Admin Acetaminophen 650 mg 10/10/21 01:37 Acetaminophen 325 Mg Tab PO Q4H PRN Pain MILD(1-3)/Fever >100.5/SEALS Dextrose 50 ml 10/10/21 01:37 10/10/21 06:39 Dextrose 50% In Water (25gm) 50 Ml Syringe IV 50 ml Q30MIN PRN Administration Hypoglycemia Protocol Hydrocortisone Sodium Succinate 100 mg 10/10/21 10:30 10/10/21 10:11 Hydrocortisone Sod Succ 100 Mg/2 Ml Vial IV 100 mg Q8HR [facility] Administration Levofloxacin/Dextrose 500 mg in 100 mls @ 66.667 mls/hr 10/12/21 10:00 Levaquin 500mg/100ml IV Q48H [facility] Protocol Dextrose 1,000 mls @ 50 mls/hr 10/10/21 10:00 10/10/21 10:12 D10w IV 50 mls/hr DIRECT [facility] Administration Potassium Chloride 10 meq in 100 mls @ 100 mls/hr 10/10/21 14:00 10/10/21 13:22 Kcl 10meq/100ml IV 10/10/21 17:59 100 mls/hr Q1H [facility] Administration Magnesium Sulfate 2 gm in 50 mls @ 25 mls/hr 10/10/21 14:00 10/10/21 13:22 Magnesium Sulfate 2gm/50ml IV 10/10/21 15:59 25 mls/hr ONCE ONE Administration Insulin Human Lispro 0 unit 10/10/21 06:00 10/10/21 11:52 Insulin Lispro 100 Unit/Ml SUB-Q Not Given Q6HR [facility] Protocol Levothyroxine Sodium 100 mcg 10/10/21 06:00 10/10/21 10:11 Levothyroxine 100 Mcg Tab PO 100 mcg DAILY@0600 [facility] Administration Levothyroxine Sodium 75 mcg 10/10/21 06:00 10/10/21 10:11 Levothyroxine 75 Mcg Tab PO 75 mcg DAILY@0600 [facility] Administration Midodrine 10 mg 10/10/21 08:00 10/10/21 12:46 Midodrine 10 Mg Tab PO 10 mg TID@0800,1200,1600 [facility] Administration Morphine Sulfate 2 mg 10/10/21 01:37 Morphine 2 Mg/1 Ml Inj IV Q4H PRN Pain, Moderate (4-6) Morphine Sulfate 4 mg 10/10/21 01:37 Morphine 4 Mg/1 Ml Inj IV Q4H PRN Pain , Severe (7-10) Ondansetron HCl 4 mg 10/10/21 01:37 Ondansetron 4 Mg/2 Ml Inj IV Q8H PRN Nausea And Vomiting Pantoprazole Sodium 40 mg 10/10/21 10:00 10/10/21 10:11 Pantoprazole 40 Mg Inj IV 40 mg QDAY [facility] Administration Sodium Chloride 10 ml 10/10/21 10:00 10/10/21 10:11 Sodium Chloride 0.9% 10 Ml Flush Syringe IV 10 ml BID [facility] Administration Sodium Chloride 10 ml 10/10/21 01:37 Sodium Chloride 0.9% 10 Ml Flush Syringe IV PRN PRN LINE FLUSH
[2021-10-10 15:32] LABS: Free T4 (Free Thyroxine) 0.36 ng/dL (0.76-1.46)
[2021-10-11 00:48] LABS: Calcium 7.7 mg/dL (8.4-10.2)
[2021-10-11] MEDS: INSULIN LISPRO 100 UNIT/ML SUB-Q SCH ×4 (00:58→17:33)
[2021-10-11] MEDS: POTASSIUM CHLORIDE 10 MEQ 10 MEQ/100 ML BAG IV SCH ×6 (02:11→10:29)
[2021-10-11 05:49] LABS: ABG HCO3 18.8 mmol/L (20.0-26.0); ABG Methemoglobin 0.4 % (0.0-1.5); ABG Oxygen Saturation 98.3 % (95.0-99.0); ABG PCO2 25.8 mm Hg; ABG PH 7.48 pH Units (7.350-7.450); ABG PO2 111.6 mm Hg (80.0-90.0)
[2021-10-11] MEDS: HYDROCORTISONE SOD SUCC 100 MG/2 ML VIAL IV SCH ×3 (06:00→21:17)
[2021-10-11] MEDS: LEVOTHYROXINE 100 MCG INJ IV SCH (06:57)
[2021-10-11 07:06] LABS: Hematocrit 23.2 % (35.5-45.6); Hemoglobin 7.6 gm/dl (11.8-15.2); Mean Corpuscular HGB Conc 33 % (32-34); Mean Corpuscular Volume 84 fl (84-94); Red Blood Count 2.75 M/mm3 (3.65-5.03); Red Cell Distribution Width 17.4 % (13.2-15.2)
[2021-10-11 07:24] LABS: Platelet Count 52 K/mm3 (140-440)
[2021-10-11 08:18] LABS: Calcium 7.6 mg/dL (8.4-10.2)
[2021-10-11] MEDS: MIDODRINE 10 MG TAB PO SCH ×3 (08:33→17:33)
[2021-10-11 08:50] LABS: Basophils % (Manual) 0 % (0.0-1.8); Eosinophils % (Manual) 0 % (0.0-4.3); Monocytes % (Manual) 0 % (0.0-7.3); Total Cells Counted 100
[2021-10-11 08:52] LABS: Hypochromasia 1+
[2021-10-11 08:56] LABS: Anisocytosis 1+; Platelet Estimate Consistent w Auto; Target Cells 1+
[2021-10-11] MEDS: PANTOPRAZOLE 40 MG INJ IV SCH (09:30)
[2021-10-11] MEDS ORDERED: POTASSIUM CHLORIDE 20 MEQ PACKET FEEDTUBE ONE (10:00)
--- NOTE | 2021-10-11 10:04 | Progress Note ---
Assessment and Plan (1) Acute metabolic encephalopathy (2) End-stage renal disease on hemodialysis (3) Hypertension 4) Elevated troponin (5) Nicotine dependence (6) Sepsis (7) History of hypothyroidism (8) Insulin dependent diabetes mellitus (9) Hypokalemia (10) Hypoglycemia HD today for clearance and volume removal 4k bath for hypokalemia will assess dialysis needs daily renally dose meds strict I&O daily weight Subjective Date of service: 10/11/21 Principal diagnosis: ESRD Interval history: in ICU, hypotensive Objective - Vital Signs Vital signs: Vital Signs - 12hr 10/10/21 10/10/21 10/10/21 22:42 23:00 23:08 Temperature Pulse Rate 81 81 80 Pulse Rate [ From Monitor] Respiratory 18 22 Rate Blood Pressure 113/74 104/63 113/74 O2 Sat by Pulse 100 100 100 Oximetry 10/11/21 10/11/21 10/11/21 00:00 01:00 02:00 Temperature 98.2 F Pulse Rate 78 79 84 Pulse Rate [ 75 From Monitor] Respiratory 15 14 14 Rate Blood Pressure 97/58 109/65 109/65 O2 Sat by Pulse 100 100 100 Oximetry 10/11/21 10/11/21 10/11/21 03:00 03:43 03:49 Temperature 98.5 F Pulse Rate 76 79 Pulse Rate [ From Monitor] Respiratory 17 Rate Blood Pressure 91/60 94/66 O2 Sat by Pulse 100 100 Oximetry 10/11/21 10/11/21 10/11/21 04:00 05:00 05:30 Temperature Pulse Rate 78 79 80 Pulse Rate [ 78 From Monitor] Respiratory 17 18 23 Rate Blood Pressure 91/65 83/57 86/57 O2 Sat by Pulse 100 97 100 Oximetry 10/11/21 10/11/21 10/11/21 06:00 06:30 07:00 Temperature Pulse Rate 79 79 79 Pulse Rate [ From Monitor] Respiratory 22 23 20 Rate Blood Pressure 84/53 92/63 92/66 O2 Sat by Pulse 100 100 100 Oximetry 10/11/21 10/11/21 10/11/21 07:09 07:30 08:00 Temperature 98 F Pulse Rate 77 76 Pulse Rate [ 76 From Monitor] Respiratory 19 29 H Rate Blood Pressure 94/64 94/64 O2 Sat by Pulse 100 100 Oximetry 10/11/21 10/11/21 10/11/21 08:23 08:30 09:00 Temperature Pulse Rate 76 81 73 Pulse Rate [ From Monitor] Respiratory 20 28 H Rate Blood Pressure 94/64 99/68 90/58 O2 Sat by Pulse 100 99 100 Oximetry - Lab 10/11/21 06:59 10/11/21 06:59 Most recent lab results ABG pH 7.480 pH Units (7.350-7.450) H 10/11/21 05:25 ABG pCO2 25.8 mm Hg 10/11/21 05:25 ABG pO2 111.6 mm Hg (80.0-90.0) H 10/11/21 05:25 ABG HCO3 18.8 mmol/L (20.0-26.0) L 10/11/21 05:25 ABG O2 Saturation 98.3 % (95.0-99.0) 10/11/21 05:25 Calcium 7.6 mg/dL (8.4-10.2) L 10/11/21 06:59 Magnesium 1.50 mg/dL (1.7-2.3) L 10/10/21 12:25 Medications & Allergies - Medications Allergies/Adverse Reactions: Allergies No Known Allergies Allergy (Verified 10/09/21 23:38) Home Medications: Home Medications Medication Instructions Recorded Confirmed Last Taken Type Levothyroxine Sodium 175 mcg PO DAILY 08/23/21 08/23/21 08/22/21 History [Levothyroxine] Sertraline [Zoloft] 100 mg PO QDAY 08/23/21 08/23/21 08/22/21 History Cyclobenzaprine [Flexeril 10 MG 5 mg PO TID PRN #15 tablet 08/27/21 Unknown Rx TAB] Pantoprazole [Protonix TAB] 40 mg PO QDAY #30 tablet 08/27/21 Unknown Rx Insulin Glargine [Lantus VIAL] 30 units SUB-Q QHS units 09/02/21 Unknown Rx Lispro Insulin [HumaLOG] 0 unit SUB-Q ACHS units 09/02/21 Unknown Rx Midodrine [Proamatine] 10 mg PO TID tablet 09/02/21 Unknown Rx Active Medications: Generic Name Dose Route Start Last Admin Trade Name Freq PRN Reason Stop Dose Admin Acetaminophen 650 mg 10/10/21 01:37 Acetaminophen 325 Mg Tab PO Q4H PRN Pain MILD(1-3)/Fever >100.5/SEALS Dextrose 50 ml 10/10/21 01:37 10/10/21 06:39 Dextrose 50% In Water (25gm) 50 Ml Syringe IV 50 ml Q30MIN PRN Administration Hypoglycemia Protocol Hydrocortisone Sodium Succinate 100 mg 10/10/21 10:30 10/11/21 06:00 Hydrocortisone Sod Succ 100 Mg/2 Ml Vial IV 100 mg Q8HR CHAKA Administration Levofloxacin/Dextrose 500 mg in 100 mls @ 66.667 mls/hr 10/12/21 10:00 Levaquin 500mg/100ml IV Q48H CHAKA Protocol Potassium Chloride 10 meq in 100 mls @ 100 mls/hr 10/11/21 10:00 10/11/21 09:31 Kcl 10meq/100ml IV 10/11/21 11:59 100 mls/hr Q1H CHAKA Administration Insulin Human Lispro 0 unit 10/10/21 06:00 10/11/21 06:00 Insulin Lispro 100 Unit/Ml SUB-Q 1 unit Q6HR CHAKA Administration Protocol Levothyroxine Sodium 150 mcg 10/11/21 06:00 10/11/21 06:57 Levothyroxine 100 Mcg Inj IV 150 mcg DAILY@0600 CHAKA Administration Midodrine 10 mg 10/10/21 08:00 10/11/21 08:33 Midodrine 10 Mg Tab PO 10 mg TID@0800,1200,1600 CHAKA Administration Ondansetron HCl 4 mg 10/10/21 01:37 Ondansetron 4 Mg/2 Ml Inj IV Q8H PRN Nausea And Vomiting Pantoprazole Sodium 40 mg 10/10/21 10:00 10/11/21 09:30 Pantoprazole 40 Mg Inj IV 40 mg QDAY CHAKA Administration Sodium Chloride 10 ml 10/10/21 10:00 10/11/21 09:31 Sodium Chloride 0.9% 10 Ml Flush Syringe IV 10 ml BID CHAKA Administration Sodium Chloride 10 ml 10/10/21 01:37 Sodium Chloride 0.9% 10 Ml Flush Syringe IV PRN PRN LINE FLUSH
--- NOTE | 2021-10-11 11:07 | Progress Note ---
<KASSY CORNEJO - Last Filed: 10/11/21 19:34> Assessment and Plan Assessment and plan: This is a 61-year-old male with known past medical history of DM and ESRD on HD admitted for AMS and acute hypoxic respiratory failure requiring ventilatory support Hospital Course to Date: 10/11: More awake and alert this am, following simple commands. Plan for PSV trial for possible extubation today. BP remains soft, MAP above 65. Continue midodrine TID and IV steroids. Remains hypokalemic, K repleted. Possible HD today per nephro. Assessment and plan #Acute Respiratory Failure with Hypoxia - altered, intubated for airway protection on admission - ABG: pH 7.301, PCO2 50.4, PO2 162.1 bicarb 24.3 O2 sat 98.9 Chest x-ray: no acute abnl identified does not appear to be primary pulmonary process - Vent setting: PRVC-30%,6,20,500 - AM ABG noted - CCM consulted, appreciate recommendations - VAP bundle addressed - Aspiration precaution HOB above 30 - Plan for PSV trial for possible extubation today - Daily ABG and CXR - Continue SPO2 monitoring for SPO2 goal above 92% #Hypotension 2/2 #Adrenal insufficiency vs Hypothyroidism - Presented with AMS, bl le edema, hypotensive, hypothermic, hypoglycemia - etiology: possibly due to hypothyroidism vs adrenal insuffciency - TSH/T4 noted, correlate with hypothyroidism - Continue Hydrocortisone 100 mg IV q8hr ordered and Levothyroxine 150 mcg IV ordered - BP remains borderline this am, MAP above 65 - Continue Midodrine TID - Continue blood pressure monitor per protocol - Maintain MAP above 65 #Acute Metabolic Encephalopathy - Presented AMS, bl le edema, hypotensive, hypothermic, hypoglycemia - Ct head with no acute intracranial abnormality. - possibly due to hypothyroidism vs adrenal insuffciency vs infectious process - TSH/T4 noted, correlate with hypothyroidism - Hypoglycemia resolved - On IV Hydrocortisone and Levothyroxine - Continue IV Abx - Mentation improved this am, awake and following simple commands - Avoid benzodiazepine to reduce the possibility of delirium - Maintenance of sleep-wake cycle #Severe sepsis POA #Urinary tract infection - Presented AMS, bl le edema, hypotensive, hypothermic, hypoglycemia - Elevated wbc ct, UA wbc noted - levaquin IV initiated for UTI - WBcs downtrending - Continue to F/U on B.cult - Daily CBC monitor - Consider ID consult if febrile or/and if leukocytosis worsen #ESRD on HD #Hypokalemia #Uremia - Nephrology on consult, appreciated recommendation - correction with hemodialysis - management of HD per nephrology - Persistent hypokalemia noted this am: 40 MEQ K administered. Will need to take precaution with replacement given renal fx. - Strict intake and output - oliguric, D/C merrill Bladder scan and straight as needed per protocol - Avoid nephrotoxic medications; Renally dose medications - Monitor and replace electrolytes as needed #GERD - GI Ppx with pantoprazole 40 mg IV daily #Thrombocytopenia - Presented with low plt - Plt improved this am - no s/s of any active bleeding - H&H stable - Continue to trend CBC #Hypertension - hypotensive at the moment - Hold home antihypertensives therapy #Hyperglycemia - Presenyed with hypoglycemia s/p D10w gtt - on IV steroids - Continue BG check Q6hrs, low dose SSI Q6hrs - Avoid hypoglycemia - While critically ill target blood glucose of 140-180 #GI/DVT Prophylaxis - PPI- Protonix - SCDs to bilateral lower extremities while in bed The high probability of a clinically significant, sudden or life threatening deterioration of the [multiple] system(s) required my full and direct attention, intervention and personal management. The aggregate critical care time was [60] minutes. This time is in addition to time spent performing reported procedures but includes the following: [x] Data Review and interpretation [x] Patient assessment and monitoring of vital signs [x] Documentation [x] Medication orders and management Disposition Plan: ICU Total Time Spent with Patient (Minutes): 60 History Interval history: Patient seen and examined at the bedside. Intubated, not on any sedation. Awake and following simple commands. BP remains borderline but MAP above 65. AMANDA overnight Hospitalist Physical - Constitutional Vitals: Temp Pulse Resp BP Pulse Ox 98 F 74 13 90/61 100 10/11/21 07:09 10/11/21 11:00 10/11/21 11:00 10/11/21 11:00 10/11/21 11:00 General appearance: Present: no acute distress, well-nourished, other (Intubated, awake amd following commands) - EENT Eyes: Present: PERRL ENT: hearing intact - Neck Neck: Present: normal ROM - Respiratory Respiratory effort: normal Respiratory: bilateral: rhonchi - Cardiovascular Rhythm: regular Heart Sounds: Present: S1 & S2 - Extremities Extremities: no ischemia, pulses intact, pulses symmetrical Extremity abnormal: edema - Peripheral Assessment Bilateral Lower Extremity Edema Type: Pitting Edema Degree: 3+ Capillary Refill: < 3 seconds Skin Temperature: Warm Generalized Edema Type: Non-pitting Edema Degree: 2+ Capillary Refill: < 3 seconds Skin Temperature: Warm Peripheral Pulses: within normal limits - Abdominal General gastrointestinal: soft, non-distended, normal bowel sounds - Integumentary Integumentary: Present: warm, dry - Psychiatric Psychiatric: appropriate mood/affect, cooperative, other (Intubated, awake and following commands) - Neurologic Neurologic: moves all extremities, other (Intubated, awake and following command s) - Allied Health Allied health notes reviewed: nursing HEART Score - HEART Score Troponin: Troponin T 1.970 ng/mL (0.00-0.029) H* 10/09/21 23:30 Results - Labs CBC & Chem 7: 10/11/21 06:59 10/11/21 11:23 Labs: Laboratory Last Values WBC 14.3 K/mm3 (4.5-11.0) H 10/11/21 06:59 RBC 2.75 M/mm3 (3.65-5.03) L 10/11/21 06:59 Hgb 7.6 gm/dl (11.8-15.2) L 10/11/21 06:59 Hct 23.2 % (35.5-45.6) L 10/11/21 06:59 MCV 84 fl (84-94) 10/11/21 06:59 MCH 28 pg (28-32) 10/11/21 06:59 MCHC 33 % (32-34) 10/11/21 06:59 RDW 17.4 % (13.2-15.2) H 10/11/21 06:59 Plt Count 52 K/mm3 (140-440) L 10/11/21 06:59 Add Manual Diff Complete 10/11/21 06:59 Total Counted 100 10/11/21 06:59 Seg Neutrophils % [place] 10/11/21 06:59 Seg Neuts % (Manual) 99.0 % (40.0-70.0) H 10/11/21 06:59 Band Neutrophils % 0 % 10/11/21 06:59 Lymphocytes % (Manual) 1.0 % (13.4-35.0) L 10/11/21 06:59 Reactive Lymphs % (Man) 0 % 10/11/21 06:59 Monocytes % (Manual) 0 % (0.0-7.3) 10/11/21 06:59 Eosinophils % (Manual) 0 % (0.0-4.3) 10/11/21 06:59 Basophils % (Manual) 0 % (0.0-1.8) 10/11/21 06:59 Metamyelocytes % 0 % 10/11/21 06:59 Myelocytes % 0 % 10/11/21 06:59 Promyelocytes % 0 % 10/11/21 06:59 Blast Cells % 0 % 10/11/21 06:59 Nucleated RBC % Not Reportable 10/11/21 06:59 Seg Neutrophils # Man 14.2 K/mm3 (1.8-7.7) H 10/11/21 06:59 Band Neutrophils # 0.0 K/mm3 10/11/21 06:59 Lymphocytes # (Manual) 0.1 K/mm3 (1.2-5.4) L 10/11/21 06:59 Abs React Lymphs (Man) 0.0 K/mm3 10/11/21 06:59 Monocytes # (Manual) 0.0 K/mm3 (0.0-0.8) 10/11/21 06:59 Eosinophils # (Manual) 0.0 K/mm3 (0.0-0.4) 10/11/21 06:59 Basophils # (Manual) 0.0 K/mm3 (0.0-0.1) 10/11/21 06:59 Metamyelocytes # 0.0 K/mm3 10/11/21 06:59 Myelocytes # 0.0 K/mm3 10/11/21 06:59 Promyelocytes # 0.0 K/mm3 10/11/21 06:59 Blast Cells # 0.0 K/mm3 10/11/21 06:59 WBC Morphology Not Reportable 10/11/21 06:59 Hypersegmented Neuts Not Reportable 10/11/21 06:59 Hyposegmented Neuts Not Reportable 10/11/21 06:59 Hypogranular Neuts Not Reportable 10/11/21 06:59 Smudge Cells Not Reportable 10/11/21 06:59 Toxic Granulation Not Reportable 10/11/21 06:59 Toxic Vacuolation Not Reportable 10/11/21 06:59 Dohle Bodies Not Reportable 10/11/21 06:59 Pelger-Huet Anomaly Not Reportable 10/11/21 06:59 Placido Rods Not Reportable 10/11/21 06:59 Platelet Estimate Consistent w auto 10/11/21 06:59 Clumped Platelets Not Reportable 10/11/21 06:59 Plt Clumps, EDTA Not Reportable 10/11/21 06:59 Large Platelets Not Reportable 10/11/21 06:59 Giant Platelets Not Reportable 10/11/21 06:59 Platelet Satelliting Not Reportable 10/11/21 06:59 Plt Morphology Comment Not Reportable 10/11/21 06:59 RBC Morphology Not Reportable 10/11/21 06:59 Dimorphic RBCs Not Reportable 10/11/21 06:59 Polychromasia Not Reportable 10/11/21 06:59 Hypochromasia 1+ 10/11/21 06:59 Poikilocytosis Not Reportable 10/11/21 06:59 Anisocytosis 1+ 10/11/21 06:59 Microcytosis Not Reportable 10/11/21 06:59 Macrocytosis Not Reportable 10/11/21 06:59 Spherocytes Not Reportable 10/11/21 06:59 Pappenheimer Bodies Not Reportable 10/11/21 06:59 Sickle Cells Not Reportable 10/11/21 06:59 Target Cells 1+ 10/11/21 06:59 Tear Drop Cells Not Reportable 10/11/21 06:59 Ovalocytes Not Reportable 10/11/21 06:59 Helmet Cells Not Reportable 10/11/21 06:59 [place] Bodies Not Reportable 10/11/21 06:59 [place] Rings Not Reportable 10/11/21 06:59 [place] Cells Not Reportable 10/11/21 06:59 Bite Cells Not Reportable 10/11/21 06:59 Crenated Cell Not Reportable 10/11/21 06:59 Elliptocytes Not Reportable 10/11/21 06:59 Acanthocytes (Spur) Not Reportable 10/11/21 06:59 Rouleaux Not Reportable 10/11/21 06:59 Hemoglobin C Crystals Not Reportable 10/11/21 06:59 Schistocytes Not Reportable 10/11/21 06:59 Malaria parasites Not Reportable 10/11/21 06:59 Ezequiel Bodies Not Reportable 10/11/21 06:59 Hem Pathologist Commnt No 10/11/21 06:59 ABG pH 7.480 pH Units (7.350-7.450) H 10/11/21 05:25 ABG pCO2 25.8 mm Hg 10/11/21 05:25 ABG pO2 111.6 mm Hg (80.0-90.0) H 10/11/21 05:25 ABG HCO3 18.8 mmol/L (20.0-26.0) L 10/11/21 05:25 ABG O2 Saturation 98.3 % (95.0-99.0) 10/11/21 05:25 ABG O2 Content 10.9 (0.0-44) 10/11/21 05:25 ABG Base Excess -4.0 mmol/L (-2.0-3.0) L 10/11/21 05:25 ABG Hemoglobin 7.9 gm/dl (14.0-18.0) L 10/11/21 05:25 ABG Carboxyhemoglobin 1.3 % (0.0-5.0) 10/11/21 05:25 ABG Methemoglobin 0.4 % (0.0-1.5) 10/11/21 05:25 Oxyhemoglobin 96.7 % (95.0-99.0) 10/11/21 05:25 FiO2 30 % 10/11/21 05:25 Sodium 127 mmol/L (137-145) L 10/11/21 06:59 Potassium 2.6 mmol/L (3.6-5.0) L* 10/11/21 06:59 Chloride 93.7 mmol/L (98-107) L 10/11/21 06:59 Carbon Dioxide 19 mmol/L (22-30) L 10/11/21 06:59 Anion Gap 17 mmol/L 10/11/21 06:59 BUN 19 mg/dL (9-20) 10/11/21 06:59 Creatinine 5.0 mg/dL (0.8-1.3) H 10/11/21 06:59 Estimated GFR 14 ml/min 10/11/21 06:59 BUN/Creatinine Ratio 4 % 10/11/21 06:59 Glucose 208 mg/dL (75-100) H 10/11/21 06:59 POC Glucose 185 mg/dL (70-105) H 10/11/21 03:26 Lactic Acid 2.80 mmol/L (0.7-2.0) H* 10/10/21 12:25 Calcium 7.6 mg/dL (8.4-10.2) L 10/11/21 06:59 Magnesium 1.50 mg/dL (1.7-2.3) L 10/10/21 12:25 Total Bilirubin 1.10 mg/dL (0.1-1.2) 10/10/21 12:25 AST 52 units/L (5-40) H 10/10/21 12:25 ALT 12 units/L (7-56) 10/10/21 12:25 Alkaline Phosphatase 169 units/L (35-129) H 10/10/21 12:25 Total Creatine Kinase 644 units/L (55-170) H 10/09/21 23:30 Troponin T 1.970 ng/mL (0.00-0.029) H* 10/09/21 23:30 Total Protein 5.8 g/dL (6.3-8.2) L 10/10/21 12:25 Albumin 2.0 g/dL (3.9-5) L 10/10/21 12:25 Albumin/Globulin Ratio 0.5 % 10/10/21 12:25 Triglycerides 68 mg/dL (2-149) 10/09/21 23:30 Cholesterol 81 mg/dL (50-199) 10/09/21 23:30 LDL Cholesterol Direct 21 mg/dL (50-130) L 10/09/21 23:30 HDL Cholesterol 44 mg/dL (40-59) 10/09/21 23:30 Cholesterol/HDL Ratio 1.84 % 10/09/21 23:30 TSH 23.050 mlU/mL (0.270-4.200) H 10/10/21 14:51 Free T4 0.36 ng/dL (0.76-1.46) L 10/10/21 14:51 Urine Color Yellow (Yellow) 10/10/21 01:30 Urine Turbidity Turbid (Clear) 10/10/21 01:30 Urine pH 6.0 (5.0-7.0) 10/10/21 01:30 Ur Specific [place] 1.018 (1.003-1.030) 10/10/21 01:30 Urine Protein 100 mg/dl mg/dL (Negative) 10/10/21 01:30 Urine Glucose (UA) Neg mg/dL (Negative) 10/10/21 01:30 Urine Ketones Tr mg/dL (Negative) 10/10/21 01:30 Urine Blood Mod (Negative) 10/10/21 01:30 Urine Nitrite Neg (Negative) 10/10/21 01:30 Urine Bilirubin Neg (Negative) 10/10/21 01:30 Urine Urobilinogen < 2.0 mg/dL (<2.0) 10/10/21 01:30 Ur Leukocyte Esterase Mod (Negative) 10/10/21 01:30 Urine WBC (Auto) > 182.0 /HPF (0.0-6.0) H 10/10/21 01:30 Urine RBC (Auto) 70.0 /HPF (0.0-6.0) 10/10/21 01:30 Urine Bacteria (Auto) 1+ /HPF (Negative) 10/10/21 01:30 Urine WBC Clumps 3+ /HPF 10/10/21 01:30 Active Medications - Current Medications Current Medications: Generic Name Dose Route Start Last Admin Trade Name Freq PRN Reason Stop Dose Admin Acetaminophen 650 mg 10/10/21 01:37 Acetaminophen 325 Mg Tab PO Q4H PRN Pain MILD(1-3)/Fever >100.5/SEALS Dextrose 50 ml 10/10/21 01:37 10/10/21 06:39 Dextrose 50% In Water (25gm) 50 Ml Syringe IV 50 ml Q30MIN PRN Administration Hypoglycemia Protocol Hydrocortisone Sodium Succinate 100 mg 10/10/21 10:30 10/11/21 06:00 Hydrocortisone Sod Succ 100 Mg/2 Ml Vial IV 100 mg Q8HR CHAKA Administration Levofloxacin/Dextrose 500 mg in 100 mls @ 66.667 mls/hr 10/12/21 10:00 Levaquin 500mg/100ml IV Q48H CHAKA Protocol Potassium Chloride 10 meq in 100 mls @ 100 mls/hr 10/11/21 10:00 10/11/21 10:29 Kcl 10meq/100ml IV 10/11/21 11:59 100 mls/hr Q1H CHAKA Administration Insulin Human Lispro 0 unit 10/10/21 06:00 10/11/21 06:00 Insulin Lispro 100 Unit/Ml SUB-Q 1 unit Q6HR HCAKA Administration Protocol Levothyroxine Sodium 150 mcg 10/11/21 06:00 10/11/21 06:57 Levothyroxine 100 Mcg Inj IV 150 mcg DAILY@0600 CHAKA Administration Midodrine 10 mg 10/10/21 08:00 10/11/21 08:33 Midodrine 10 Mg Tab PO 10 mg TID@0800,1200,1600 CHAKA Administration Ondansetron HCl 4 mg 10/10/21 01:37 Ondansetron 4 Mg/2 Ml Inj IV Q8H PRN Nausea And Vomiting Pantoprazole Sodium 40 mg 10/10/21 10:00 10/11/21 09:30 Pantoprazole 40 Mg Inj IV 40 mg QDAY CHAKA Administration Sodium Chloride 10 ml 10/10/21 10:00 10/11/21 09:31 Sodium Chloride 0.9% 10 Ml Flush Syringe IV 10 ml BID CHAKA Administration Sodium Chloride 10 ml 10/10/21 01:37 Sodium Chloride 0.9% 10 Ml Flush Syringe IV PRN PRN LINE FLUSH <MANUELA LYMAN - Last Filed: 10/14/21 12:15> Assessment and Plan Assessment and plan: I saw and evaluated the patient. Discussed with the nurse practitioner and agree with their findings and plan as documented in this note. Hospitalist Physical - Constitutional Vitals: Temp Pulse Resp BP Pulse Ox 97.8 F 93 H 20 89/61 99 10/14/21 09:15 10/14/21 05:44 10/14/21 10:00 10/14/21 09:15 10/14/21 10:00 HEART Score - HEART Score Troponin: Troponin T 1.970 ng/mL (0.00-0.029) H* 10/09/21 23:30 Results - Labs CBC & Chem 7: 10/14/21 05:00 10/13/21 23:39 Labs: Laboratory Last Values WBC 15.5 K/mm3 (4.5-11.0) H 10/14/21 05:00 RBC 3.07 M/mm3 (3.65-5.03) L 10/14/21 05:00 Hgb 8.5 gm/dl (11.8-15.2) L 10/14/21 05:00 Hct 26.2 % (35.5-45.6) L 10/14/21 05:00 MCV 85 fl (84-94) 10/14/21 05:00 MCH 28 pg (28-32) 10/14/21 05:00 MCHC 33 % (32-34) 10/14/21 05:00 RDW 17.4 % (13.2-15.2) H 10/14/21 05:00 Plt Count 59 K/mm3 (140-440) L 10/14/21 05:00 Add Manual Diff Complete 10/14/21 05:00 Total Counted 100 10/14/21 05:00 Seg Neutrophils % [place] 10/14/21 05:00 Seg Neuts % (Manual) 98.0 % (40.0-70.0) H 10/14/21 05:00 Band Neutrophils % 0 % 10/14/21 05:00 Lymphocytes % (Manual) 1.0 % (13.4-35.0) L 10/14/21 05:00 Reactive Lymphs % (Man) 0 % 10/14/21 05:00 Monocytes % (Manual) 1.0 % (0.0-7.3) 10/14/21 05:00 Eosinophils % (Manual) 0 % (0.0-4.3) 10/14/21 05:00 Basophils % (Manual) 0 % (0.0-1.8) 10/14/21 05:00 Metamyelocytes % 0 % 10/14/21 05:00 Myelocytes % 0 % 10/14/21 05:00 Promyelocytes % 0 % 10/14/21 05:00 Blast Cells % 0 % 10/14/21 05:00 Nucleated RBC % Not Reportable 10/14/21 05:00 Seg Neutrophils # Man 15.2 K/mm3 (1.8-7.7) H 10/14/21 05:00 Band Neutrophils # 0.0 K/mm3 10/14/21 05:00 Lymphocytes # (Manual) 0.2 K/mm3 (1.2-5.4) L 10/14/21 05:00 Abs React Lymphs (Man) 0.0 K/mm3 10/14/21 05:00 Monocytes # (Manual) 0.2 K/mm3 (0.0-0.8) 10/14/21 05:00 Eosinophils # (Manual) 0.0 K/mm3 (0.0-0.4) 10/14/21 05:00 Basophils # (Manual) 0.0 K/mm3 (0.0-0.1) 10/14/21 05:00 Metamyelocytes # 0.0 K/mm3 10/14/21 05:00 Myelocytes # 0.0 K/mm3 10/14/21 05:00 Promyelocytes # 0.0 K/mm3 10/14/21 05:00 Blast Cells # 0.0 K/mm3 10/14/21 05:00 WBC Morphology Not Reportable 10/14/21 05:00 Hypersegmented Neuts Not Reportable 10/14/21 05:00 Hyposegmented Neuts Not Reportable 10/14/21 05:00 Hypogranular Neuts Not Reportable 10/14/21 05:00 Smudge Cells Not Reportable 10/14/21 05:00 Toxic Granulation Not Reportable 10/14/21 05:00 Toxic Vacuolation Not Reportable 10/14/21 05:00 Dohle Bodies Not Reportable 10/14/21 05:00 Pelger-Huet Anomaly Not Reportable 10/14/21 05:00 Placido Rods Not Reportable 10/14/21 05:00 Platelet Estimate Consistent w auto 10/14/21 05:00 Clumped Platelets Not Reportable 10/14/21 05:00 Plt Clumps, EDTA Not Reportable 10/14/21 05:00 Large Platelets Not Reportable 10/14/21 05:00 Giant Platelets Not Reportable 10/14/21 05:00 Platelet Satelliting Not Reportable 10/14/21 05:00 Plt Morphology Comment Not Reportable 10/14/21 05:00 RBC Morphology Not Reportable 10/14/21 05:00 Dimorphic RBCs Not Reportable 10/14/21 05:00 Polychromasia Not Reportable 10/14/21 05:00 Hypochromasia 1+ 10/14/21 05:00 Poikilocytosis 1+ 10/14/21 05:00 Anisocytosis 1+ 10/14/21 05:00 Microcytosis Not Reportable 10/14/21 05:00 Macrocytosis Not Reportable 10/14/21 05:00 Spherocytes Not Reportable 10/14/21 05:00 Pappenheimer Bodies Not Reportable 10/14/21 05:00 Sickle Cells Not Reportable 10/14/21 05:00 Target Cells 1+ 10/14/21 05:00 Tear Drop Cells Not Reportable 10/14/21 05:00 Ovalocytes Not Reportable 10/14/21 05:00 Helmet Cells Not Reportable 10/14/21 05:00 [place] Bodies Not Reportable 10/14/21 05:00 B[place] Rings Not Reportable 10/14/21 05:00 [place] Cells Not Reportable 10/14/21 05:00 Bite Cells Not Reportable 10/14/21 05:00 Crenated Cell Not Reportable 10/14/21 05:00 Elliptocytes Not Reportable 10/14/21 05:00 Acanthocytes (Spur) Not Reportable 10/14/21 05:00 Rouleaux Not Reportable 10/14/21 05:00 Hemoglobin C Crystals Not Reportable 10/14/21 05:00 Schistocytes Not Reportable 10/14/21 05:00 Malaria parasites Not Reportable 10/14/21 05:00 Ezequiel Bodies Not Reportable 10/14/21 05:00 Hem Pathologist Commnt No 10/14/21 05:00 ABG pH 7.480 pH Units (7.350-7.450) H 10/11/21 05:25 ABG pCO2 25.8 mm Hg 10/11/21 05:25 ABG pO2 111.6 mm Hg (80.0-90.0) H 10/11/21 05:25 ABG HCO3 18.8 mmol/L (20.0-26.0) L 10/11/21 05:25 ABG O2 Saturation 98.3 % (95.0-99.0) 10/11/21 05:25 ABG O2 Content 10.9 (0.0-44) 10/11/21 05:25 ABG Base Excess -4.0 mmol/L (-2.0-3.0) L 10/11/21 05:25 ABG Hemoglobin 7.9 gm/dl (14.0-18.0) L 10/11/21 05:25 ABG Carboxyhemoglobin 1.3 % (0.0-5.0) 10/11/21 05:25 ABG Methemoglobin 0.4 % (0.0-1.5) 10/11/21 05:25 Oxyhemoglobin 96.7 % (95.0-99.0) 10/11/21 05:25 FiO2 30 % 10/11/21 05:25 Sodium 139 mmol/L (137-145) 10/13/21 23:39 Potassium 3.2 mmol/L (3.6-5.0) L 10/13/21 23:39 Chloride 102.0 mmol/L (98-107) 10/13/21 23:39 Carbon Dioxide 21 mmol/L (22-30) L 10/13/21 23:39 Anion Gap 19 mmol/L 10/13/21 23:39 BUN 23 mg/dL (9-20) H 10/13/21 23:39 Creatinine 3.7 mg/dL (0.8-1.3) H 10/13/21 23:39 Estimated GFR 20 ml/min 10/13/21 23:39 BUN/Creatinine Ratio 6 % 10/13/21 23:39 Glucose 199 mg/dL (75-100) H 10/13/21 23:39 POC Glucose 231 mg/dL (70-105) H 10/14/21 11:02 Lactic Acid 1.60 mmol/L (0.7-2.0) 10/11/21 11:23 Calcium 8.5 mg/dL (8.4-10.2) 10/13/21 23:39 Phosphorus 2.20 mg/dL (2.5-4.5) L D 10/12/21 05:50 Magnesium 1.80 mg/dL (1.7-2.3) 10/12/21 05:50 Total Bilirubin 1.20 mg/dL (0.1-1.2) 10/13/21 05:17 AST 32 units/L (5-40) 10/13/21 05:17 ALT 11 units/L (7-56) 10/13/21 05:17 Alkaline Phosphatase 167 units/L (35-129) H 10/13/21 05:17 Total Creatine Kinase 644 units/L (55-170) H 10/09/21 23:30 Troponin T 1.970 ng/mL (0.00-0.029) H* 10/09/21 23:30 Total Protein 7.5 g/dL (6.3-8.2) D 10/13/21 05:17 Albumin 2.4 g/dL (3.9-5) L 10/13/21 05:17 Albumin/Globulin Ratio 0.5 % 10/13/21 05:17 Triglycerides 68 mg/dL (2-149) 10/09/21 23:30 Cholesterol 81 mg/dL (50-199) 10/09/21 23:30 LDL Cholesterol Direct 21 mg/dL (50-130) L 10/09/21 23:30 HDL Cholesterol 44 mg/dL (40-59) 10/09/21 23:30 Cholesterol/HDL Ratio 1.84 % 10/09/21 23:30 TSH 23.050 mlU/mL (0.270-4.200) H 10/10/21 14:51 Free T4 0.36 ng/dL (0.76-1.46) L 10/10/21 14:51 Urine Color Yellow (Yellow) 10/10/21 01:30 Urine Turbidity Turbid (Clear) 10/10/21 01:30 Urine pH 6.0 (5.0-7.0) 10/10/21 01:30 Ur Specific [place] 1.018 (1.003-1.030) 10/10/21 01:30 Urine Protein 100 mg/dl mg/dL (Negative) 10/10/21 01:30 Urine Glucose (UA) Neg mg/dL (Negative) 10/10/21 01:30 Urine Ketones Tr mg/dL (Negative) 10/10/21 01:30 Urine Blood Mod (Negative) 10/10/21 01:30 Urine Nitrite Neg (Negative) 10/10/21 01:30 Urine Bilirubin Neg (Negative) 10/10/21 01:30 Urine Urobilinogen < 2.0 mg/dL (<2.0) 10/10/21 01:30 Ur Leukocyte Esterase Mod (Negative) 10/10/21 01:30 Urine WBC (Auto) > 182.0 /HPF (0.0-6.0) H 10/10/21 01:30 Urine RBC (Auto) 70.0 /HPF (0.0-6.0) 10/10/21 01:30 Urine Bacteria (Auto) 1+ /HPF (Negative) 10/10/21 01:30 Urine WBC Clumps 3+ /HPF 10/10/21 01:30 C. difficile Tox (PCR) Positive (Negative) 10/12/21 Unknown Hepatitis A IgM Ab Non-reactive (NonReactive) 10/11/21 11:23 Hep Bs Antigen Non-reactive (Negative) 10/11/21 11:23 Hep B Core IgM Ab Non-reactive (NonReactive) 10/11/21 11:23 Hepatitis C Antibody Reactive (NonReactive) A 10/11/21 11:23 Microbiology: Microbiology 10/09/21 23:20 Tracheal Aspirate Sputum Culture - Preliminary Enterococcus Faecalis Active Medications - Current Medications Current Medications: Generic Name Dose Route Start Last Admin Trade Name Freq PRN Reason Stop Dose Admin Acetaminophen 650 mg 10/10/21 01:37 Acetaminophen 325 Mg Tab PO Q4H PRN Pain MILD(1-3)/Fever >100.5/SEALS Dextrose 50 ml 10/10/21 01:37 10/10/21 06:39 Dextrose 50% In Water (25gm) 50 Ml Syringe IV 50 ml Q30MIN PRN Administration Hypoglycemia Protocol Hydrocortisone Sodium Succinate 100 mg 10/10/21 10:30 10/14/21 05:48 Hydrocortisone Sod Succ 100 Mg/2 Ml Vial IV 100 mg Q8HR CHAKA Administration Insulin Human Lispro 0 unit 10/10/21 06:00 10/14/21 06:40 Insulin Lispro 100 Unit/Ml SUB-Q 3 unit Q6HR CHAKA Administration Protocol Levothyroxine Sodium 150 mcg 10/14/21 06:00 10/14/21 05:48 Levothyroxine 150 Mcg Tab PO 150 mcg DAILY@0600 CHAKA Administration Levothyroxine Sodium 25 mcg 10/14/21 06:00 10/14/21 05:48 Levothyroxine 25 Mcg Tab PO 25 mcg DAILY@0600 CHAKA Administration Midodrine 10 mg 10/10/21 08:00 10/14/21 11:54 Midodrine 10 Mg Tab PO 10 mg TID@0800,1200,1600 CHAKA Administration Ondansetron HCl 4 mg 10/10/21 01:37 Ondansetron 4 Mg/2 Ml Inj IV Q8H PRN Nausea And Vomiting Pantoprazole Sodium 40 mg 10/14/21 07:30 10/14/21 09:16 Pantoprazole 40 Mg Tab PO 40 mg QDAC CHAKA Administration Sodium Chloride 10 ml 10/10/21 10:00 10/14/21 09:17 Sodium Chloride 0.9% 10 Ml Flush Syringe IV 10 ml BID CHAKA Administration Sodium Chloride 10 ml 10/10/21 01:37 Sodium Chloride 0.9% 10 Ml Flush Syringe IV PRN PRN LINE FLUSH Nutrition/Malnutrition Assess - Dietary Evaluation Nutrition/Malnutrition Findings: Nutrition Notes Start: 10/11/21 16:12 Freq: Status: Active Protocol: Document 10/13/21 15:46 ADITYA (Rec: 10/13/21 15:58 [email or web address] [id number]) Nutrition Notes Initial or Follow up Brief Note Current Diagnosis CKD(stage I-IV),Diabetes, Sepsis,Hypertension, Hyperlipidemia Other Pertinent Diagnosis ESRD+HD, Hypoglycemia, GERD, UTI, Metabolic Encephalopathy, Uremia,... Current Diet Renal Diet (since L 10/12). Height 6 ft Weight 99.79 kg [place] Body Weight (kg) 80.90 BMI 29.8 Weight change and time frame No body weight changes in 2 days reported. Weight Status Overweight Subjective/Other Information RD consult for routine F/U on Dietary Advancement. Diet advanced to PO, Pt's PO intake of meals has been Negligible(0%), according to ADL notes. I will assess the need for ONS at F/U. [employer] note on 10/12/21 12:59: Swallowing function has been assessed. No aspiration was identified during the examination. Continue his current diet. Will continue to follow 2-3 days to ensure continued safety. - END OF NOTE. Pt is on Room Air, O2 saturation @ 97%, according to Physical Assessment History notes. Percent of energy/protein needs met: Prescribed Renal Diet provides for energy/protein needs (2, 072 Kcal/77 g) during LOS. #1 Nutrition Diagnosis Inadequate oral intake Comments: [employer]GER note on 10/12/21 12:59: Swallowing function has been assessed. No aspiration was identified during the examination. Continue his current diet. Will continue to follow 2-3 days to ensure continued safety. - END OF NOTE. Diagnosis Progress(for reassessment Resolved documentation) Is patient on ventilator? No Is Patient Ambulatory and/or Out of Bed No REE-([facility]-confined to bed) 1438.751 Calculation Used for Recommendations [facility] Additional Notes Protein: >1.2 g/Kg ABW; >120 g /day. Fluids: 1 ml/Kcal, or as per MD. Nutrition Intervention Change Diet Order: Continue Renal Diet. Nutrition Support: Discontinue. Goal #1 Adjust the dietary intervention to better serve Pt's needs and clinical conditions during LOS. Follow-Up By: 10/18/21 Additional Comments Continue monitoring food tolerance, %PO intake of meals , and BM.Continue monitoring food tolerance, %PO intake of meals, and BM.
[2021-10-11 12:13] LABS: Calcium 7.7 mg/dL (8.4-10.2)
--- NOTE | 2021-10-11 13:11 | Electrocardiograph Report ---
[facility] Test Date: 2021-10-09 Test Time: 23:48:45 Pat Name: JADE COTO Department: Room: A251 1 Gender: M [employer] Hospitalist: KINDRA : 1960 Requested By: NAUN KELLY Order Number: [id number] Reading MD: Lb Fletcher Measurements Intervals [place] Rate: 70 P: -9 PA: 238 QRS: -13 QRSD: 132 T: 221 QT: QTc: 0 Interpretive Statements Sinus rhythm Prolonged PA interval Nonspecific intraventricular conduction delay Nonspecific T abnormalities, diffuse leads Compared to ECG 08/31/2021 13:48:20 Low voltage noted inlimband precordial leads. First degree AV block now present Intraventricular conduction delay now present T-wave abnormality now present Electronically Signed On 10-11-2021 13:11:35 EDT by Lb Fletcher
--- NOTE | 2021-10-11 13:20 | Progress Note ---
Assessment and Plan 61 y/o male with respiratory failure secondary to altered mental status secondary to hypoglycemia. 10/11/21: Off d10, sugars are much better. Will extubate. Would like to keep stress dose steroids and start to wean tomorrow. Electrolytes per renal. 1. State repeat CMP and CBC, follow up K replacement 2. Will start stress dose steroids given history of Hypothyroid and current hyoglycemia 3. q1 hour fsbs 4. Stop D5 and start d10 at 50mls/hr 5. Dropped peep to 6 6. No sedation 7. Once more awake will extubate, no matter what time of day 8. guarded prognosis. CCT 31 minutes. Subjective Date of service: 10/11/21 Principal diagnosis: ESRD Interval history: No acute events. BP better. Sugars are better. More awake. Objective Vital Signs - 12hr 10/11/21 10/11/21 10/11/21 02:00 03:00 03:43 Temperature 98.5 F Pulse Rate 84 76 Pulse Rate [ From Monitor] Respiratory 14 17 Rate Blood Pressure 109/65 91/60 O2 Sat by Pulse 100 100 Oximetry 10/11/21 10/11/21 10/11/21 03:49 04:00 05:00 Temperature Pulse Rate 79 78 79 Pulse Rate [ 78 From Monitor] Respiratory 17 18 Rate Blood Pressure 94/66 91/65 83/57 O2 Sat by Pulse 100 100 97 Oximetry 10/11/21 10/11/21 10/11/21 05:30 06:00 06:30 Temperature Pulse Rate 80 79 79 Pulse Rate [ From Monitor] Respiratory 23 22 23 Rate Blood Pressure 86/57 84/53 92/63 O2 Sat by Pulse 100 100 100 Oximetry 10/11/21 10/11/21 10/11/21 07:00 07:09 07:30 Temperature 98 F Pulse Rate 79 77 Pulse Rate [ From Monitor] Respiratory 20 19 Rate Blood Pressure 92/66 94/64 O2 Sat by Pulse 100 100 Oximetry 10/11/21 10/11/21 10/11/21 08:00 08:23 08:30 Temperature Pulse Rate 76 76 81 Pulse Rate [ 76 From Monitor] Respiratory 29 H 20 Rate Blood Pressure 94/64 94/64 99/68 O2 Sat by Pulse 100 100 99 Oximetry 10/11/21 10/11/21 10/11/21 09:00 09:30 10:00 Temperature Pulse Rate 73 73 75 Pulse Rate [ From Monitor] Respiratory 28 H 16 20 Rate Blood Pressure 90/58 92/63 96/64 O2 Sat by Pulse 100 97 100 Oximetry 10/11/21 10/11/21 10/11/21 10:30 11:00 11:30 Temperature Pulse Rate 73 74 72 Pulse Rate [ From Monitor] Respiratory 14 13 11 L Rate Blood Pressure 95/63 90/61 88/58 O2 Sat by Pulse 100 100 100 Oximetry 10/11/21 10/11/21 10/11/21 11:53 12:00 12:30 Temperature 97.9 F Pulse Rate 72 73 Pulse Rate [ 71 From Monitor] Respiratory 23 14 Rate Blood Pressure 87/58 104/68 O2 Sat by Pulse 100 100 Oximetry 10/11/21 10/11/21 12:31 13:00 Temperature Pulse Rate 71 69 Pulse Rate [ From Monitor] Respiratory 15 14 Rate Blood Pressure 87/58 101/65 O2 Sat by Pulse 100 100 Oximetry Constitutional: no acute distress Eyes: non-icteric ENT: other (orally intubated) Neck: supple Effort: normal Ascultation: Bilateral: clear Percussion: Bilateral: not dull Cardiovascular: regular rate and rhythm Gastrointestinal: normoactive bowel sounds, soft Extremities: no cyanosis, no edema Neurologic: unable to assess Psychiatric: mood appropriate CBC and BMP: 10/11/21 06:59 10/11/21 11:23 ABG, PT/INR, D-dimer: ABG ABG pH 7.480 pH Units (7.350-7.450) H 10/11/21 05:25 ABG pCO2 25.8 mm Hg 10/11/21 05:25 ABG pO2 111.6 mm Hg (80.0-90.0) H 10/11/21 05:25 ABG O2 Saturation 98.3 % (95.0-99.0) 10/11/21 05:25 Abnormal lab findings: Abnormal Labs 10/09/21 10/09/21 10/09/21 22:21 23:20 23:30 WBC 17.4 H RBC 3.32 L Hgb 9.2 L Hct 28.2 L RDW 17.4 H Plt Count 45 L Seg Neuts % (Manual) 98.0 H Lymphocytes % (Manual) 1.0 L Seg Neutrophils # Man 17.1 H Lymphocytes # (Manual) 0.2 L ABG pH 7.301 L ABG pO2 162.1 H ABG HCO3 ABG O2 Saturation ABG Base Excess -2.3 L ABG Hemoglobin 10.2 L Sodium Potassium Chloride Carbon Dioxide BUN Creatinine Glucose POC Glucose 151 H Lactic Acid Calcium Magnesium AST Alkaline Phosphatase Total Creatine Kinase Troponin T Total Protein Albumin LDL Cholesterol Direct TSH Free T4 Urine WBC (Auto) 10/09/21 10/09/21 10/10/21 23:30 23:30 01:30 WBC RBC Hgb Hct RDW Plt Count Seg Neuts % (Manual) Lymphocytes % (Manual) Seg Neutrophils # Man Lymphocytes # (Manual) ABG pH ABG pO2 ABG HCO3 ABG O2 Saturation ABG Base Excess ABG Hemoglobin Sodium 132 L Potassium 1.7 L* Chloride 96.6 L Carbon Dioxide BUN Creatinine 4.8 H Glucose 70 L POC Glucose Lactic Acid 2.10 H* Calcium 8.0 L Magnesium AST 68 H Alkaline Phosphatase 161 H Total Creatine Kinase 644 H Troponin T 1.970 H* Total Protein Albumin 2.1 L LDL Cholesterol Direct 21 L TSH Free T4 Urine WBC (Auto) > 182.0 H 10/10/21 10/10/21 10/10/21 02:59 04:15 05:40 WBC RBC Hgb Hct RDW Plt Count Seg Neuts % (Manual) Lymphocytes % (Manual) Seg Neutrophils # Man Lymphocytes # (Manual) ABG pH 7.469 H ABG pO2 217.7 H ABG HCO3 ABG O2 Saturation 99.4 H ABG Base Excess ABG Hemoglobin 8.6 L Sodium Potassium Chloride Carbon Dioxide BUN Creatinine Glucose POC Glucose 16 L 58 L Lactic Acid Calcium Magnesium AST Alkaline Phosphatase Total Creatine Kinase Troponin T Total Protein Albumin LDL Cholesterol Direct TSH Free T4 Urine WBC (Auto) 10/10/21 10/10/21 10/10/21 08:32 12:25 12:25 WBC 15.3 H RBC 3.11 L Hgb 8.6 L Hct 26.6 L RDW 17.4 H Plt Count 38 L Seg Neuts % (Manual) Lymphocytes % (Manual) Seg Neutrophils # Man Lymphocytes # (Manual) ABG pH ABG pO2 ABG HCO3 ABG O2 Saturation ABG Base Excess ABG Hemoglobin Sodium Potassium Chloride Carbon Dioxide BUN Creatinine Glucose POC Glucose Lactic Acid 3.40 H* 2.80 H* Calcium Magnesium AST Alkaline Phosphatase Total Creatine Kinase Troponin T Total Protein Albumin LDL Cholesterol Direct TSH Free T4 Urine WBC (Auto) 10/10/21 10/10/21 10/10/21 12:25 12:25 14:51 WBC RBC Hgb Hct RDW Plt Count Seg Neuts % (Manual) Lymphocytes % (Manual) Seg Neutrophils # Man Lymphocytes # (Manual) ABG pH ABG pO2 ABG HCO3 ABG O2 Saturation ABG Base Excess ABG Hemoglobin Sodium 131 L Potassium 2.1 L* D Chloride 97.2 L Carbon Dioxide 20 L BUN Creatinine 4.9 H Glucose 129 H POC Glucose Lactic Acid Calcium 7.4 L Magnesium 1.50 L AST 52 H Alkaline Phosphatase 169 H Total Creatine Kinase Troponin T Total Protein 5.8 L Albumin 2.0 L LDL Cholesterol Direct TSH 23.050 H Free T4 0.36 L Urine WBC (Auto) 10/10/21 10/10/21 10/10/21 18:12 19:35 23:50 WBC RBC Hgb Hct RDW Plt Count Seg Neuts % (Manual) Lymphocytes % (Manual) Seg Neutrophils # Man Lymphocytes # (Manual) ABG pH ABG pO2 ABG HCO3 ABG O2 Saturation ABG Base Excess ABG Hemoglobin Sodium 129 L Potassium 2.6 L* D Chloride 95.0 L Carbon Dioxide 20 L BUN Creatinine 5.0 H Glucose 233 H POC Glucose 181 H 194 H Lactic Acid Calcium 7.7 L Magnesium AST Alkaline Phosphatase Total Creatine Kinase Troponin T Total Protein Albumin LDL Cholesterol Direct TSH Free T4 Urine WBC (Auto) 10/11/21 10/11/21 10/11/21 03:26 05:25 06:59 WBC RBC Hgb Hct RDW Plt Count Seg Neuts % (Manual) Lymphocytes % (Manual) Seg Neutrophils # Man Lymphocytes # (Manual) ABG pH 7.480 H ABG pO2 111.6 H ABG HCO3 18.8 L ABG O2 Saturation ABG Base Excess -4.0 L ABG Hemoglobin 7.9 L Sodium 127 L Potassium 2.6 L* Chloride 93.7 L Carbon Dioxide 19 L BUN Creatinine 5.0 H Glucose 208 H POC Glucose 185 H Lactic Acid Calcium 7.6 L Magnesium AST Alkaline Phosphatase Total Creatine Kinase Troponin T Total Protein Albumin LDL Cholesterol Direct TSH Free T4 Urine WBC (Auto) 10/11/21 10/11/21 06:59 11:23 WBC 14.3 H RBC 2.75 L Hgb 7.6 L Hct 23.2 L RDW 17.4 H Plt Count 52 L Seg Neuts % (Manual) 99.0 H Lymphocytes % (Manual) 1.0 L Seg Neutrophils # Man 14.2 H Lymphocytes # (Manual) 0.1 L ABG pH ABG pO2 ABG HCO3 ABG O2 Saturation ABG Base Excess ABG Hemoglobin Sodium 126 L Potassium 3.0 L Chloride 92.7 L Carbon Dioxide 20 L BUN 21 H Creatinine 5.3 H Glucose 214 H POC Glucose Lactic Acid Calcium 7.7 L Magnesium AST Alkaline Phosphatase Total Creatine Kinase Troponin T Total Protein Albumin LDL Cholesterol Direct TSH Free T4 Urine WBC (Auto)
[2021-10-11 14:09] LABS: Hepatitis B Surface Antigen Non-Reactive (Negative); Hepatitis C Virus Antibody Reactive (NonReactive)
[2021-10-12] MEDS: INSULIN LISPRO 100 UNIT/ML SUB-Q SCH ×5 (00:16→23:41)
[2021-10-12 01:54] LABS: Calcium 8.2 mg/dL (8.4-10.2)
[2021-10-12] MEDS: POTASSIUM CHLORIDE 10 MEQ 10 MEQ/100 ML BAG IV SCH ×4 (03:05→08:26)
[2021-10-12 06:15] LABS: Hematocrit 22.8 % (35.5-45.6); Hemoglobin 7.7 gm/dl (11.8-15.2); Mean Corpuscular HGB Conc 34 % (32-34); Mean Corpuscular Volume 83 fl (84-94); Red Blood Count 2.73 M/mm3 (3.65-5.03); Red Cell Distribution Width 16.6 % (13.2-15.2)
[2021-10-12 06:23] LABS: Platelet Count 57 K/mm3 (140-440)
[2021-10-12 06:25] LABS: Calcium 8.2 mg/dL (8.4-10.2)
[2021-10-12] MEDS: HYDROCORTISONE SOD SUCC 100 MG/2 ML VIAL IV SCH ×3 (06:54→21:44)
[2021-10-12] MEDS: LEVOTHYROXINE 100 MCG INJ IV SCH (07:24)
[2021-10-12] MEDS ORDERED: POTASSIUM CHLORIDE ER 20 MEQ TAB PO ONE ×2 (07:35→15:54)
[2021-10-12] MEDS: MIDODRINE 10 MG TAB PO SCH ×3 (08:42→18:55)
[2021-10-12] MEDS: PANTOPRAZOLE 40 MG INJ IV SCH (09:24)
--- NOTE | 2021-10-12 11:12 | Progress Note ---
Assessment and Plan 61 y/o male with respiratory failure secondary to altered mental status secondary to hypoglycemia. 10/12/21: Follow up C. Diff. Per staff, daughter states patient has been having persistent diarrhea since discharge. This is likely the cause of persistent hypokalemia. Would ask renal to only clean and not pull any fluid with HD. Follow up speech. Stable for transfer to floor. 10/11/21: Off d10, sugars are much better. Will extubate. Would like to keep stress dose steroids and start to wean tomorrow. Electrolytes per renal. 1. State repeat CMP and CBC, follow up K replacement 2. Will start stress dose steroids given history of Hypothyroid and current hyoglycemia 3. q1 hour fsbs 4. Stop D5 and start d10 at 50mls/hr 5. Dropped peep to 6 6. No sedation 7. Once more awake will extubate, no matter what time of day 8. guarded prognosis. CCT 31 minutes. Subjective Date of service: 10/12/21 Principal diagnosis: ESRD Interval history: No acute events. STable on room air. Unable to pull volume with HD. Still having Diarrhea. C. diff pending. Objective Vital Signs - 12hr 10/11/21 10/12/21 10/12/21 23:30 00:00 00:30 Temperature 97.5 F L Pulse Rate 79 85 86 Pulse Rate [ 83 From Monitor] Respiratory 15 12 21 Rate Blood Pressure 91/64 94/71 94/72 O2 Sat by Pulse 95 95 94 Oximetry 10/12/21 10/12/21 10/12/21 01:00 01:30 02:00 Temperature Pulse Rate 82 81 80 Pulse Rate [ From Monitor] Respiratory 14 15 19 Rate Blood Pressure 107/77 100/69 102/68 O2 Sat by Pulse 96 98 97 Oximetry 10/12/21 10/12/21 10/12/21 02:30 03:00 03:30 Temperature Pulse Rate 78 80 81 Pulse Rate [ From Monitor] Respiratory 13 14 18 Rate Blood Pressure 94/65 105/66 98/65 O2 Sat by Pulse 97 98 96 Oximetry 10/12/21 10/12/21 10/12/21 04:00 04:30 05:00 Temperature 97.8 F Pulse Rate 79 79 79 Pulse Rate [ 81 From Monitor] Respiratory 14 16 15 Rate Blood Pressure 102/58 100/48 96/64 O2 Sat by Pulse 96 97 96 Oximetry 10/12/21 10/12/21 10/12/21 05:30 06:00 06:30 Temperature Pulse Rate 79 80 80 Pulse Rate [ From Monitor] Respiratory 14 14 14 Rate Blood Pressure 88/63 83/54 84/52 O2 Sat by Pulse 96 96 95 Oximetry 10/12/21 10/12/21 10/12/21 07:00 07:09 07:30 Temperature 97.4 F L Pulse Rate 79 86 Pulse Rate [ From Monitor] Respiratory 12 15 Rate Blood Pressure 90/59 98/61 O2 Sat by Pulse 96 96 Oximetry 10/12/21 10/12/21 10/12/21 07:59 08:00 08:30 Temperature Pulse Rate 80 80 78 Pulse Rate [ 79 From Monitor] Respiratory 13 13 Rate Blood Pressure 90/64 105/79 O2 Sat by Pulse 96 96 Oximetry 10/12/21 10/12/21 10/12/21 09:00 09:30 10:00 Temperature Pulse Rate 80 80 81 Pulse Rate [ From Monitor] Respiratory 13 12 11 L Rate Blood Pressure 95/76 95/76 95/67 O2 Sat by Pulse 96 95 95 Oximetry 10/12/21 10/12/21 10:30 11:00 Temperature Pulse Rate 79 77 Pulse Rate [ From Monitor] Respiratory 13 14 Rate Blood Pressure 88/68 99/71 O2 Sat by Pulse 96 96 Oximetry Constitutional: no acute distress Eyes: non-icteric ENT: other (orally intubated) Neck: supple Effort: normal Ascultation: Bilateral: clear Percussion: Bilateral: not dull Cardiovascular: regular rate and rhythm Gastrointestinal: normoactive bowel sounds, soft Extremities: no cyanosis, no edema Neurologic: unable to assess Psychiatric: mood appropriate CBC and BMP: 10/12/21 05:50 10/12/21 05:50 ABG, PT/INR, D-dimer: ABG ABG pH 7.480 pH Units (7.350-7.450) H 10/11/21 05:25 ABG pCO2 25.8 mm Hg 10/11/21 05:25 ABG pO2 111.6 mm Hg (80.0-90.0) H 10/11/21 05:25 ABG O2 Saturation 98.3 % (95.0-99.0) 10/11/21 05:25 Abnormal lab findings: Abnormal Labs 10/09/21 10/09/21 10/09/21 22:21 23:20 23:30 WBC 17.4 H RBC 3.32 L Hgb 9.2 L Hct 28.2 L MCV RDW 17.4 H Plt Count 45 L Seg Neuts % (Manual) 98.0 H Lymphocytes % (Manual) 1.0 L Seg Neutrophils # Man 17.1 H Lymphocytes # (Manual) 0.2 L ABG pH 7.301 L ABG pO2 162.1 H ABG HCO3 ABG O2 Saturation ABG Base Excess -2.3 L ABG Hemoglobin 10.2 L Sodium Potassium Chloride Carbon Dioxide BUN Creatinine Glucose POC Glucose 151 H Lactic Acid Calcium Phosphorus Magnesium AST Alkaline Phosphatase Total Creatine Kinase Troponin T Total Protein Albumin LDL Cholesterol Direct TSH Free T4 Urine WBC (Auto) Hepatitis C Antibody 10/09/21 10/09/21 10/10/21 23:30 23:30 01:30 WBC RBC Hgb Hct MCV RDW Plt Count Seg Neuts % (Manual) Lymphocytes % (Manual) Seg Neutrophils # Man Lymphocytes # (Manual) ABG pH ABG pO2 ABG HCO3 ABG O2 Saturation ABG Base Excess ABG Hemoglobin Sodium 132 L Potassium 1.7 L* Chloride 96.6 L Carbon Dioxide BUN Creatinine 4.8 H Glucose 70 L POC Glucose Lactic Acid 2.10 H* Calcium 8.0 L Phosphorus Magnesium AST 68 H Alkaline Phosphatase 161 H Total Creatine Kinase 644 H Troponin T 1.970 H* Total Protein Albumin 2.1 L LDL Cholesterol Direct 21 L TSH Free T4 Urine WBC (Auto) > 182.0 H Hepatitis C Antibody 10/10/21 10/10/21 10/10/21 02:59 04:15 05:40 WBC RBC Hgb Hct MCV RDW Plt Count Seg Neuts % (Manual) Lymphocytes % (Manual) Seg Neutrophils # Man Lymphocytes # (Manual) ABG pH 7.469 H ABG pO2 217.7 H ABG HCO3 ABG O2 Saturation 99.4 H ABG Base Excess ABG Hemoglobin 8.6 L Sodium Potassium Chloride Carbon Dioxide BUN Creatinine Glucose POC Glucose 16 L 58 L Lactic Acid Calcium Phosphorus Magnesium AST Alkaline Phosphatase Total Creatine Kinase Troponin T Total Protein Albumin LDL Cholesterol Direct TSH Free T4 Urine WBC (Auto) Hepatitis C Antibody 10/10/21 10/10/21 10/10/21 08:32 12:25 12:25 WBC 15.3 H RBC 3.11 L Hgb 8.6 L Hct 26.6 L MCV RDW 17.4 H Plt Count 38 L Seg Neuts % (Manual) Lymphocytes % (Manual) Seg Neutrophils # Man Lymphocytes # (Manual) ABG pH ABG pO2 ABG HCO3 ABG O2 Saturation ABG Base Excess ABG Hemoglobin Sodium Potassium Chloride Carbon Dioxide BUN Creatinine Glucose POC Glucose Lactic Acid 3.40 H* 2.80 H* Calcium Phosphorus Magnesium AST Alkaline Phosphatase Total Creatine Kinase Troponin T Total Protein Albumin LDL Cholesterol Direct TSH Free T4 Urine WBC (Auto) Hepatitis C Antibody 10/10/21 10/10/21 10/10/21 12:25 12:25 14:51 WBC RBC Hgb Hct MCV RDW Plt Count Seg Neuts % (Manual) Lymphocytes % (Manual) Seg Neutrophils # Man Lymphocytes # (Manual) ABG pH ABG pO2 ABG HCO3 ABG O2 Saturation ABG Base Excess ABG Hemoglobin Sodium 131 L Potassium 2.1 L* D Chloride 97.2 L Carbon Dioxide 20 L BUN Creatinine 4.9 H Glucose 129 H POC Glucose Lactic Acid Calcium 7.4 L Phosphorus Magnesium 1.50 L AST 52 H Alkaline Phosphatase 169 H Total Creatine Kinase Troponin T Total Protein 5.8 L Albumin 2.0 L LDL Cholesterol Direct TSH 23.050 H Free T4 0.36 L Urine WBC (Auto) Hepatitis C Antibody 10/10/21 10/10/21 10/10/21 18:12 19:35 23:50 WBC RBC Hgb Hct MCV RDW Plt Count Seg Neuts % (Manual) Lymphocytes % (Manual) Seg Neutrophils # Man Lymphocytes # (Manual) ABG pH ABG pO2 ABG HCO3 ABG O2 Saturation ABG Base Excess ABG Hemoglobin Sodium 129 L Potassium 2.6 L* D Chloride 95.0 L Carbon Dioxide 20 L BUN Creatinine 5.0 H Glucose 233 H POC Glucose 181 H 194 H Lactic Acid Calcium 7.7 L Phosphorus Magnesium AST Alkaline Phosphatase Total Creatine Kinase Troponin T Total Protein Albumin LDL Cholesterol Direct TSH Free T4 Urine WBC (Auto) Hepatitis C Antibody 10/11/21 10/11/21 10/11/21 03:26 05:25 06:59 WBC RBC Hgb Hct MCV RDW Plt Count Seg Neuts % (Manual) Lymphocytes % (Manual) Seg Neutrophils # Man Lymphocytes # (Manual) ABG pH 7.480 H ABG pO2 111.6 H ABG HCO3 18.8 L ABG O2 Saturation ABG Base Excess -4.0 L ABG Hemoglobin 7.9 L Sodium 127 L Potassium 2.6 L* Chloride 93.7 L Carbon Dioxide 19 L BUN Creatinine 5.0 H Glucose 208 H POC Glucose 185 H Lactic Acid Calcium 7.6 L Phosphorus Magnesium AST Alkaline Phosphatase Total Creatine Kinase Troponin T Total Protein Albumin LDL Cholesterol Direct TSH Free T4 Urine WBC (Auto) Hepatitis C Antibody 10/11/21 10/11/21 10/11/21 06:59 11:23 11:23 WBC 14.3 H RBC 2.75 L Hgb 7.6 L Hct 23.2 L MCV RDW 17.4 H Plt Count 52 L Seg Neuts % (Manual) 99.0 H Lymphocytes % (Manual) 1.0 L Seg Neutrophils # Man 14.2 H Lymphocytes # (Manual) 0.1 L ABG pH ABG pO2 ABG HCO3 ABG O2 Saturation ABG Base Excess ABG Hemoglobin Sodium 126 L Potassium 3.0 L Chloride 92.7 L Carbon Dioxide 20 L BUN 21 H Creatinine 5.3 H Glucose 214 H POC Glucose Lactic Acid Calcium 7.7 L Phosphorus Magnesium AST Alkaline Phosphatase Total Creatine Kinase Troponin T Total Protein Albumin LDL Cholesterol Direct TSH Free T4 Urine WBC (Auto) Hepatitis C Antibody Reactive A 10/11/21 10/11/21 10/11/21 17:03 23:08 23:53 WBC RBC Hgb Hct MCV RDW Plt Count Seg Neuts % (Manual) Lymphocytes % (Manual) Seg Neutrophils # Man Lymphocytes # (Manual) ABG pH ABG pO2 ABG HCO3 ABG O2 Saturation ABG Base Excess ABG Hemoglobin Sodium Potassium 3.0 L Chloride Carbon Dioxide BUN Creatinine 3.5 H Glucose 207 H POC Glucose 220 H 201 H Lactic Acid Calcium 8.2 L Phosphorus Magnesium AST Alkaline Phosphatase Total Creatine Kinase Troponin T Total Protein Albumin LDL Cholesterol Direct TSH Free T4 Urine WBC (Auto) Hepatitis C Antibody 10/12/21 10/12/21 10/12/21 05:33 05:50 05:50 WBC 16.4 H RBC 2.73 L Hgb 7.7 L Hct 22.8 L MCV 83 L RDW 16.6 H Plt Count 57 L Seg Neuts % (Manual) Lymphocytes % (Manual) Seg Neutrophils # Man Lymphocytes # (Manual) ABG pH ABG pO2 ABG HCO3 ABG O2 Saturation ABG Base Excess ABG Hemoglobin Sodium 135 L Potassium 2.9 L* Chloride Carbon Dioxide BUN Creatinine 3.9 H Glucose 166 H POC Glucose 163 H Lactic Acid Calcium 8.2 L Phosphorus 2.20 L D Magnesium AST Alkaline Phosphatase Total Creatine Kinase Troponin T Total Protein Albumin LDL Cholesterol Direct TSH Free T4 Urine WBC (Auto) Hepatitis C Antibody
--- NOTE | 2021-10-12 11:55 | Progress Note ---
<KASSY CORNEJO - Last Filed: 10/12/21 21:04> Assessment and Plan Assessment and plan: This is a 61-year-old male with known past medical history of DM and ESRD on HD admitted for AMS and acute hypoxic respiratory failure requiring ventilatory support Hospital Course to Date: 10/11: More awake and alert this am, following simple commands. Plan for PSV trial for possible extubation today. BP remains soft, MAP above 65. Continue midodrine TID and IV steroids. Remains hypokalemic, K repleted. Possible HD today per nephro. 10/12: S/p extubation, stable on RA this am. BP remains bordeline, continue PO midodrine TID. With persistent hypokalemia, most likely secondary to frequent lo ose stools/diarrhea. Per staffs patient with diarrhea since admit, C. diff PCR pending. Patient is stable for transfer to the floor. PT/OT ordered. Assessment and plan #Acute Respiratory Failure with Hypoxia - altered, intubated for airway protection on admission - ABG: pH 7.301, PCO2 50.4, PO2 162.1 bicarb 24.3 O2 sat 98.9 Chest x-ray: no acute abnl identified does not appear to be primary pulmonary process - 10/11 s/p extubation, now stable on RA - CCM consulted, appreciate recommendations - Aspiration precaution HOB above 30 - Continue SPO2 monitoring for SPO2 goal above 92% - PRN O2 supplementation as needed #Hypotension 2/2 #Myxedema Coma - Presented with AMS, bl le edema, hypotensive, hypothermic, hypoglycemia - etiology: possibly due to hypothyroidism vs adrenal insuffciency - TSH/T4 noted, correlate with hypothyroidism - Continue Hydrocortisone 100 mg IV q8hr ordered and Levothyroxine 150 mcg IV o rdered - BP remains borderline this am, MAP above 65 - Continue Midodrine TID - Continue blood pressure monitor per protocol - Maintain MAP above 65 #Acute Metabolic Encephalopathy - Presented AMS, bl le edema, hypotensive, hypothermic, hypoglycemia - Ct head with no acute intracranial abnormality. - possibly due to hypothyroidism vs adrenal insuffciency vs infectious process - TSH/T4 noted, correlate with hypothyroidism - Hypoglycemia resolved - On IV Hydrocortisone and Levothyroxine - Continue IV Abx - Mentation improved this am, awake and following simple commands - Avoid benzodiazepine to reduce the possibility of delirium - Maintenance of sleep-wake cycle #Severe sepsis POA #Urinary tract infection - Presented AMS, bl le edema, hypotensive, hypothermic, hypoglycemia - Elevated wbc ct, UA wbc noted - levaquin IV initiated for UTI - WBcs downtrending - Continue to F/U on B.cult - Daily CBC monitor - Consider ID consult if febrile or/and if leukocytosis worsen #ESRD on HD #Hypokalemia #Uremia - Nephrology on consult, appreciated recommendation - correction with hemodialysis - management of HD per nephrology - Persistent hypokalemia noted this am: 40 MEQ K administered. Will need to take precaution with replacement given renal fx. - Strict intake and output - oliguric, D/C merrill Bladder scan and straight as needed per protocol - Avoid nephrotoxic medications; Renally dose medications - Monitor and replace electrolytes as needed #GERD - GI Ppx with pantoprazole 40 mg IV daily #Thrombocytopenia - Presented with low plt - Plt improved this am - no s/s of any active bleeding - H&H stable - Continue to trend CBC #Hypertension - hypotensive at the moment - Hold home antihypertensives therapy #Hyperglycemia - Presenyed with hypoglycemia s/p D10w gtt - on IV steroids - Continue BG check Q6hrs, low dose SSI Q6hrs - Avoid hypoglycemia - While critically ill target blood glucose of 140-180 #GI/DVT Prophylaxis - PPI- Protonix - SCDs to bilateral lower extremities while in bed The high probability of a clinically significant, sudden or life threatening deterioration of the [multiple] system(s) required my full and direct attention, intervention and personal management. The aggregate critical care time was [60] minutes. This time is in addition to time spent performing reported procedures but includes the following: [x] Data Review and interpretation [x] Patient assessment and monitoring of vital signs [x] Documentation [x] Medication orders and management Disposition Plan: Transfer to the floor Total Time Spent with Patient (Minutes): 60 History Interval history: Patient seen and examined at the bedside. Awake and following simple commands. S/p extubation, stable on RA, BP remains borderline but MAP above 65. Per RN, patient with frequent diarrhea since admit. Per patient's daughter, patient had frequent loose stools/diarrhea since he was discharge from previous admission Hospitalist Physical - Constitutional Vitals: Temp Pulse Resp BP Pulse Ox 97.4 F L 77 14 99/71 96 10/12/21 07:09 10/12/21 11:00 10/12/21 11:00 10/12/21 11:00 10/12/21 11:00 General appearance: Present: no acute distress, well-nourished, obese, other - EENT Eyes: Present: PERRL ENT: hearing intact - Neck Neck: Present: normal ROM - Respiratory Respiratory effort: normal Respiratory: bilateral: diminished - Cardiovascular Rhythm: regular Heart Sounds: Present: S1 & S2 - Extremities Extremities: no ischemia, pulses intact, pulses symmetrical Extremity abnormal: edema - Peripheral Assessment Generalized Edema Type: Pitting Edema Degree: 2+ Capillary Refill: < 3 seconds Skin Temperature: Warm Peripheral Pulses: within normal limits - Abdominal General gastrointestinal: soft, non-distended, normal bowel sounds - Integumentary Integumentary: Present: warm, dry - Psychiatric Psychiatric: appropriate mood/affect, cooperative - Neurologic Neurologic: moves all extremities (Generalized weakness) - Allied Health Allied health notes reviewed: nursing, case management HEART Score - HEART Score Troponin: Troponin T 1.970 ng/mL (0.00-0.029) H* 10/09/21 23:30 Results - Labs CBC & Chem 7: 10/12/21 05:50 10/12/21 14:42 Labs: Laboratory Last Values WBC 16.4 K/mm3 (4.5-11.0) H 10/12/21 05:50 RBC 2.73 M/mm3 (3.65-5.03) L 10/12/21 05:50 Hgb 7.7 gm/dl (11.8-15.2) L 10/12/21 05:50 Hct 22.8 % (35.5-45.6) L 10/12/21 05:50 MCV 83 fl (84-94) L 10/12/21 05:50 MCH 28 pg (28-32) 10/12/21 05:50 MCHC 34 % (32-34) 10/12/21 05:50 RDW 16.6 % (13.2-15.2) H 10/12/21 05:50 Plt Count 57 K/mm3 (140-440) L 10/12/21 05:50 Add Manual Diff Complete 10/11/21 06:59 Total Counted 100 10/11/21 06:59 Seg Neutrophils % Clinical Lab Technologist 10/11/21 06:59 Seg Neuts % (Manual) 99.0 % (40.0-70.0) H 10/11/21 06:59 Band Neutrophils % 0 % 10/11/21 06:59 Lymphocytes % (Manual) 1.0 % (13.4-35.0) L 10/11/21 06:59 Reactive Lymphs % (Man) 0 % 10/11/21 06:59 Monocytes % (Manual) 0 % (0.0-7.3) 10/11/21 06:59 Eosinophils % (Manual) 0 % (0.0-4.3) 10/11/21 06:59 Basophils % (Manual) 0 % (0.0-1.8) 10/11/21 06:59 Metamyelocytes % 0 % 10/11/21 06:59 Myelocytes % 0 % 10/11/21 06:59 Promyelocytes % 0 % 10/11/21 06:59 Blast Cells % 0 % 10/11/21 06:59 Nucleated RBC % Not Reportable 10/11/21 06:59 Seg Neutrophils # Man 14.2 K/mm3 (1.8-7.7) H 10/11/21 06:59 Band Neutrophils # 0.0 K/mm3 10/11/21 06:59 Lymphocytes # (Manual) 0.1 K/mm3 (1.2-5.4) L 10/11/21 06:59 Abs React Lymphs (Man) 0.0 K/mm3 10/11/21 06:59 Monocytes # (Manual) 0.0 K/mm3 (0.0-0.8) 10/11/21 06:59 Eosinophils # (Manual) 0.0 K/mm3 (0.0-0.4) 10/11/21 06:59 Basophils # (Manual) 0.0 K/mm3 (0.0-0.1) 10/11/21 06:59 Metamyelocytes # 0.0 K/mm3 10/11/21 06:59 Myelocytes # 0.0 K/mm3 10/11/21 06:59 Promyelocytes # 0.0 K/mm3 10/11/21 06:59 Blast Cells # 0.0 K/mm3 10/11/21 06:59 WBC Morphology Not Reportable 10/11/21 06:59 Hypersegmented Neuts Not Reportable 10/11/21 06:59 Hyposegmented Neuts Not Reportable 10/11/21 06:59 Hypogranular Neuts Not Reportable 10/11/21 06:59 Smudge Cells Not Reportable 10/11/21 06:59 Toxic Granulation Not Reportable 10/11/21 06:59 Toxic Vacuolation Not Reportable 10/11/21 06:59 Dohle Bodies Not Reportable 10/11/21 06:59 Pelger-Huet Anomaly Not Reportable 10/11/21 06:59 Placido Rods Not Reportable 10/11/21 06:59 Platelet Estimate Consistent w auto 10/11/21 06:59 Clumped Platelets Not Reportable 10/11/21 06:59 Plt Clumps, EDTA Not Reportable 10/11/21 06:59 Large Platelets Not Reportable 10/11/21 06:59 Giant Platelets Not Reportable 10/11/21 06:59 Platelet Satelliting Not Reportable 10/11/21 06:59 Plt Morphology Comment Not Reportable 10/11/21 06:59 RBC Morphology Not Reportable 10/11/21 06:59 Dimorphic RBCs Not Reportable 10/11/21 06:59 Polychromasia Not Reportable 10/11/21 06:59 Hypochromasia 1+ 10/11/21 06:59 Poikilocytosis Not Reportable 10/11/21 06:59 Anisocytosis 1+ 10/11/21 06:59 Microcytosis Not Reportable 10/11/21 06:59 Macrocytosis Not Reportable 10/11/21 06:59 Spherocytes Not Reportable 10/11/21 06:59 Pappenheimer Bodies Not Reportable 10/11/21 06:59 Sickle Cells Not Reportable 10/11/21 06:59 Target Cells 1+ 10/11/21 06:59 Tear Drop Cells Not Reportable 10/11/21 06:59 Ovalocytes Not Reportable 10/11/21 06:59 Helmet Cells Not Reportable 10/11/21 06:59 [place]-Manning Bodies Not Reportable 10/11/21 06:59 Gadsden Rings Not Reportable 10/11/21 06:59 Hussain Cells Not Reportable 10/11/21 06:59 Bite Cells Not Reportable 10/11/21 06:59 Crenated Cell Not Reportable 10/11/21 06:59 Elliptocytes Not Reportable 10/11/21 06:59 Acanthocytes (Spur) Not Reportable 10/11/21 06:59 Rouleaux Not Reportable 10/11/21 06:59 Hemoglobin C Crystals Not Reportable 10/11/21 06:59 Schistocytes Not Reportable 10/11/21 06:59 Malaria parasites Not Reportable 10/11/21 06:59 Ezequiel Bodies Not Reportable 10/11/21 06:59 Hem Pathologist Commnt No 10/11/21 06:59 ABG pH 7.480 pH Units (7.350-7.450) H 10/11/21 05:25 ABG pCO2 25.8 mm Hg 10/11/21 05:25 ABG pO2 111.6 mm Hg (80.0-90.0) H 10/11/21 05:25 ABG HCO3 18.8 mmol/L (20.0-26.0) L 10/11/21 05:25 ABG O2 Saturation 98.3 % (95.0-99.0) 10/11/21 05:25 ABG O2 Content 10.9 (0.0-44) 10/11/21 05:25 ABG Base Excess -4.0 mmol/L (-2.0-3.0) L 10/11/21 05:25 ABG Hemoglobin 7.9 gm/dl (14.0-18.0) L 10/11/21 05:25 ABG Carboxyhemoglobin 1.3 % (0.0-5.0) 10/11/21 05:25 ABG Methemoglobin 0.4 % (0.0-1.5) 10/11/21 05:25 Oxyhemoglobin 96.7 % (95.0-99.0) 10/11/21 05:25 FiO2 30 % 10/11/21 05:25 Sodium 135 mmol/L (137-145) L 10/12/21 05:50 Potassium 2.9 mmol/L (3.6-5.0) L* 10/12/21 05:50 Chloride 99.3 mmol/L (98-107) 10/12/21 05:50 Carbon Dioxide 22 mmol/L (22-30) 10/12/21 05:50 Anion Gap 17 mmol/L 10/12/21 05:50 BUN 16 mg/dL (9-20) 10/12/21 05:50 Creatinine 3.9 mg/dL (0.8-1.3) H 10/12/21 05:50 Estimated GFR 19 ml/min 10/12/21 05:50 BUN/Creatinine Ratio 4 % 10/12/21 05:50 Glucose 166 mg/dL (75-100) H 10/12/21 05:50 POC Glucose 163 mg/dL (70-105) H 10/12/21 05:33 Lactic Acid 1.60 mmol/L (0.7-2.0) 10/11/21 11:23 Calcium 8.2 mg/dL (8.4-10.2) L 10/12/21 05:50 Phosphorus 2.20 mg/dL (2.5-4.5) L D 10/12/21 05:50 Magnesium 1.80 mg/dL (1.7-2.3) 10/12/21 05:50 Total Bilirubin 1.10 mg/dL (0.1-1.2) 10/10/21 12:25 AST 52 units/L (5-40) H 10/10/21 12:25 ALT 12 units/L (7-56) 10/10/21 12:25 Alkaline Phosphatase 169 units/L (35-129) H 10/10/21 12:25 Total Creatine Kinase 644 units/L (55-170) H 10/09/21 23:30 Troponin T 1.970 ng/mL (0.00-0.029) H* 10/09/21 23:30 Total Protein 5.8 g/dL (6.3-8.2) L 10/10/21 12:25 Albumin 2.0 g/dL (3.9-5) L 10/10/21 12:25 Albumin/Globulin Ratio 0.5 % 10/10/21 12:25 Triglycerides 68 mg/dL (2-149) 10/09/21 23:30 Cholesterol 81 mg/dL (50-199) 10/09/21 23:30 LDL Cholesterol Direct 21 mg/dL (50-130) L 10/09/21 23:30 HDL Cholesterol 44 mg/dL (40-59) 10/09/21 23:30 Cholesterol/HDL Ratio 1.84 % 10/09/21 23:30 TSH 23.050 mlU/mL (0.270-4.200) H 10/10/21 14:51 Free T4 0.36 ng/dL (0.76-1.46) L 10/10/21 14:51 Urine Color Yellow (Yellow) 10/10/21 01:30 Urine Turbidity Turbid (Clear) 10/10/21 01:30 Urine pH 6.0 (5.0-7.0) 10/10/21 01:30 Ur Specific Amalia 1.018 (1.003-1.030) 10/10/21 01:30 Urine Protein 100 mg/dl mg/dL (Negative) 10/10/21 01:30 Urine Glucose (UA) Neg mg/dL (Negative) 10/10/21 01:30 Urine Ketones Tr mg/dL (Negative) 10/10/21 01:30 Urine Blood Mod (Negative) 10/10/21 01:30 Urine Nitrite Neg (Negative) 10/10/21 01:30 Urine Bilirubin Neg (Negative) 10/10/21 01:30 Urine Urobilinogen < 2.0 mg/dL (<2.0) 10/10/21 01:30 Ur Leukocyte Esterase Mod (Negative) 10/10/21 01:30 Urine WBC (Auto) > 182.0 /HPF (0.0-6.0) H 10/10/21 01:30 Urine RBC (Auto) 70.0 /HPF (0.0-6.0) 10/10/21 01:30 Urine Bacteria (Auto) 1+ /HPF (Negative) 10/10/21 01:30 Urine WBC Clumps 3+ /HPF 10/10/21 01:30 Hepatitis A IgM Ab Non-reactive (NonReactive) 10/11/21 11:23 Hep Bs Antigen Non-reactive (Negative) 10/11/21 11:23 Hep B Core IgM Ab Non-reactive (NonReactive) 10/11/21 11:23 Hepatitis C Antibody Reactive (NonReactive) A 10/11/21 11:23 Microbiology: Microbiology 10/09/21 23:20 Tracheal Aspirate Sputum Culture - Preliminary Enterococcus Species Active Medications - Current Medications Current Medications: Generic Name Dose Route Start Last Admin Trade Name Freq PRN Reason Stop Dose Admin Acetaminophen 650 mg 10/10/21 01:37 Acetaminophen 325 Mg Tab PO Q4H PRN Pain MILD(1-3)/Fever >100.5/SEALS Dextrose 50 ml 10/10/21 01:37 10/10/21 06:39 Dextrose 50% In Water (25gm) 50 Ml Syringe IV 50 ml Q30MIN PRN Administration Hypoglycemia Protocol Hydrocortisone Sodium Succinate 100 mg 10/10/21 10:30 10/12/21 06:54 Hydrocortisone Sod Succ 100 Mg/2 Ml Vial IV 100 mg Q8HR CHAKA Administration Insulin Human Lispro 0 unit 10/10/21 06:00 10/12/21 06:55 Insulin Lispro 100 Unit/Ml SUB-Q 1 unit Q6HR CHAKA Administration Protocol Levothyroxine Sodium 150 mcg 10/11/21 06:00 10/12/21 07:24 Levothyroxine 100 Mcg Inj IV 150 mcg DAILY@0600 CHAKA Administration Midodrine 10 mg 10/10/21 08:00 10/12/21 08:42 Midodrine 10 Mg Tab PO 10 mg TID@0800,1200,1600 CHAKA Administration Ondansetron HCl 4 mg 10/10/21 01:37 Ondansetron 4 Mg/2 Ml Inj IV Q8H PRN Nausea And Vomiting Pantoprazole Sodium 40 mg 10/10/21 10:00 10/12/21 09:24 Pantoprazole 40 Mg Inj IV 40 mg QDAY CHAKA Administration Sodium Chloride 10 ml 10/10/21 10:00 10/12/21 09:24 Sodium Chloride 0.9% 10 Ml Flush Syringe IV 10 ml BID CHAKA Administration Sodium Chloride 10 ml 10/10/21 01:37 Sodium Chloride 0.9% 10 Ml Flush Syringe IV PRN PRN LINE FLUSH Nutrition/Malnutrition Assess - Dietary Evaluation Nutrition/Malnutrition Findings: Nutrition Notes Start: 10/11/21 16:12 Freq: Status: Active Protocol: Document 10/11/21 16:12 ADITYA (Rec: 10/11/21 16:42 ADITYA [id number]) Nutrition Notes Need for Assessment generated from: MD Order Initial or Follow up Assessment Current Diagnosis CKD (stage V CKD),Diabetes, Sepsis,Hypertension, Respiratory Failure, Hyperlipidemia Other Pertinent Diagnosis ESRD+HD, Hypoglycemia, GERD, UTI, Metabolic Encephalopathy, Uremia,... Current Diet NPO, TF-Nepro w/CARBSTEADY @ 50 ml/hr (since D 10/10). Labs/Tests 10/11: Na 126, K 3.0, Cl 92.7, CO2 20, BUN 21, Crea 5.3, Glu 214, Ca 7.7. Pertinent Medications 10/11: Humalog 2U, Levothyroxine, others nutritionally unremarkable. Height 6 ft Weight 99.79 kg [place] Body Weight (kg) 80.90 BMI 29.8 Weight change and time frame None provided at admission. Weight Status Overweight Subjective/Other Information RD consult for write/manage TF . Pt currently on NPO. I will prescribe TF to provide Pt with energy protein needs during LOS. Pt on Mechanical Ventilation, O2 saturation @ 100%, according to Physical Assessmenty Histyory notes. Pt has missing teeth, according to Physical Assessmenty Histyory notes. Plans for Pt being extubated when more awake and stop sedation, according to Progress notes. Percent of energy/protein needs met: Pt currently on NPO. Prescribed TF-Nepro w/ CARBSTEADY @ 50 ml/hr provides for energy/protein needs (2, 180 Kcal/98 g) during LOS, 98% Kcal; 82% AA. Burn Absent Trauma Absent GI Symptoms None Food Allergy No Skin Integrity/Comment Assessment WNL. Current % PO Other Minimum of two criteria No Fluid Accumulation N/A Reduced Steward/Stewardess Lounge Strength N/A (non-severe) Protein-Calorie Malnutrition N\A #1 Nutrition Diagnosis Inadequate oral intake Etiology Pt on Mechanical Ventilation. As Evidenced by Signs and Symptoms Pt currently on NPO. Is patient on ventilator? Yes Is Patient Ambulatory and/or Out of Bed No REE-([facility]-confined to bed) 2857.731 Calculation Used for Recommendations Kcal/kg Additional Notes Protein: >1.2 g/Kg ABW; >120 g /day. Fluids: 1 ml/Kcal, or as per MD. Nutrition Intervention Nutrition Support: Start TF-Nepro w/CARBSTEADY @ 50 ml/hr. Flush: 220 ml water Q 4 hr, or as per MD. Kcal 2,180 Protein (gm) 98 Carbohydrates (gm) 195 Fat (gm) 116 Fluid (mL) 880 Fiber (gm) 15 % RDI: 98% Kcal; 82% AA. Goal #1 Provide at least 75% of energy /protein needs through Enteral Feeding during LOS. Follow-Up By: 10/13/21 Additional Comments Continue monitoring TF tolerance and BM. <GEREMIAS LANGE León - Last Filed: 10/13/21 07:12> Assessment and Plan Assessment and plan: I saw and evaluated the patient. I agree with the findings and the plan of care as documented in the Nurse Practitioner's~note, with the following corrections and additions. Follow C-Diff Compliance with medications at home is stressed in a 15 mins counselling. Case management should review for safety at home with his overall medical condition prior to discharge Outpatient Gunnery/Ordnance Officer highly recommended on discharge. Hospitalist Physical - Constitutional Vitals: Temp Pulse Resp BP Pulse Ox 98.0 F 85 18 99/77 95 10/12/21 21:54 10/13/21 01:12 10/12/21 21:54 10/12/21 21:54 10/12/21 22:00 HEART Score - HEART Score Troponin: Troponin T 1.970 ng/mL (0.00-0.029) H* 10/09/21 23:30 Results - Labs CBC & Chem 7: 10/13/21 05:17 10/13/21 05:17 Labs: Laboratory Last Values WBC 17.5 K/mm3 (4.5-11.0) H 10/13/21 05:17 RBC 3.18 M/mm3 (3.65-5.03) L 10/13/21 05:17 Hgb 8.7 gm/dl (11.8-15.2) L 10/13/21 05:17 Hct 26.8 % (35.5-45.6) L 10/13/21 05:17 MCV 84 fl (84-94) 10/13/21 05:17 MCH 27 pg (28-32) L 10/13/21 05:17 MCHC 32 % (32-34) 10/13/21 05:17 RDW 17.6 % (13.2-15.2) H 10/13/21 05:17 Plt Count 64 K/mm3 (140-440) L 10/13/21 05:17 Add Manual Diff Complete 10/11/21 06:59 Total Counted 100 10/11/21 06:59 Seg Neutrophils % Clinical Lab Technologist 10/13/21 05:17 Seg Neuts % (Manual) 99.0 % (40.0-70.0) H 10/11/21 06:59 Band Neutrophils % 0 % 10/11/21 06:59 Lymphocytes % (Manual) 1.0 % (13.4-35.0) L 10/11/21 06:59 Reactive Lymphs % (Man) 0 % 10/11/21 06:59 Monocytes % (Manual) 0 % (0.0-7.3) 10/11/21 06:59 Eosinophils % (Manual) 0 % (0.0-4.3) 10/11/21 06:59 Basophils % (Manual) 0 % (0.0-1.8) 10/11/21 06:59 Metamyelocytes % 0 % 10/11/21 06:59 Myelocytes % 0 % 10/11/21 06:59 Promyelocytes % 0 % 10/11/21 06:59 Blast Cells % 0 % 10/11/21 06:59 Nucleated RBC % Not Reportable 10/11/21 06:59 Seg Neutrophils # Man 14.2 K/mm3 (1.8-7.7) H 10/11/21 06:59 Band Neutrophils # 0.0 K/mm3 10/11/21 06:59 Lymphocytes # (Manual) 0.1 K/mm3 (1.2-5.4) L 10/11/21 06:59 Abs React Lymphs (Man) 0.0 K/mm3 10/11/21 06:59 Monocytes # (Manual) 0.0 K/mm3 (0.0-0.8) 10/11/21 06:59 Eosinophils # (Manual) 0.0 K/mm3 (0.0-0.4) 10/11/21 06:59 Basophils # (Manual) 0.0 K/mm3 (0.0-0.1) 10/11/21 06:59 Metamyelocytes # 0.0 K/mm3 10/11/21 06:59 Myelocytes # 0.0 K/mm3 10/11/21 06:59 Promyelocytes # 0.0 K/mm3 10/11/21 06:59 Blast Cells # 0.0 K/mm3 10/11/21 06:59 WBC Morphology Not Reportable 10/11/21 06:59 Hypersegmented Neuts Not Reportable 10/11/21 06:59 Hyposegmented Neuts Not Reportable 10/11/21 06:59 Hypogranular Neuts Not Reportable 10/11/21 06:59 Smudge Cells Not Reportable 10/11/21 06:59 Toxic Granulation Not Reportable 10/11/21 06:59 Toxic Vacuolation Not Reportable 10/11/21 06:59 Dohle Bodies Not Reportable 10/11/21 06:59 Pelger-Huet Anomaly Not Reportable 10/11/21 06:59 Placido Rods Not Reportable 10/11/21 06:59 Platelet Estimate Consistent w auto 10/11/21 06:59 Clumped Platelets Not Reportable 10/11/21 06:59 Plt Clumps, EDTA Not Reportable 10/11/21 06:59 Large Platelets Not Reportable 10/11/21 06:59 Giant Platelets Not Reportable 10/11/21 06:59 Platelet Satelliting Not Reportable 10/11/21 06:59 Plt Morphology Comment Not Reportable 10/11/21 06:59 RBC Morphology Not Reportable 10/11/21 06:59 Dimorphic RBCs Not Reportable 10/11/21 06:59 Polychromasia Not Reportable 10/11/21 06:59 Hypochromasia 1+ 10/11/21 06:59 Poikilocytosis Not Reportable 10/11/21 06:59 Anisocytosis 1+ 10/11/21 06:59 Microcytosis Not Reportable 10/11/21 06:59 Macrocytosis Not Reportable 10/11/21 06:59 Spherocytes Not Reportable 10/11/21 06:59 Pappenheimer Bodies Not Reportable 10/11/21 06:59 Sickle Cells Not Reportable 10/11/21 06:59 Target Cells 1+ 10/11/21 06:59 Tear Drop Cells Not Reportable 10/11/21 06:59 Ovalocytes Not Reportable 10/11/21 06:59 Helmet Cells Not Reportable 10/11/21 06:59 Kent-Manning Bodies Not Reportable 10/11/21 06:59 Gadsden Rings Not Reportable 10/11/21 06:59 Laotto Cells Not Reportable 10/11/21 06:59 Bite Cells Not Reportable 10/11/21 06:59 Crenated Cell Not Reportable 10/11/21 06:59 Elliptocytes Not Reportable 10/11/21 06:59 Acanthocytes (Spur) Not Reportable 10/11/21 06:59 Rouleaux Not Reportable 10/11/21 06:59 Hemoglobin C Crystals Not Reportable 10/11/21 06:59 Schistocytes Not Reportable 10/11/21 06:59 Malaria parasites Not Reportable 10/11/21 06:59 Ezequiel Bodies Not Reportable 10/11/21 06:59 Hem Pathologist Commnt No 10/11/21 06:59 ABG pH 7.480 pH Units (7.350-7.450) H 10/11/21 05:25 ABG pCO2 25.8 mm Hg 10/11/21 05:25 ABG pO2 111.6 mm Hg (80.0-90.0) H 10/11/21 05:25 ABG HCO3 18.8 mmol/L (20.0-26.0) L 10/11/21 05:25 ABG O2 Saturation 98.3 % (95.0-99.0) 10/11/21 05:25 ABG O2 Content 10.9 (0.0-44) 10/11/21 05:25 ABG Base Excess -4.0 mmol/L (-2.0-3.0) L 10/11/21 05:25 ABG Hemoglobin 7.9 gm/dl (14.0-18.0) L 10/11/21 05:25 ABG Carboxyhemoglobin 1.3 % (0.0-5.0) 10/11/21 05:25 ABG Methemoglobin 0.4 % (0.0-1.5) 10/11/21 05:25 Oxyhemoglobin 96.7 % (95.0-99.0) 10/11/21 05:25 FiO2 30 % 10/11/21 05:25 Sodium 135 mmol/L (137-145) L 10/13/21 05:17 Potassium 3.2 mmol/L (3.6-5.0) L 10/13/21 05:17 Chloride 99.1 mmol/L (98-107) 10/13/21 05:17 Carbon Dioxide 20 mmol/L (22-30) L 10/13/21 05:17 Anion Gap 19 mmol/L 10/13/21 05:17 BUN 26 mg/dL (9-20) H 10/13/21 05:17 Creatinine 4.6 mg/dL (0.8-1.3) H 10/13/21 05:17 Estimated GFR 16 ml/min 10/13/21 05:17 BUN/Creatinine Ratio 6 % 10/13/21 05:17 Glucose 244 mg/dL (75-100) H 10/13/21 05:17 POC Glucose 226 mg/dL (70-105) H 10/13/21 06:01 Lactic Acid 1.60 mmol/L (0.7-2.0) 10/11/21 11:23 Calcium 8.7 mg/dL (8.4-10.2) 10/13/21 05:17 Phosphorus 2.20 mg/dL (2.5-4.5) L D 10/12/21 05:50 Magnesium 1.80 mg/dL (1.7-2.3) 10/12/21 05:50 Total Bilirubin 1.20 mg/dL (0.1-1.2) 10/13/21 05:17 AST 32 units/L (5-40) 10/13/21 05:17 ALT 11 units/L (7-56) 10/13/21 05:17 Alkaline Phosphatase 167 units/L (35-129) H 10/13/21 05:17 Total Creatine Kinase 644 units/L (55-170) H 10/09/21 23:30 Troponin T 1.970 ng/mL (0.00-0.029) H* 10/09/21 23:30 Total Protein 7.5 g/dL (6.3-8.2) D 10/13/21 05:17 Albumin 2.4 g/dL (3.9-5) L 10/13/21 05:17 Albumin/Globulin Ratio 0.5 % 10/13/21 05:17 Triglycerides 68 mg/dL (2-149) 10/09/21 23:30 Cholesterol 81 mg/dL (50-199) 10/09/21 23:30 LDL Cholesterol Direct 21 mg/dL (50-130) L 10/09/21 23:30 HDL Cholesterol 44 mg/dL (40-59) 10/09/21 23:30 Cholesterol/HDL Ratio 1.84 % 10/09/21 23:30 TSH 23.050 mlU/mL (0.270-4.200) H 10/10/21 14:51 Free T4 0.36 ng/dL (0.76-1.46) L 10/10/21 14:51 Urine Color Yellow (Yellow) 10/10/21 01:30 Urine Turbidity Turbid (Clear) 10/10/21 01:30 Urine pH 6.0 (5.0-7.0) 10/10/21 01:30 Ur Specific [place] 1.018 (1.003-1.030) 10/10/21 01:30 Urine Protein 100 mg/dl mg/dL (Negative) 10/10/21 01:30 Urine Glucose (UA) Neg mg/dL (Negative) 10/10/21 01:30 Urine Ketones Tr mg/dL (Negative) 10/10/21 01:30 Urine Blood Mod (Negative) 10/10/21 01:30 Urine Nitrite Neg (Negative) 10/10/21 01:30 Urine Bilirubin Neg (Negative) 10/10/21 01:30 Urine Urobilinogen < 2.0 mg/dL (<2.0) 10/10/21 01:30 Ur Leukocyte Esterase Mod (Negative) 10/10/21 01:30 Urine WBC (Auto) > 182.0 /HPF (0.0-6.0) H 10/10/21 01:30 Urine RBC (Auto) 70.0 /HPF (0.0-6.0) 10/10/21 01:30 Urine Bacteria (Auto) 1+ /HPF (Negative) 10/10/21 01:30 Urine WBC Clumps 3+ /HPF 10/10/21 01:30 Hepatitis A IgM Ab Non-reactive (NonReactive) 10/11/21 11:23 Hep Bs Antigen Non-reactive (Negative) 10/11/21 11:23 Hep B Core IgM Ab Non-reactive (NonReactive) 10/11/21 11:23 Hepatitis C Antibody Reactive (NonReactive) A 10/11/21 11:23 Active Medications - Current Medications Current Medications: Generic Name Dose Route Start Last Admin Trade Name Freq PRN Reason Stop Dose Admin Acetaminophen 650 mg 10/10/21 01:37 Acetaminophen 325 Mg Tab PO Q4H PRN Pain MILD(1-3)/Fever >100.5/SEALS Dextrose 50 ml 10/10/21 01:37 10/10/21 06:39 Dextrose 50% In Water (25gm) 50 Ml Syringe IV 50 ml Q30MIN PRN Administration Hypoglycemia Protocol Hydrocortisone Sodium Succinate 100 mg 07/03/22 10:30 10/13/21 05:28 Hydrocortisone Sod Succ 100 Mg/2 Ml Vial IV 100 mg Q8HR CHAKA Administration Insulin Human Lispro 0 unit 10/10/21 06:00 10/13/21 06:50 Insulin Lispro 100 Unit/Ml SUB-Q 2 unit Q6HR CHAKA Administration Protocol Levothyroxine Sodium 150 mcg 10/11/21 06:00 10/13/21 05:32 Levothyroxine 100 Mcg Inj IV Not Given DAILY@0600 CHAKA Midodrine 10 mg 10/10/21 08:00 10/12/21 18:55 Midodrine 10 Mg Tab PO Not Given TID@0800,1200,1600 CHAKA Ondansetron HCl 4 mg 10/10/21 01:37 Ondansetron 4 Mg/2 Ml Inj IV Q8H PRN Nausea And Vomiting Pantoprazole Sodium 40 mg 10/10/21 10:00 10/12/21 09:24 Pantoprazole 40 Mg Inj IV 40 mg QDAY CHAKA Administration Sodium Chloride 10 ml 10/10/21 10:00 10/12/21 23:01 Sodium Chloride 0.9% 10 Ml Flush Syringe IV 10 ml BID CHAKA Administration Sodium Chloride 10 ml 10/10/21 01:37 Sodium Chloride 0.9% 10 Ml Flush Syringe IV PRN PRN LINE FLUSH Nutrition/Malnutrition Assess - Dietary Evaluation Nutrition/Malnutrition Findings: Nutrition Notes Start: 10/11/21 16:12 Freq: Status: Active Protocol: Document 10/11/21 16:12 ADITYA (Rec: 10/11/21 16:42 [email or web address] [id number]) Nutrition Notes Need for Assessment generated from: MD Order Initial or Follow up Assessment Current Diagnosis CKD (stage V CKD),Diabetes, Sepsis,Hypertension, Respiratory Failure, Hyperlipidemia Other Pertinent Diagnosis ESRD+HD, Hypoglycemia, GERD, UTI, Metabolic Encephalopathy, Uremia,... Current Diet NPO, TF-Nepro w/CARBSTEADY @ 50 ml/hr (since D 10/10). Labs/Tests 10/11: Na 126, K 3.0, Cl 92.7, CO2 20, BUN 21, Crea 5.3, Glu 214, Ca 7.7. Pertinent Medications 10/11: Humalog 2U, Levothyroxine, others nutritionally unremarkable. Height 6 ft Weight 99.79 kg [place] Body Weight (kg) 80.90 BMI 29.8 Weight change and time frame None provided at admission. Weight Status Overweight Subjective/Other Information RD consult for write/manage TF . Pt currently on NPO. I will prescribe TF to provide Pt with energy protein needs during LOS. Pt on Mechanical Ventilation, O2 saturation @ 100%, according to Physical Assessmenty Histyory notes. Pt has missing teeth, according to Physical Assessmenty Histyory notes. Plans for Pt being extubated when more awake and stop sedation, according to Progress notes. Percent of energy/protein needs met: Pt currently on NPO. Prescribed TF-Nepro w/ CARBSTEADY @ 50 ml/hr provides for energy/protein needs (2, 180 Kcal/98 g) during LOS, 98% Kcal; 82% AA. Burn Absent Trauma Absent GI Symptoms None Food Allergy No Skin Integrity/Comment Assessment WNL. Current % PO Other Minimum of two criteria No Fluid Accumulation N/A Reduced Steward/Stewardess Lounge Strength N/A (non-severe) Protein-Calorie Malnutrition N\A #1 Nutrition Diagnosis Inadequate oral intake Etiology Pt on Mechanical Ventilation. As Evidenced by Signs and Symptoms Pt currently on NPO. Is patient on ventilator? Yes Is Patient Ambulatory and/or Out of Bed No REE-([facility]-confined to bed) 8516.016 Calculation Used for Recommendations Kcal/kg Additional Notes Protein: >1.2 g/Kg ABW; >120 g /day. Fluids: 1 ml/Kcal, or as per MD. Nutrition Intervention Nutrition Support: Start TF-Nepro w/CARBSTEADY @ 50 ml/hr. Flush: 220 ml water Q 4 hr, or as per MD. Kcal 2,180 Protein (gm) 98 Carbohydrates (gm) 195 Fat (gm) 116 Fluid (mL) 880 Fiber (gm) 15 % RDI: 98% Kcal; 82% AA. Goal #1 Provide at least 75% of energy /protein needs through Enteral Feeding during LOS. Follow-Up By: 10/13/21 Additional Comments Continue monitoring TF tolerance and BM.
--- NOTE | 2021-10-12 12:27 | Progress Note ---
Assessment and Plan Assessment Acute metabolic encephalopathy End-stage renal disease on hemodialysis Hypertension Elevated troponin Nicotine dependence Sepsis History of hypothyroidism Insulin dependent diabetes mellitus Hypokalemia Hypoglycemia Plan: Received hemodialysis last night for UF and clearance, 1 liter was removed Hypotension-on Midodrine 10 mg po TID Hypokalemia-Got total 20 meq IV KCL earlier this morning and now in repletion with IV KCL 10 meq x 2 bags Total dose of IV KCL today will be 40 meq so far noted Checking BMP every 12 hours Renally dose medications Strict I&O's daily Obtain daily weights Assess dialysis needs daily Plan of care reviewed by Aracelis Subjective Date of service: 10/12/21 Principal diagnosis: ESRD Interval history: Patient seen lying in bed. Moves head, eyes closed, does not follow commands. No family at bedside. Objective - Vital Signs Vital signs: Vital Signs - 12hr 10/12/21 10/12/21 10/12/21 00:30 01:00 01:30 Temperature Pulse Rate 86 82 81 Pulse Rate [ From Monitor] Respiratory 21 14 15 Rate Blood Pressure 94/72 107/77 100/69 O2 Sat by Pulse 94 96 98 Oximetry 10/12/21 10/12/21 10/12/21 02:00 02:30 03:00 Temperature Pulse Rate 80 78 80 Pulse Rate [ From Monitor] Respiratory 19 13 14 Rate Blood Pressure 102/68 94/65 105/66 O2 Sat by Pulse 97 97 98 Oximetry 10/12/21 10/12/21 10/12/21 03:30 04:00 04:30 Temperature 97.8 F Pulse Rate 81 79 79 Pulse Rate [ 81 From Monitor] Respiratory 18 14 16 Rate Blood Pressure 98/65 102/58 100/48 O2 Sat by Pulse 96 96 97 Oximetry 10/12/21 10/12/21 10/12/21 05:00 05:30 06:00 Temperature Pulse Rate 79 79 80 Pulse Rate [ From Monitor] Respiratory 15 14 14 Rate Blood Pressure 96/64 88/63 83/54 O2 Sat by Pulse 96 96 96 Oximetry 10/12/21 10/12/21 10/12/21 06:30 07:00 07:09 Temperature 97.4 F L Pulse Rate 80 79 Pulse Rate [ From Monitor] Respiratory 14 12 Rate Blood Pressure 84/52 90/59 O2 Sat by Pulse 95 96 Oximetry 10/12/21 10/12/21 10/12/21 07:30 07:59 08:00 Temperature Pulse Rate 86 80 80 Pulse Rate [ 79 From Monitor] Respiratory 15 13 Rate Blood Pressure 98/61 90/64 O2 Sat by Pulse 96 96 Oximetry 10/12/21 10/12/21 10/12/21 08:30 09:00 09:30 Temperature Pulse Rate 78 80 80 Pulse Rate [ From Monitor] Respiratory 13 13 12 Rate Blood Pressure 105/79 95/76 95/76 O2 Sat by Pulse 96 96 95 Oximetry 10/12/21 10/12/21 10/12/21 10:00 10:30 11:00 Temperature Pulse Rate 81 79 77 Pulse Rate [ From Monitor] Respiratory 11 L 13 14 Rate Blood Pressure 95/67 88/68 99/71 O2 Sat by Pulse 96 96 96 Oximetry 10/12/21 10/12/21 11:30 12:00 Temperature 97.3 F L Pulse Rate 77 79 Pulse Rate [ 80 From Monitor] Respiratory 14 15 Rate Blood Pressure 91/68 91/68 O2 Sat by Pulse 95 97 Oximetry - General Appearance General appearance: other (No acute distress ) EENT: ATNC Neck: no JVD, supple Respiratory: Present: Decreased Breath Sounds Cardiology: S1S2 Gastrointestinal: normoactive bowel sounds Integumentary: warm and dry Musculoskeletal: other (positive edema) - Lab 10/12/21 05:50 10/12/21 05:50 Most recent lab results ABG pH 7.480 pH Units (7.350-7.450) H 10/11/21 05:25 ABG pCO2 25.8 mm Hg 10/11/21 05:25 ABG pO2 111.6 mm Hg (80.0-90.0) H 10/11/21 05:25 ABG HCO3 18.8 mmol/L (20.0-26.0) L 10/11/21 05:25 ABG O2 Saturation 98.3 % (95.0-99.0) 10/11/21 05:25 Calcium 8.2 mg/dL (8.4-10.2) L 10/12/21 05:50 Phosphorus 2.20 mg/dL (2.5-4.5) L D 10/12/21 05:50 Magnesium 1.80 mg/dL (1.7-2.3) 10/12/21 05:50 Medications & Allergies - Medications Allergies/Adverse Reactions: Allergies No Known Allergies Allergy (Verified 10/09/21 23:38) Home Medications: Home Medications Medication Instructions Recorded Confirmed Last Taken Type Levothyroxine Sodium 175 mcg PO DAILY 08/23/21 08/23/21 08/22/21 History [Levothyroxine] Sertraline [Zoloft] 100 mg PO QDAY 08/23/21 08/23/21 08/22/21 History Cyclobenzaprine [Flexeril 10 MG 5 mg PO TID PRN #15 tablet 08/27/21 Unknown Rx TAB] Pantoprazole [Protonix TAB] 40 mg PO QDAY #30 tablet 08/27/21 Unknown Rx Insulin Glargine [Lantus VIAL] 30 units SUB-Q QHS units 09/02/21 Unknown Rx Lispro Insulin [HumaLOG] 0 unit SUB-Q ACHS units 09/02/21 Unknown Rx Midodrine [Proamatine] 10 mg PO TID tablet 09/02/21 Unknown Rx Active Medications: Generic Name Dose Route Start Last Admin Trade Name Freq PRN Reason Stop Dose Admin Acetaminophen 650 mg 10/10/21 01:37 Acetaminophen 325 Mg Tab PO Q4H PRN Pain MILD(1-3)/Fever >100.5/SEALS Dextrose 50 ml 10/10/21 01:37 10/10/21 06:39 Dextrose 50% In Water (25gm) 50 Ml Syringe IV 50 ml Q30MIN PRN Administration Hypoglycemia Protocol Hydrocortisone Sodium Succinate 100 mg 10/10/21 10:30 10/12/21 06:54 Hydrocortisone Sod Succ 100 Mg/2 Ml Vial IV 100 mg Q8HR CHAKA Administration Insulin Human Lispro 0 unit 10/10/21 06:00 10/12/21 06:55 Insulin Lispro 100 Unit/Ml SUB-Q 1 unit Q6HR CHAKA Administration Protocol Levothyroxine Sodium 150 mcg 10/11/21 06:00 10/12/21 07:24 Levothyroxine 100 Mcg Inj IV 150 mcg DAILY@0600 CHAKA Administration Midodrine 10 mg 10/10/21 08:00 10/12/21 08:42 Midodrine 10 Mg Tab PO 10 mg TID@0800,1200,1600 CHAKA Administration Ondansetron HCl 4 mg 10/10/21 01:37 Ondansetron 4 Mg/2 Ml Inj IV Q8H PRN Nausea And Vomiting Pantoprazole Sodium 40 mg 10/10/21 10:00 10/12/21 09:24 Pantoprazole 40 Mg Inj IV 40 mg QDAY CHAKA Administration Sodium Chloride 10 ml 10/10/21 10:00 10/12/21 09:24 Sodium Chloride 0.9% 10 Ml Flush Syringe IV 10 ml BID CHAKA Administration Sodium Chloride 10 ml 10/10/21 01:37 Sodium Chloride 0.9% 10 Ml Flush Syringe IV PRN PRN LINE FLUSH
[2021-10-12 15:18] LABS: Calcium 8.2 mg/dL (8.4-10.2)
[2021-10-12] MEDS ORDERED: POTASSIUM CHLORIDE 10 MEQ 10 MEQ/100 ML BAG IV SCH (17:30)
[2021-10-12] MEDS: POTASSIUM CHLORIDE 10 MEQ in SODIUM CHLORIDE 0.9% 100 ML IV SCH ×4 (17:39→21:40)
[2021-10-12] MEDS ORDERED: MAGNESIUM SULFATE 1 GM in SODIUM CHLORIDE 0.9% 50 ML IV ONE (18:00)
[2021-10-13 01:03] LABS: Calcium 8.3 mg/dL (8.4-10.2)
[2021-10-13] MEDS: HYDROCORTISONE SOD SUCC 100 MG/2 ML VIAL IV SCH ×3 (05:28→21:15)
[2021-10-13] MEDS: LEVOTHYROXINE 100 MCG INJ IV SCH (05:32)
[2021-10-13 05:48] LABS: Hematocrit 26.8 % (35.5-45.6); Hemoglobin 8.7 gm/dl (11.8-15.2); Mean Corpuscular HGB Conc 32 % (32-34); Mean Corpuscular Volume 84 fl (84-94); Red Blood Count 3.18 M/mm3 (3.65-5.03); Red Cell Distribution Width 17.6 % (13.2-15.2)
[2021-10-13 05:52] LABS: Platelet Count 64 K/mm3 (140-440)
[2021-10-13 06:07] LABS: Albumin 2.4 g/dL (3.9-5); Calcium 8.7 mg/dL (8.4-10.2)
[2021-10-13] MEDS: INSULIN LISPRO 100 UNIT/ML SUB-Q SCH ×4 (06:50→23:57)
[2021-10-13] MEDS: MIDODRINE 10 MG TAB PO SCH ×3 (09:25→16:22)
[2021-10-13] MEDS: PANTOPRAZOLE 40 MG INJ IV SCH (09:25)
--- NOTE | 2021-10-13 10:34 | Progress Note ---
Assessment and Plan Acute metabolic encephalopathy End-stage renal disease on hemodialysis Hypertension Elevated troponin Nicotine dependence Sepsis History of hypothyroidism Insulin dependent diabetes mellitus Hypokalemia Hypoglycemia Plan: HD today. Hypotension-on Midodrine 10 mg po TID Replace k PRN Renally dose medications Strict I&O's daily Obtain daily weights Assess dialysis needs daily Subjective Date of service: 10/13/21 Principal diagnosis: ESRD Interval history: HD today, NAD. Objective - Exam Narrative Exam: General appearance: other (No acute distress ) EENT: ATNC Neck: no JVD, supple Respiratory: Present: Decreased Breath Sounds Cardiology: S1S2 Gastrointestinal: normoactive bowel sounds Integumentary: warm and dry Musculoskeletal: other (positive edema) - Vital Signs Vital signs: Vital Signs - 12hr 10/13/21 10/13/21 10/13/21 01:12 05:17 09:23 Temperature 97.4 F L 97.1 F L Pulse Rate 85 86 Respiratory 18 20 Rate Blood Pressure 92/73 93/54 O2 Sat by Pulse 89 Oximetry - Lab 10/13/21 05:17 10/13/21 14:35 Most recent lab results ABG pH 7.480 pH Units (7.350-7.450) H 10/11/21 05:25 ABG pCO2 25.8 mm Hg 10/11/21 05:25 ABG pO2 111.6 mm Hg (80.0-90.0) H 10/11/21 05:25 ABG HCO3 18.8 mmol/L (20.0-26.0) L 10/11/21 05:25 ABG O2 Saturation 98.3 % (95.0-99.0) 10/11/21 05:25 Calcium 8.7 mg/dL (8.4-10.2) 10/13/21 05:17 Phosphorus 2.20 mg/dL (2.5-4.5) L D 10/12/21 05:50 Magnesium 1.80 mg/dL (1.7-2.3) 10/12/21 05:50 Medications & Allergies - Medications Allergies/Adverse Reactions: Allergies No Known Allergies Allergy (Verified 10/09/21 23:38) Home Medications: Home Medications Medication Instructions Recorded Confirmed Last Taken Type Levothyroxine Sodium 175 mcg PO DAILY 08/23/21 10/13/21 08/22/21 History [Levothyroxine] Sertraline [Zoloft] 100 mg PO QDAY 08/23/21 10/13/21 08/22/21 History Cyclobenzaprine [Flexeril 10 MG 5 mg PO TID PRN #15 tablet 08/27/21 10/13/21 Unknown Rx TAB] Pantoprazole [Protonix TAB] 40 mg PO QDAY #30 tablet 08/27/21 10/13/21 Unknown Rx Insulin Glargine [Lantus VIAL] 30 units SUB-Q QHS units 09/02/21 10/13/21 Unknown Rx Lispro Insulin [HumaLOG] 0 unit SUB-Q ACHS units 09/02/21 10/13/21 Unknown Rx Midodrine [Proamatine] 10 mg PO TID tablet 09/02/21 10/13/21 Unknown Rx Active Medications: Generic Name Dose Route Start Last Admin Trade Name Freq PRN Reason Stop Dose Admin Acetaminophen 650 mg 10/10/21 01:37 Acetaminophen 325 Mg Tab PO Q4H PRN Pain MILD(1-3)/Fever >100.5/SEALS Dextrose 50 ml 10/10/21 01:37 10/10/21 06:39 Dextrose 50% In Water (25gm) 50 Ml Syringe IV 50 ml Q30MIN PRN Administration Hypoglycemia Protocol Hydrocortisone Sodium Succinate 100 mg 10/10/21 10:30 10/13/21 05:28 Hydrocortisone Sod Succ 100 Mg/2 Ml Vial IV 100 mg Q8HR CHAKA Administration Insulin Human Lispro 0 unit 10/10/21 06:00 10/13/21 06:50 Insulin Lispro 100 Unit/Ml SUB-Q 2 unit Q6HR CHAKA Administration Protocol Levothyroxine Sodium 150 mcg 10/11/21 06:00 10/13/21 05:32 Levothyroxine 100 Mcg Inj IV Not Given DAILY@0600 CHAKA Midodrine 10 mg 10/10/21 08:00 10/13/21 09:25 Midodrine 10 Mg Tab PO 10 mg TID@0800,1200,1600 CHAKA Administration Ondansetron HCl 4 mg 10/10/21 01:37 Ondansetron 4 Mg/2 Ml Inj IV Q8H PRN Nausea And Vomiting Pantoprazole Sodium 40 mg 10/10/21 10:00 10/13/21 09:25 Pantoprazole 40 Mg Inj IV 40 mg QDAY CHAKA Administration Sodium Chloride 10 ml 10/10/21 10:00 10/13/21 09:25 Sodium Chloride 0.9% 10 Ml Flush Syringe IV 10 ml BID CHAKA Administration Sodium Chloride 10 ml 10/10/21 01:37 Sodium Chloride 0.9% 10 Ml Flush Syringe IV PRN PRN LINE FLUSH
[2021-10-13 11:45] LABS: Basophils % (Manual) 0 % (0.0-1.8); Eosinophils % (Manual) 0 % (0.0-4.3); Hypochromasia 1+; Platelet Estimate Appears Decreased; Target Cells 1+; Total Cells Counted 100
--- NOTE | 2021-10-13 12:47 | Progress Note ---
Assessment and Plan Assessment and plan: This is a 61-year-old male with known past medical history of DM and ESRD on HD admitted for AMS and acute hypoxic respiratory failure requiring ventilatory support Acute Respiratory Failure with Hypoxia - altered, intubated for airway protection on admission - ABG: pH 7.301, PCO2 50.4, PO2 162.1 bicarb 24.3 O2 sat 98.9 on admission Chest x-ray: no acute abnl identified does not appear to be primary pulmonary process - 10/11 s/p extubation, now stable on RA - Continue SPO2 monitoring for SPO2 goal above 92% - PRN O2 supplementation as needed Hypotension resolved Myxedema Coma - Presented with AMS, bl le edema, hypotensive, hypothermic, hypoglycemia - etiology: possibly due to hypothyroidism vs adrenal insuffciency - TSH/T4 noted, correlate with hypothyroidism - Continue Hydrocortisone 100 mg IV q8hr and Levothyroxine 150 mcg IV - Continue Midodrine TID - Continue blood pressure monitor per protocol - Maintain MAP above 65 Acute Metabolic Encephalopathy - Presented AMS, bl le edema, hypotensive, hypothermic, hypoglycemia - Ct head with no acute intracranial abnormality. - possibly due to hypothyroidism vs adrenal insuffciency vs infectious process - TSH/T4 noted, correlate with hypothyroidism - Continue IV Abx - Mentation improved - Avoid benzodiazepine to reduce the possibility of delirium - Maintenance of sleep-wake cycle Severe sepsis POA Urinary tract infection - Presented AMS, bl le edema, hypotensive, hypothermic, hypoglycemia - Elevated wbc ct, UA wbc noted - levaquin IV initiated for UTI - WBcs downtrending - Continue to F/U on B.cult - Daily CBC monitor - Consider ID consult if febrile or/and if leukocytosis worsen ESRD on HD Hypokalemia - Nephrology on consult, appreciated recommendation - correction with hemodialysis - management of HD per nephrology - Persistent hypokalemia noted this am: 40 MEQ K administered. Will need to take precaution with replacement given renal fx. - Strict intake and output - oliguric, D/C merrill Bladder scan and straight as needed per protocol - Avoid nephrotoxic medications; Renally dose medications - Monitor and replace electrolytes as needed GERD - GI Ppx with pantoprazole 40 mg IV daily Thrombocytopenia - Presented with low plt - Plt improved - no s/s of any active bleeding - H&H stable - Continue to trend CBC Hypertension - hypotensive at the moment - Hold home antihypertensives therapy Hyperglycemia - Presented with hypoglycemia s/p D10w gtt - on IV steroids - Continue BG check Q6hrs, low dose SSI Q6hrs - Avoid hypoglycemia - While critically ill target blood glucose of 140-180 Hospital Course to Date: 10/11: More awake and alert this am, following simple commands. Plan for PSV trial for possible extubation today. BP remains soft, MAP above 65. Continue midodrine TID and IV steroids. Remains hypokalemic, K repleted. Possible HD today per nephro. 10/12: S/p extubation, stable on RA this am. BP remains bordeline, continue PO midodrine TID. With persistent hypokalemia, most likely secondary to frequent loose stools/diarrhea. Per staffs patient with diarrhea since admit, C. diff PCR pending. Patient is stable for transfer to the floor. PT/OT ordered. 10/13: Patient's respiratory status back to baseline. Patient with saturations of 95% on room air. Replete potassium. Transition IV Synthroid and hydrocortisone to p.o. History Interval history: No new issues Hospitalist Physical - Constitutional Vitals: Temp Pulse Resp BP Pulse Ox 97.1 F L 86 20 93/54 97 10/13/21 09:23 10/13/21 05:17 10/13/21 09:23 10/13/21 09:23 10/13/21 10:00 General appearance: Present: no acute distress, well-nourished, obese, other - EENT Eyes: Present: PERRL, EOM intact ENT: hearing intact, clear oral mucosa, dentition normal - Neck Neck: Present: supple, normal ROM - Respiratory Respiratory effort: normal Respiratory: bilateral: CTA - Cardiovascular Rhythm: regular Heart Sounds: Present: S1 & S2. Absent: gallop, rub - Extremities Extremities: no ischemia, No edema, Full ROM - Abdominal General gastrointestinal: soft, non-tender, non-distended, normal bowel sounds - Integumentary Integumentary: Present: clear, warm, dry - Neurologic Neurologic: CNII-XII intact, moves all extremities HEART Score - HEART Score Troponin: Troponin T 1.970 ng/mL (0.00-0.029) H* 10/09/21 23:30 Results - Labs CBC & Chem 7: 10/13/21 05:17 10/13/21 05:17 Labs: Laboratory Last Values WBC 17.5 K/mm3 (4.5-11.0) H 10/13/21 05:17 RBC 3.18 M/mm3 (3.65-5.03) L 10/13/21 05:17 Hgb 8.7 gm/dl (11.8-15.2) L 10/13/21 05:17 Hct 26.8 % (35.5-45.6) L 10/13/21 05:17 MCV 84 fl (84-94) 10/13/21 05:17 MCH 27 pg (28-32) L 10/13/21 05:17 MCHC 32 % (32-34) 10/13/21 05:17 RDW 17.6 % (13.2-15.2) H 10/13/21 05:17 Plt Count 64 K/mm3 (140-440) L 10/13/21 05:17 Add Manual Diff Complete 10/13/21 05:17 Total Counted 100 10/13/21 05:17 Seg Neutrophils % Neonatal Pediatric Nurse 10/13/21 05:17 Seg Neuts % (Manual) 95.0 % (40.0-70.0) H 10/13/21 05:17 Band Neutrophils % 0 % 10/13/21 05:17 Lymphocytes % (Manual) 3.0 % (13.4-35.0) L 10/13/21 05:17 Reactive Lymphs % (Man) 0 % 10/13/21 05:17 Monocytes % (Manual) 2.0 % (0.0-7.3) 10/13/21 05:17 Eosinophils % (Manual) 0 % (0.0-4.3) 10/13/21 05:17 Basophils % (Manual) 0 % (0.0-1.8) 10/13/21 05:17 Metamyelocytes % 0 % 10/13/21 05:17 Myelocytes % 0 % 10/13/21 05:17 Promyelocytes % 0 % 10/13/21 05:17 Blast Cells % 0 % 10/13/21 05:17 Nucleated RBC % Not Reportable 10/13/21 05:17 Seg Neutrophils # Man 16.6 K/mm3 (1.8-7.7) H 10/13/21 05:17 Band Neutrophils # 0.0 K/mm3 10/13/21 05:17 Lymphocytes # (Manual) 0.5 K/mm3 (1.2-5.4) L 10/13/21 05:17 Abs React Lymphs (Man) 0.0 K/mm3 10/13/21 05:17 Monocytes # (Manual) 0.4 K/mm3 (0.0-0.8) 10/13/21 05:17 Eosinophils # (Manual) 0.0 K/mm3 (0.0-0.4) 10/13/21 05:17 Basophils # (Manual) 0.0 K/mm3 (0.0-0.1) 10/13/21 05:17 Metamyelocytes # 0.0 K/mm3 10/13/21 05:17 Myelocytes # 0.0 K/mm3 10/13/21 05:17 Promyelocytes # 0.0 K/mm3 10/13/21 05:17 Blast Cells # 0.0 K/mm3 10/13/21 05:17 WBC Morphology Not Reportable 10/13/21 05:17 Hypersegmented Neuts Not Reportable 10/13/21 05:17 Hyposegmented Neuts Not Reportable 10/13/21 05:17 Hypogranular Neuts Not Reportable 10/13/21 05:17 Smudge Cells Not Reportable 10/13/21 05:17 Toxic Granulation Not Reportable 10/13/21 05:17 Toxic Vacuolation Not Reportable 10/13/21 05:17 Dohle Bodies Not Reportable 10/13/21 05:17 Pelger-Huet Anomaly Not Reportable 10/13/21 05:17 Placido Rods Not Reportable 10/13/21 05:17 Platelet Estimate Appears decreased 10/13/21 05:17 Clumped Platelets Not Reportable 10/13/21 05:17 Plt Clumps, EDTA Not Reportable 10/13/21 05:17 Large Platelets Not Reportable 10/13/21 05:17 Giant Platelets Not Reportable 10/13/21 05:17 Platelet Satelliting Not Reportable 10/13/21 05:17 Plt Morphology Comment Not Reportable 10/13/21 05:17 RBC Morphology Not Reportable 10/13/21 05:17 Dimorphic RBCs Not Reportable 10/13/21 05:17 Polychromasia Not Reportable 10/13/21 05:17 Hypochromasia 1+ 10/13/21 05:17 Poikilocytosis Not Reportable 10/13/21 05:17 Anisocytosis Not Reportable 10/13/21 05:17 Microcytosis Not Reportable 10/13/21 05:17 Macrocytosis Not Reportable 10/13/21 05:17 Spherocytes Not Reportable 10/13/21 05:17 Pappenheimer Bodies Not Reportable 10/13/21 05:17 Sickle Cells Not Reportable 10/13/21 05:17 Target Cells 1+ 10/13/21 05:17 Tear Drop Cells Not Reportable 10/13/21 05:17 Ovalocytes Not Reportable 10/13/21 05:17 Helmet Cells Not Reportable 10/13/21 05:17 Kent-Bliss Bodies Not Reportable 10/13/21 05:17 [place] Rings Not Reportable 10/13/21 05:17 Henderson Cells Not Reportable 10/13/21 05:17 Bite Cells Not Reportable 10/13/21 05:17 Crenated Cell Not Reportable 10/13/21 05:17 Elliptocytes Not Reportable 10/13/21 05:17 Acanthocytes (Spur) Not Reportable 10/13/21 05:17 Rouleaux Not Reportable 10/13/21 05:17 Hemoglobin C Crystals Not Reportable 10/13/21 05:17 Schistocytes Not Reportable 10/13/21 05:17 Malaria parasites Not Reportable 10/13/21 05:17 Ezequiel Bodies Not Reportable 10/13/21 05:17 Hem Pathologist Commnt No 10/13/21 05:17 ABG pH 7.480 pH Units (7.350-7.450) H 10/11/21 05:25 ABG pCO2 25.8 mm Hg 10/11/21 05:25 ABG pO2 111.6 mm Hg (80.0-90.0) H 10/11/21 05:25 ABG HCO3 18.8 mmol/L (20.0-26.0) L 10/11/21 05:25 ABG O2 Saturation 98.3 % (95.0-99.0) 10/11/21 05:25 ABG O2 Content 10.9 (0.0-44) 10/11/21 05:25 ABG Base Excess -4.0 mmol/L (-2.0-3.0) L 10/11/21 05:25 ABG Hemoglobin 7.9 gm/dl (14.0-18.0) L 10/11/21 05:25 ABG Carboxyhemoglobin 1.3 % (0.0-5.0) 10/11/21 05:25 ABG Methemoglobin 0.4 % (0.0-1.5) 10/11/21 05:25 Oxyhemoglobin 96.7 % (95.0-99.0) 10/11/21 05:25 FiO2 30 % 10/11/21 05:25 Sodium 135 mmol/L (137-145) L 10/13/21 05:17 Potassium 3.2 mmol/L (3.6-5.0) L 10/13/21 05:17 Chloride 99.1 mmol/L (98-107) 10/13/21 05:17 Carbon Dioxide 20 mmol/L (22-30) L 10/13/21 05:17 Anion Gap 19 mmol/L 10/13/21 05:17 BUN 26 mg/dL (9-20) H 10/13/21 05:17 Creatinine 4.6 mg/dL (0.8-1.3) H 10/13/21 05:17 Estimated GFR 16 ml/min 10/13/21 05:17 BUN/Creatinine Ratio 6 % 10/13/21 05:17 Glucose 244 mg/dL (75-100) H 10/13/21 05:17 POC Glucose 226 mg/dL (70-105) H 10/13/21 06:01 Lactic Acid 1.60 mmol/L (0.7-2.0) 10/11/21 11:23 Calcium 8.7 mg/dL (8.4-10.2) 10/13/21 05:17 Phosphorus 2.20 mg/dL (2.5-4.5) L D 10/12/21 05:50 Magnesium 1.80 mg/dL (1.7-2.3) 10/12/21 05:50 Total Bilirubin 1.20 mg/dL (0.1-1.2) 10/13/21 05:17 AST 32 units/L (5-40) 10/13/21 05:17 ALT 11 units/L (7-56) 10/13/21 05:17 Alkaline Phosphatase 167 units/L (35-129) H 10/13/21 05:17 Total Creatine Kinase 644 units/L (55-170) H 10/09/21 23:30 Troponin T 1.970 ng/mL (0.00-0.029) H* 10/09/21 23:30 Total Protein 7.5 g/dL (6.3-8.2) D 10/13/21 05:17 Albumin 2.4 g/dL (3.9-5) L 10/13/21 05:17 Albumin/Globulin Ratio 0.5 % 10/13/21 05:17 Triglycerides 68 mg/dL (2-149) 10/09/21 23:30 Cholesterol 81 mg/dL (50-199) 10/09/21 23:30 LDL Cholesterol Direct 21 mg/dL (50-130) L 10/09/21 23:30 HDL Cholesterol 44 mg/dL (40-59) 10/09/21 23:30 Cholesterol/HDL Ratio 1.84 % 10/09/21 23:30 TSH 23.050 mlU/mL (0.270-4.200) H 10/10/21 14:51 Free T4 0.36 ng/dL (0.76-1.46) L 10/10/21 14:51 Urine Color Yellow (Yellow) 10/10/21 01:30 Urine Turbidity Turbid (Clear) 10/10/21 01:30 Urine pH 6.0 (5.0-7.0) 10/10/21 01:30 Ur Specific Bailey 1.018 (1.003-1.030) 10/10/21 01:30 Urine Protein 100 mg/dl mg/dL (Negative) 10/10/21 01:30 Urine Glucose (UA) Neg mg/dL (Negative) 10/10/21 01:30 Urine Ketones Tr mg/dL (Negative) 10/10/21 01:30 Urine Blood Mod (Negative) 10/10/21 01:30 Urine Nitrite Neg (Negative) 10/10/21 01:30 Urine Bilirubin Neg (Negative) 10/10/21 01:30 Urine Urobilinogen < 2.0 mg/dL (<2.0) 10/10/21 01:30 Ur Leukocyte Esterase Mod (Negative) 10/10/21 01:30 Urine WBC (Auto) > 182.0 /HPF (0.0-6.0) H 10/10/21 01:30 Urine RBC (Auto) 70.0 /HPF (0.0-6.0) 10/10/21 01:30 Urine Bacteria (Auto) 1+ /HPF (Negative) 10/10/21 01:30 Urine WBC Clumps 3+ /HPF 10/10/21 01:30 Hepatitis A IgM Ab Non-reactive (NonReactive) 10/11/21 11:23 Hep Bs Antigen Non-reactive (Negative) 10/11/21 11:23 Hep B Core IgM Ab Non-reactive (NonReactive) 10/11/21 11:23 Hepatitis C Antibody Reactive (NonReactive) A 10/11/21 11:23 Active Medications - Current Medications Current Medications: Generic Name Dose Route Start Last Admin Trade Name Freq PRN Reason Stop Dose Admin Acetaminophen 650 mg 10/10/21 01:37 Acetaminophen 325 Mg Tab PO Q4H PRN Pain MILD(1-3)/Fever >100.5/SEALS Dextrose 50 ml 10/10/21 01:37 10/10/21 06:39 Dextrose 50% In Water (25gm) 50 Ml Syringe IV 50 ml Q30MIN PRN Administration Hypoglycemia Protocol Hydrocortisone Sodium Succinate 100 mg 10/10/21 10:30 10/13/21 05:28 Hydrocortisone Sod Succ 100 Mg/2 Ml Vial IV 100 mg Q8HR CHAKA Administration Insulin Human Lispro 0 unit 10/10/21 06:00 10/13/21 06:50 Insulin Lispro 100 Unit/Ml SUB-Q 2 unit Q6HR CHAKA Administration Protocol Levothyroxine Sodium 150 mcg 10/11/21 06:00 10/13/21 05:32 Levothyroxine 100 Mcg Inj IV Not Given DAILY@0600 CHAKA Midodrine 10 mg 10/10/21 08:00 10/13/21 09:25 Midodrine 10 Mg Tab PO 10 mg TID@0800,1200,1600 CHAKA Administration Ondansetron HCl 4 mg 10/10/21 01:37 Ondansetron 4 Mg/2 Ml Inj IV Q8H PRN Nausea And Vomiting Pantoprazole Sodium 40 mg 10/10/21 10:00 10/13/21 09:25 Pantoprazole 40 Mg Inj IV 40 mg QDAY CHAKA Administration Sodium Chloride 10 ml 07/03/22 10:00 10/13/21 09:25 Sodium Chloride 0.9% 10 Ml Flush Syringe IV 10 ml BID CHAKA Administration Sodium Chloride 10 ml 10/10/21 01:37 Sodium Chloride 0.9% 10 Ml Flush Syringe IV PRN PRN LINE FLUSH Nutrition/Malnutrition Assess - Dietary Evaluation Nutrition/Malnutrition Findings: Nutrition Notes Start: 10/11/21 16:12 Freq: Status: Active Protocol: Document 10/11/21 16:12 ADITYA (Rec: 10/11/21 16:42 [email or web address] [id number]) Nutrition Notes Need for Assessment generated from: MD Order Initial or Follow up Assessment Current Diagnosis CKD (stage V CKD),Diabetes, Sepsis,Hypertension, Respiratory Failure, Hyperlipidemia Other Pertinent Diagnosis ESRD+HD, Hypoglycemia, GERD, UTI, Metabolic Encephalopathy, Uremia,... Current Diet NPO, TF-Nepro w/CARBSTEADY @ 50 ml/hr (since D 10/10). Labs/Tests 10/11: Na 126, K 3.0, Cl 92.7, CO2 20, BUN 21, Crea 5.3, Glu 214, Ca 7.7. Pertinent Medications 10/11: Humalog 2U, Levothyroxine, others nutritionally unremarkable. Height 6 ft Weight 99.79 kg [place] Body Weight (kg) 80.90 BMI 29.8 Weight change and time frame None provided at admission. Weight Status Overweight Subjective/Other Information RD consult for write/manage TF . Pt currently on NPO. I will prescribe TF to provide Pt with energy protein needs during LOS. Pt on Mechanical Ventilation, O2 saturation @ 100%, according to Physical Assessmenty Histyory notes. Pt has missing teeth, according to Physical Assessmenty Histyory notes. Plans for Pt being extubated when more awake and stop sedation, according to Progress notes. Percent of energy/protein needs met: Pt currently on NPO. Prescribed TF-Nepro w/ CARBSTEADY @ 50 ml/hr provides for energy/protein needs (2, 180 Kcal/98 g) during LOS, 98% Kcal; 82% AA. Burn Absent Trauma Absent GI Symptoms None Food Allergy No Skin Integrity/Comment Assessment WNL. 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 As Evidenced by Signs and Symptoms Pt currently on NPO. Is patient on ventilator? Yes Is Patient Ambulatory and/or Out of Bed No REE-([facility]-confined to bed) 9699.313 Calculation Used for Recommendations Kcal/kg Additional Notes Protein: >1.2 g/Kg ABW; >120 g /day. Fluids: 1 ml/Kcal, or as per MD. Nutrition Intervention Nutrition Support: Start TF-Nepro w/CARBSTEADY @ 50 ml/hr. Flush: 220 ml water Q 4 hr, or as per MD. Kcal 2,180 Protein (gm) 98 Carbohydrates (gm) 195 Fat (gm) 116 Fluid (mL) 880 Fiber (gm) 15 % RDI: 98% Kcal; 82% AA. Goal #1 Provide at least 75% of energy /protein needs through Enteral Feeding during LOS. Follow-Up By: 10/13/21 Additional Comments Continue monitoring TF tolerance and BM.
[2021-10-13 16:00] LABS: Calcium 8.4 mg/dL (8.4-10.2)
--- NOTE | 2021-10-13 17:00 | Progress Note ---
Assessment and Plan 61 y/o male with respiratory failure secondary to altered mental status secondary to hypoglycemia. 10/13/21: Can start to wean stress dose steroids starting tomorrow. Pharm placed back on home dose of synthroid. Will follow. 10/12/21: Follow up C. Diff. Per staff, daughter states patient has been having persistent diarrhea since discharge. This is likely the cause of persistent hypokalemia. Would ask renal to only clean and not pull any fluid with HD. Follow up speech. Stable for transfer to floor. 10/11/21: Off d10, sugars are much better. Will extubate. Would like to keep stress dose steroids and start to wean tomorrow. Electrolytes per renal. 1. State repeat CMP and CBC, follow up K replacement 2. Will start stress dose steroids given history of Hypothyroid and current hyoglycemia 3. q1 hour fsbs 4. Stop D5 and start d10 at 50mls/hr 5. Dropped peep to 6 6. No sedation 7. Once more awake will extubate, no matter what time of day 8. guarded prognosis. CCT 31 minutes. Subjective Date of service: 10/13/21 Principal diagnosis: ESRD Interval history: Successful transfer to floor. Pulm status remains stable. BP good Objective Vital Signs - 12hr 10/13/21 10/13/21 10/13/21 05:17 09:23 10:00 Temperature 97.4 F L 97.1 F L Pulse Rate 86 Respiratory 18 20 Rate Blood Pressure 92/73 93/54 O2 Sat by Pulse 89 97 Oximetry Constitutional: no acute distress Eyes: non-icteric ENT: other (orally intubated) Neck: supple Effort: normal Ascultation: Bilateral: clear Percussion: Bilateral: not dull Cardiovascular: regular rate and rhythm Gastrointestinal: normoactive bowel sounds, soft Extremities: no cyanosis, no edema Neurologic: unable to assess Psychiatric: mood appropriate CBC and BMP: 10/13/21 05:17 10/13/21 14:35 ABG, PT/INR, D-dimer: ABG ABG pH 7.480 pH Units (7.350-7.450) H 10/11/21 05:25 ABG pCO2 25.8 mm Hg 10/11/21 05:25 ABG pO2 111.6 mm Hg (80.0-90.0) H 10/11/21 05:25 ABG O2 Saturation 98.3 % (95.0-99.0) 10/11/21 05:25 Abnormal lab findings: Abnormal Labs 10/09/21 10/09/21 10/09/21 22:21 23:20 23:30 WBC 17.4 H RBC 3.32 L Hgb 9.2 L Hct 28.2 L MCV MCH RDW 17.4 H Plt Count 45 L Seg Neuts % (Manual) 98.0 H Lymphocytes % (Manual) 1.0 L Seg Neutrophils # Man 17.1 H Lymphocytes # (Manual) 0.2 L ABG pH 7.301 L ABG pO2 162.1 H ABG HCO3 ABG O2 Saturation ABG Base Excess -2.3 L ABG Hemoglobin 10.2 L Sodium Potassium Chloride Carbon Dioxide BUN Creatinine Glucose POC Glucose 151 H Lactic Acid Calcium Phosphorus Magnesium AST Alkaline Phosphatase Total Creatine Kinase Troponin T Total Protein Albumin LDL Cholesterol Direct TSH Free T4 Urine WBC (Auto) Hepatitis C Antibody 10/09/21 10/09/21 10/10/21 23:30 23:30 01:30 WBC RBC Hgb Hct MCV MCH RDW Plt Count Seg Neuts % (Manual) Lymphocytes % (Manual) Seg Neutrophils # Man Lymphocytes # (Manual) ABG pH ABG pO2 ABG HCO3 ABG O2 Saturation ABG Base Excess ABG Hemoglobin Sodium 132 L Potassium 1.7 L* Chloride 96.6 L Carbon Dioxide BUN Creatinine 4.8 H Glucose 70 L POC Glucose Lactic Acid 2.10 H* Calcium 8.0 L Phosphorus Magnesium AST 68 H Alkaline Phosphatase 161 H Total Creatine Kinase 644 H Troponin T 1.970 H* Total Protein Albumin 2.1 L LDL Cholesterol Direct 21 L TSH Free T4 Urine WBC (Auto) > 182.0 H Hepatitis C Antibody 10/10/21 10/10/21 10/10/21 02:59 04:15 05:40 WBC RBC Hgb Hct MCV MCH RDW Plt Count Seg Neuts % (Manual) Lymphocytes % (Manual) Seg Neutrophils # Man Lymphocytes # (Manual) ABG pH 7.469 H ABG pO2 217.7 H ABG HCO3 ABG O2 Saturation 99.4 H ABG Base Excess ABG Hemoglobin 8.6 L Sodium Potassium Chloride Carbon Dioxide BUN Creatinine Glucose POC Glucose 16 L 58 L Lactic Acid Calcium Phosphorus Magnesium AST Alkaline Phosphatase Total Creatine Kinase Troponin T Total Protein Albumin LDL Cholesterol Direct TSH Free T4 Urine WBC (Auto) Hepatitis C Antibody 10/10/21 10/10/21 10/10/21 08:32 12:25 12:25 WBC 15.3 H RBC 3.11 L Hgb 8.6 L Hct 26.6 L MCV MCH RDW 17.4 H Plt Count 38 L Seg Neuts % (Manual) Lymphocytes % (Manual) Seg Neutrophils # Man Lymphocytes # (Manual) ABG pH ABG pO2 ABG HCO3 ABG O2 Saturation ABG Base Excess ABG Hemoglobin Sodium Potassium Chloride Carbon Dioxide BUN Creatinine Glucose POC Glucose Lactic Acid 3.40 H* 2.80 H* Calcium Phosphorus Magnesium AST Alkaline Phosphatase Total Creatine Kinase Troponin T Total Protein Albumin LDL Cholesterol Direct TSH Free T4 Urine WBC (Auto) Hepatitis C Antibody 10/10/21 10/10/21 10/10/21 12:25 12:25 14:51 WBC RBC Hgb Hct MCV MCH RDW Plt Count Seg Neuts % (Manual) Lymphocytes % (Manual) Seg Neutrophils # Man Lymphocytes # (Manual) ABG pH ABG pO2 ABG HCO3 ABG O2 Saturation ABG Base Excess ABG Hemoglobin Sodium 131 L Potassium 2.1 L* D Chloride 97.2 L Carbon Dioxide 20 L BUN Creatinine 4.9 H Glucose 129 H POC Glucose Lactic Acid Calcium 7.4 L Phosphorus Magnesium 1.50 L AST 52 H Alkaline Phosphatase 169 H Total Creatine Kinase Troponin T Total Protein 5.8 L Albumin 2.0 L LDL Cholesterol Direct TSH 23.050 H Free T4 0.36 L Urine WBC (Auto) Hepatitis C Antibody 10/10/21 10/10/21 10/10/21 18:12 19:35 23:50 WBC RBC Hgb Hct MCV MCH RDW Plt Count Seg Neuts % (Manual) Lymphocytes % (Manual) Seg Neutrophils # Man Lymphocytes # (Manual) ABG pH ABG pO2 ABG HCO3 ABG O2 Saturation ABG Base Excess ABG Hemoglobin Sodium 129 L Potassium 2.6 L* D Chloride 95.0 L Carbon Dioxide 20 L BUN Creatinine 5.0 H Glucose 233 H POC Glucose 181 H 194 H Lactic Acid Calcium 7.7 L Phosphorus Magnesium AST Alkaline Phosphatase Total Creatine Kinase Troponin T Total Protein Albumin LDL Cholesterol Direct TSH Free T4 Urine WBC (Auto) Hepatitis C Antibody 10/11/21 10/11/21 10/11/21 03:26 05:25 06:59 WBC RBC Hgb Hct MCV MCH RDW Plt Count Seg Neuts % (Manual) Lymphocytes % (Manual) Seg Neutrophils # Man Lymphocytes # (Manual) ABG pH 7.480 H ABG pO2 111.6 H ABG HCO3 18.8 L ABG O2 Saturation ABG Base Excess -4.0 L ABG Hemoglobin 7.9 L Sodium 127 L Potassium 2.6 L* Chloride 93.7 L Carbon Dioxide 19 L BUN Creatinine 5.0 H Glucose 208 H POC Glucose 185 H Lactic Acid Calcium 7.6 L Phosphorus Magnesium AST Alkaline Phosphatase Total Creatine Kinase Troponin T Total Protein Albumin LDL Cholesterol Direct TSH Free T4 Urine WBC (Auto) Hepatitis C Antibody 10/11/21 10/11/21 10/11/21 06:59 11:23 11:23 WBC 14.3 H RBC 2.75 L Hgb 7.6 L Hct 23.2 L MCV MCH RDW 17.4 H Plt Count 52 L Seg Neuts % (Manual) 99.0 H Lymphocytes % (Manual) 1.0 L Seg Neutrophils # Man 14.2 H Lymphocytes # (Manual) 0.1 L ABG pH ABG pO2 ABG HCO3 ABG O2 Saturation ABG Base Excess ABG Hemoglobin Sodium 126 L Potassium 3.0 L Chloride 92.7 L Carbon Dioxide 20 L BUN 21 H Creatinine 5.3 H Glucose 214 H POC Glucose Lactic Acid Calcium 7.7 L Phosphorus Magnesium AST Alkaline Phosphatase Total Creatine Kinase Troponin T Total Protein Albumin LDL Cholesterol Direct TSH Free T4 Urine WBC (Auto) Hepatitis C Antibody Reactive A 10/11/21 10/11/21 10/11/21 17:03 23:08 23:53 WBC RBC Hgb Hct MCV MCH RDW Plt Count Seg Neuts % (Manual) Lymphocytes % (Manual) Seg Neutrophils # Man Lymphocytes # (Manual) ABG pH ABG pO2 ABG HCO3 ABG O2 Saturation ABG Base Excess ABG Hemoglobin Sodium Potassium 3.0 L Chloride Carbon Dioxide BUN Creatinine 3.5 H Glucose 207 H POC Glucose 220 H 201 H Lactic Acid Calcium 8.2 L Phosphorus Magnesium AST Alkaline Phosphatase Total Creatine Kinase Troponin T Total Protein Albumin LDL Cholesterol Direct TSH Free T4 Urine WBC (Auto) Hepatitis C Antibody 10/12/21 10/12/21 10/12/21 05:33 05:50 05:50 WBC 16.4 H RBC 2.73 L Hgb 7.7 L Hct 22.8 L MCV 83 L MCH RDW 16.6 H Plt Count 57 L Seg Neuts % (Manual) Lymphocytes % (Manual) Seg Neutrophils # Man Lymphocytes # (Manual) ABG pH ABG pO2 ABG HCO3 ABG O2 Saturation ABG Base Excess ABG Hemoglobin Sodium 135 L Potassium 2.9 L* Chloride Carbon Dioxide BUN Creatinine 3.9 H Glucose 166 H POC Glucose 163 H Lactic Acid Calcium 8.2 L Phosphorus 2.20 L D Magnesium AST Alkaline Phosphatase Total Creatine Kinase Troponin T Total Protein Albumin LDL Cholesterol Direct TSH Free T4 Urine WBC (Auto) Hepatitis C Antibody 10/12/21 10/12/21 10/12/21 12:07 14:42 15:21 WBC RBC Hgb Hct MCV MCH RDW Plt Count Seg Neuts % (Manual) Lymphocytes % (Manual) Seg Neutrophils # Man Lymphocytes # (Manual) ABG pH ABG pO2 ABG HCO3 ABG O2 Saturation ABG Base Excess ABG Hemoglobin Sodium 134 L Potassium 2.7 L* Chloride Carbon Dioxide BUN Creatinine 4.1 H Glucose 171 H POC Glucose 164 H 156 H Lactic Acid Calcium 8.2 L Phosphorus Magnesium AST Alkaline Phosphatase Total Creatine Kinase Troponin T Total Protein Albumin LDL Cholesterol Direct TSH Free T4 Urine WBC (Auto) Hepatitis C Antibody 10/12/21 10/12/21 10/13/21 21:11 23:38 00:04 WBC RBC Hgb Hct MCV MCH RDW Plt Count Seg Neuts % (Manual) Lymphocytes % (Manual) Seg Neutrophils # Man Lymphocytes # (Manual) ABG pH ABG pO2 ABG HCO3 ABG O2 Saturation ABG Base Excess ABG Hemoglobin Sodium 131 L Potassium Chloride Carbon Dioxide 14 L D BUN 24 H Creatinine 4.4 H Glucose 258 H POC Glucose 242 H 232 H Lactic Acid Calcium 8.3 L Phosphorus Magnesium AST Alkaline Phosphatase Total Creatine Kinase Troponin T Total Protein Albumin LDL Cholesterol Direct TSH Free T4 Urine WBC (Auto) Hepatitis C Antibody 10/13/21 10/13/21 10/13/21 05:17 05:17 06:01 WBC 17.5 H RBC 3.18 L Hgb 8.7 L Hct 26.8 L MCV MCH 27 L RDW 17.6 H Plt Count 64 L Seg Neuts % (Manual) 95.0 H Lymphocytes % (Manual) 3.0 L Seg Neutrophils # Man 16.6 H Lymphocytes # (Manual) 0.5 L ABG pH ABG pO2 ABG HCO3 ABG O2 Saturation ABG Base Excess ABG Hemoglobin Sodium 135 L Potassium 3.2 L Chloride Carbon Dioxide 20 L BUN 26 H Creatinine 4.6 H Glucose 244 H POC Glucose 226 H Lactic Acid Calcium Phosphorus Magnesium AST Alkaline Phosphatase 167 H Total Creatine Kinase Troponin T Total Protein Albumin 2.4 L LDL Cholesterol Direct TSH Free T4 Urine WBC (Auto) Hepatitis C Antibody 10/13/21 10/13/21 14:35 16:01 WBC RBC Hgb Hct MCV MCH RDW Plt Count Seg Neuts % (Manual) Lymphocytes % (Manual) Seg Neutrophils # Man Lymphocytes # (Manual) ABG pH ABG pO2 ABG HCO3 ABG O2 Saturation ABG Base Excess ABG Hemoglobin Sodium Potassium 3.3 L Chloride Carbon Dioxide 20 L BUN Creatinine 3.2 H Glucose 236 H POC Glucose 223 H Lactic Acid Calcium Phosphorus Magnesium AST Alkaline Phosphatase Total Creatine Kinase Troponin T Total Protein Albumin LDL Cholesterol Direct TSH Free T4 Urine WBC (Auto) Hepatitis C Antibody
[2021-10-14 00:14] LABS: Calcium 8.5 mg/dL (8.4-10.2)
[2021-10-14 05:38] LABS: Hematocrit 26.2 % (35.5-45.6); Hemoglobin 8.5 gm/dl (11.8-15.2); Mean Corpuscular HGB Conc 33 % (32-34); Mean Corpuscular Volume 85 fl (84-94); Platelet Count 59 K/mm3 (140-440); Red Blood Count 3.07 M/mm3 (3.65-5.03); Red Cell Distribution Width 17.4 % (13.2-15.2)
[2021-10-14] MEDS: HYDROCORTISONE SOD SUCC 100 MG/2 ML VIAL IV SCH ×3 (05:48→21:34)
[2021-10-14] MEDS: LEVOTHYROXINE 150 MCG TAB PO SCH (05:48)
[2021-10-14] MEDS: LEVOTHYROXINE 25 MCG TAB PO SCH (05:48)
[2021-10-14 06:20] LABS: Anisocytosis 1+; Basophils % (Manual) 0 % (0.0-1.8); Eosinophils % (Manual) 0 % (0.0-4.3); Hypochromasia 1+; Target Cells 1+; Total Cells Counted 100
[2021-10-14 06:21] LABS: Platelet Estimate Consistent w Auto; Poikilocytosis 1+
[2021-10-14] MEDS: INSULIN LISPRO 100 UNIT/ML SUB-Q SCH ×2 (06:40→11:55)
[2021-10-14] MEDS: PANTOPRAZOLE 40 MG TAB PO SCH (09:16)
[2021-10-14] MEDS: MIDODRINE 10 MG TAB PO SCH ×3 (09:16→15:52)
--- NOTE | 2021-10-14 09:40 | Progress Note ---
Assessment and Plan Assessment and plan: This is a 61-year-old male with known past medical history of DM and ESRD on HD admitted for AMS and acute hypoxic respiratory failure requiring ventilatory support Acute Respiratory Failure with Hypoxia - altered, intubated for airway protection on admission - ABG: pH 7.301, PCO2 50.4, PO2 162.1 bicarb 24.3 O2 sat 98.9 on admission Chest x-ray: no acute abnl identified does not appear to be primary pulmonary process - 10/11 s/p extubation, now stable on RA - Continue SPO2 monitoring for SPO2 goal above 92% - PRN O2 supplementation as needed Hypotension resolved Myxedema Coma - Presented with AMS, bl le edema, hypotensive, hypothermic, hypoglycemia - etiology: possibly due to hypothyroidism vs adrenal insuffciency - TSH/T4 noted, correlate with hypothyroidism - Continue Hydrocortisone 100 mg IV q8hr and Levothyroxine 150 mcg IV - Continue Midodrine TID - Continue blood pressure monitor per protocol - Maintain MAP above 65 Acute Metabolic Encephalopathy - Presented AMS, bl le edema, hypotensive, hypothermic, hypoglycemia - Ct head with no acute intracranial abnormality. - possibly due to hypothyroidism vs adrenal insuffciency vs infectious process - TSH/T4 noted, correlate with hypothyroidism - Continue IV Abx - Mentation improved - Avoid benzodiazepine to reduce the possibility of delirium - Maintenance of sleep-wake cycle Severe sepsis POA Urinary tract infection - Presented AMS, bl le edema, hypotensive, hypothermic, hypoglycemia - Elevated wbc ct, UA wbc noted - levaquin IV initiated for UTI - WBcs downtrending - Continue to F/U on B.cult - Daily CBC monitor - Consider ID consult if febrile or/and if leukocytosis worsen ESRD on HD Hypokalemia - Nephrology on consult, appreciated recommendation - correction with hemodialysis - management of HD per nephrology - Persistent hypokalemia noted this am: 40 MEQ K administered. Will need to take precaution with replacement given renal fx. - Strict intake and output - oliguric, D/C merrill Bladder scan and straight as needed per protocol - Avoid nephrotoxic medications; Renally dose medications - Monitor and replace electrolytes as needed GERD - GI Ppx with pantoprazole 40 mg IV daily Thrombocytopenia - Presented with low plt - Plt improved - no s/s of any active bleeding - H&H stable - Continue to trend CBC Hypertension - hypotensive at the moment - Hold home antihypertensives therapy C. difficile colitis -Flagyl 500 mg IV every 8 hours hyperglycemia - Presented with hypoglycemia s/p D10w gtt - on IV steroids - Continue BG check Q6hrs, low dose SSI Q6hrs - Avoid hypoglycemia - While critically ill target blood glucose of 140-180 Hospital Course to Date: 10/11: More awake and alert this am, following simple commands. Plan for PSV trial for possible extubation today. BP remains soft, MAP above 65. Continue midodrine TID and IV steroids. Remains hypokalemic, K repleted. Possible HD today per nephro. 10/12: S/p extubation, stable on RA this am. BP remains bordeline, continue PO midodrine TID. With persistent hypokalemia, most likely secondary to frequent loose stools/diarrhea. Per staffs patient with diarrhea since admit, C. diff PCR pending. Patient is stable for transfer to the floor. PT/OT ordered. 10/13: Patient's respiratory status back to baseline. Patient with saturations of 95% on room air. Replete potassium. Transition IV Synthroid and hydrocortisone to p.o. 10/14: Patient's mental status has improved slightly but not at baseline. Patient is alert and oriented to name and age only. Patient previously nonverbal but is able to answer simple questions. Continue Synthroid and hydrocortisone. Pulmonary to wean stress dose steroids today. Synthroid changed from IV to home dose p.o. Stool culture reveals C. difficile colitis. We will start Flagyl 500 mg every 8 hours. History Interval history: No new issues Hospitalist Physical - Constitutional Vitals: Temp Pulse Resp BP Pulse Ox 98.2 F 93 H 20 88/60 90 10/14/21 05:45 10/14/21 05:44 10/14/21 05:44 10/14/21 05:44 10/14/21 05:44 General appearance: Present: no acute distress, well-nourished, obese, other - EENT Eyes: Present: PERRL, EOM intact ENT: hearing intact, clear oral mucosa, dentition normal - Neck Neck: Present: supple, normal ROM - Respiratory Respiratory effort: normal Respiratory: bilateral: CTA - Cardiovascular Rhythm: regular Heart Sounds: Present: S1 & S2. Absent: gallop, rub - Extremities Extremities: no ischemia, No edema, Full ROM - Abdominal General gastrointestinal: soft, non-tender, non-distended, normal bowel sounds - Integumentary Integumentary: Present: clear, warm, dry - Neurologic Neurologic: CNII-XII intact, moves all extremities HEART Score - HEART Score Troponin: Troponin T 1.970 ng/mL (0.00-0.029) H* 10/09/21 23:30 Results - Labs CBC & Chem 7: 10/14/21 05:00 10/13/21 23:39 Labs: Laboratory Last Values WBC 15.5 K/mm3 (4.5-11.0) H 10/14/21 05:00 RBC 3.07 M/mm3 (3.65-5.03) L 10/14/21 05:00 Hgb 8.5 gm/dl (11.8-15.2) L 10/14/21 05:00 Hct 26.2 % (35.5-45.6) L 10/14/21 05:00 MCV 85 fl (84-94) 10/14/21 05:00 MCH 28 pg (28-32) 10/14/21 05:00 MCHC 33 % (32-34) 10/14/21 05:00 RDW 17.4 % (13.2-15.2) H 10/14/21 05:00 Plt Count 59 K/mm3 (140-440) L 10/14/21 05:00 Add Manual Diff Complete 10/14/21 05:00 Total Counted 100 10/14/21 05:00 Seg Neutrophils % [employer] 10/14/21 05:00 Seg Neuts % (Manual) 98.0 % (40.0-70.0) H 10/14/21 05:00 Band Neutrophils % 0 % 10/14/21 05:00 Lymphocytes % (Manual) 1.0 % (13.4-35.0) L 10/14/21 05:00 Reactive Lymphs % (Man) 0 % 10/14/21 05:00 Monocytes % (Manual) 1.0 % (0.0-7.3) 10/14/21 05:00 Eosinophils % (Manual) 0 % (0.0-4.3) 10/14/21 05:00 Basophils % (Manual) 0 % (0.0-1.8) 10/14/21 05:00 Metamyelocytes % 0 % 10/14/21 05:00 Myelocytes % 0 % 10/14/21 05:00 Promyelocytes % 0 % 10/14/21 05:00 Blast Cells % 0 % 10/14/21 05:00 Nucleated RBC % Not Reportable 10/14/21 05:00 Seg Neutrophils # Man 15.2 K/mm3 (1.8-7.7) H 10/14/21 05:00 Band Neutrophils # 0.0 K/mm3 10/14/21 05:00 Lymphocytes # (Manual) 0.2 K/mm3 (1.2-5.4) L 10/14/21 05:00 Abs React Lymphs (Man) 0.0 K/mm3 10/14/21 05:00 Monocytes # (Manual) 0.2 K/mm3 (0.0-0.8) 10/14/21 05:00 Eosinophils # (Manual) 0.0 K/mm3 (0.0-0.4) 10/14/21 05:00 Basophils # (Manual) 0.0 K/mm3 (0.0-0.1) 10/14/21 05:00 Metamyelocytes # 0.0 K/mm3 10/14/21 05:00 Myelocytes # 0.0 K/mm3 10/14/21 05:00 Promyelocytes # 0.0 K/mm3 10/14/21 05:00 Blast Cells # 0.0 K/mm3 10/14/21 05:00 WBC Morphology Not Reportable 10/14/21 05:00 Hypersegmented Neuts Not Reportable 10/14/21 05:00 Hyposegmented Neuts Not Reportable 10/14/21 05:00 Hypogranular Neuts Not Reportable 10/14/21 05:00 Smudge Cells Not Reportable 10/14/21 05:00 Toxic Granulation Not Reportable 10/14/21 05:00 Toxic Vacuolation Not Reportable 10/14/21 05:00 Dohle Bodies Not Reportable 10/14/21 05:00 Pelger-Huet Anomaly Not Reportable 10/14/21 05:00 Placido Rods Not Reportable 10/14/21 05:00 Platelet Estimate Consistent w auto 10/14/21 05:00 Clumped Platelets Not Reportable 10/14/21 05:00 Plt Clumps, EDTA Not Reportable 10/14/21 05:00 Large Platelets Not Reportable 10/14/21 05:00 Giant Platelets Not Reportable 10/14/21 05:00 Platelet Satelliting Not Reportable 10/14/21 05:00 Plt Morphology Comment Not Reportable 10/14/21 05:00 RBC Morphology Not Reportable 10/14/21 05:00 Dimorphic RBCs Not Reportable 10/14/21 05:00 Polychromasia Not Reportable 10/14/21 05:00 Hypochromasia 1+ 10/14/21 05:00 Poikilocytosis 1+ 10/14/21 05:00 Anisocytosis 1+ 10/14/21 05:00 Microcytosis Not Reportable 10/14/21 05:00 Macrocytosis Not Reportable 10/14/21 05:00 Spherocytes Not Reportable 10/14/21 05:00 Pappenheimer Bodies Not Reportable 10/14/21 05:00 Sickle Cells Not Reportable 10/14/21 05:00 Target Cells 1+ 10/14/21 05:00 Tear Drop Cells Not Reportable 10/14/21 05:00 Ovalocytes Not Reportable 10/14/21 05:00 Helmet Cells Not Reportable 10/14/21 05:00 [place] Bodies Not Reportable 10/14/21 05:00 [place] Rings Not Reportable 10/14/21 05:00 Hussain Cells Not Reportable 10/14/21 05:00 Bite Cells Not Reportable 10/14/21 05:00 Crenated Cell Not Reportable 10/14/21 05:00 Elliptocytes Not Reportable 10/14/21 05:00 Acanthocytes (Spur) Not Reportable 10/14/21 05:00 Rouleaux Not Reportable 10/14/21 05:00 Hemoglobin C Crystals Not Reportable 10/14/21 05:00 Schistocytes Not Reportable 10/14/21 05:00 Malaria parasites Not Reportable 10/14/21 05:00 Ezequiel Bodies Not Reportable 10/14/21 05:00 Hem Pathologist Commnt No 10/14/21 05:00 ABG pH 7.480 pH Units (7.350-7.450) H 10/11/21 05:25 ABG pCO2 25.8 mm Hg 10/11/21 05:25 ABG pO2 111.6 mm Hg (80.0-90.0) H 10/11/21 05:25 ABG HCO3 18.8 mmol/L (20.0-26.0) L 10/11/21 05:25 ABG O2 Saturation 98.3 % (95.0-99.0) 10/11/21 05:25 ABG O2 Content 10.9 (0.0-44) 10/11/21 05:25 ABG Base Excess -4.0 mmol/L (-2.0-3.0) L 10/11/21 05:25 ABG Hemoglobin 7.9 gm/dl (14.0-18.0) L 10/11/21 05:25 ABG Carboxyhemoglobin 1.3 % (0.0-5.0) 10/11/21 05:25 ABG Methemoglobin 0.4 % (0.0-1.5) 10/11/21 05:25 Oxyhemoglobin 96.7 % (95.0-99.0) 10/11/21 05:25 FiO2 30 % 10/11/21 05:25 Sodium 139 mmol/L (137-145) 10/13/21 23:39 Potassium 3.2 mmol/L (3.6-5.0) L 10/13/21 23:39 Chloride 102.0 mmol/L (98-107) 10/13/21 23:39 Carbon Dioxide 21 mmol/L (22-30) L 10/13/21 23:39 Anion Gap 19 mmol/L 10/13/21 23:39 BUN 23 mg/dL (9-20) H 10/13/21 23:39 Creatinine 3.7 mg/dL (0.8-1.3) H 10/13/21 23:39 Estimated GFR 20 ml/min 10/13/21 23:39 BUN/Creatinine Ratio 6 % 10/13/21 23:39 Glucose 199 mg/dL (75-100) H 10/13/21 23:39 POC Glucose 275 mg/dL (70-105) H 10/14/21 06:22 Lactic Acid 1.60 mmol/L (0.7-2.0) 10/11/21 11:23 Calcium 8.5 mg/dL (8.4-10.2) 10/13/21 23:39 Phosphorus 2.20 mg/dL (2.5-4.5) L D 10/12/21 05:50 Magnesium 1.80 mg/dL (1.7-2.3) 10/12/21 05:50 Total Bilirubin 1.20 mg/dL (0.1-1.2) 10/13/21 05:17 AST 32 units/L (5-40) 10/13/21 05:17 ALT 11 units/L (7-56) 10/13/21 05:17 Alkaline Phosphatase 167 units/L (35-129) H 10/13/21 05:17 Total Creatine Kinase 644 units/L (55-170) H 10/09/21 23:30 Troponin T 1.970 ng/mL (0.00-0.029) H* 10/09/21 23:30 Total Protein 7.5 g/dL (6.3-8.2) D 10/13/21 05:17 Albumin 2.4 g/dL (3.9-5) L 10/13/21 05:17 Albumin/Globulin Ratio 0.5 % 10/13/21 05:17 Triglycerides 68 mg/dL (2-149) 10/09/21 23:30 Cholesterol 81 mg/dL (50-199) 10/09/21 23:30 LDL Cholesterol Direct 21 mg/dL (50-130) L 10/09/21 23:30 HDL Cholesterol 44 mg/dL (40-59) 10/09/21 23:30 Cholesterol/HDL Ratio 1.84 % 10/09/21 23:30 TSH 23.050 mlU/mL (0.270-4.200) H 10/10/21 14:51 Free T4 0.36 ng/dL (0.76-1.46) L 10/10/21 14:51 Urine Color Yellow (Yellow) 10/10/21 01:30 Urine Turbidity Turbid (Clear) 10/10/21 01:30 Urine pH 6.0 (5.0-7.0) 10/10/21 01:30 Ur Specific [employer] 1.018 (1.003-1.030) 10/10/21 01:30 Urine Protein 100 mg/dl mg/dL (Negative) 10/10/21 01:30 Urine Glucose (UA) Neg mg/dL (Negative) 10/10/21 01:30 Urine Ketones Tr mg/dL (Negative) 10/10/21 01:30 Urine Blood Mod (Negative) 10/10/21 01:30 Urine Nitrite Neg (Negative) 10/10/21 01:30 Urine Bilirubin Neg (Negative) 10/10/21 01:30 Urine Urobilinogen < 2.0 mg/dL (<2.0) 10/10/21 01:30 Ur Leukocyte Esterase Mod (Negative) 10/10/21 01:30 Urine WBC (Auto) > 182.0 /HPF (0.0-6.0) H 10/10/21 01:30 Urine RBC (Auto) 70.0 /HPF (0.0-6.0) 10/10/21 01:30 Urine Bacteria (Auto) 1+ /HPF (Negative) 10/10/21 01:30 Urine WBC Clumps 3+ /HPF 10/10/21 01:30 Hepatitis A IgM Ab Non-reactive (NonReactive) 10/11/21 11:23 Hep Bs Antigen Non-reactive (Negative) 10/11/21 11:23 Hep B Core IgM Ab Non-reactive (NonReactive) 10/11/21 11:23 Hepatitis C Antibody Reactive (NonReactive) A 10/11/21 11:23 Microbiology: Microbiology 10/09/21 23:20 Tracheal Aspirate Sputum Culture - Preliminary Enterococcus Faecalis Active Medications - Current Medications Current Medications: Generic Name Dose Route Start Last Admin Trade Name Freq PRN Reason Stop Dose Admin Acetaminophen 650 mg 10/10/21 01:37 Acetaminophen 325 Mg Tab PO Q4H PRN Pain MILD(1-3)/Fever >100.5/SEALS Dextrose 50 ml 10/10/21 01:37 10/10/21 06:39 Dextrose 50% In Water (25gm) 50 Ml Syringe IV 50 ml Q30MIN PRN Administration Hypoglycemia Protocol Hydrocortisone Sodium Succinate 100 mg 10/10/21 10:30 10/14/21 05:48 Hydrocortisone Sod Succ 100 Mg/2 Ml Vial IV 100 mg Q8HR CHAKA Administration Insulin Human Lispro 0 unit 10/10/21 06:00 10/14/21 06:40 Insulin Lispro 100 Unit/Ml SUB-Q 3 unit Q6HR CHAKA Administration Protocol Levothyroxine Sodium 150 mcg 10/14/21 06:00 10/14/21 05:48 Levothyroxine 150 Mcg Tab PO 150 mcg DAILY@0600 CHAKA Administration Levothyroxine Sodium 25 mcg 10/14/21 06:00 10/14/21 05:48 Levothyroxine 25 Mcg Tab PO 25 mcg DAILY@0600 CHAKA Administration Midodrine 10 mg 10/10/21 08:00 10/14/21 09:16 Midodrine 10 Mg Tab PO 10 mg TID@0800,1200,1600 CHAKA Administration Ondansetron HCl 4 mg 10/10/21 01:37 Ondansetron 4 Mg/2 Ml Inj IV Q8H PRN Nausea And Vomiting Pantoprazole Sodium 40 mg 10/14/21 07:30 10/14/21 09:16 Pantoprazole 40 Mg Tab PO 40 mg QDAC CHAKA Administration Sodium Chloride 10 ml 10/10/21 10:00 10/14/21 09:17 Sodium Chloride 0.9% 10 Ml Flush Syringe IV 10 ml BID CHAKA Administration Sodium Chloride 10 ml 10/10/21 01:37 Sodium Chloride 0.9% 10 Ml Flush Syringe IV PRN PRN LINE FLUSH Nutrition/Malnutrition Assess - Dietary Evaluation Nutrition/Malnutrition Findings: Nutrition Notes Start: 10/11/21 16:12 Freq: Status: Active Protocol: Document 10/13/21 15:46 ADITYA (Rec: 10/13/21 15:58 ADITYA [id number]) Nutrition Notes Initial or Follow up Brief Note Current Diagnosis CKD(stage I-IV),Diabetes, Sepsis,Hypertension, Hyperlipidemia Other Pertinent Diagnosis ESRD+HD, Hypoglycemia, GERD, UTI, Metabolic Encephalopathy, Uremia,... Current Diet Renal Diet (since L 10/12). Height 6 ft Weight 99.79 kg [place] Body Weight (kg) 80.90 BMI 29.8 Weight change and time frame No body weight changes in 2 days reported. Weight Status Overweight Subjective/Other Information RD consult for routine F/U on Dietary Advancement. Diet advanced to PO, Pt's PO intake of meals has been Negligible(0%), according to ADL notes. I will assess the need for ONS at F/U. COAT PADDER note on 10/12/21 12:59: Swallowing function has been assessed. No aspiration was identified during the examination. Continue his current diet. Will continue to follow 2-3 days to ensure continued safety. - END OF NOTE. Pt is on Room Air, O2 saturation @ 97%, according to Physical Assessment History notes. Percent of energy/protein needs met: Prescribed Renal Diet provides for energy/protein needs (2, 072 Kcal/77 g) during LOS. #1 Nutrition Diagnosis Inadequate oral intake Comments: COAT PADDER note on 10/12/21 12:59: Swallowing function has been assessed. No aspiration was identified during the examination. Continue his current diet. Will continue to follow 2-3 days to ensure continued safety. - END OF NOTE. Diagnosis Progress(for reassessment Resolved documentation) Is patient on ventilator? No Is Patient Ambulatory and/or Out of Bed No REE-([facility]-confined to bed) [phone] Calculation Used for Recommendations [facility] Additional Notes Protein: >1.2 g/Kg ABW; >120 g /day. Fluids: 1 ml/Kcal, or as per MD. Nutrition Intervention Change Diet Order: Continue Renal Diet. Nutrition Support: Discontinue. Goal #1 Adjust the dietary intervention to better serve Pt's needs and clinical conditions during LOS. Follow-Up By: 10/18/21 Additional Comments Continue monitoring food tolerance, %PO intake of meals , and BM.Continue monitoring food tolerance, %PO intake of meals, and BM.
--- NOTE | 2021-10-14 10:53 | Progress Note ---
Assessment and Plan Assessment Acute metabolic encephalopathy End-stage renal disease on hemodialysis Hypertension Elevated troponin Nicotine dependence Sepsis History of hypothyroidism Insulin dependent diabetes mellitus Hypokalemia Hypoglycemia Plan: Received hemodialysis yesterday for UF and clearance via perm-catheter No acute indication for HD today No new BMP levels noted for today Check BMP in a.m Hypotension-on Midodrine 10 mg po TID Renally dose medications Strict I&O's daily Obtain daily weights Assess dialysis needs daily Patient was started on hemodialysis on 09/04/21 at [facility]. Spoke with CM to work on finding out where patient receives HD outpatiently CM arranging SNF placement Plan of care reviewed by Aracelis Subjective Date of service: 10/14/21 Principal diagnosis: ESRD Interval history: Patient seen lying in bed. Awake. PT at bedside. No family at bedside. Objective - Vital Signs Vital signs: Vital Signs - 12hr 10/14/21 10/14/21 10/14/21 05:44 05:45 10:00 Temperature 98.2 F Pulse Rate 93 H Respiratory 20 Rate Blood Pressure 88/60 O2 Sat by Pulse 90 95 Oximetry - General Appearance General appearance: other (No acute distress) EENT: ATNC Neck: no JVD, supple Respiratory: Present: Decreased Breath Sounds Cardiology: S1S2 Gastrointestinal: normoactive bowel sounds Integumentary: other (shiny from edema) Neurologic: other (Awake, oriented to self only) Musculoskeletal: joint swelling, other (has 3+ edema to thighs and legs) - Lab 10/14/21 05:00 10/13/21 23:39 Most recent lab results ABG pH 7.480 pH Units (7.350-7.450) H 10/11/21 05:25 ABG pCO2 25.8 mm Hg 10/11/21 05:25 ABG pO2 111.6 mm Hg (80.0-90.0) H 10/11/21 05:25 ABG HCO3 18.8 mmol/L (20.0-26.0) L 10/11/21 05:25 ABG O2 Saturation 98.3 % (95.0-99.0) 10/11/21 05:25 Calcium 8.5 mg/dL (8.4-10.2) 10/13/21 23:39 Phosphorus 2.20 mg/dL (2.5-4.5) L D 10/12/21 05:50 Magnesium 1.80 mg/dL (1.7-2.3) 10/12/21 05:50 Medications & Allergies - Medications Allergies/Adverse Reactions: Allergies No Known Allergies Allergy (Verified 10/09/21 23:38) Home Medications: Home Medications Medication Instructions Recorded Confirmed Last Taken Type Levothyroxine Sodium 175 mcg PO DAILY 08/23/21 10/13/21 08/22/21 History [Levothyroxine] Sertraline [Zoloft] 100 mg PO QDAY 08/23/21 10/13/21 08/22/21 History Cyclobenzaprine [Flexeril 10 MG 5 mg PO TID PRN #15 tablet 08/27/21 10/13/21 Unknown Rx TAB] Pantoprazole [Protonix TAB] 40 mg PO QDAY #30 tablet 08/27/21 10/13/21 Unknown Rx Insulin Glargine [Lantus VIAL] 30 units SUB-Q QHS units 09/02/21 10/13/21 Unknown Rx Lispro Insulin [HumaLOG] 0 unit SUB-Q ACHS units 09/02/21 10/13/21 Unknown Rx Midodrine [Proamatine] 10 mg PO TID tablet 09/02/21 10/13/21 Unknown Rx Active Medications: Generic Name Dose Route Start Last Admin Trade Name Yogeshq PRN Reason Stop Dose Admin Acetaminophen 650 mg 10/10/21 01:37 Acetaminophen 325 Mg Tab PO Q4H PRN Pain MILD(1-3)/Fever >100.5/SEALS Dextrose 50 ml 10/10/21 01:37 10/10/21 06:39 Dextrose 50% In Water (25gm) 50 Ml Syringe IV 50 ml Q30MIN PRN Administration Hypoglycemia Protocol Hydrocortisone Sodium Succinate 100 mg 10/10/21 10:30 10/14/21 05:48 Hydrocortisone Sod Succ 100 Mg/2 Ml Vial IV 100 mg Q8HR CHAKA Administration Insulin Human Lispro 0 unit 10/10/21 06:00 10/14/21 06:40 Insulin Lispro 100 Unit/Ml SUB-Q 3 unit Q6HR CHAKA Administration Protocol Levothyroxine Sodium 150 mcg 10/14/21 06:00 10/14/21 05:48 Levothyroxine 150 Mcg Tab PO 150 mcg DAILY@0600 CHAKA Administration Levothyroxine Sodium 25 mcg 10/14/21 06:00 10/14/21 05:48 Levothyroxine 25 Mcg Tab PO 25 mcg DAILY@0600 CHAKA Administration Midodrine 10 mg 10/10/21 08:00 10/14/21 09:16 Midodrine 10 Mg Tab PO 10 mg TID@0800,1200,1600 CHAKA Administration Ondansetron HCl 4 mg 10/10/21 01:37 Ondansetron 4 Mg/2 Ml Inj IV Q8H PRN Nausea And Vomiting Pantoprazole Sodium 40 mg 10/14/21 07:30 10/14/21 09:16 Pantoprazole 40 Mg Tab PO 40 mg QDAC CHAKA Administration Sodium Chloride 10 ml 10/10/21 10:00 10/14/21 09:17 Sodium Chloride 0.9% 10 Ml Flush Syringe IV 10 ml BID CHAKA Administration Sodium Chloride 10 ml 10/10/21 01:37 Sodium Chloride 0.9% 10 Ml Flush Syringe IV PRN PRN LINE FLUSH
[2021-10-14] MEDS ORDERED: metroNIDAZOLE/NS 500 MG/100 ML 500 MG/100 ML BAG IV SCH (13:00)
[2021-10-14] MEDS: VANCOMYCIN 250 MG/10 ML ORAL LIQD PO SCH ×2 (15:53→17:03)
--- NOTE | 2021-10-14 20:41 | Progress Note ---
Assessment and Plan 61 y/o male with respiratory failure secondary to altered mental status secondary to hypoglycemia. 10/14/21: Pharmacy ordered C. Diff therapy under me. Please consider ID consult for duration of therapy. Will follow up as to why patient was placed on oxygen based on documentation but this could be an error. Spoke with pharmacy and holly roid taper ordered. Will see as needed once oxygen is figured out. 10/13/21: Can start to wean stress dose steroids starting tomorrow. Pharm placed back on home dose of synthroid. Will follow. 10/12/21: Follow up C. Diff. Per staff, daughter states patient has been having persistent diarrhea since discharge. This is likely the cause of persistent hypokalemia. Would ask renal to only clean and not pull any fluid with HD. Follow up speech. Stable for transfer to floor. 10/11/21: Off d10, sugars are much better. Will extubate. Would like to keep stress dose steroids and start to wean tomorrow. Electrolytes per renal. 1. State repeat CMP and CBC, follow up K replacement 2. Will start stress dose steroids given history of Hypothyroid and current hyoglycemia 3. q1 hour fsbs 4. Stop D5 and start d10 at 50mls/hr 5. Dropped peep to 6 6. No sedation 7. Once more awake will extubate, no matter what time of day 8. guarded prognosis. CCT 31 minutes. Subjective Date of service: 10/14/21 Principal diagnosis: ESRD Interval history: Chart reviewed. Placed on oxygen this morning, for reasons not documented in RT note. No documentation of need in nursing notes either. Called by pharmacy earlier today that patient is C. Diff positive. Objective Vital Signs - 12hr 10/14/21 10/14/21 10/14/21 09:15 10:00 17:12 Temperature 97.8 F 98.0 F Pulse Rate 96 H Respiratory 20 18 Rate Respiratory 20 Rate [no pain] Blood Pressure 89/61 102/65 O2 Sat by Pulse 99 76 L Oximetry Constitutional: no acute distress Eyes: non-icteric ENT: other (orally intubated) Neck: supple Effort: normal Ascultation: Bilateral: clear Percussion: Bilateral: not dull Cardiovascular: regular rate and rhythm Gastrointestinal: normoactive bowel sounds, soft Extremities: no cyanosis, no edema Neurologic: unable to assess Psychiatric: mood appropriate CBC and BMP: 10/14/21 05:00 10/13/21 23:39 ABG, PT/INR, D-dimer: ABG ABG pH 7.480 pH Units (7.350-7.450) H 10/11/21 05:25 ABG pCO2 25.8 mm Hg 10/11/21 05:25 ABG pO2 111.6 mm Hg (80.0-90.0) H 10/11/21 05:25 ABG O2 Saturation 98.3 % (95.0-99.0) 10/11/21 05:25 Abnormal lab findings: Abnormal Labs 10/09/21 10/09/21 10/09/21 22:21 23:20 23:30 WBC 17.4 H RBC 3.32 L Hgb 9.2 L Hct 28.2 L MCV MCH RDW 17.4 H Plt Count 45 L Seg Neuts % (Manual) 98.0 H Lymphocytes % (Manual) 1.0 L Seg Neutrophils # Man 17.1 H Lymphocytes # (Manual) 0.2 L ABG pH 7.301 L ABG pO2 162.1 H ABG HCO3 ABG O2 Saturation ABG Base Excess -2.3 L ABG Hemoglobin 10.2 L Sodium Potassium Chloride Carbon Dioxide BUN Creatinine Glucose POC Glucose 151 H Lactic Acid Calcium Phosphorus Magnesium AST Alkaline Phosphatase Total Creatine Kinase Troponin T Total Protein Albumin LDL Cholesterol Direct TSH Free T4 T3 (TERRENCE) Urine WBC (Auto) Hepatitis C Antibody 10/09/21 10/09/21 10/10/21 23:30 23:30 01:30 WBC RBC Hgb Hct MCV MCH RDW Plt Count Seg Neuts % (Manual) Lymphocytes % (Manual) Seg Neutrophils # Man Lymphocytes # (Manual) ABG pH ABG pO2 ABG HCO3 ABG O2 Saturation ABG Base Excess ABG Hemoglobin Sodium 132 L Potassium 1.7 L* Chloride 96.6 L Carbon Dioxide BUN Creatinine 4.8 H Glucose 70 L POC Glucose Lactic Acid 2.10 H* Calcium 8.0 L Phosphorus Magnesium AST 68 H Alkaline Phosphatase 161 H Total Creatine Kinase 644 H Troponin T 1.970 H* Total Protein Albumin 2.1 L LDL Cholesterol Direct 21 L TSH Free T4 T3 (TERRENCE) Urine WBC (Auto) > 182.0 H Hepatitis C Antibody 10/10/21 10/10/21 10/10/21 02:59 04:15 05:40 WBC RBC Hgb Hct MCV MCH RDW Plt Count Seg Neuts % (Manual) Lymphocytes % (Manual) Seg Neutrophils # Man Lymphocytes # (Manual) ABG pH 7.469 H ABG pO2 217.7 H ABG HCO3 ABG O2 Saturation 99.4 H ABG Base Excess ABG Hemoglobin 8.6 L Sodium Potassium Chloride Carbon Dioxide BUN Creatinine Glucose POC Glucose 16 L 58 L Lactic Acid Calcium Phosphorus Magnesium AST Alkaline Phosphatase Total Creatine Kinase Troponin T Total Protein Albumin LDL Cholesterol Direct TSH Free T4 T3 (TERRENCE) Urine WBC (Auto) Hepatitis C Antibody 10/10/21 10/10/21 10/10/21 08:32 12:25 12:25 WBC 15.3 H RBC 3.11 L Hgb 8.6 L Hct 26.6 L MCV MCH RDW 17.4 H Plt Count 38 L Seg Neuts % (Manual) Lymphocytes % (Manual) Seg Neutrophils # Man Lymphocytes # (Manual) ABG pH ABG pO2 ABG HCO3 ABG O2 Saturation ABG Base Excess ABG Hemoglobin Sodium Potassium Chloride Carbon Dioxide BUN Creatinine Glucose POC Glucose Lactic Acid 3.40 H* 2.80 H* Calcium Phosphorus Magnesium AST Alkaline Phosphatase Total Creatine Kinase Troponin T Total Protein Albumin LDL Cholesterol Direct TSH Free T4 T3 (TERRENCE) Urine WBC (Auto) Hepatitis C Antibody 10/10/21 10/10/21 10/10/21 12:25 12:25 14:51 WBC RBC Hgb Hct MCV MCH RDW Plt Count Seg Neuts % (Manual) Lymphocytes % (Manual) Seg Neutrophils # Man Lymphocytes # (Manual) ABG pH ABG pO2 ABG HCO3 ABG O2 Saturation ABG Base Excess ABG Hemoglobin Sodium 131 L Potassium 2.1 L* D Chloride 97.2 L Carbon Dioxide 20 L BUN Creatinine 4.9 H Glucose 129 H POC Glucose Lactic Acid Calcium 7.4 L Phosphorus Magnesium 1.50 L AST 52 H Alkaline Phosphatase 169 H Total Creatine Kinase Troponin T Total Protein 5.8 L Albumin 2.0 L LDL Cholesterol Direct TSH Free T4 T3 (TERRENCE) 26.7 L Urine WBC (Auto) Hepatitis C Antibody 10/10/21 10/10/21 10/10/21 14:51 18:12 19:35 WBC RBC Hgb Hct MCV MCH RDW Plt Count Seg Neuts % (Manual) Lymphocytes % (Manual) Seg Neutrophils # Man Lymphocytes # (Manual) ABG pH ABG pO2 ABG HCO3 ABG O2 Saturation ABG Base Excess ABG Hemoglobin Sodium Potassium Chloride Carbon Dioxide BUN Creatinine Glucose POC Glucose 181 H 194 H Lactic Acid Calcium Phosphorus Magnesium AST Alkaline Phosphatase Total Creatine Kinase Troponin T Total Protein Albumin LDL Cholesterol Direct TSH 23.050 H Free T4 0.36 L T3 (TERRENCE) Urine WBC (Auto) Hepatitis C Antibody 10/10/21 10/11/21 10/11/21 23:50 03:26 05:25 WBC RBC Hgb Hct MCV MCH RDW Plt Count Seg Neuts % (Manual) Lymphocytes % (Manual) Seg Neutrophils # Man Lymphocytes # (Manual) ABG pH 7.480 H ABG pO2 111.6 H ABG HCO3 18.8 L ABG O2 Saturation ABG Base Excess -4.0 L ABG Hemoglobin 7.9 L Sodium 129 L Potassium 2.6 L* D Chloride 95.0 L Carbon Dioxide 20 L BUN Creatinine 5.0 H Glucose 233 H POC Glucose 185 H Lactic Acid Calcium 7.7 L Phosphorus Magnesium AST Alkaline Phosphatase Total Creatine Kinase Troponin T Total Protein Albumin LDL Cholesterol Direct TSH Free T4 T3 (TERRENCE) Urine WBC (Auto) Hepatitis C Antibody 10/11/21 10/11/21 10/11/21 06:59 06:59 11:23 WBC 14.3 H RBC 2.75 L Hgb 7.6 L Hct 23.2 L MCV MCH RDW 17.4 H Plt Count 52 L Seg Neuts % (Manual) 99.0 H Lymphocytes % (Manual) 1.0 L Seg Neutrophils # Man 14.2 H Lymphocytes # (Manual) 0.1 L ABG pH ABG pO2 ABG HCO3 ABG O2 Saturation ABG Base Excess ABG Hemoglobin Sodium 127 L 126 L Potassium 2.6 L* 3.0 L Chloride 93.7 L 92.7 L Carbon Dioxide 19 L 20 L BUN 21 H Creatinine 5.0 H 5.3 H Glucose 208 H 214 H POC Glucose Lactic Acid Calcium 7.6 L 7.7 L Phosphorus Magnesium AST Alkaline Phosphatase Total Creatine Kinase Troponin T Total Protein Albumin LDL Cholesterol Direct TSH Free T4 T3 (TERRENCE) Urine WBC (Auto) Hepatitis C Antibody 10/11/21 10/11/21 10/11/21 11:23 17:03 23:08 WBC RBC Hgb Hct MCV MCH RDW Plt Count Seg Neuts % (Manual) Lymphocytes % (Manual) Seg Neutrophils # Man Lymphocytes # (Manual) ABG pH ABG pO2 ABG HCO3 ABG O2 Saturation ABG Base Excess ABG Hemoglobin Sodium Potassium Chloride Carbon Dioxide BUN Creatinine Glucose POC Glucose 220 H 201 H Lactic Acid Calcium Phosphorus Magnesium AST Alkaline Phosphatase Total Creatine Kinase Troponin T Total Protein Albumin LDL Cholesterol Direct TSH Free T4 T3 (TERRENCE) Urine WBC (Auto) Hepatitis C Antibody Reactive A 10/11/21 10/12/21 10/12/21 23:53 05:33 05:50 WBC 16.4 H RBC 2.73 L Hgb 7.7 L Hct 22.8 L MCV 83 L MCH RDW 16.6 H Plt Count 57 L Seg Neuts % (Manual) Lymphocytes % (Manual) Seg Neutrophils # Man Lymphocytes # (Manual) ABG pH ABG pO2 ABG HCO3 ABG O2 Saturation ABG Base Excess ABG Hemoglobin Sodium Potassium 3.0 L Chloride Carbon Dioxide BUN Creatinine 3.5 H Glucose 207 H POC Glucose 163 H Lactic Acid Calcium 8.2 L Phosphorus Magnesium AST Alkaline Phosphatase Total Creatine Kinase Troponin T Total Protein Albumin LDL Cholesterol Direct TSH Free T4 T3 (TERRENCE) Urine WBC (Auto) Hepatitis C Antibody 10/12/21 10/12/21 10/12/21 05:50 12:07 14:42 WBC RBC Hgb Hct MCV MCH RDW Plt Count Seg Neuts % (Manual) Lymphocytes % (Manual) Seg Neutrophils # Man Lymphocytes # (Manual) ABG pH ABG pO2 ABG HCO3 ABG O2 Saturation ABG Base Excess ABG Hemoglobin Sodium 135 L 134 L Potassium 2.9 L* 2.7 L* Chloride Carbon Dioxide BUN Creatinine 3.9 H 4.1 H Glucose 166 H 171 H POC Glucose 164 H Lactic Acid Calcium 8.2 L 8.2 L Phosphorus 2.20 L D Magnesium AST Alkaline Phosphatase Total Creatine Kinase Troponin T Total Protein Albumin LDL Cholesterol Direct TSH Free T4 T3 (TERRENCE) Urine WBC (Auto) Hepatitis C Antibody 10/12/21 10/12/21 10/12/21 15:21 21:11 23:38 WBC RBC Hgb Hct MCV MCH RDW Plt Count Seg Neuts % (Manual) Lymphocytes % (Manual) Seg Neutrophils # Man Lymphocytes # (Manual) ABG pH ABG pO2 ABG HCO3 ABG O2 Saturation ABG Base Excess ABG Hemoglobin Sodium Potassium Chloride Carbon Dioxide BUN Creatinine Glucose POC Glucose 156 H 242 H 232 H Lactic Acid Calcium Phosphorus Magnesium AST Alkaline Phosphatase Total Creatine Kinase Troponin T Total Protein Albumin LDL Cholesterol Direct TSH Free T4 T3 (TERRENCE) Urine WBC (Auto) Hepatitis C Antibody 10/13/21 10/13/21 10/13/21 00:04 05:17 05:17 WBC 17.5 H RBC 3.18 L Hgb 8.7 L Hct 26.8 L MCV MCH 27 L RDW 17.6 H Plt Count 64 L Seg Neuts % (Manual) 95.0 H Lymphocytes % (Manual) 3.0 L Seg Neutrophils # Man 16.6 H Lymphocytes # (Manual) 0.5 L ABG pH ABG pO2 ABG HCO3 ABG O2 Saturation ABG Base Excess ABG Hemoglobin Sodium 131 L 135 L Potassium 3.2 L Chloride Carbon Dioxide 14 L D 20 L BUN 24 H 26 H Creatinine 4.4 H 4.6 H Glucose 258 H 244 H POC Glucose Lactic Acid Calcium 8.3 L Phosphorus Magnesium AST Alkaline Phosphatase 167 H Total Creatine Kinase Troponin T Total Protein Albumin 2.4 L LDL Cholesterol Direct TSH Free T4 T3 (TERRENCE) Urine WBC (Auto) Hepatitis C Antibody 10/13/21 10/13/21 10/13/21 06:01 14:35 16:01 WBC RBC Hgb Hct MCV MCH RDW Plt Count Seg Neuts % (Manual) Lymphocytes % (Manual) Seg Neutrophils # Man Lymphocytes # (Manual) ABG pH ABG pO2 ABG HCO3 ABG O2 Saturation ABG Base Excess ABG Hemoglobin Sodium Potassium 3.3 L Chloride Carbon Dioxide 20 L BUN Creatinine 3.2 H Glucose 236 H POC Glucose 226 H 223 H Lactic Acid Calcium Phosphorus Magnesium AST Alkaline Phosphatase Total Creatine Kinase Troponin T Total Protein Albumin LDL Cholesterol Direct TSH Free T4 T3 (TERRENCE) Urine WBC (Auto) Hepatitis C Antibody 10/13/21 10/13/21 10/13/21 21:15 23:35 23:39 WBC RBC Hgb Hct MCV MCH RDW Plt Count Seg Neuts % (Manual) Lymphocytes % (Manual) Seg Neutrophils # Man Lymphocytes # (Manual) ABG pH ABG pO2 ABG HCO3 ABG O2 Saturation ABG Base Excess ABG Hemoglobin Sodium Potassium 3.2 L Chloride Carbon Dioxide 21 L BUN 23 H Creatinine 3.7 H Glucose 199 H POC Glucose 194 H 180 H Lactic Acid Calcium Phosphorus Magnesium AST Alkaline Phosphatase Total Creatine Kinase Troponin T Total Protein Albumin LDL Cholesterol Direct TSH Free T4 T3 (TERRENCE) Urine WBC (Auto) Hepatitis C Antibody 10/14/21 10/14/21 10/14/21 05:00 06:22 11:02 WBC 15.5 H RBC 3.07 L Hgb 8.5 L Hct 26.2 L MCV MCH RDW 17.4 H Plt Count 59 L Seg Neuts % (Manual) 98.0 H Lymphocytes % (Manual) 1.0 L Seg Neutrophils # Man 15.2 H Lymphocytes # (Manual) 0.2 L ABG pH ABG pO2 ABG HCO3 ABG O2 Saturation ABG Base Excess ABG Hemoglobin Sodium Potassium Chloride Carbon Dioxide BUN Creatinine Glucose POC Glucose 275 H 231 H Lactic Acid Calcium Phosphorus Magnesium AST Alkaline Phosphatase Total Creatine Kinase Troponin T Total Protein Albumin LDL Cholesterol Direct TSH Free T4 T3 (TERRENCE) Urine WBC (Auto) Hepatitis C Antibody 10/14/21 16:10 WBC RBC Hgb Hct MCV MCH RDW Plt Count Seg Neuts % (Manual) Lymphocytes % (Manual) Seg Neutrophils # Man Lymphocytes # (Manual) ABG pH ABG pO2 ABG HCO3 ABG O2 Saturation ABG Base Excess ABG Hemoglobin Sodium Potassium Chloride Carbon Dioxide BUN Creatinine Glucose POC Glucose 196 H Lactic Acid Calcium Phosphorus Magnesium AST Alkaline Phosphatase Total Creatine Kinase Troponin T Total Protein Albumin LDL Cholesterol Direct TSH Free T4 T3 (TERRENCE) Urine WBC (Auto) Hepatitis C Antibody
[2021-10-15] MEDS: VANCOMYCIN 250 MG/10 ML ORAL LIQD PO SCH ×4 (00:07→17:48)
[2021-10-15] MEDS: INSULIN LISPRO 100 UNIT/ML SUB-Q SCH ×5 (00:43→17:50)
[2021-10-15 05:43] LABS: Hematocrit 28.1 % (35.5-45.6); Hemoglobin 9.1 gm/dl (11.8-15.2); Mean Corpuscular HGB Conc 32 % (32-34); Mean Corpuscular Volume 87 fl (84-94); Red Blood Count 3.25 M/mm3 (3.65-5.03); Red Cell Distribution Width 17.9 % (13.2-15.2)
[2021-10-15] MEDS: LEVOTHYROXINE 150 MCG TAB PO SCH (05:44)
[2021-10-15] MEDS: HYDROCORTISONE SOD SUCC 100 MG/2 ML VIAL IV SCH ×3 (05:44→22:13)
[2021-10-15] MEDS: LEVOTHYROXINE 25 MCG TAB PO SCH (05:45)
[2021-10-15 05:46] LABS: Platelet Count 68 K/mm3 (140-440)
[2021-10-15 06:03] LABS: Calcium 8.5 mg/dL (8.4-10.2)
[2021-10-15 06:38] LABS: Anisocytosis 1+; Basophils % (Manual) 0 % (0.0-1.8); Eosinophils % (Manual) 0 % (0.0-4.3); Hypochromasia 1+; Total Cells Counted 100
[2021-10-15 06:39] LABS: Platelet Estimate Consistent w Auto
--- NOTE | 2021-10-15 08:29 | Progress Note ---
Assessment and Plan 61 y/o male with respiratory failure secondary to altered mental status secondary to hypoglycemia. 10/15/21: Will check CXR given increases in oxygen requirement and documented desaturation. Continue treatment for inspection. Will order incentive ty, HD per renal. Wean stress dose steroids. 10/14/21: Pharmacy ordered C. Diff therapy under me. Please consider ID consult for duration of therapy. Will follow up as to why patient was placed on oxygen based on documentation but this could be an error. Spoke with pharmacy and ster oid taper ordered. Will see as needed once oxygen is figured out. 10/13/21: Can start to wean stress dose steroids starting tomorrow. Pharm placed back on home dose of synthroid. Will follow. 10/12/21: Follow up C. Diff. Per staff, daughter states patient has been having persistent diarrhea since discharge. This is likely the cause of persistent hypokalemia. Would ask renal to only clean and not pull any fluid with HD. Follow up speech. Stable for transfer to floor. 10/11/21: Off d10, sugars are much better. Will extubate. Would like to keep stress dose steroids and start to wean tomorrow. Electrolytes per renal. 1. State repeat CMP and CBC, follow up K replacement 2. Will start stress dose steroids given history of Hypothyroid and current hyoglycemia 3. q1 hour fsbs 4. Stop D5 and start d10 at 50mls/hr 5. Dropped peep to 6 6. No sedation 7. Once more awake will extubate, no matter what time of day 8. guarded prognosis. CCT 31 minutes. Subjective Date of service: 10/15/21 Principal diagnosis: ESRD Interval history: no acute events. Now up to 3 liters. Found one oxygen sat of 76% documented in vitals. Clinically appears unchanged. Objective Vital Signs - 12hr 10/14/21 10/14/21 10/15/21 21:16 22:00 05:58 Temperature 98.4 F 98.5 F Pulse Rate 90 83 Respiratory 18 20 Rate Blood Pressure 99/69 117/77 O2 Sat by Pulse 91 96 95 Oximetry Constitutional: no acute distress Eyes: non-icteric ENT: other (orally intubated) Neck: supple Effort: normal Ascultation: Bilateral: clear Percussion: Bilateral: not dull Cardiovascular: regular rate and rhythm Gastrointestinal: normoactive bowel sounds, soft Extremities: no cyanosis, no edema Neurologic: unable to assess Psychiatric: mood appropriate CBC and BMP: 10/15/21 04:56 10/15/21 04:56 ABG, PT/INR, D-dimer: ABG ABG pH 7.480 pH Units (7.350-7.450) H 10/11/21 05:25 ABG pCO2 25.8 mm Hg 10/11/21 05:25 ABG pO2 111.6 mm Hg (80.0-90.0) H 10/11/21 05:25 ABG O2 Saturation 98.3 % (95.0-99.0) 10/11/21 05:25 Abnormal lab findings: Abnormal Labs 10/09/21 10/09/21 10/09/21 22:21 23:20 23:30 WBC 17.4 H RBC 3.32 L Hgb 9.2 L Hct 28.2 L MCV MCH RDW 17.4 H Plt Count 45 L Seg Neuts % (Manual) 98.0 H Lymphocytes % (Manual) 1.0 L Nucleated RBC % Seg Neutrophils # Man 17.1 H Lymphocytes # (Manual) 0.2 L ABG pH 7.301 L ABG pO2 162.1 H ABG HCO3 ABG O2 Saturation ABG Base Excess -2.3 L ABG Hemoglobin 10.2 L Sodium Potassium Chloride Carbon Dioxide BUN Creatinine Glucose POC Glucose 151 H Lactic Acid Calcium Phosphorus Magnesium AST Alkaline Phosphatase Total Creatine Kinase Troponin T Total Protein Albumin LDL Cholesterol Direct TSH Free T4 T3 (TERRENCE) Urine WBC (Auto) Hepatitis C Antibody 10/09/21 10/09/21 10/10/21 23:30 23:30 01:30 WBC RBC Hgb Hct MCV MCH RDW Plt Count Seg Neuts % (Manual) Lymphocytes % (Manual) Nucleated RBC % Seg Neutrophils # Man Lymphocytes # (Manual) ABG pH ABG pO2 ABG HCO3 ABG O2 Saturation ABG Base Excess ABG Hemoglobin Sodium 132 L Potassium 1.7 L* Chloride 96.6 L Carbon Dioxide BUN Creatinine 4.8 H Glucose 70 L POC Glucose Lactic Acid 2.10 H* Calcium 8.0 L Phosphorus Magnesium AST 68 H Alkaline Phosphatase 161 H Total Creatine Kinase 644 H Troponin T 1.970 H* Total Protein Albumin 2.1 L LDL Cholesterol Direct 21 L TSH Free T4 T3 (TERRENCE) Urine WBC (Auto) > 182.0 H Hepatitis C Antibody 10/10/21 10/10/21 10/10/21 02:59 04:15 05:40 WBC RBC Hgb Hct MCV MCH RDW Plt Count Seg Neuts % (Manual) Lymphocytes % (Manual) Nucleated RBC % Seg Neutrophils # Man Lymphocytes # (Manual) ABG pH 7.469 H ABG pO2 217.7 H ABG HCO3 ABG O2 Saturation 99.4 H ABG Base Excess ABG Hemoglobin 8.6 L Sodium Potassium Chloride Carbon Dioxide BUN Creatinine Glucose POC Glucose 16 L 58 L Lactic Acid Calcium Phosphorus Magnesium AST Alkaline Phosphatase Total Creatine Kinase Troponin T Total Protein Albumin LDL Cholesterol Direct TSH Free T4 T3 (TERRENCE) Urine WBC (Auto) Hepatitis C Antibody 10/10/21 10/10/21 10/10/21 08:32 12:25 12:25 WBC 15.3 H RBC 3.11 L Hgb 8.6 L Hct 26.6 L MCV MCH RDW 17.4 H Plt Count 38 L Seg Neuts % (Manual) Lymphocytes % (Manual) Nucleated RBC % Seg Neutrophils # Man Lymphocytes # (Manual) ABG pH ABG pO2 ABG HCO3 ABG O2 Saturation ABG Base Excess ABG Hemoglobin Sodium Potassium Chloride Carbon Dioxide BUN Creatinine Glucose POC Glucose Lactic Acid 3.40 H* 2.80 H* Calcium Phosphorus Magnesium AST Alkaline Phosphatase Total Creatine Kinase Troponin T Total Protein Albumin LDL Cholesterol Direct TSH Free T4 T3 (TERRENCE) Urine WBC (Auto) Hepatitis C Antibody 10/10/21 10/10/21 10/10/21 12:25 12:25 14:51 WBC RBC Hgb Hct MCV MCH RDW Plt Count Seg Neuts % (Manual) Lymphocytes % (Manual) Nucleated RBC % Seg Neutrophils # Man Lymphocytes # (Manual) ABG pH ABG pO2 ABG HCO3 ABG O2 Saturation ABG Base Excess ABG Hemoglobin Sodium 131 L Potassium 2.1 L* D Chloride 97.2 L Carbon Dioxide 20 L BUN Creatinine 4.9 H Glucose 129 H POC Glucose Lactic Acid Calcium 7.4 L Phosphorus Magnesium 1.50 L AST 52 H Alkaline Phosphatase 169 H Total Creatine Kinase Troponin T Total Protein 5.8 L Albumin 2.0 L LDL Cholesterol Direct TSH Free T4 T3 (TERRENCE) 26.7 L Urine WBC (Auto) Hepatitis C Antibody 10/10/21 10/10/21 10/10/21 14:51 18:12 19:35 WBC RBC Hgb Hct MCV MCH RDW Plt Count Seg Neuts % (Manual) Lymphocytes % (Manual) Nucleated RBC % Seg Neutrophils # Man Lymphocytes # (Manual) ABG pH ABG pO2 ABG HCO3 ABG O2 Saturation ABG Base Excess ABG Hemoglobin Sodium Potassium Chloride Carbon Dioxide BUN Creatinine Glucose POC Glucose 181 H 194 H Lactic Acid Calcium Phosphorus Magnesium AST Alkaline Phosphatase Total Creatine Kinase Troponin T Total Protein Albumin LDL Cholesterol Direct TSH 23.050 H Free T4 0.36 L T3 (TERRENCE) Urine WBC (Auto) Hepatitis C Antibody 10/10/21 10/11/21 10/11/21 23:50 03:26 05:25 WBC RBC Hgb Hct MCV MCH RDW Plt Count Seg Neuts % (Manual) Lymphocytes % (Manual) Nucleated RBC % Seg Neutrophils # Man Lymphocytes # (Manual) ABG pH 7.480 H ABG pO2 111.6 H ABG HCO3 18.8 L ABG O2 Saturation ABG Base Excess -4.0 L ABG Hemoglobin 7.9 L Sodium 129 L Potassium 2.6 L* D Chloride 95.0 L Carbon Dioxide 20 L BUN Creatinine 5.0 H Glucose 233 H POC Glucose 185 H Lactic Acid Calcium 7.7 L Phosphorus Magnesium AST Alkaline Phosphatase Total Creatine Kinase Troponin T Total Protein Albumin LDL Cholesterol Direct TSH Free T4 T3 (TERRENCE) Urine WBC (Auto) Hepatitis C Antibody 10/11/21 10/11/21 10/11/21 06:59 06:59 11:23 WBC 14.3 H RBC 2.75 L Hgb 7.6 L Hct 23.2 L MCV MCH RDW 17.4 H Plt Count 52 L Seg Neuts % (Manual) 99.0 H Lymphocytes % (Manual) 1.0 L Nucleated RBC % Seg Neutrophils # Man 14.2 H Lymphocytes # (Manual) 0.1 L ABG pH ABG pO2 ABG HCO3 ABG O2 Saturation ABG Base Excess ABG Hemoglobin Sodium 127 L 126 L Potassium 2.6 L* 3.0 L Chloride 93.7 L 92.7 L Carbon Dioxide 19 L 20 L BUN 21 H Creatinine 5.0 H 5.3 H Glucose 208 H 214 H POC Glucose Lactic Acid Calcium 7.6 L 7.7 L Phosphorus Magnesium AST Alkaline Phosphatase Total Creatine Kinase Troponin T Total Protein Albumin LDL Cholesterol Direct TSH Free T4 T3 (TERRENCE) Urine WBC (Auto) Hepatitis C Antibody 10/11/21 10/11/21 10/11/21 11:23 17:03 23:08 WBC RBC Hgb Hct MCV MCH RDW Plt Count Seg Neuts % (Manual) Lymphocytes % (Manual) Nucleated RBC % Seg Neutrophils # Man Lymphocytes # (Manual) ABG pH ABG pO2 ABG HCO3 ABG O2 Saturation ABG Base Excess ABG Hemoglobin Sodium Potassium Chloride Carbon Dioxide BUN Creatinine Glucose POC Glucose 220 H 201 H Lactic Acid Calcium Phosphorus Magnesium AST Alkaline Phosphatase Total Creatine Kinase Troponin T Total Protein Albumin LDL Cholesterol Direct TSH Free T4 T3 (TERRENCE) Urine WBC (Auto) Hepatitis C Antibody Reactive A 10/11/21 10/12/21 10/12/21 23:53 05:33 05:50 WBC 16.4 H RBC 2.73 L Hgb 7.7 L Hct 22.8 L MCV 83 L MCH RDW 16.6 H Plt Count 57 L Seg Neuts % (Manual) Lymphocytes % (Manual) Nucleated RBC % Seg Neutrophils # Man Lymphocytes # (Manual) ABG pH ABG pO2 ABG HCO3 ABG O2 Saturation ABG Base Excess ABG Hemoglobin Sodium Potassium 3.0 L Chloride Carbon Dioxide BUN Creatinine 3.5 H Glucose 207 H POC Glucose 163 H Lactic Acid Calcium 8.2 L Phosphorus Magnesium AST Alkaline Phosphatase Total Creatine Kinase Troponin T Total Protein Albumin LDL Cholesterol Direct TSH Free T4 T3 (TERRENCE) Urine WBC (Auto) Hepatitis C Antibody 10/12/21 10/12/21 10/12/21 05:50 12:07 14:42 WBC RBC Hgb Hct MCV MCH RDW Plt Count Seg Neuts % (Manual) Lymphocytes % (Manual) Nucleated RBC % Seg Neutrophils # Man Lymphocytes # (Manual) ABG pH ABG pO2 ABG HCO3 ABG O2 Saturation ABG Base Excess ABG Hemoglobin Sodium 135 L 134 L Potassium 2.9 L* 2.7 L* Chloride Carbon Dioxide BUN Creatinine 3.9 H 4.1 H Glucose 166 H 171 H POC Glucose 164 H Lactic Acid Calcium 8.2 L 8.2 L Phosphorus 2.20 L D Magnesium AST Alkaline Phosphatase Total Creatine Kinase Troponin T Total Protein Albumin LDL Cholesterol Direct TSH Free T4 T3 (TERRENCE) Urine WBC (Auto) Hepatitis C Antibody 10/12/21 10/12/21 10/12/21 15:21 21:11 23:38 WBC RBC Hgb Hct MCV MCH RDW Plt Count Seg Neuts % (Manual) Lymphocytes % (Manual) Nucleated RBC % Seg Neutrophils # Man Lymphocytes # (Manual) ABG pH ABG pO2 ABG HCO3 ABG O2 Saturation ABG Base Excess ABG Hemoglobin Sodium Potassium Chloride Carbon Dioxide BUN Creatinine Glucose POC Glucose 156 H 242 H 232 H Lactic Acid Calcium Phosphorus Magnesium AST Alkaline Phosphatase Total Creatine Kinase Troponin T Total Protein Albumin LDL Cholesterol Direct TSH Free T4 T3 (TERRENCE) Urine WBC (Auto) Hepatitis C Antibody 10/13/21 10/13/21 10/13/21 00:04 05:17 05:17 WBC 17.5 H RBC 3.18 L Hgb 8.7 L Hct 26.8 L MCV MCH 27 L RDW 17.6 H Plt Count 64 L Seg Neuts % (Manual) 95.0 H Lymphocytes % (Manual) 3.0 L Nucleated RBC % Seg Neutrophils # Man 16.6 H Lymphocytes # (Manual) 0.5 L ABG pH ABG pO2 ABG HCO3 ABG O2 Saturation ABG Base Excess ABG Hemoglobin Sodium 131 L 135 L Potassium 3.2 L Chloride Carbon Dioxide 14 L D 20 L BUN 24 H 26 H Creatinine 4.4 H 4.6 H Glucose 258 H 244 H POC Glucose Lactic Acid Calcium 8.3 L Phosphorus Magnesium AST Alkaline Phosphatase 167 H Total Creatine Kinase Troponin T Total Protein Albumin 2.4 L LDL Cholesterol Direct TSH Free T4 T3 (TERRENCE) Urine WBC (Auto) Hepatitis C Antibody 10/13/21 10/13/21 10/13/21 06:01 14:35 16:01 WBC RBC Hgb Hct MCV MCH RDW Plt Count Seg Neuts % (Manual) Lymphocytes % (Manual) Nucleated RBC % Seg Neutrophils # Man Lymphocytes # (Manual) ABG pH ABG pO2 ABG HCO3 ABG O2 Saturation ABG Base Excess ABG Hemoglobin Sodium Potassium 3.3 L Chloride Carbon Dioxide 20 L BUN Creatinine 3.2 H Glucose 236 H POC Glucose 226 H 223 H Lactic Acid Calcium Phosphorus Magnesium AST Alkaline Phosphatase Total Creatine Kinase Troponin T Total Protein Albumin LDL Cholesterol Direct TSH Free T4 T3 (TERRENCE) Urine WBC (Auto) Hepatitis C Antibody 10/13/21 10/13/21 10/13/21 21:15 23:35 23:39 WBC RBC Hgb Hct MCV MCH RDW Plt Count Seg Neuts % (Manual) Lymphocytes % (Manual) Nucleated RBC % Seg Neutrophils # Man Lymphocytes # (Manual) ABG pH ABG pO2 ABG HCO3 ABG O2 Saturation ABG Base Excess ABG Hemoglobin Sodium Potassium 3.2 L Chloride Carbon Dioxide 21 L BUN 23 H Creatinine 3.7 H Glucose 199 H POC Glucose 194 H 180 H Lactic Acid Calcium Phosphorus Magnesium AST Alkaline Phosphatase Total Creatine Kinase Troponin T Total Protein Albumin LDL Cholesterol Direct TSH Free T4 T3 (TERRENCE) Urine WBC (Auto) Hepatitis C Antibody 10/14/21 10/14/21 10/14/21 05:00 06:22 11:02 WBC 15.5 H RBC 3.07 L Hgb 8.5 L Hct 26.2 L MCV MCH RDW 17.4 H Plt Count 59 L Seg Neuts % (Manual) 98.0 H Lymphocytes % (Manual) 1.0 L Nucleated RBC % Seg Neutrophils # Man 15.2 H Lymphocytes # (Manual) 0.2 L ABG pH ABG pO2 ABG HCO3 ABG O2 Saturation ABG Base Excess ABG Hemoglobin Sodium Potassium Chloride Carbon Dioxide BUN Creatinine Glucose POC Glucose 275 H 231 H Lactic Acid Calcium Phosphorus Magnesium AST Alkaline Phosphatase Total Creatine Kinase Troponin T Total Protein Albumin LDL Cholesterol Direct TSH Free T4 T3 (TERRENCE) Urine WBC (Auto) Hepatitis C Antibody 10/14/21 10/15/21 10/15/21 16:10 00:20 04:56 WBC 20.9 H RBC 3.25 L Hgb 9.1 L Hct 28.1 L MCV MCH RDW 17.9 H Plt Count 68 L Seg Neuts % (Manual) 98.0 H Lymphocytes % (Manual) 0 L Nucleated RBC % 1.0 H Seg Neutrophils # Man 20.5 H Lymphocytes # (Manual) 0.0 L ABG pH ABG pO2 ABG HCO3 ABG O2 Saturation ABG Base Excess ABG Hemoglobin Sodium Potassium Chloride Carbon Dioxide BUN Creatinine Glucose POC Glucose 196 H 284 H Lactic Acid Calcium Phosphorus Magnesium AST Alkaline Phosphatase Total Creatine Kinase Troponin T Total Protein Albumin LDL Cholesterol Direct TSH Free T4 T3 (TERRENCE) Urine WBC (Auto) Hepatitis C Antibody 10/15/21 10/15/21 04:56 06:33 WBC RBC Hgb Hct MCV MCH RDW Plt Count Seg Neuts % (Manual) Lymphocytes % (Manual) Nucleated RBC % Seg Neutrophils # Man Lymphocytes # (Manual) ABG pH ABG pO2 ABG HCO3 ABG O2 Saturation ABG Base Excess ABG Hemoglobin Sodium Potassium 3.0 L Chloride Carbon Dioxide 21 L BUN 38 H Creatinine 4.8 H Glucose 321 H POC Glucose 266 H Lactic Acid Calcium Phosphorus Magnesium AST Alkaline Phosphatase Total Creatine Kinase Troponin T Total Protein Albumin LDL Cholesterol Direct TSH Free T4 T3 (TERRENCE) Urine WBC (Auto) Hepatitis C Antibody
[2021-10-15] MEDS: MIDODRINE 10 MG TAB PO SCH ×3 (09:10→17:48)
[2021-10-15] MEDS: PANTOPRAZOLE 40 MG TAB PO SCH (09:11)
--- NOTE | 2021-10-15 09:15 | Progress Note ---
Assessment and Plan Acute metabolic encephalopathy End-stage renal disease on hemodialysis Hypertension Elevated troponin Nicotine dependence Sepsis History of hypothyroidism Insulin dependent diabetes mellitus Hypokalemia Hypoglycemia Plan: HD today for clearance and UF 4 k bath used for hypokalemia may need another HD tomorrow for UF due to increase O2 requirement Hypotension-on Midodrine 10 mg po TID Renally dose medications Strict I&O's daily Obtain daily weights Assess dialysis needs daily Subjective Date of service: 10/15/21 Principal diagnosis: ESRD Interval history: no acute distress Objective - Vital Signs Vital signs: Vital Signs - 12hr 10/14/21 10/14/21 10/15/21 21:16 22:00 05:58 Temperature 98.4 F 98.5 F Pulse Rate 90 83 Respiratory 18 20 Rate Blood Pressure 99/69 117/77 O2 Sat by Pulse 91 96 95 Oximetry 10/15/21 08:34 Temperature Pulse Rate Respiratory Rate Blood Pressure O2 Sat by Pulse 91 Oximetry - Lab 10/15/21 04:56 10/15/21 04:56 Most recent lab results ABG pH 7.480 pH Units (7.350-7.450) H 10/11/21 05:25 ABG pCO2 25.8 mm Hg 10/11/21 05:25 ABG pO2 111.6 mm Hg (80.0-90.0) H 10/11/21 05:25 ABG HCO3 18.8 mmol/L (20.0-26.0) L 10/11/21 05:25 ABG O2 Saturation 98.3 % (95.0-99.0) 10/11/21 05:25 Calcium 8.5 mg/dL (8.4-10.2) 10/15/21 04:56 Phosphorus 2.20 mg/dL (2.5-4.5) L D 10/12/21 05:50 Magnesium 1.80 mg/dL (1.7-2.3) 10/12/21 05:50 Medications & Allergies - Medications Allergies/Adverse Reactions: Allergies No Known Allergies Allergy (Verified 10/09/21 23:38) Home Medications: Home Medications Medication Instructions Recorded Confirmed Last Taken Type Levothyroxine Sodium 175 mcg PO DAILY 08/23/21 10/13/21 08/22/21 History [Levothyroxine] Sertraline [Zoloft] 100 mg PO QDAY 08/23/21 10/13/21 08/22/21 History Cyclobenzaprine [Flexeril 10 MG 5 mg PO TID PRN #15 tablet 08/27/21 10/13/21 Unknown Rx TAB] Pantoprazole [Protonix TAB] 40 mg PO QDAY #30 tablet 08/27/21 10/13/21 Unknown Rx Insulin Glargine [Lantus VIAL] 30 units SUB-Q QHS units 09/02/21 10/13/21 Unknown Rx Lispro Insulin [HumaLOG] 0 unit SUB-Q ACHS units 09/02/21 10/13/21 Unknown Rx Midodrine [Proamatine] 10 mg PO TID tablet 09/02/21 10/13/21 Unknown Rx Active Medications: Generic Name Dose Route Start Last Admin Trade Name Freq PRN Reason Stop Dose Admin Acetaminophen 650 mg 10/10/21 01:37 Acetaminophen 325 Mg Tab PO Q4H PRN Pain MILD(1-3)/Fever >100.5/SEALS Dextrose 50 ml 10/10/21 01:37 10/10/21 06:39 Dextrose 50% In Water (25gm) 50 Ml Syringe IV 50 ml Q30MIN PRN Administration Hypoglycemia Protocol Hydrocortisone Sodium Succinate 50 mg 10/15/21 06:00 10/15/21 05:44 Hydrocortisone Sod Succ 100 Mg/2 Ml Vial IV 10/15/21 22:01 50 mg Q8HR CHAKA Administration Hydrocortisone Sodium Succinate 50 mg 10/16/21 10:00 Hydrocortisone Sod Succ 100 Mg/2 Ml Vial IV 10/16/21 22:01 Q12HR CHAKA Hydrocortisone Sodium Succinate 50 mg 10/17/21 10:00 Hydrocortisone Sod Succ 100 Mg/2 Ml Vial IV 10/17/21 10:01 Q24HR [facility] Insulin Human Lispro 0 unit 10/10/21 06:00 10/15/21 06:40 Insulin Lispro 100 Unit/Ml SUB-Q 3 unit Q6HR CHAKA Administration Protocol Levothyroxine Sodium 150 mcg 10/14/21 06:00 10/15/21 05:44 Levothyroxine 150 Mcg Tab PO 150 mcg DAILY@0600 [facility]AKA Administration Levothyroxine Sodium 25 mcg 10/14/21 06:00 10/15/21 05:45 Levothyroxine 25 Mcg Tab PO 25 mcg DAILY@0600 [facility] Administration Midodrine 10 mg 10/10/21 08:00 10/15/21 09:10 Midodrine 10 Mg Tab PO 10 mg TID@0800,1200,1600 [facility]A Administration Ondansetron HCl 4 mg 10/10/21 01:37 Ondansetron 4 Mg/2 Ml Inj IV Q8H PRN Nausea And Vomiting Pantoprazole Sodium 40 mg 10/14/21 07:30 10/15/21 09:11 Pantoprazole 40 Mg Tab PO 40 mg QDAC CHAKA Administration Sodium Chloride 10 ml 10/10/21 10:00 10/15/21 09:11 Sodium Chloride 0.9% 10 Ml Flush Syringe IV 10 ml BID CHAKA Administration Sodium Chloride 10 ml 10/10/21 01:37 Sodium Chloride 0.9% 10 Ml Flush Syringe IV PRN PRN LINE FLUSH Vancomycin HCl 125 mg 10/14/21 13:00 10/15/21 05:45 Vancomycin 250 Mg/10 Ml Oral Liqd PO 10/24/21 06:01 125 mg Q6HR [facility]AKA Administration Protocol
--- NOTE | 2021-10-15 09:56 | Progress Note ---
Assessment and Plan Assessment and plan: This is a 61-year-old male with known past medical history of DM and ESRD on HD admitted for AMS and acute hypoxic respiratory failure requiring ventilatory support Acute Respiratory Failure with Hypoxia - altered, intubated for airway protection on admission - ABG: pH 7.301, PCO2 50.4, PO2 162.1 bicarb 24.3 O2 sat 98.9 on admission Chest x-ray on admission no acute abnl identified does not appear to be primary pulmonary process, repeat chest x-ray today - 10/11 s/p extubation, now stable requiring 4 L O2 - Continue SPO2 monitoring for SPO2 goal above 92% - PRN O2 supplementation as needed Hypotension resolved Myxedema Coma - Presented with AMS, bl le edema, hypotensive, hypothermic, hypoglycemia - etiology: possibly due to hypothyroidism vs adrenal insuffciency - TSH/T4 noted, correlate with hypothyroidism - Continue Hydrocortisone 100 mg IV q8hr and Levothyroxine 150 mcg IV - Continue Midodrine TID - Continue blood pressure monitor per protocol - Maintain MAP above 65 Acute Metabolic Encephalopathy - Presented AMS, bl le edema, hypotensive, hypothermic, hypoglycemia - Ct head with no acute intracranial abnormality. - possibly due to hypothyroidism vs adrenal insuffciency vs infectious process - Mentation improved - Avoid benzodiazepine to reduce the possibility of delirium - Maintenance of sleep-wake cycle Severe sepsis POA C. difficile colitis urinary tract infection - Presented AMS, bl le edema, hypotensive, hypothermic, hypoglycemia - Elevated wbc ct, UA wbc noted - levaquin IV initiated for UTI - WBcs downtrending - Continue to F/U on B.cult - Daily CBC monitor -Continue p.o. vancomycin -Consider ID consult if febrile or/and if leukocytosis worsen ESRD on HD Hypokalemia - Nephrology on consult, appreciated recommendation - correction with hemodialysis - management of HD per nephrology - Persistent hypokalemia - Strict intake and output - Avoid nephrotoxic medications; Renally dose medications - Monitor and replace electrolytes as needed GERD - GI Ppx with pantoprazole 40 mg IV daily Thrombocytopenia - Presented with low plt - Plt improved - no s/s of any active bleeding - H&H stable - Continue to trend CBC Hypertension - hypotensive at the moment - Hold home antihypertensives therapy C. difficile colitis -Flagyl 500 mg IV every 8 hours hyperglycemia - Presented with hypoglycemia s/p D10w gtt - on IV steroids - Continue BG check Q6hrs, low dose SSI Q6hrs - Avoid hypoglycemia - While critically ill target blood glucose of 140-180 Hospital Course to Date: 10/11: More awake and alert this am, following simple commands. Plan for PSV trial for possible extubation today. BP remains soft, MAP above 65. Continue midodrine TID and IV steroids. Remains hypokalemic, K repleted. Possible HD today per nephro. 10/12: S/p extubation, stable on RA this am. BP remains bordeline, continue PO midodrine TID. With persistent hypokalemia, most likely secondary to frequent loose stools/diarrhea. Per staffs patient with diarrhea since admit, C. diff PCR pending. Patient is stable for transfer to the floor. PT/OT ordered. 10/13: Patient's respiratory status back to baseline. Patient with saturations of 95% on room air. Replete potassium. Transition IV Synthroid and hydrocortisone to p.o. 10/14: Patient's mental status has improved slightly but not at baseline. Patient is alert and oriented to name and age only. Patient previously nonverbal but is able to answer simple questions. Continue Synthroid and hydrocortisone. Pulmon apurva to wean stress dose steroids today. Synthroid changed from IV to home dose p.o. Stool culture reveals C. difficile colitis. We will start Flagyl 500 mg every 8 hours. 10/15: Patient a little bit more responsive today. Continue Synthroid and wean stress dose steroids per pulmonary. Patient's oxygen requirements have increased to 4 L via nasal cannula. We will follow-up chest x-ray. Stool s tudies revealed C. difficile and patient started on vancomycin p.o. 125 mg every 6 hours. Continue hemodialysis per nephrology. Replete potassium History Interval history: No new issues Hospitalist Physical - Constitutional Vitals: Temp Pulse Resp BP Pulse Ox 98.5 F 83 20 117/77 88 10/15/21 05:58 10/15/21 05:58 10/15/21 05:58 10/15/21 05:58 10/15/21 09:39 General appearance: Present: no acute distress, well-nourished, obese, other - EENT Eyes: Present: PERRL, EOM intact ENT: hearing intact, clear oral mucosa, dentition normal - Neck Neck: Present: supple, normal ROM - Respiratory Respiratory effort: normal Respiratory: bilateral: CTA - Cardiovascular Rhythm: regular Heart Sounds: Present: S1 & S2. Absent: gallop, rub - Extremities Extremities: no ischemia, No edema, Full ROM - Abdominal General gastrointestinal: soft, non-tender, non-distended, normal bowel sounds - Integumentary Integumentary: Present: clear, warm, dry - Neurologic Neurologic: CNII-XII intact, moves all extremities HEART Score - HEART Score Troponin: Troponin T 1.970 ng/mL (0.00-0.029) H* 10/09/21 23:30 Results - Labs CBC & Chem 7: 10/15/21 04:56 10/15/21 04:56 Labs: Laboratory Last Values WBC 20.9 K/mm3 (4.5-11.0) H 10/15/21 04:56 RBC 3.25 M/mm3 (3.65-5.03) L 10/15/21 04:56 Hgb 9.1 gm/dl (11.8-15.2) L 10/15/21 04:56 Hct 28.1 % (35.5-45.6) L 10/15/21 04:56 MCV 87 fl (84-94) 10/15/21 04:56 MCH 28 pg (28-32) 10/15/21 04:56 MCHC 32 % (32-34) 10/15/21 04:56 RDW 17.9 % (13.2-15.2) H 10/15/21 04:56 Plt Count 68 K/mm3 (140-440) L 10/15/21 04:56 Add Manual Diff Complete 10/15/21 04:56 Total Counted 100 10/15/21 04:56 Seg Neutrophils % Director Diversity 10/15/21 04:56 Seg Neuts % (Manual) 98.0 % (40.0-70.0) H 10/15/21 04:56 Band Neutrophils % 0 % 10/15/21 04:56 Lymphocytes % (Manual) 0 % (13.4-35.0) L 10/15/21 04:56 Reactive Lymphs % (Man) 0 % 10/15/21 04:56 Monocytes % (Manual) 2.0 % (0.0-7.3) 10/15/21 04:56 Eosinophils % (Manual) 0 % (0.0-4.3) 10/15/21 04:56 Basophils % (Manual) 0 % (0.0-1.8) 10/15/21 04:56 Metamyelocytes % 0 % 10/15/21 04:56 Myelocytes % 0 % 10/15/21 04:56 Promyelocytes % 0 % 10/15/21 04:56 Blast Cells % 0 % 10/15/21 04:56 Nucleated RBC % 1.0 % (0.0-0.9) H 10/15/21 04:56 Seg Neutrophils # Man 20.5 K/mm3 (1.8-7.7) H 10/15/21 04:56 Band Neutrophils # 0.0 K/mm3 10/15/21 04:56 Lymphocytes # (Manual) 0.0 K/mm3 (1.2-5.4) L 10/15/21 04:56 Abs React Lymphs (Man) 0.0 K/mm3 10/15/21 04:56 Monocytes # (Manual) 0.4 K/mm3 (0.0-0.8) 10/15/21 04:56 Eosinophils # (Manual) 0.0 K/mm3 (0.0-0.4) 10/15/21 04:56 Basophils # (Manual) 0.0 K/mm3 (0.0-0.1) 10/15/21 04:56 Metamyelocytes # 0.0 K/mm3 10/15/21 04:56 Myelocytes # 0.0 K/mm3 10/15/21 04:56 Promyelocytes # 0.0 K/mm3 10/15/21 04:56 Blast Cells # 0.0 K/mm3 10/15/21 04:56 WBC Morphology Not Reportable 10/15/21 04:56 Hypersegmented Neuts Not Reportable 10/15/21 04:56 Hyposegmented Neuts Not Reportable 10/15/21 04:56 Hypogranular Neuts Not Reportable 10/15/21 04:56 Smudge Cells Not Reportable 10/15/21 04:56 Toxic Granulation Not Reportable 10/15/21 04:56 Toxic Vacuolation Not Reportable 10/15/21 04:56 Dohle Bodies Not Reportable 10/15/21 04:56 Pelger-Huet Anomaly Not Reportable 10/15/21 04:56 Placido Rods Not Reportable 10/15/21 04:56 Platelet Estimate Consistent w auto 10/15/21 04:56 Clumped Platelets Not Reportable 10/15/21 04:56 Plt Clumps, EDTA Not Reportable 10/15/21 04:56 Large Platelets Not Reportable 10/15/21 04:56 Giant Platelets Not Reportable 10/15/21 04:56 Platelet Satelliting Not Reportable 10/15/21 04:56 Plt Morphology Comment Not Reportable 10/15/21 04:56 RBC Morphology Not Reportable 10/15/21 04:56 Dimorphic RBCs Not Reportable 10/15/21 04:56 Polychromasia Not Reportable 10/15/21 04:56 Hypochromasia 1+ 10/15/21 04:56 Poikilocytosis Not Reportable 10/15/21 04:56 Anisocytosis 1+ 10/15/21 04:56 Microcytosis Not Reportable 10/15/21 04:56 Macrocytosis Not Reportable 10/15/21 04:56 Spherocytes Not Reportable 10/15/21 04:56 Pappenheimer Bodies Not Reportable 10/15/21 04:56 Sickle Cells Not Reportable 10/15/21 04:56 Target Cells Not Reportable 10/15/21 04:56 Tear Drop Cells Not Reportable 10/15/21 04:56 Ovalocytes Not Reportable 10/15/21 04:56 Helmet Cells Not Reportable 10/15/21 04:56 [place] Bodies Not Reportable 10/15/21 04:56 Sapphire Rings Not Reportable 10/15/21 04:56 [place] Cells Not Reportable 10/15/21 04:56 Bite Cells Not Reportable 10/15/21 04:56 Crenated Cell Not Reportable 10/15/21 04:56 Elliptocytes Not Reportable 10/15/21 04:56 Acanthocytes (Spur) Not Reportable 10/15/21 04:56 Rouleaux Not Reportable 10/15/21 04:56 Hemoglobin C Crystals Not Reportable 10/15/21 04:56 Schistocytes Not Reportable 10/15/21 04:56 Malaria parasites Not Reportable 10/15/21 04:56 Ezequiel Bodies Not Reportable 10/15/21 04:56 Hem Pathologist Commnt No 10/15/21 04:56 ABG pH 7.480 pH Units (7.350-7.450) H 10/11/21 05:25 ABG pCO2 25.8 mm Hg 10/11/21 05:25 ABG pO2 111.6 mm Hg (80.0-90.0) H 10/11/21 05:25 ABG HCO3 18.8 mmol/L (20.0-26.0) L 10/11/21 05:25 ABG O2 Saturation 98.3 % (95.0-99.0) 10/11/21 05:25 ABG O2 Content 10.9 (0.0-44) 10/11/21 05:25 ABG Base Excess -4.0 mmol/L (-2.0-3.0) L 10/11/21 05:25 ABG Hemoglobin 7.9 gm/dl (14.0-18.0) L 10/11/21 05:25 ABG Carboxyhemoglobin 1.3 % (0.0-5.0) 10/11/21 05:25 ABG Methemoglobin 0.4 % (0.0-1.5) 10/11/21 05:25 Oxyhemoglobin 96.7 % (95.0-99.0) 10/11/21 05:25 FiO2 30 % 10/11/21 05:25 Sodium 139 mmol/L (137-145) 10/15/21 04:56 Potassium 3.0 mmol/L (3.6-5.0) L 10/15/21 04:56 Chloride 99.9 mmol/L (98-107) 10/15/21 04:56 Carbon Dioxide 21 mmol/L (22-30) L 10/15/21 04:56 Anion Gap 21 mmol/L 10/15/21 04:56 BUN 38 mg/dL (9-20) H 10/15/21 04:56 Creatinine 4.8 mg/dL (0.8-1.3) H 10/15/21 04:56 Estimated GFR 15 ml/min 10/15/21 04:56 BUN/Creatinine Ratio 8 % 10/15/21 04:56 Glucose 321 mg/dL (75-100) H 10/15/21 04:56 POC Glucose 266 mg/dL (70-105) H 10/15/21 06:33 Lactic Acid 1.60 mmol/L (0.7-2.0) 10/11/21 11:23 Calcium 8.5 mg/dL (8.4-10.2) 10/15/21 04:56 Phosphorus 2.20 mg/dL (2.5-4.5) L D 10/12/21 05:50 Magnesium 1.80 mg/dL (1.7-2.3) 10/12/21 05:50 Total Bilirubin 1.20 mg/dL (0.1-1.2) 10/13/21 05:17 AST 32 units/L (5-40) 10/13/21 05:17 ALT 11 units/L (7-56) 10/13/21 05:17 Alkaline Phosphatase 167 units/L (35-129) H 10/13/21 05:17 Total Creatine Kinase 644 units/L (55-170) H 10/09/21 23:30 Troponin T 1.970 ng/mL (0.00-0.029) H* 10/09/21 23:30 Total Protein 7.5 g/dL (6.3-8.2) D 10/13/21 05:17 Albumin 2.4 g/dL (3.9-5) L 10/13/21 05:17 Albumin/Globulin Ratio 0.5 % 10/13/21 05:17 Triglycerides 68 mg/dL (2-149) 10/09/21 23:30 Cholesterol 81 mg/dL (50-199) 10/09/21 23:30 LDL Cholesterol Direct 21 mg/dL (50-130) L 10/09/21 23:30 HDL Cholesterol 44 mg/dL (40-59) 10/09/21 23:30 Cholesterol/HDL Ratio 1.84 % 10/09/21 23:30 TSH 23.050 mlU/mL (0.270-4.200) H 10/10/21 14:51 Free T4 0.36 ng/dL (0.76-1.46) L 10/10/21 14:51 T3 (TERRENCE) 26.7 ng/dL (76-181) L 10/10/21 14:51 Urine Color Yellow (Yellow) 10/10/21 01:30 Urine Turbidity Turbid (Clear) 10/10/21 01:30 Urine pH 6.0 (5.0-7.0) 10/10/21 01:30 Ur Specific [place] 1.018 (1.003-1.030) 10/10/21 01:30 Urine Protein 100 mg/dl mg/dL (Negative) 10/10/21 01:30 Urine Glucose (UA) Neg mg/dL (Negative) 10/10/21 01:30 Urine Ketones Tr mg/dL (Negative) 10/10/21 01:30 Urine Blood Mod (Negative) 10/10/21 01:30 Urine Nitrite Neg (Negative) 10/10/21 01:30 Urine Bilirubin Neg (Negative) 10/10/21 01:30 Urine Urobilinogen < 2.0 mg/dL (<2.0) 10/10/21 01:30 Ur Leukocyte Esterase Mod (Negative) 10/10/21 01:30 Urine WBC (Auto) > 182.0 /HPF (0.0-6.0) H 10/10/21 01:30 Urine RBC (Auto) 70.0 /HPF (0.0-6.0) 10/10/21 01:30 Urine Bacteria (Auto) 1+ /HPF (Negative) 10/10/21 01:30 Urine WBC Clumps 3+ /HPF 10/10/21 01:30 C. difficile Tox (PCR) Positive (Negative) 10/12/21 Unknown Coronavirus (PCR) Negative (Negative) 10/14/21 Unknown Hepatitis A IgM Ab Non-reactive (NonReactive) 10/11/21 11:23 Hep Bs Antigen Non-reactive (Negative) 10/11/21 11:23 Hep B Core IgM Ab Non-reactive (NonReactive) 10/11/21 11:23 Hepatitis C Antibody Reactive (NonReactive) A 10/11/21 11:23 Microbiology: Microbiology 10/09/21 23:20 Tracheal Aspirate Sputum Culture - Final Enterococcus Faecalis Choudhary/IV: Voiding Method Condom Catheter Active Medications - Current Medications Current Medications: Generic Name Dose Route Start Last Admin Trade Name Freq PRN Reason Stop Dose Admin Acetaminophen 650 mg 10/10/21 01:37 Acetaminophen 325 Mg Tab PO Q4H PRN Pain MILD(1-3)/Fever >100.5/SEALS Dextrose 50 ml 10/10/21 01:37 10/10/21 06:39 Dextrose 50% In Water (25gm) 50 Ml Syringe IV 50 ml Q30MIN PRN Administration Hypoglycemia Protocol Hydrocortisone Sodium Succinate 50 mg 10/15/21 06:00 10/15/21 05:44 Hydrocortisone Sod Succ 100 Mg/2 Ml Vial IV 10/15/21 22:01 50 mg Q8HR CHAKA Administration Hydrocortisone Sodium Succinate 50 mg 10/16/21 10:00 Hydrocortisone Sod Succ 100 Mg/2 Ml Vial IV 10/16/21 22:01 Q12HR CHAKA Hydrocortisone Sodium Succinate 50 mg 10/17/21 10:00 Hydrocortisone Sod Succ 100 Mg/2 Ml Vial IV 10/17/21 10:01 Q24HR CHAKA Insulin Human Lispro 0 unit 10/10/21 06:00 10/15/21 06:40 Insulin Lispro 100 Unit/Ml SUB-Q 3 unit Q6HR [facility] Administration Protocol Levothyroxine Sodium 150 mcg 10/14/21 06:00 10/15/21 05:44 Levothyroxine 150 Mcg Tab PO 150 mcg DAILY@0600 CHAKA Administration Levothyroxine Sodium 25 mcg 10/14/21 06:00 10/15/21 05:45 Levothyroxine 25 Mcg Tab PO 25 mcg DAILY@0600 CHAKA Administration Midodrine 10 mg 10/10/21 08:00 10/15/21 09:10 Midodrine 10 Mg Tab PO 10 mg TID@0800,1200,1600 CHAKA Administration Ondansetron HCl 4 mg 10/10/21 01:37 Ondansetron 4 Mg/2 Ml Inj IV Q8H PRN Nausea And Vomiting Pantoprazole Sodium 40 mg 10/14/21 07:30 10/15/21 09:11 Pantoprazole 40 Mg Tab PO 40 mg QDAC CHAKA Administration Sodium Chloride 10 ml 10/10/21 10:00 10/15/21 09:11 Sodium Chloride 0.9% 10 Ml Flush Syringe IV 10 ml BID CHAKA Administration Sodium Chloride 10 ml 10/10/21 01:37 Sodium Chloride 0.9% 10 Ml Flush Syringe IV PRN PRN LINE FLUSH Vancomycin HCl 125 mg 10/14/21 13:00 10/15/21 05:45 Vancomycin 250 Mg/10 Ml Oral Liqd PO 10/24/21 06:01 125 mg Q6HR CHAKA Administration Protocol Nutrition/Malnutrition Assess - Dietary Evaluation Nutrition/Malnutrition Findings: Nutrition Notes Start: 10/11/21 16:12 Freq: Status: Active Protocol: Document 10/13/21 15:46 ADITYA (Rec: 10/13/21 15:58 [email or web address] [id number]) Nutrition Notes Initial or Follow up Brief Note Current Diagnosis CKD(stage I-IV),Diabetes, Sepsis,Hypertension, Hyperlipidemia Other Pertinent Diagnosis ESRD+HD, Hypoglycemia, GERD, UTI, Metabolic Encephalopathy, Uremia,... Current Diet Renal Diet (since L 10/12). Height 6 ft Weight 99.79 kg [place] Body Weight (kg) 80.90 BMI 29.8 Weight change and time frame No body weight changes in 2 days reported. Weight Status Overweight Subjective/Other Information RD consult for routine F/U on Dietary Advancement. Diet advanced to PO, Pt's PO intake of meals has been Negligible(0%), according to ADL notes. I will assess the need for ONS at F/U. HOTEL MAID note on 10/12/21 12:59: Swallowing function has been assessed. No aspiration was identified during the examination. Continue his current diet. Will continue to follow 2-3 days to ensure continued safety. - END OF NOTE. Pt is on Room Air, O2 saturation @ 97%, according to Physical Assessment History notes. Percent of energy/protein needs met: Prescribed Renal Diet provides for energy/protein needs (2, 072 Kcal/77 g) during LOS. #1 Nutrition Diagnosis Inadequate oral intake Comments: HOTEL MAID note on 10/12/21 12:59: Swallowing function has been assessed. No aspiration was identified during the examination. Continue his current diet. Will continue to follow 2-3 days to ensure continued safety. - END OF NOTE. Diagnosis Progress(for reassessment Resolved documentation) Is patient on ventilator? No Is Patient Ambulatory and/or Out of Bed No REE-([place]-St. Jeor-confined to bed) [phone] Calculation Used for Recommendations [place] Jeor Additional Notes Protein: >1.2 g/Kg ABW; >120 g /day. Fluids: 1 ml/Kcal, or as per MD. Nutrition Intervention Change Diet Order: Continue Renal Diet. Nutrition Support: Discontinue. Goal #1 Adjust the dietary intervention to better serve Pt's needs and clinical conditions during LOS. Follow-Up By: 10/18/21 Additional Comments Continue monitoring food tolerance, %PO intake of meals , and BM.Continue monitoring food tolerance, %PO intake of meals, and BM.
--- NOTE | 2021-10-15 10:06 | XRay Report ---
CHEST 1 VIEW 10/15/2021 8:45 AM INDICATION / CLINICAL INFORMATION: Increasing oxygen requirement. COMPARISON: 10/10/2021 FINDINGS: SUPPORT DEVICES: The endotracheal tube and GI tube have been removed. Right IJ permacath remains in g ood position. HEART / MEDIASTINUM: No significant abnormality. LUNGS / PLEURA: There is poor inspiration. Bibasilar lung opacities have nearly resolved. Mild inters titial edema remains. The lungs are generally clear given the poor inspiration. No pleural effusion o r pneumothorax. ADDITIONAL FINDINGS: No significant additional findings. IMPRESSION: 1. Poor inspiration with mild interstitial edema. Significant improvement is demonstrated since 022 exam. Signer Name: Anival Wesley Jr, MD Signed: 10/15/2021 10:01 AM Workstation Name: [id number]
[2021-10-16] MEDS: VANCOMYCIN 250 MG/10 ML ORAL LIQD PO SCH ×4 (00:22→18:40)
[2021-10-16] MEDS: INSULIN LISPRO 100 UNIT/ML SUB-Q SCH ×4 (00:22→18:42)
[2021-10-16 06:06] LABS: Hematocrit 28.5 % (35.5-45.6); Hemoglobin 9.5 gm/dl (11.8-15.2); Mean Corpuscular HGB Conc 33 % (32-34); Mean Corpuscular Volume 86 fl (84-94); Red Blood Count 3.33 M/mm3 (3.65-5.03); Red Cell Distribution Width 17.7 % (13.2-15.2)
[2021-10-16] MEDS: LEVOTHYROXINE 150 MCG TAB PO SCH (06:07)
[2021-10-16] MEDS: LEVOTHYROXINE 25 MCG TAB PO SCH (06:07)
[2021-10-16 06:22] LABS: Calcium 8.7 mg/dL (8.4-10.2)
[2021-10-16 06:33] LABS: Platelet Count 66 K/mm3 (140-440)
[2021-10-16 08:33] LABS: Anisocytosis 1+; Band Neutrophils # (Manual) 0.2 K/mm3; Basophils % (Manual) 0 % (0.0-1.8); Eosinophils % (Manual) 0 % (0.0-4.3); Hypochromasia 1+; Monocytes % (Manual) 0 % (0.0-7.3); Platelet Estimate Consistent w Auto; Total Cells Counted 100
[2021-10-16] MEDS: PANTOPRAZOLE 40 MG TAB PO SCH (08:52)
[2021-10-16] MEDS: MIDODRINE 10 MG TAB PO SCH ×3 (08:54→18:03)
--- NOTE | 2021-10-16 09:04 | Progress Note ---
Assessment and Plan Assessment and plan: This is a 61-year-old male with known past medical history of DM and ESRD on HD admitted for AMS and acute hypoxic respiratory failure requiring ventilatory support Acute Respiratory Failure with Hypoxia - altered, intubated for airway protection on admission - ABG: pH 7.301, PCO2 50.4, PO2 162.1 bicarb 24.3 O2 sat 98.9 on admission Chest x-ray on admission no acute abnl identified does not appear to be primary pulmonary process, repeat chest x-ray today - 10/11 s/p extubation, now stable requiring 4 L O2 - Continue SPO2 monitoring for SPO2 goal above 92% - PRN O2 supplementation as needed Hypotension resolved Myxedema Coma - Presented with AMS, bl le edema, hypotensive, hypothermic, hypoglycemia - etiology: possibly due to hypothyroidism vs adrenal insuffciency - TSH/T4 noted, correlate with hypothyroidism - Continue Hydrocortisone 100 mg IV q8hr and Levothyroxine 150 mcg IV - Continue Midodrine TID - Continue blood pressure monitor per protocol - Maintain MAP above 65 Acute Metabolic Encephalopathy - Presented AMS, bl le edema, hypotensive, hypothermic, hypoglycemia - Ct head with no acute intracranial abnormality. - possibly due to hypothyroidism vs adrenal insuffciency vs infectious process - Mentation improved - Avoid benzodiazepine to reduce the possibility of delirium - Maintenance of sleep-wake cycle Severe sepsis POA C. difficile colitis urinary tract infection - Presented AMS, bl le edema, hypotensive, hypothermic, hypoglycemia - Elevated wbc ct, UA wbc noted - levaquin IV initiated for UTI - WBcs downtrending - Continue to F/U on B.cult - Daily CBC monitor -Continue p.o. vancomycin -Consider ID consult if febrile or/and if leukocytosis worsen ESRD on HD Severe hypokalemia - Nephrology on consult, appreciated recommendation - correction with hemodialysis - management of HD per nephrology - Persistent hypokalemia - Strict intake and output - Avoid nephrotoxic medications; Renally dose medications - Monitor and replace electrolytes as needed GERD - GI Ppx with pantoprazole 40 mg IV daily Thrombocytopenia - Presented with low plt - Plt improved - no s/s of any active bleeding - H&H stable - Continue to trend CBC Hypertension - hypotensive at the moment - Hold home antihypertensives therapy Oropharyngeal dysphagia C. difficile colitis -Vancomycin p.o. hyperglycemia - Presented with hypoglycemia s/p D10w gtt - on IV steroids - Continue BG check Q6hrs, low dose SSI Q6hrs - Avoid hypoglycemia - While critically ill target blood glucose of 140-180 Hospital Course to Date: 10/11: More awake and alert this am, following simple commands. Plan for PSV trial for possible extubation today. BP remains soft, MAP above 65. Continue midodrine TID and IV steroids. Remains hypokalemic, K repleted. Possible HD today per nephro. 10/12: S/p extubation, stable on RA this am. BP remains bordeline, continue PO midodrine TID. With persistent hypokalemia, most likely secondary to frequent loose stools/diarrhea. Per staffs patient with diarrhea since admit, C. diff PCR pending. Patient is stable for transfer to the floor. PT/OT ordered. 10/13: Patient's respiratory status back to baseline. Patient with saturations of 95% on room air. Replete potassium. Transition IV Synthroid and hydrocortisone to p.o. 10/14: Patient's mental status has improved slightly but not at baseline. Patient is alert and oriented to name and age only. Patient previously nonverbal but is able to answer simple questions. Continue Synthroid and hydrocortisone. Pulmonary to wean stress dose steroids today. Synthroid changed from IV to home dose p.o. Stool culture reveals C. difficile colitis. We will start Flagyl 500 mg every 8 hours. 10/15: Patient a little bit more responsive today. Continue Synthroid and wean stress dose steroids per pulmonary. Patient's oxygen requirements have increased to 4 L via nasal cannula. We will follow-up chest x-ray. Stool studies revealed C. difficile and patient started on vancomycin p.o. 125 mg every 6 hours. Continue hemodialysis per nephrology. Replete potassium. 10/16: Patient still slow to respond with verbal stimuli. Continue Synthroid and wean stress dose steroids. Chest x-ray essentially negative. Patient with 4 L O2 via nasal cannula satting at 100%. Continue p.o. vancomycin for C. difficile colitis. Replete potassium and check magnesium levels. Speech therapy will change the diet to pure with nectar liquids History Interval history: No new issues Hospitalist Physical - Constitutional Vitals: Temp Pulse Resp BP Pulse Ox 98.2 F 86 16 98/69 95 10/16/21 06:04 10/16/21 06:04 10/16/21 06:04 10/16/21 06:04 10/16/21 06:04 General appearance: Present: no acute distress, well-nourished, obese, other - EENT Eyes: Present: PERRL, EOM intact ENT: hearing intact, clear oral mucosa, dentition normal - Neck Neck: Present: supple, normal ROM - Respiratory Respiratory effort: normal Respiratory: bilateral: CTA - Cardiovascular Rhythm: regular Heart Sounds: Present: S1 & S2. Absent: gallop, rub - Extremities Extremities: no ischemia, No edema, Full ROM - Abdominal General gastrointestinal: soft, non-tender, non-distended, normal bowel sounds - Integumentary Integumentary: Present: clear, warm, dry - Neurologic Neurologic: CNII-XII intact, moves all extremities HEART Score - HEART Score Troponin: Troponin T 1.970 ng/mL (0.00-0.029) H* 10/09/21 23:30 Results - Labs CBC & Chem 7: 10/16/21 04:58 10/16/21 04:58 Labs: Laboratory Last Values WBC 20.0 K/mm3 (4.5-11.0) H 10/16/21 04:58 RBC 3.33 M/mm3 (3.65-5.03) L 10/16/21 04:58 Hgb 9.5 gm/dl (11.8-15.2) L 10/16/21 04:58 Hct 28.5 % (35.5-45.6) L 10/16/21 04:58 MCV 86 fl (84-94) 10/16/21 04:58 MCH 29 pg (28-32) 10/16/21 04:58 MCHC 33 % (32-34) 10/16/21 04:58 RDW 17.7 % (13.2-15.2) H 10/16/21 04:58 Plt Count 66 K/mm3 (140-440) L 10/16/21 04:58 Add Manual Diff Complete 10/16/21 04:58 Total Counted 100 10/16/21 04:58 Seg Neutrophils % Salesforce Specialist 10/16/21 04:58 Seg Neuts % (Manual) 98.0 % (40.0-70.0) H 10/16/21 04:58 Band Neutrophils % 1.0 % 10/16/21 04:58 Lymphocytes % (Manual) 1.0 % (13.4-35.0) L 10/16/21 04:58 Reactive Lymphs % (Man) 0 % 10/16/21 04:58 Monocytes % (Manual) 0 % (0.0-7.3) 10/16/21 04:58 Eosinophils % (Manual) 0 % (0.0-4.3) 10/16/21 04:58 Basophils % (Manual) 0 % (0.0-1.8) 10/16/21 04:58 Metamyelocytes % 0 % 10/16/21 04:58 Myelocytes % 0 % 10/16/21 04:58 Promyelocytes % 0 % 10/16/21 04:58 Blast Cells % 0 % 10/16/21 04:58 Nucleated RBC % Not Reportable 10/16/21 04:58 Seg Neutrophils # Man 19.6 K/mm3 (1.8-7.7) H 10/16/21 04:58 Band Neutrophils # 0.2 K/mm3 10/16/21 04:58 Lymphocytes # (Manual) 0.2 K/mm3 (1.2-5.4) L 10/16/21 04:58 Abs React Lymphs (Man) 0.0 K/mm3 10/16/21 04:58 Monocytes # (Manual) 0.0 K/mm3 (0.0-0.8) 10/16/21 04:58 Eosinophils # (Manual) 0.0 K/mm3 (0.0-0.4) 10/16/21 04:58 Basophils # (Manual) 0.0 K/mm3 (0.0-0.1) 10/16/21 04:58 Metamyelocytes # 0.0 K/mm3 10/16/21 04:58 Myelocytes # 0.0 K/mm3 10/16/21 04:58 Promyelocytes # 0.0 K/mm3 10/16/21 04:58 Blast Cells # 0.0 K/mm3 10/16/21 04:58 WBC Morphology Not Reportable 10/16/21 04:58 Hypersegmented Neuts Not Reportable 10/16/21 04:58 Hyposegmented Neuts Not Reportable 10/16/21 04:58 Hypogranular Neuts Not Reportable 10/16/21 04:58 Smudge Cells Not Reportable 10/16/21 04:58 Toxic Granulation Not Reportable 10/16/21 04:58 Toxic Vacuolation Not Reportable 10/16/21 04:58 Dohle Bodies Not Reportable 10/16/21 04:58 Pelger-Huet Anomaly Not Reportable 10/16/21 04:58 Placido Rods Not Reportable 10/16/21 04:58 Platelet Estimate Consistent w auto 10/16/21 04:58 Clumped Platelets Not Reportable 10/16/21 04:58 Plt Clumps, EDTA Not Reportable 10/16/21 04:58 Large Platelets Not Reportable 10/16/21 04:58 Giant Platelets Not Reportable 10/16/21 04:58 Platelet Satelliting Not Reportable 10/16/21 04:58 Plt Morphology Comment Not Reportable 10/16/21 04:58 RBC Morphology Not Reportable 10/16/21 04:58 Dimorphic RBCs Not Reportable 10/16/21 04:58 Polychromasia Not Reportable 10/16/21 04:58 Hypochromasia 1+ 10/16/21 04:58 Poikilocytosis Not Reportable 10/16/21 04:58 Anisocytosis 1+ 10/16/21 04:58 Microcytosis Not Reportable 10/16/21 04:58 Macrocytosis Not Reportable 10/16/21 04:58 Spherocytes Not Reportable 10/16/21 04:58 Pappenheimer Bodies Not Reportable 10/16/21 04:58 Sickle Cells Not Reportable 10/16/21 04:58 Target Cells Not Reportable 10/16/21 04:58 Tear Drop Cells Not Reportable 10/16/21 04:58 Ovalocytes Not Reportable 10/16/21 04:58 Helmet Cells Not Reportable 10/16/21 04:58 [place] Bodies Not Reportable 10/16/21 04:58 [place] Rings Not Reportable 10/16/21 04:58 Hussain Cells Not Reportable 10/16/21 04:58 Bite Cells Not Reportable 10/16/21 04:58 Crenated Cell Not Reportable 10/16/21 04:58 Elliptocytes Not Reportable 10/16/21 04:58 Acanthocytes (Spur) Not Reportable 10/16/21 04:58 Rouleaux Not Reportable 10/16/21 04:58 Hemoglobin C Crystals Not Reportable 10/16/21 04:58 Schistocytes Not Reportable 10/16/21 04:58 Malaria parasites Not Reportable 10/16/21 04:58 Ezequiel Bodies Not Reportable 10/16/21 04:58 Hem Pathologist Commnt No 10/16/21 04:58 ABG pH 7.480 pH Units (7.350-7.450) H 10/11/21 05:25 ABG pCO2 25.8 mm Hg 10/11/21 05:25 ABG pO2 111.6 mm Hg (80.0-90.0) H 10/11/21 05:25 ABG HCO3 18.8 mmol/L (20.0-26.0) L 10/11/21 05:25 ABG O2 Saturation 98.3 % (95.0-99.0) 10/11/21 05:25 ABG O2 Content 10.9 (0.0-44) 10/11/21 05:25 ABG Base Excess -4.0 mmol/L (-2.0-3.0) L 10/11/21 05:25 ABG Hemoglobin 7.9 gm/dl (14.0-18.0) L 10/11/21 05:25 ABG Carboxyhemoglobin 1.3 % (0.0-5.0) 10/11/21 05:25 ABG Methemoglobin 0.4 % (0.0-1.5) 10/11/21 05:25 Oxyhemoglobin 96.7 % (95.0-99.0) 10/11/21 05:25 FiO2 30 % 10/11/21 05:25 Sodium 141 mmol/L (137-145) 10/16/21 04:58 Potassium 2.9 mmol/L (3.6-5.0) L* 10/16/21 04:58 Chloride 103.3 mmol/L (98-107) 10/16/21 04:58 Carbon Dioxide 24 mmol/L (22-30) 10/16/21 04:58 Anion Gap 17 mmol/L 10/16/21 04:58 BUN 32 mg/dL (9-20) H 10/16/21 04:58 Creatinine 4.1 mg/dL (0.8-1.3) H 10/16/21 04:58 Estimated GFR 18 ml/min 10/16/21 04:58 BUN/Creatinine Ratio 8 % 10/16/21 04:58 Glucose 253 mg/dL (75-100) H 10/16/21 04:58 POC Glucose 269 mg/dL (70-105) H 10/16/21 05:58 Lactic Acid 1.60 mmol/L (0.7-2.0) 10/11/21 11:23 Calcium 8.7 mg/dL (8.4-10.2) 10/16/21 04:58 Phosphorus 2.20 mg/dL (2.5-4.5) L D 10/12/21 05:50 Magnesium 1.80 mg/dL (1.7-2.3) 10/12/21 05:50 Total Bilirubin 1.20 mg/dL (0.1-1.2) 10/13/21 05:17 AST 32 units/L (5-40) 10/13/21 05:17 ALT 11 units/L (7-56) 10/13/21 05:17 Alkaline Phosphatase 167 units/L (35-129) H 10/13/21 05:17 Total Creatine Kinase 644 units/L (55-170) H 10/09/21 23:30 Troponin T 1.970 ng/mL (0.00-0.029) H* 10/09/21 23:30 Total Protein 7.5 g/dL (6.3-8.2) D 10/13/21 05:17 Albumin 2.4 g/dL (3.9-5) L 10/13/21 05:17 Albumin/Globulin Ratio 0.5 % 10/13/21 05:17 Triglycerides 68 mg/dL (2-149) 10/09/21 23:30 Cholesterol 81 mg/dL (50-199) 10/09/21 23:30 LDL Cholesterol Direct 21 mg/dL (50-130) L 10/09/21 23:30 HDL Cholesterol 44 mg/dL (40-59) 10/09/21 23:30 Cholesterol/HDL Ratio 1.84 % 10/09/21 23:30 TSH 23.050 mlU/mL (0.270-4.200) H 10/10/21 14:51 Free T4 0.36 ng/dL (0.76-1.46) L 10/10/21 14:51 T3 (TERRENCE) 26.7 ng/dL (76-181) L 10/10/21 14:51 Urine Color Yellow (Yellow) 10/10/21 01:30 Urine Turbidity Turbid (Clear) 10/10/21 01:30 Urine pH 6.0 (5.0-7.0) 10/10/21 01:30 Ur Specific [place] 1.018 (1.003-1.030) 10/10/21 01:30 Urine Protein 100 mg/dl mg/dL (Negative) 10/10/21 01:30 Urine Glucose (UA) Neg mg/dL (Negative) 10/10/21 01:30 Urine Ketones Tr mg/dL (Negative) 10/10/21 01:30 Urine Blood Mod (Negative) 10/10/21 01:30 Urine Nitrite Neg (Negative) 10/10/21 01:30 Urine Bilirubin Neg (Negative) 10/10/21 01:30 Urine Urobilinogen < 2.0 mg/dL (<2.0) 10/10/21 01:30 Ur Leukocyte Esterase Mod (Negative) 10/10/21 01:30 Urine WBC (Auto) > 182.0 /HPF (0.0-6.0) H 10/10/21 01:30 Urine RBC (Auto) 70.0 /HPF (0.0-6.0) 10/10/21 01:30 Urine Bacteria (Auto) 1+ /HPF (Negative) 10/10/21 01:30 Urine WBC Clumps 3+ /HPF 10/10/21 01:30 C. difficile Tox (PCR) Positive (Negative) 10/12/21 Unknown Coronavirus (PCR) Negative (Negative) 10/14/21 Unknown Hepatitis A IgM Ab Non-reactive (NonReactive) 10/11/21 11:23 Hep Bs Antigen Non-reactive (Negative) 10/11/21 11:23 Hep B Core IgM Ab Non-reactive (NonReactive) 10/11/21 11:23 Hepatitis C Antibody Reactive (NonReactive) A 10/11/21 11:23 Choudhary/IV: Voiding Method Condom Catheter Active Medications - Current Medications Current Medications: Generic Name Dose Route Start Last Admin Trade Name Freq PRN Reason Stop Dose Admin Acetaminophen 650 mg 10/10/21 01:37 Acetaminophen 325 Mg Tab PO Q4H PRN Pain MILD(1-3)/Fever >100.5/SEALS Dextrose 50 ml 10/10/21 01:37 10/10/21 06:39 Dextrose 50% In Water (25gm) 50 Ml Syringe IV 50 ml Q30MIN PRN Administration Hypoglycemia Protocol Hydrocortisone Sodium Succinate 50 mg 10/16/21 10:00 Hydrocortisone Sod Succ 100 Mg/2 Ml Vial IV 10/16/21 22:01 Q12HR CHAKA Hydrocortisone Sodium Succinate 50 mg 10/17/21 10:00 Hydrocortisone Sod Succ 100 Mg/2 Ml Vial IV 10/17/21 10:01 Q24HR CHAKA Insulin Human Lispro 0 unit 10/10/21 06:00 10/16/21 07:03 Insulin Lispro 100 Unit/Ml SUB-Q 3 unit Q6HR CHAKA Administration Protocol Levothyroxine Sodium 150 mcg 10/14/21 06:00 10/16/21 06:07 Levothyroxine 150 Mcg Tab PO 150 mcg DAILY@0600 CHAKA Administration Levothyroxine Sodium 25 mcg 10/14/21 06:00 10/16/21 06:07 Levothyroxine 25 Mcg Tab PO 25 mcg DAILY@0600 CHAKA Administration Midodrine 10 mg 10/10/21 08:00 10/16/21 08:54 Midodrine 10 Mg Tab PO 10 mg TID@0800,1200,1600 CHAKA Administration Ondansetron HCl 4 mg 10/10/21 01:37 Ondansetron 4 Mg/2 Ml Inj IV Q8H PRN Nausea And Vomiting Pantoprazole Sodium 40 mg 10/14/21 07:30 10/16/21 08:52 Pantoprazole 40 Mg Tab PO 40 mg QDAC CHAKA Administration Sodium Chloride 10 ml 10/10/21 10:00 10/15/21 22:14 Sodium Chloride 0.9% 10 Ml Flush Syringe IV 10 ml BID CHAKA Administration Sodium Chloride 10 ml 10/10/21 01:37 Sodium Chloride 0.9% 10 Ml Flush Syringe IV PRN PRN LINE FLUSH Vancomycin HCl 125 mg 10/14/21 13:00 10/16/21 06:07 Vancomycin 250 Mg/10 Ml Oral Liqd PO 10/24/21 06:01 125 mg Q6HR CHAKA Administration Protocol Nutrition/Malnutrition Assess - Dietary Evaluation Nutrition/Malnutrition Findings: Nutrition Notes Start: 10/11/21 16:12 Freq: Status: Active Protocol: Document 07/06/22 15:46 ADITYA (Rec: 10/13/21 15:58 [email or web address] [id number]) Nutrition Notes Initial or Follow up Brief Note Current Diagnosis CKD(stage I-IV),Diabetes, Sepsis,Hypertension, Hyperlipidemia Other Pertinent Diagnosis ESRD+HD, Hypoglycemia, GERD, UTI, Metabolic Encephalopathy, Uremia,... Current Diet Renal Diet (since L 10/12). Height 6 ft Weight 99.79 kg [place] Body Weight (kg) 80.90 BMI 29.8 Weight change and time frame No body weight changes in 2 days reported. Weight Status Overweight Subjective/Other Information RD consult for routine F/U on Dietary Advancement. Diet advanced to PO, Pt's PO intake of meals has been Negligible(0%), according to ADL notes. I will assess the need for ONS at F/U. CANNERY TENDER ENGINEER note on 10/12/21 12:59: Swallowing function has been assessed. No aspiration was identified during the examination. Continue his current diet. Will continue to follow 2-3 days to ensure continued safety. - END OF NOTE. Pt is on Room Air, O2 saturation @ 97%, according to Physical Assessment History notes. Percent of energy/protein needs met: Prescribed Renal Diet provides for energy/protein needs (2, 072 Kcal/77 g) during LOS. #1 Nutrition Diagnosis Inadequate oral intake Comments: CANNERY TENDER ENGINEER note on 10/12/21 12:59: Swallowing function has been assessed. No aspiration was identified during the examination. Continue his current diet. Will continue to follow 2-3 days to ensure continued safety. - END OF NOTE. Diagnosis Progress(for reassessment Resolved documentation) Is patient on ventilator? No Is Patient Ambulatory and/or Out of Bed No REE-([place] Je[facility]-confined to bed) [phone] Calculation [facility] Recommendations [facility] Additional Notes Protein: >1.2 g/Kg ABW; >120 g /day. Fluids: 1 ml/Kcal, or as per MD. Nutrition Intervention Change Diet Order: Continue Renal Diet. Nutrition Support: Discontinue. Goal #1 Adjust the dietary intervention to better serve Pt's needs and clinical conditions during LOS. Follow-Up By: 10/18/21 Additional Comments Continue monitoring food tolerance, %PO intake of meals , and BM.Continue monitoring food tolerance, %PO intake of meals, and BM.
[2021-10-16] MEDS: HYDROCORTISONE SOD SUCC 100 MG/2 ML VIAL IV SCH ×3 (09:09→22:43)
--- NOTE | 2021-10-16 10:44 | Progress Note ---
Assessment and Plan Acute metabolic encephalopathy End-stage renal disease on hemodialysis Hypertension Elevated troponin Nicotine dependence Sepsis History of hypothyroidism Insulin dependent diabetes mellitus Hypokalemia Hypoglycemia Plan: s/p HD yesterday, no HD today. Hypotension-on Midodrine 10 mg po TID Replace k PRN Renally dose medications Strict I&O's daily Obtain daily weights Assess dialysis needs daily Subjective Date of service: 10/16/21 Principal diagnosis: ESRD Interval history: Tolerated HD yesterday. NAD. Objective - Exam Narrative Exam: General appearance: other (No acute distress ) EENT: ATNC Neck: no JVD, supple Respiratory: Present: Decreased Breath Sounds Cardiology: S1S2 Gastrointestinal: normoactive bowel sounds Integumentary: warm and dry Musculoskeletal: other (positive edema) - Vital Signs Vital signs: Vital Signs - 12hr 10/16/21 10/16/21 00:03 06:04 Temperature 98.2 F Pulse Rate 86 Respiratory 16 Rate Blood Pressure 98/69 O2 Sat by Pulse 100 95 Oximetry - Lab 10/16/21 04:58 10/16/21 04:58 Most recent lab results ABG pH 7.480 pH Units (7.350-7.450) H 10/11/21 05:25 ABG pCO2 25.8 mm Hg 10/11/21 05:25 ABG pO2 111.6 mm Hg (80.0-90.0) H 10/11/21 05:25 ABG HCO3 18.8 mmol/L (20.0-26.0) L 10/11/21 05:25 ABG O2 Saturation 98.3 % (95.0-99.0) 10/11/21 05:25 Calcium 8.7 mg/dL (8.4-10.2) 10/16/21 04:58 Phosphorus 2.20 mg/dL (2.5-4.5) L D 10/12/21 05:50 Magnesium 1.80 mg/dL (1.7-2.3) 10/12/21 05:50 Medications & Allergies - Medications Allergies/Adverse Reactions: Allergies No Known Allergies Allergy (Verified 10/09/21 23:38) Home Medications: Home Medications Medication Instructions Recorded Confirmed Last Taken Type Levothyroxine Sodium 175 mcg PO DAILY 08/23/21 10/13/21 08/22/21 History [Levothyroxine] Sertraline [Zoloft] 100 mg PO QDAY 08/23/21 10/13/21 08/22/21 History Cyclobenzaprine [Flexeril 10 MG 5 mg PO TID PRN #15 tablet 08/27/21 10/13/21 Unknown Rx TAB] Pantoprazole [Protonix TAB] 40 mg PO QDAY #30 tablet 08/27/21 10/13/21 Unknown Rx Insulin Glargine [Lantus VIAL] 30 units SUB-Q QHS units 09/02/21 10/13/21 Unknown Rx Lispro Insulin [HumaLOG] 0 unit SUB-Q ACHS units 09/02/21 10/13/21 Unknown Rx Midodrine [Proamatine] 10 mg PO TID tablet 09/02/21 10/13/21 Unknown Rx Active Medications: Generic Name Dose Route Start Last Admin Trade Name Freq PRN Reason Stop Dose Admin Acetaminophen 650 mg 10/10/21 01:37 Acetaminophen 325 Mg Tab PO Q4H PRN Pain MILD(1-3)/Fever >100.5/SEALS Dextrose 50 ml 10/10/21 01:37 10/10/21 06:39 Dextrose 50% In Water (25gm) 50 Ml Syringe IV 50 ml Q30MIN PRN Administration Hypoglycemia Protocol Hydrocortisone Sodium Succinate 50 mg 10/16/21 10:00 10/16/21 09:09 Hydrocortisone Sod Succ 100 Mg/2 Ml Vial IV 10/16/21 22:01 50 mg Q12HR CHAKA Administration Hydrocortisone Sodium Succinate 50 mg 10/17/21 10:00 Hydrocortisone Sod Succ 100 Mg/2 Ml Vial IV 10/17/21 10:01 Q24HR CHAKA Potassium Chloride 10 meq in 100 mls @ 100 mls/hr 10/16/21 09:01 Kcl 10meq/100ml IV Q3H CHAKA Insulin Human Lispro 0 unit 10/10/21 06:00 10/16/21 07:03 Insulin Lispro 100 Unit/Ml SUB-Q 3 unit Q6HR CHAKA Administration Protocol Levothyroxine Sodium 150 mcg 10/14/21 06:00 10/16/21 06:07 Levothyroxine 150 Mcg Tab PO 150 mcg DAILY@0600 CHAKA Administration Levothyroxine Sodium 25 mcg 10/14/21 06:00 10/16/21 06:07 Levothyroxine 25 Mcg Tab PO 25 mcg DAILY@0600 CHAKA Administration Midodrine 10 mg 07/03/22 08:00 10/16/21 08:54 Midodrine 10 Mg Tab PO 10 mg TID@0800,1200,1600 CHAKA Administration Ondansetron HCl 4 mg 10/10/21 01:37 Ondansetron 4 Mg/2 Ml Inj IV Q8H PRN Nausea And Vomiting Pantoprazole Sodium 40 mg 10/14/21 07:30 10/16/21 08:52 Pantoprazole 40 Mg Tab PO 40 mg QDAC CHAKA Administration Sodium Chloride 10 ml 10/10/21 10:00 10/16/21 09:00 Sodium Chloride 0.9% 10 Ml Flush Syringe IV 10 ml BID CHAKA Administration Sodium Chloride 10 ml 10/10/21 01:37 Sodium Chloride 0.9% 10 Ml Flush Syringe IV PRN PRN LINE FLUSH Vancomycin HCl 125 mg 10/14/21 13:00 10/16/21 06:07 Vancomycin 250 Mg/10 Ml Oral Liqd PO 10/24/21 06:01 125 mg Q6HR CHAKA Administration Protocol
[2021-10-16] MEDS: POTASSIUM CHLORIDE 10 MEQ 10 MEQ/100 ML BAG IV SCH ×6 (11:10→22:42)
[2021-10-16] MEDS ORDERED: POTASSIUM CHLORIDE 10 MEQ 10 MEQ/100 ML BAG IV ONE ×2 (12:00→15:00)
--- NOTE | 2021-10-16 12:38 | Progress Note ---
Assessment and Plan 61 y/o male with respiratory failure secondary to altered mental status secondary to hypoglycemia. 10/16/2021: No significant change now back on oxygen to 4 to 5 L nasal cannula. Remains hoarse complain of shortness of breath. Chest x-ray showed significant elevation of right hemidiaphragm slightly worse than previous study possibly re lated to poor inspiratory effort. Increased WBC count may be related to steroids however need to consider possible infection/pneumonia given the worsening oxygenation. Continue the current therapy we will closely follow him. 10/15/21: Will check CXR given increases in oxygen requirement and documented desaturation. Continue treatment for inspection. Will order incentive ty, HD per renal. Wean stress dose steroids. 10/14/21: Pharmacy ordered C. Diff therapy under me. Please consider ID consult for duration of therapy. Will follow up as to why patient was placed on oxygen based on documentation but this could be an error. Spoke with pharmacy and steroid taper ordered. Will see as needed once oxygen is figured out. 10/13/21: Can start to wean stress dose steroids starting tomorrow. Pharm placed back on home dose of synthroid. Will follow. 10/12/21: Follow up C. Diff. Per staff, daughter states patient has been having persistent diarrhea since discharge. This is likely the cause of persistent hypokalemia. Would ask renal to only clean and not pull any fluid with HD. Fo llow up speech. Stable for transfer to floor. 10/11/21: Off d10, sugars are much better. Will extubate. Would like to keep stress dose steroids and start to wean tomorrow. Electrolytes per renal. 1. State repeat CMP and CBC, follow up K replacement 2. Will start stress dose steroids given history of Hypothyroid and current hyoglycemia 3. q1 hour fsbs 4. Stop D5 and start d10 at 50mls/hr 5. Dropped peep to 6 6. No sedation 7. Once more awake will extubate, no matter what time of day 8. guarded prognosis. Subjective Date of service: 10/16/21 Principal diagnosis: ESRD Interval history: Patient complaining of being short of breath. Now on oxygen at 4 to 5 L with saturation at mid 90s. Objective - Exam Narrative Exam: General appearance: other (No acute distress ) EENT: ATNC Neck: no JVD, supple Respiratory: Present: Decreased Breath Sounds Cardiology: S1S2 Gastrointestinal: normoactive bowel sounds Integumentary: warm and dry Musculoskeletal: other (positive edema) Vital Signs - 12hr 10/16/21 06:04 Temperature 98.2 F Pulse Rate 86 Respiratory 16 Rate Blood Pressure 98/69 O2 Sat by Pulse 95 Oximetry Constitutional: no acute distress Eyes: non-icteric ENT: other (orally intubated) Neck: supple Effort: normal Ascultation: Bilateral: clear Percussion: Bilateral: not dull Cardiovascular: regular rate and rhythm Gastrointestinal: normoactive bowel sounds, soft Extremities: no cyanosis, no edema Neurologic: unable to assess Psychiatric: mood appropriate CBC and BMP: 10/16/21 04:58 10/16/21 04:58 ABG, PT/INR, D-dimer: ABG ABG pH 7.480 pH Units (7.350-7.450) H 10/11/21 05:25 ABG pCO2 25.8 mm Hg 10/11/21 05:25 ABG pO2 111.6 mm Hg (80.0-90.0) H 10/11/21 05:25 ABG O2 Saturation 98.3 % (95.0-99.0) 10/11/21 05:25 Abnormal lab findings: Abnormal Labs 10/09/21 10/09/21 10/09/21 22:21 23:20 23:30 WBC 17.4 H RBC 3.32 L Hgb 9.2 L Hct 28.2 L MCV MCH RDW 17.4 H Plt Count 45 L Seg Neuts % (Manual) 98.0 H Lymphocytes % (Manual) 1.0 L Nucleated RBC % Seg Neutrophils # Man 17.1 H Lymphocytes # (Manual) 0.2 L ABG pH 7.301 L ABG pO2 162.1 H ABG HCO3 ABG O2 Saturation ABG Base Excess -2.3 L ABG Hemoglobin 10.2 L Sodium Potassium Chloride Carbon Dioxide BUN Creatinine Glucose POC Glucose 151 H Lactic Acid Calcium Phosphorus Magnesium AST Alkaline Phosphatase Total Creatine Kinase Troponin T Total Protein Albumin LDL Cholesterol Direct TSH Free T4 T3 (TERRENCE) Urine WBC (Auto) Hepatitis C Antibody 10/09/21 10/09/21 10/10/21 23:30 23:30 01:30 WBC RBC Hgb Hct MCV MCH RDW Plt Count Seg Neuts % (Manual) Lymphocytes % (Manual) Nucleated RBC % Seg Neutrophils # Man Lymphocytes # (Manual) ABG pH ABG pO2 ABG HCO3 ABG O2 Saturation ABG Base Excess ABG Hemoglobin Sodium 132 L Potassium 1.7 L* Chloride 96.6 L Carbon Dioxide BUN Creatinine 4.8 H Glucose 70 L POC Glucose Lactic Acid 2.10 H* Calcium 8.0 L Phosphorus Magnesium AST 68 H Alkaline Phosphatase 161 H Total Creatine Kinase 644 H Troponin T 1.970 H* Total Protein Albumin 2.1 L LDL Cholesterol Direct 21 L TSH Free T4 T3 (TERRENCE) Urine WBC (Auto) > 182.0 H Hepatitis C Antibody 10/10/21 10/10/21 10/10/21 02:59 04:15 05:40 WBC RBC Hgb Hct MCV MCH RDW Plt Count Seg Neuts % (Manual) Lymphocytes % (Manual) Nucleated RBC % Seg Neutrophils # Man Lymphocytes # (Manual) ABG pH 7.469 H ABG pO2 217.7 H ABG HCO3 ABG O2 Saturation 99.4 H ABG Base Excess ABG Hemoglobin 8.6 L Sodium Potassium Chloride Carbon Dioxide BUN Creatinine Glucose POC Glucose 16 L 58 L Lactic Acid Calcium Phosphorus Magnesium AST Alkaline Phosphatase Total Creatine Kinase Troponin T Total Protein Albumin LDL Cholesterol Direct TSH Free T4 T3 (TERRENCE) Urine WBC (Auto) Hepatitis C Antibody 10/10/21 10/10/21 10/10/21 08:32 12:25 12:25 WBC 15.3 H RBC 3.11 L Hgb 8.6 L Hct 26.6 L MCV MCH RDW 17.4 H Plt Count 38 L Seg Neuts % (Manual) Lymphocytes % (Manual) Nucleated RBC % Seg Neutrophils # Man Lymphocytes # (Manual) ABG pH ABG pO2 ABG HCO3 ABG O2 Saturation ABG Base Excess ABG Hemoglobin Sodium Potassium Chloride Carbon Dioxide BUN Creatinine Glucose POC Glucose Lactic Acid 3.40 H* 2.80 H* Calcium Phosphorus Magnesium AST Alkaline Phosphatase Total Creatine Kinase Troponin T Total Protein Albumin LDL Cholesterol Direct TSH Free T4 T3 (TERRENCE) Urine WBC (Auto) Hepatitis C Antibody 10/10/21 10/10/21 10/10/21 12:25 12:25 14:51 WBC RBC Hgb Hct MCV MCH RDW Plt Count Seg Neuts % (Manual) Lymphocytes % (Manual) Nucleated RBC % Seg Neutrophils # Man Lymphocytes # (Manual) ABG pH ABG pO2 ABG HCO3 ABG O2 Saturation ABG Base Excess ABG Hemoglobin Sodium 131 L Potassium 2.1 L* D Chloride 97.2 L Carbon Dioxide 20 L BUN Creatinine 4.9 H Glucose 129 H POC Glucose Lactic Acid Calcium 7.4 L Phosphorus Magnesium 1.50 L AST 52 H Alkaline Phosphatase 169 H Total Creatine Kinase Troponin T Total Protein 5.8 L Albumin 2.0 L LDL Cholesterol Direct TSH Free T4 T3 (TERRENCE) 26.7 L Urine WBC (Auto) Hepatitis C Antibody 10/10/21 10/10/21 10/10/21 14:51 18:12 19:35 WBC RBC Hgb Hct MCV MCH RDW Plt Count Seg Neuts % (Manual) Lymphocytes % (Manual) Nucleated RBC % Seg Neutrophils # Man Lymphocytes # (Manual) ABG pH ABG pO2 ABG HCO3 ABG O2 Saturation ABG Base Excess ABG Hemoglobin Sodium Potassium Chloride Carbon Dioxide BUN Creatinine Glucose POC Glucose 181 H 194 H Lactic Acid Calcium Phosphorus Magnesium AST Alkaline Phosphatase Total Creatine Kinase Troponin T Total Protein Albumin LDL Cholesterol Direct TSH 23.050 H Free T4 0.36 L T3 (TERRENCE) Urine WBC (Auto) Hepatitis C Antibody 10/10/21 10/11/21 10/11/21 23:50 03:26 05:25 WBC RBC Hgb Hct MCV MCH RDW Plt Count Seg Neuts % (Manual) Lymphocytes % (Manual) Nucleated RBC % Seg Neutrophils # Man Lymphocytes # (Manual) ABG pH 7.480 H ABG pO2 111.6 H ABG HCO3 18.8 L ABG O2 Saturation ABG Base Excess -4.0 L ABG Hemoglobin 7.9 L Sodium 129 L Potassium 2.6 L* D Chloride 95.0 L Carbon Dioxide 20 L BUN Creatinine 5.0 H Glucose 233 H POC Glucose 185 H Lactic Acid Calcium 7.7 L Phosphorus Magnesium AST Alkaline Phosphatase Total Creatine Kinase Troponin T Total Protein Albumin LDL Cholesterol Direct TSH Free T4 T3 (TERRENCE) Urine WBC (Auto) Hepatitis C Antibody 10/11/21 10/11/21 10/11/21 06:59 06:59 11:23 WBC 14.3 H RBC 2.75 L Hgb 7.6 L Hct 23.2 L MCV MCH RDW 17.4 H Plt Count 52 L Seg Neuts % (Manual) 99.0 H Lymphocytes % (Manual) 1.0 L Nucleated RBC % Seg Neutrophils # Man 14.2 H Lymphocytes # (Manual) 0.1 L ABG pH ABG pO2 ABG HCO3 ABG O2 Saturation ABG Base Excess ABG Hemoglobin Sodium 127 L 126 L Potassium 2.6 L* 3.0 L Chloride 93.7 L 92.7 L Carbon Dioxide 19 L 20 L BUN 21 H Creatinine 5.0 H 5.3 H Glucose 208 H 214 H POC Glucose Lactic Acid Calcium 7.6 L 7.7 L Phosphorus Magnesium AST Alkaline Phosphatase Total Creatine Kinase Troponin T Total Protein Albumin LDL Cholesterol Direct TSH Free T4 T3 (TERRENCE) Urine WBC (Auto) Hepatitis C Antibody 10/11/21 10/11/21 10/11/21 11:23 17:03 23:08 WBC RBC Hgb Hct MCV MCH RDW Plt Count Seg Neuts % (Manual) Lymphocytes % (Manual) Nucleated RBC % Seg Neutrophils # Man Lymphocytes # (Manual) ABG pH ABG pO2 ABG HCO3 ABG O2 Saturation ABG Base Excess ABG Hemoglobin Sodium Potassium Chloride Carbon Dioxide BUN Creatinine Glucose POC Glucose 220 H 201 H Lactic Acid Calcium Phosphorus Magnesium AST Alkaline Phosphatase Total Creatine Kinase Troponin T Total Protein Albumin LDL Cholesterol Direct TSH Free T4 T3 (TERRENCE) Urine WBC (Auto) Hepatitis C Antibody Reactive A 10/11/21 10/12/21 10/12/21 23:53 05:33 05:50 WBC 16.4 H RBC 2.73 L Hgb 7.7 L Hct 22.8 L MCV 83 L MCH RDW 16.6 H Plt Count 57 L Seg Neuts % (Manual) Lymphocytes % (Manual) Nucleated RBC % Seg Neutrophils # Man Lymphocytes # (Manual) ABG pH ABG pO2 ABG HCO3 ABG O2 Saturation ABG Base Excess ABG Hemoglobin Sodium Potassium 3.0 L Chloride Carbon Dioxide BUN Creatinine 3.5 H Glucose 207 H POC Glucose 163 H Lactic Acid Calcium 8.2 L Phosphorus Magnesium AST Alkaline Phosphatase Total Creatine Kinase Troponin T Total Protein Albumin LDL Cholesterol Direct TSH Free T4 T3 (TERRENCE) Urine WBC (Auto) Hepatitis C Antibody 10/12/21 10/12/21 10/12/21 05:50 12:07 14:42 WBC RBC Hgb Hct MCV MCH RDW Plt Count Seg Neuts % (Manual) Lymphocytes % (Manual) Nucleated RBC % Seg Neutrophils # Man Lymphocytes # (Manual) ABG pH ABG pO2 ABG HCO3 ABG O2 Saturation ABG Base Excess ABG Hemoglobin Sodium 135 L 134 L Potassium 2.9 L* 2.7 L* Chloride Carbon Dioxide BUN Creatinine 3.9 H 4.1 H Glucose 166 H 171 H POC Glucose 164 H Lactic Acid Calcium 8.2 L 8.2 L Phosphorus 2.20 L D Magnesium AST Alkaline Phosphatase Total Creatine Kinase Troponin T Total Protein Albumin LDL Cholesterol Direct TSH Free T4 T3 (TERRENCE) Urine WBC (Auto) Hepatitis C Antibody 10/12/21 10/12/21 10/12/21 15:21 21:11 23:38 WBC RBC Hgb Hct MCV MCH RDW Plt Count Seg Neuts % (Manual) Lymphocytes % (Manual) Nucleated RBC % Seg Neutrophils # Man Lymphocytes # (Manual) ABG pH ABG pO2 ABG HCO3 ABG O2 Saturation ABG Base Excess ABG Hemoglobin Sodium Potassium Chloride Carbon Dioxide BUN Creatinine Glucose POC Glucose 156 H 242 H 232 H Lactic Acid Calcium Phosphorus Magnesium AST Alkaline Phosphatase Total Creatine Kinase Troponin T Total Protein Albumin LDL Cholesterol Direct TSH Free T4 T3 (TERRENCE) Urine WBC (Auto) Hepatitis C Antibody 10/13/21 10/13/21 10/13/21 00:04 05:17 05:17 WBC 17.5 H RBC 3.18 L Hgb 8.7 L Hct 26.8 L MCV MCH 27 L RDW 17.6 H Plt Count 64 L Seg Neuts % (Manual) 95.0 H Lymphocytes % (Manual) 3.0 L Nucleated RBC % Seg Neutrophils # Man 16.6 H Lymphocytes # (Manual) 0.5 L ABG pH ABG pO2 ABG HCO3 ABG O2 Saturation ABG Base Excess ABG Hemoglobin Sodium 131 L 135 L Potassium 3.2 L Chloride Carbon Dioxide 14 L D 20 L BUN 24 H 26 H Creatinine 4.4 H 4.6 H Glucose 258 H 244 H POC Glucose Lactic Acid Calcium 8.3 L Phosphorus Magnesium AST Alkaline Phosphatase 167 H Total Creatine Kinase Troponin T Total Protein Albumin 2.4 L LDL Cholesterol Direct TSH Free T4 T3 (TERRENCE) Urine WBC (Auto) Hepatitis C Antibody 10/13/21 10/13/21 10/13/21 06:01 14:35 16:01 WBC RBC Hgb Hct MCV MCH RDW Plt Count Seg Neuts % (Manual) Lymphocytes % (Manual) Nucleated RBC % Seg Neutrophils # Man Lymphocytes # (Manual) ABG pH ABG pO2 ABG HCO3 ABG O2 Saturation ABG Base Excess ABG Hemoglobin Sodium Potassium 3.3 L Chloride Carbon Dioxide 20 L BUN Creatinine 3.2 H Glucose 236 H POC Glucose 226 H 223 H Lactic Acid Calcium Phosphorus Magnesium AST Alkaline Phosphatase Total Creatine Kinase Troponin T Total Protein Albumin LDL Cholesterol Direct TSH Free T4 T3 (TERRENCE) Urine WBC (Auto) Hepatitis C Antibody 10/13/21 10/13/21 10/13/21 21:15 23:35 23:39 WBC RBC Hgb Hct MCV MCH RDW Plt Count Seg Neuts % (Manual) Lymphocytes % (Manual) Nucleated RBC % Seg Neutrophils # Man Lymphocytes # (Manual) ABG pH ABG pO2 ABG HCO3 ABG O2 Saturation ABG Base Excess ABG Hemoglobin Sodium Potassium 3.2 L Chloride Carbon Dioxide 21 L BUN 23 H Creatinine 3.7 H Glucose 199 H POC Glucose 194 H 180 H Lactic Acid Calcium Phosphorus Magnesium AST Alkaline Phosphatase Total Creatine Kinase Troponin T Total Protein Albumin LDL Cholesterol Direct TSH Free T4 T3 (TERRENCE) Urine WBC (Auto) Hepatitis C Antibody 10/14/21 10/14/21 10/14/21 05:00 06:22 11:02 WBC 15.5 H RBC 3.07 L Hgb 8.5 L Hct 26.2 L MCV MCH RDW 17.4 H Plt Count 59 L Seg Neuts % (Manual) 98.0 H Lymphocytes % (Manual) 1.0 L Nucleated RBC % Seg Neutrophils # Man 15.2 H Lymphocytes # (Manual) 0.2 L ABG pH ABG pO2 ABG HCO3 ABG O2 Saturation ABG Base Excess ABG Hemoglobin Sodium Potassium Chloride Carbon Dioxide BUN Creatinine Glucose POC Glucose 275 H 231 H Lactic Acid Calcium Phosphorus Magnesium AST Alkaline Phosphatase Total Creatine Kinase Troponin T Total Protein Albumin LDL Cholesterol Direct TSH Free T4 T3 (TERRENCE) Urine WBC (Auto) Hepatitis C Antibody 10/14/21 10/15/21 10/15/21 16:10 00:20 04:56 WBC 20.9 H RBC 3.25 L Hgb 9.1 L Hct 28.1 L MCV MCH RDW 17.9 H Plt Count 68 L Seg Neuts % (Manual) 98.0 H Lymphocytes % (Manual) 0 L Nucleated RBC % 1.0 H Seg Neutrophils # Man 20.5 H Lymphocytes # (Manual) 0.0 L ABG pH ABG pO2 ABG HCO3 ABG O2 Saturation ABG Base Excess ABG Hemoglobin Sodium Potassium Chloride Carbon Dioxide BUN Creatinine Glucose POC Glucose 196 H 284 H Lactic Acid Calcium Phosphorus Magnesium AST Alkaline Phosphatase Total Creatine Kinase Troponin T Total Protein Albumin LDL Cholesterol Direct TSH Free T4 T3 (TERRENCE) Urine WBC (Auto) Hepatitis C Antibody 10/15/21 10/15/21 10/15/21 04:56 06:33 13:43 WBC RBC Hgb Hct MCV MCH RDW Plt Count Seg Neuts % (Manual) Lymphocytes % (Manual) Nucleated RBC % Seg Neutrophils # Man Lymphocytes # (Manual) ABG pH ABG pO2 ABG HCO3 ABG O2 Saturation ABG Base Excess ABG Hemoglobin Sodium Potassium 3.0 L Chloride Carbon Dioxide 21 L BUN 38 H Creatinine 4.8 H Glucose 321 H POC Glucose 266 H 233 H Lactic Acid Calcium Phosphorus Magnesium AST Alkaline Phosphatase Total Creatine Kinase Troponin T Total Protein Albumin LDL Cholesterol Direct TSH Free T4 T3 (TERRENCE) Urine WBC (Auto) Hepatitis C Antibody 10/15/21 10/15/21 10/16/21 16:33 23:55 04:58 WBC 20.0 H RBC 3.33 L Hgb 9.5 L Hct 28.5 L MCV MCH RDW 17.7 H Plt Count 66 L Seg Neuts % (Manual) 98.0 H Lymphocytes % (Manual) 1.0 L Nucleated RBC % Seg Neutrophils # Man 19.6 H Lymphocytes # (Manual) 0.2 L ABG pH ABG pO2 ABG HCO3 ABG O2 Saturation ABG Base Excess ABG Hemoglobin Sodium Potassium Chloride Carbon Dioxide BUN Creatinine Glucose POC Glucose 218 H 228 H Lactic Acid Calcium Phosphorus Magnesium AST Alkaline Phosphatase Total Creatine Kinase Troponin T Total Protein Albumin LDL Cholesterol Direct TSH Free T4 T3 (TERRENCE) Urine WBC (Auto) Hepatitis C Antibody 10/16/21 10/16/21 10/16/21 04:58 05:58 12:23 WBC RBC Hgb Hct MCV MCH RDW Plt Count Seg Neuts % (Manual) Lymphocytes % (Manual) Nucleated RBC % Seg Neutrophils # Man Lymphocytes # (Manual) ABG pH ABG pO2 ABG HCO3 ABG O2 Saturation ABG Base Excess ABG Hemoglobin Sodium Potassium 2.9 L* Chloride Carbon Dioxide BUN 32 H Creatinine 4.1 H Glucose 253 H POC Glucose 269 H 298 H Lactic Acid Calcium Phosphorus Magnesium AST Alkaline Phosphatase Total Creatine Kinase Troponin T Total Protein Albumin LDL Cholesterol Direct TSH Free T4 T3 (TERRENCE) Urine WBC (Auto) Hepatitis C Antibody Chest x-ray: image reviewed (Significant elevation of right hemidiaphragm with some atelectatic changes it appears to be worse elevation compared to the previous study may be related to poor inspiratory effort)
[2021-10-17] MEDS: VANCOMYCIN 250 MG/10 ML ORAL LIQD PO SCH ×3 (00:12→12:28)
[2021-10-17] MEDS: INSULIN LISPRO 100 UNIT/ML SUB-Q SCH ×3 (00:16→12:27)
[2021-10-17] MEDS: POTASSIUM CHLORIDE 10 MEQ 10 MEQ/100 ML BAG IV SCH ×4 (00:47→11:16)
[2021-10-17] MEDS: LEVOTHYROXINE 150 MCG TAB PO SCH (06:34)
[2021-10-17] MEDS: LEVOTHYROXINE 25 MCG TAB PO SCH (06:34)
[2021-10-17 08:01] LABS: Hematocrit 30.9 % (35.5-45.6); Mean Corpuscular HGB Conc 32 % (32-34); Mean Corpuscular Volume 87 fl (84-94); Red Blood Count 3.54 M/mm3 (3.65-5.03); Red Cell Distribution Width 17.6 % (13.2-15.2)
[2021-10-17 08:09] LABS: Platelet Count 64 K/mm3 (140-440)
[2021-10-17 08:12] LABS: Calcium 8.5 mg/dL (8.4-10.2)
[2021-10-17] MEDS: PANTOPRAZOLE 40 MG TAB PO SCH (09:12)
[2021-10-17] MEDS: MIDODRINE 10 MG TAB PO SCH ×2 (09:13→12:28)
[2021-10-17] MEDS ORDERED: HYDROCORTISONE SOD SUCC 100 MG/2 ML VIAL IV SCH (10:00)
--- NOTE | 2021-10-17 11:08 | Progress Note ---
Assessment and Plan Assessment and plan: This is a 61-year-old male with known past medical history of DM and ESRD on HD admitted for AMS and acute hypoxic respiratory failure requiring ventilatory support Acute Respiratory Failure with Hypoxia - altered, intubated for airway protection on admission - ABG: pH 7.301, PCO2 50.4, PO2 162.1 bicarb 24.3 O2 sat 98.9 on admission Chest x-ray on admission no acute abnl identified does not appear to be primary pulmonary process, repeat chest x-ray today - 10/11 s/p extubation, now stable requiring 4 L O2 - Continue SPO2 monitoring for SPO2 goal above 92% - PRN O2 supplementation as needed Hypotension resolved Myxedema Coma - Presented with AMS, bl le edema, hypotensive, hypothermic, hypoglycemia - etiology: possibly due to hypothyroidism vs adrenal insuffciency - TSH/T4 noted, correlate with hypothyroidism - Continue Hydrocortisone 100 mg IV q8hr and Levothyroxine 150 mcg IV - Continue Midodrine TID - Continue blood pressure monitor per protocol - Maintain MAP above 65 Acute Metabolic Encephalopathy - Presented AMS, bl le edema, hypotensive, hypothermic, hypoglycemia - Ct head with no acute intracranial abnormality. - possibly due to hypothyroidism vs adrenal insuffciency vs infectious process - Mentation improved - Avoid benzodiazepine to reduce the possibility of delirium - Maintenance of sleep-wake cycle Severe sepsis POA C. difficile colitis urinary tract infection - Presented AMS, bl le edema, hypotensive, hypothermic, hypoglycemia - Elevated wbc ct, UA wbc noted - levaquin IV initiated for UTI - WBcs downtrending - Continue to F/U on B.cult - Daily CBC monitor -Continue p.o. vancomycin -Consider ID consult if febrile or/and if leukocytosis worsen ESRD on HD Severe hypokalemia - Nephrology on consult, appreciated recommendation - correction with hemodialysis - management of HD per nephrology - Persistent hypokalemia - Strict intake and output - Avoid nephrotoxic medications; Renally dose medications - Monitor and replace electrolytes as needed GERD - GI Ppx with pantoprazole 40 mg IV daily Thrombocytopenia - Presented with low plt - Plt improved - no s/s of any active bleeding - H&H stable - Continue to trend CBC Hypertension - hypotensive at the moment - Hold home antihypertensives therapy Oropharyngeal dysphagia C. difficile colitis -Vancomycin p.o. hyperglycemia - Presented with hypoglycemia s/p D10w gtt - on IV steroids - Continue BG check Q6hrs, low dose SSI Q6hrs - Avoid hypoglycemia - While critically ill target blood glucose of 140-180 Hospital Course to Date: 10/11: More awake and alert this am, following simple commands. Plan for PSV trial for possible extubation today. BP remains soft, MAP above 65. Continue midodrine TID and IV steroids. Remains hypokalemic, K repleted. Possible HD today per nephro. 10/12: S/p extubation, stable on RA this am. BP remains bordeline, continue PO midodrine TID. With persistent hypokalemia, most likely secondary to frequent loose stools/diarrhea. Per staffs patient with diarrhea since admit, C. diff PCR pending. Patient is stable for transfer to the floor. PT/OT ordered. 10/13: Patient's respiratory status back to baseline. Patient with saturations of 95% on room air. Replete potassium. Transition IV Synthroid and hydrocortisone to p.o. 10/14: Patient's mental status has improved slightly but not at baseline. Patient is alert and oriented to name and age only. Patient previously nonverbal but is able to answer simple questions. Continue Synthroid and hydrocortisone. Pulmonary to wean stress dose steroids today. Synthroid changed from IV to home dose p.o. Stool culture reveals C. difficile colitis. We will start Flagyl 500 mg every 8 hours. 10/15: Patient a little bit more responsive today. Continue Synthroid and wean stress dose steroids per pulmonary. Patient's oxygen requirements have increased to 4 L via nasal cannula. We will follow-up chest x-ray. Stool studies revealed C. difficile and patient started on vancomycin p.o. 125 mg every 6 hours. Continue hemodialysis per nephrology. Replete potassium. 10/16: Patient still slow to respond with verbal stimuli. Continue Synthroid and wean stress dose steroids. Chest x-ray essentially negative. Patient with 4 L O2 via nasal cannula satting at 100%. Continue p.o. vancomycin for C. difficile colitis. Replete potassium and check magnesium levels. Speech therapy will change the diet to pure with nectar liquids. 10/17: Patient still with minimal response to verbal stimuli. However, patient answers questions appropriately. Continue Synthroid and stress dose steroids with taper. Patient currently with 5 L O2 with saturations at 100%. Continue to wean O2 supplementation as tolerated. Continue vancomycin for C. difficile colitis. History Interval history: No new issues Hospitalist Physical - Constitutional Vitals: Temp Pulse Resp BP Pulse Ox 97.8 F 84 18 111/83 100 10/17/21 06:27 10/17/21 06:27 10/17/21 06:27 10/17/21 06:27 10/17/21 10:00 General appearance: Present: no acute distress, well-nourished, obese, other - EENT Eyes: Present: PERRL, EOM intact ENT: hearing intact, clear oral mucosa, dentition normal - Neck Neck: Present: supple, normal ROM - Respiratory Respiratory effort: normal Respiratory: bilateral: CTA - Cardiovascular Rhythm: regular Heart Sounds: Present: S1 & S2. Absent: gallop, rub - Extremities Extremities: no ischemia, No edema, Full ROM - Abdominal General gastrointestinal: soft, non-tender, non-distended, normal bowel sounds - Integumentary Integumentary: Present: clear, warm, dry - Neurologic Neurologic: CNII-XII intact, moves all extremities HEART Score - HEART Score Troponin: Troponin T 1.970 ng/mL (0.00-0.029) H* 10/09/21 23:30 Results - Labs CBC & Chem 7: 10/17/21 07:08 10/17/21 07:08 Labs: Laboratory Last Values WBC 16.6 K/mm3 (4.5-11.0) H 10/17/21 07:08 RBC 3.54 M/mm3 (3.65-5.03) L 10/17/21 07:08 Hgb 10.0 gm/dl (11.8-15.2) L 10/17/21 07:08 Hct 30.9 % (35.5-45.6) L 10/17/21 07:08 MCV 87 fl (84-94) 10/17/21 07:08 MCH 28 pg (28-32) 10/17/21 07:08 MCHC 32 % (32-34) 10/17/21 07:08 RDW 17.6 % (13.2-15.2) H 10/17/21 07:08 Plt Count 64 K/mm3 (140-440) L 10/17/21 07:08 Add Manual Diff Complete 10/16/21 04:58 Total Counted 100 10/16/21 04:58 Seg Neutrophils % [employer] Instructor 10/17/21 07:08 Seg Neuts % (Manual) 98.0 % (40.0-70.0) H 10/16/21 04:58 Band Neutrophils % 1.0 % 10/16/21 04:58 Lymphocytes % (Manual) 1.0 % (13.4-35.0) L 10/16/21 04:58 Reactive Lymphs % (Man) 0 % 10/16/21 04:58 Monocytes % (Manual) 0 % (0.0-7.3) 10/16/21 04:58 Eosinophils % (Manual) 0 % (0.0-4.3) 10/16/21 04:58 Basophils % (Manual) 0 % (0.0-1.8) 10/16/21 04:58 Metamyelocytes % 0 % 10/16/21 04:58 Myelocytes % 0 % 10/16/21 04:58 Promyelocytes % 0 % 10/16/21 04:58 Blast Cells % 0 % 10/16/21 04:58 Nucleated RBC % Not Reportable 10/16/21 04:58 Seg Neutrophils # Man 19.6 K/mm3 (1.8-7.7) H 10/16/21 04:58 Band Neutrophils # 0.2 K/mm3 10/16/21 04:58 Lymphocytes # (Manual) 0.2 K/mm3 (1.2-5.4) L 10/16/21 04:58 Abs React Lymphs (Man) 0.0 K/mm3 10/16/21 04:58 Monocytes # (Manual) 0.0 K/mm3 (0.0-0.8) 10/16/21 04:58 Eosinophils # (Manual) 0.0 K/mm3 (0.0-0.4) 10/16/21 04:58 Basophils # (Manual) 0.0 K/mm3 (0.0-0.1) 10/16/21 04:58 Metamyelocytes # 0.0 K/mm3 10/16/21 04:58 Myelocytes # 0.0 K/mm3 10/16/21 04:58 Promyelocytes # 0.0 K/mm3 10/16/21 04:58 Blast Cells # 0.0 K/mm3 10/16/21 04:58 WBC Morphology Not Reportable 10/16/21 04:58 Hypersegmented Neuts Not Reportable 10/16/21 04:58 Hyposegmented Neuts Not Reportable 10/16/21 04:58 Hypogranular Neuts Not Reportable 10/16/21 04:58 Smudge Cells Not Reportable 10/16/21 04:58 Toxic Granulation Not Reportable 10/16/21 04:58 Toxic Vacuolation Not Reportable 10/16/21 04:58 Dohle Bodies Not Reportable 10/16/21 04:58 Pelger-Huet Anomaly Not Reportable 10/16/21 04:58 Placido Rods Not Reportable 10/16/21 04:58 Platelet Estimate Consistent w auto 10/16/21 04:58 Clumped Platelets Not Reportable 10/16/21 04:58 Plt Clumps, EDTA Not Reportable 10/16/21 04:58 Large Platelets Not Reportable 10/16/21 04:58 Giant Platelets Not Reportable 10/16/21 04:58 Platelet Satelliting Not Reportable 10/16/21 04:58 Plt Morphology Comment Not Reportable 10/16/21 04:58 RBC Morphology Not Reportable 10/16/21 04:58 Dimorphic RBCs Not Reportable 10/16/21 04:58 Polychromasia Not Reportable 10/16/21 04:58 Hypochromasia 1+ 10/16/21 04:58 Poikilocytosis Not Reportable 10/16/21 04:58 Anisocytosis 1+ 10/16/21 04:58 Microcytosis Not Reportable 10/16/21 04:58 Macrocytosis Not Reportable 10/16/21 04:58 Spherocytes Not Reportable 10/16/21 04:58 Pappenheimer Bodies Not Reportable 10/16/21 04:58 Sickle Cells Not Reportable 10/16/21 04:58 Target Cells Not Reportable 10/16/21 04:58 Tear Drop Cells Not Reportable 10/16/21 04:58 Ovalocytes Not Reportable 10/16/21 04:58 Helmet Cells Not Reportable 10/16/21 04:58 [place] Bodies Not Reportable 10/16/21 04:58 [place]ore Rings Not Reportable 10/16/21 04:58 Hussain Cells Not Reportable 10/16/21 04:58 Bite Cells Not Reportable 10/16/21 04:58 Crenated Cell Not Reportable 10/16/21 04:58 Elliptocytes Not Reportable 10/16/21 04:58 Acanthocytes (Spur) Not Reportable 10/16/21 04:58 Rouleaux Not Reportable 10/16/21 04:58 Hemoglobin C Crystals Not Reportable 10/16/21 04:58 Schistocytes Not Reportable 10/16/21 04:58 Malaria parasites Not Reportable 10/16/21 04:58 Ezequiel Bodies Not Reportable 10/16/21 04:58 Hem Pathologist Commnt No 10/16/21 04:58 ABG pH 7.480 pH Units (7.350-7.450) H 10/11/21 05:25 ABG pCO2 25.8 mm Hg 10/11/21 05:25 ABG pO2 111.6 mm Hg (80.0-90.0) H 10/11/21 05:25 ABG HCO3 18.8 mmol/L (20.0-26.0) L 10/11/21 05:25 ABG O2 Saturation 98.3 % (95.0-99.0) 10/11/21 05:25 ABG O2 Content 10.9 (0.0-44) 10/11/21 05:25 ABG Base Excess -4.0 mmol/L (-2.0-3.0) L 10/11/21 05:25 ABG Hemoglobin 7.9 gm/dl (14.0-18.0) L 10/11/21 05:25 ABG Carboxyhemoglobin 1.3 % (0.0-5.0) 10/11/21 05:25 ABG Methemoglobin 0.4 % (0.0-1.5) 10/11/21 05:25 Oxyhemoglobin 96.7 % (95.0-99.0) 10/11/21 05:25 FiO2 30 % 10/11/21 05:25 Sodium 138 mmol/L (137-145) 10/17/21 07:08 Potassium 3.3 mmol/L (3.6-5.0) L 10/17/21 07:08 Chloride 100.9 mmol/L (98-107) 10/17/21 07:08 Carbon Dioxide 20 mmol/L (22-30) L 10/17/21 07:08 Anion Gap 20 mmol/L 10/17/21 07:08 BUN 42 mg/dL (9-20) H 10/17/21 07:08 Creatinine 4.6 mg/dL (0.8-1.3) H 10/17/21 07:08 Estimated GFR 16 ml/min 10/17/21 07:08 BUN/Creatinine Ratio 9 % 10/17/21 07:08 Glucose 337 mg/dL (75-100) H 10/17/21 07:08 POC Glucose 298 mg/dL (70-105) H 10/17/21 10:59 Lactic Acid 1.60 mmol/L (0.7-2.0) 10/11/21 11:23 Calcium 8.5 mg/dL (8.4-10.2) 10/17/21 07:08 Phosphorus 2.20 mg/dL (2.5-4.5) L D 10/12/21 05:50 Magnesium 1.80 mg/dL (1.7-2.3) 10/12/21 05:50 Total Bilirubin 1.20 mg/dL (0.1-1.2) 10/13/21 05:17 AST 32 units/L (5-40) 10/13/21 05:17 ALT 11 units/L (7-56) 10/13/21 05:17 Alkaline Phosphatase 167 units/L (35-129) H 10/13/21 05:17 Total Creatine Kinase 644 units/L (55-170) H 10/09/21 23:30 Troponin T 1.970 ng/mL (0.00-0.029) H* 10/09/21 23:30 Total Protein 7.5 g/dL (6.3-8.2) D 10/13/21 05:17 Albumin 2.4 g/dL (3.9-5) L 10/13/21 05:17 Albumin/Globulin Ratio 0.5 % 10/13/21 05:17 Triglycerides 68 mg/dL (2-149) 10/09/21 23:30 Cholesterol 81 mg/dL (50-199) 10/09/21 23:30 LDL Cholesterol Direct 21 mg/dL (50-130) L 10/09/21 23:30 HDL Cholesterol 44 mg/dL (40-59) 10/09/21 23:30 Cholesterol/HDL Ratio 1.84 % 10/09/21 23:30 TSH 23.050 mlU/mL (0.270-4.200) H 10/10/21 14:51 Free T4 0.36 ng/dL (0.76-1.46) L 10/10/21 14:51 T3 (TERRENCE) 26.7 ng/dL (76-181) L 10/10/21 14:51 Urine Color Yellow (Yellow) 10/10/21 01:30 Urine Turbidity Turbid (Clear) 10/10/21 01:30 Urine pH 6.0 (5.0-7.0) 10/10/21 01:30 Ur Specific [place] 1.018 (1.003-1.030) 10/10/21 01:30 Urine Protein 100 mg/dl mg/dL (Negative) 10/10/21 01:30 Urine Glucose (UA) Neg mg/dL (Negative) 10/10/21 01:30 Urine Ketones Tr mg/dL (Negative) 10/10/21 01:30 Urine Blood Mod (Negative) 10/10/21 01:30 Urine Nitrite Neg (Negative) 10/10/21 01:30 Urine Bilirubin Neg (Negative) 10/10/21 01:30 Urine Urobilinogen < 2.0 mg/dL (<2.0) 10/10/21 01:30 Ur Leukocyte Esterase Mod (Negative) 10/10/21 01:30 Urine WBC (Auto) > 182.0 /HPF (0.0-6.0) H 10/10/21 01:30 Urine RBC (Auto) 70.0 /HPF (0.0-6.0) 10/10/21 01:30 Urine Bacteria (Auto) 1+ /HPF (Negative) 10/10/21 01:30 Urine WBC Clumps 3+ /HPF 10/10/21 01:30 C. difficile Tox (PCR) Positive (Negative) 10/12/21 Unknown Coronavirus (PCR) Negative (Negative) 10/14/21 Unknown Hepatitis A IgM Ab Non-reactive (NonReactive) 10/11/21 11:23 Hep Bs Antigen Non-reactive (Negative) 10/11/21 11:23 Hep B Core IgM Ab Non-reactive (NonReactive) 10/11/21 11:23 Hepatitis C Antibody Reactive (NonReactive) A 10/11/21 11:23 Choudhary/IV: Voiding Method Condom Catheter Active Medications - Current Medications Current Medications: Generic Name Dose Route Start Last Admin Trade Name Freq PRN Reason Stop Dose Admin Acetaminophen 650 mg 10/10/21 01:37 Acetaminophen 325 Mg Tab PO Q4H PRN Pain MILD(1-3)/Fever >100.5/SEALS Dextrose 50 ml 10/10/21 01:37 10/10/21 06:39 Dextrose 50% In Water (25gm) 50 Ml Syringe IV 50 ml Q30MIN PRN Administration Hypoglycemia Protocol Insulin Human Lispro 0 unit 10/10/21 06:00 10/17/21 06:34 Insulin Lispro 100 Unit/Ml SUB-Q 4 unit Q6HR CHAKA Administration Protocol Levothyroxine Sodium 150 mcg 10/14/21 06:00 10/17/21 06:34 Levothyroxine 150 Mcg Tab PO 150 mcg DAILY@0600 CHAKA Administration Levothyroxine Sodium 25 mcg 10/14/21 06:00 10/17/21 06:34 Levothyroxine 25 Mcg Tab PO 25 mcg DAILY@0600 CHAKA Administration Midodrine 10 mg 10/10/21 08:00 10/17/21 09:13 Midodrine 10 Mg Tab PO 10 mg TID@0800,1200,1600 CHAKA Administration Ondansetron HCl 4 mg 10/10/21 01:37 Ondansetron 4 Mg/2 Ml Inj IV Q8H PRN Nausea And Vomiting Pantoprazole Sodium 40 mg 10/14/21 07:30 10/17/21 09:12 Pantoprazole 40 Mg Tab PO 40 mg QDAC CHAKA Administration Sodium Chloride 10 ml 10/10/21 10:00 10/17/21 09:13 Sodium Chloride 0.9% 10 Ml Flush Syringe IV 10 ml BID CHAKA Administration Sodium Chloride 10 ml 10/10/21 01:37 Sodium Chloride 0.9% 10 Ml Flush Syringe IV PRN PRN LINE FLUSH Vancomycin HCl 125 mg 10/14/21 13:00 10/17/21 06:34 Vancomycin 250 Mg/10 Ml Oral Liqd PO 10/24/21 06:01 125 mg Q6HR CHAKA Administration Protocol Nutrition/Malnutrition Assess - Dietary Evaluation Nutrition/Malnutrition Findings: Nutrition Notes Start: 10/11/21 16:12 Freq: Status: Active Protocol: Document 10/13/21 15:46 ADITYA (Rec: 10/13/21 15:58 ADITYA [id number]) Nutrition Notes Initial or Follow up Brief Note Current Diagnosis CKD(stage I-IV),Diabetes, Sepsis,Hypertension, Hyperlipidemia Other Pertinent Diagnosis ESRD+HD, Hypoglycemia, GERD, UTI, Metabolic Encephalopathy, Uremia,... Current Diet Renal Diet (since L 10/12). Height 6 ft Weight 99.79 kg [place] Body Weight (kg) 80.90 BMI 29.8 Weight change and time frame No body weight changes in 2 days reported. Weight Status Overweight Subjective/Other Information RD consult for routine F/U on Dietary Advancement. Diet advanced to PO, Pt's PO intake of meals has been Negligible(0%), according to ADL notes. I will assess the need for ONS at F/U. HAND OR MACHINE PASTER note on 10/12/21 12:59: Swallowing function has been assessed. No aspiration was identified during the examination. Continue his current diet. Will continue to follow 2-3 days to ensure continued safety. - END OF NOTE. Pt is on Room Air, O2 saturation @ 97%, according to Physical Assessment History notes. Percent of energy/protein needs met: Prescribed Renal Diet provides for energy/protein needs (2, 072 Kcal/77 g) during LOS. #1 Nutrition Diagnosis Inadequate oral intake Comments: HAND OR MACHINE PASTER note on 10/12/21 12:59: Swallowing function has been assessed. No aspiration was identified during the examination. Continue his current diet. Will continue to follow 2-3 days to ensure continued safety. - END OF NOTE. Diagnosis Progress(for reassessment Resolved documentation) Is patient on ventilator? No Is Patient Ambulatory and/or Out of Bed No REE-([place]-St. Jeor-confined to bed) [phone] Calculation Used for Recommendations [place] Jeor Additional Notes Protein: >1.2 g/Kg ABW; >120 g /day. Fluids: 1 ml/Kcal, or as per MD. Nutrition Intervention Change Diet Order: Continue Renal Diet. Nutrition Support: Discontinue. Goal #1 Adjust the dietary intervention to better serve Pt's needs and clinical conditions during LOS. Follow-Up By: 10/18/21 Additional Comments Continue monitoring food tolerance, %PO intake of meals , and BM.Continue monitoring food tolerance, %PO intake of meals, and BM.
[2021-10-17 11:40] LABS: Basophils % (Manual) 0 % (0.0-1.8); Eosinophils % (Manual) 0 % (0.0-4.3); Total Cells Counted 100
[2021-10-17 11:41] LABS: Target Cells 1+
[2021-10-17 11:42] LABS: Hypochromasia Few
[2021-10-17 11:43] LABS: Burr Cells Few; Platelet Estimate Consistent w Auto
--- NOTE | 2021-10-17 12:50 | Progress Note ---
Assessment and Plan Acute metabolic encephalopathy End-stage renal disease on hemodialysis Hypertension Elevated troponin Nicotine dependence Sepsis History of hypothyroidism Insulin dependent diabetes mellitus Hypokalemia Hypoglycemia Plan: s/p HD monday, no HD today. Hypotension-on Midodrine 10 mg po TID Replace k PRN Renally dose medications Strict I&O's daily Obtain daily weights Assess dialysis needs daily Subjective Date of service: 10/17/21 Principal diagnosis: ESRD Interval history: Tolerated HD monday. NAD. Objective - Exam Narrative Exam: General appearance: other (No acute distress ) EENT: ATNC Neck: no JVD, supple Respiratory: Present: Decreased Breath Sounds Cardiology: S1S2 Gastrointestinal: normoactive bowel sounds Integumentary: warm and dry Musculoskeletal: other (positive edema) - Vital Signs Vital signs: Vital Signs - 12hr 10/17/21 10/17/21 10/17/21 02:11 06:27 10:00 Temperature 97.8 F Pulse Rate 84 Respiratory 18 Rate Blood Pressure 111/83 O2 Sat by Pulse 96 100 100 Oximetry - Lab 10/17/21 07:08 10/17/21 07:08 Most recent lab results ABG pH 7.480 pH Units (7.350-7.450) H 10/11/21 05:25 ABG pCO2 25.8 mm Hg 10/11/21 05:25 ABG pO2 111.6 mm Hg (80.0-90.0) H 10/11/21 05:25 ABG HCO3 18.8 mmol/L (20.0-26.0) L 10/11/21 05:25 ABG O2 Saturation 98.3 % (95.0-99.0) 10/11/21 05:25 Calcium 8.5 mg/dL (8.4-10.2) 10/17/21 07:08 Phosphorus 2.20 mg/dL (2.5-4.5) L D 10/12/21 05:50 Magnesium 1.80 mg/dL (1.7-2.3) 10/12/21 05:50 Medications & Allergies - Medications Allergies/Adverse Reactions: Allergies No Known Allergies Allergy (Verified 10/09/21 23:38) Home Medications: Home Medications Medication Instructions Recorded Confirmed Last Taken Type Levothyroxine Sodium 175 mcg PO DAILY 08/23/21 10/13/21 08/22/21 History [Levothyroxine] Sertraline [Zoloft] 100 mg PO QDAY 08/23/21 10/13/21 08/22/21 History Cyclobenzaprine [Flexeril 10 MG 5 mg PO TID PRN #15 tablet 08/27/21 10/13/21 Unknown Rx TAB] Pantoprazole [Protonix TAB] 40 mg PO QDAY #30 tablet 08/27/21 10/13/21 Unknown Rx Insulin Glargine [Lantus VIAL] 30 units SUB-Q QHS units 09/02/21 10/13/21 Unknown Rx Lispro Insulin [HumaLOG] 0 unit SUB-Q ACHS units 09/02/21 10/13/21 Unknown Rx Midodrine [Proamatine] 10 mg PO TID tablet 09/02/21 10/13/21 Unknown Rx Active Medications: Generic Name Dose Route Start Last Admin Trade Name Freq PRN Reason Stop Dose Admin Acetaminophen 650 mg 10/10/21 01:37 Acetaminophen 325 Mg Tab PO Q4H PRN Pain MILD(1-3)/Fever >100.5/SEALS Dextrose 50 ml 10/10/21 01:37 10/10/21 06:39 Dextrose 50% In Water (25gm) 50 Ml Syringe IV 50 ml Q30MIN PRN Administration Hypoglycemia Protocol Insulin Human Lispro 0 unit 10/10/21 06:00 10/17/21 12:27 Insulin Lispro 100 Unit/Ml SUB-Q 3 unit Q6HR CHAKA Administration Protocol Levothyroxine Sodium 150 mcg 10/14/21 06:00 10/17/21 06:34 Levothyroxine 150 Mcg Tab PO 150 mcg DAILY@0600 CHAKA Administration Levothyroxine Sodium 25 mcg 10/14/21 06:00 10/17/21 06:34 Levothyroxine 25 Mcg Tab PO 25 mcg DAILY@0600 CHAKA Administration Midodrine 10 mg 10/10/21 08:00 10/17/21 12:28 Midodrine 10 Mg Tab PO 10 mg TID@0800,1200,1600 CHAKA Administration Ondansetron HCl 4 mg 10/10/21 01:37 Ondansetron 4 Mg/2 Ml Inj IV Q8H PRN Nausea And Vomiting Pantoprazole Sodium 40 mg 10/14/21 07:30 10/17/21 09:12 Pantoprazole 40 Mg Tab PO 40 mg QDAC CHAKA Administration Sodium Chloride 10 ml 10/10/21 10:00 10/17/21 09:13 Sodium Chloride 0.9% 10 Ml Flush Syringe IV 10 ml BID CHAKA Administration Sodium Chloride 10 ml 10/10/21 01:37 Sodium Chloride 0.9% 10 Ml Flush Syringe IV PRN PRN LINE FLUSH Vancomycin HCl 125 mg 10/14/21 13:00 10/17/21 12:28 Vancomycin 250 Mg/10 Ml Oral Liqd PO 10/24/21 06:01 125 mg Q6HR CHAKA Administration Protocol
[2021-10-17 13:31] VITALS: BP 89/59
[2021-10-17] MEDS ORDERED: EPINEPHrine 1 MG/10 ML SYRINGE ONE (13:55)
[2021-10-17] MEDS ORDERED: LIDOCAINE PF 100 MG/5 ML (CARDIAC SYRINGE) IV ONE (13:55)
[2021-10-17] MEDS ORDERED: AMIODARONE 150 MG/3 ML INJ IV ONE (13:55)
[2021-10-17] MEDS ORDERED: EPINEPHrine 30 MG/30 ML INJ IV ONE (13:55)
[2021-10-17] MEDS ORDERED: SODIUM BICARB 8.4% 50 MEQ/50 ML SYRINGE IV ONE (13:55)
--- NOTE | 2021-10-17 14:37 | Procedure Note ---
Date of procedure: 10/17/21 Pre-op diagnosis: Acute respiratory failure Post-op diagnosis: same Procedure: Endotracheal intubation, glidescope Sedation: None Size 7.5 cm ETT placed, 23cm at the lip Good color change, equal breath sounds bilaterally Anesthesia: None Surgeon: Richard Wray Estimated blood loss: none Pathology: none Condition: critical Disposition: ICU Anesthesia: local Surgeon: RICHARD WRAY Estimated blood loss: none Condition: critical Disposition: ICU Anesthesia: none Surgeon: RICHARD WRAY Estimated blood loss: none Pathology: none Condition: critical Disposition: ICU
--- NOTE | 2021-10-17 14:37 | Event Note ---
Date: 10/17/21 A CODE LENA was called. I presented to the bedside and the patient was found in asystolic arrest. The patient was treated in accordance with ACLS protocol with no evidence of perfusing cardiac rhythm at any time during ACLS protocol. After approximately 25 minutes of advanced cardiac life support a repeat exam was conducted. Neurologic exam: The patient was found to have pupils are fixed and dilated without antihypertension reflexes. Respiratory exam: The patient was found to have absent lung sounds. Cardiac exam: The patient was found to have asystole on the awake overnight monitor without cardiac activity. The patient was pronounced at 1430 hrs. The high probability of a clinically significant, sudden or life threatening deterioration of the [cardiac, pulmonary, renal, neuro] system(s) required my full and direct attention, intervention and personal management. The aggregate critical care time was [90] minutes. This time is in addition to time spent performing reported procedures but includes the following: [x] Data Review and interpretation [x] Patient assessment and monitoring of vital signs [x] Documentation [x] Medication orders and management
--- NOTE | 2021-10-17 14:38 | Death Note ---
Note Date of : 10/17/21 Time of : 14:30 Time Pronounced: 14:30 - Preliminary Cause of (problem) (1) Acute respiratory failure Preliminary cause of (2) Heart failure, systolic, with acute decompensation Preliminary cause of
== END 2021-10-17 14:30 | DRG 871 ==
LOC: ED 22:15 → CC1 10-10 01:37 → 3A 10-12 15:49
PROVIDERS: ADMIT Hospitalist; ATTEND Hospitalist
PROC: 5A1945Z Respiratory Ventilation, 24-96 Consecutive Hours (ICD-10-PCS; principal; 2021-10-09)
PROC: 0BH17EZ Insertion of Endotracheal Airway into Trachea, Via Natural or Artificial Opening (ICD-10-PCS; 2021-10-09)
PROC: 4A033R1 Measurement of Arterial Saturation, Peripheral, Percutaneous Approach (ICD-10-PCS; 2021-10-09)
PROC: 5A1D70Z Performance of Urinary Filtration, Intermittent, Less than 6 Hours Per Day (ICD-10-PCS; 2021-10-11)
PROC: 5A1D70Z Performance of Urinary Filtration, Intermittent, Less than 6 Hours Per Day (ICD-10-PCS; 2021-10-13)
PROC: 5A1D70Z Performance of Urinary Filtration, Intermittent, Less than 6 Hours Per Day (ICD-10-PCS; 2021-10-15)
PROC: 5A12012 Performance of Cardiac Output, Single, Manual (ICD-10-PCS; 2021-10-17)
DX: A41.9 Sepsis, unspecified organism (principal); J96.01 Acute respiratory failure with hypoxia; G93.41 Metabolic encephalopathy; N18.6 End stage renal disease; E03.5 Myxedema coma; I50.23 Acute on chronic systolic (congestive) heart failure; N39.0 Urinary tract infection, site not specified; A04.72 Enterocolitis due to Clostridium difficile, not specified as recurrent; I13.2 Hypertensive heart and chronic kidney disease with heart failure and with stage 5 chronic kidney disease, or end stage renal disease; I46.9 Cardiac arrest, cause unspecified; R65.20 Severe sepsis without septic shock; R77.8 Other specified abnormalities of plasma proteins; K21.9 Gastro-esophageal reflux disease without esophagitis; E03.9 Hypothyroidism, unspecified; E78.5 Hyperlipidemia, unspecified; E11.22 Type 2 diabetes mellitus with diabetic chronic kidney disease; E11.649 Type 2 diabetes mellitus with hypoglycemia without coma; E87.6 Hypokalemia; Z71.6 Tobacco abuse counseling; D69.6 Thrombocytopenia, unspecified; R13.12 Dysphagia, oropharyngeal phase; Z99.2 Dependence on renal dialysis; Z79.4 Long term (current) use of insulin; Z82.49 Family history of ischemic heart disease and other diseases of the circulatory system
CPT/HCPCS: 36415; 36600; 70450; 71045; 74018; 80048; 80053; 80061; 80074; 81001; 82140; 82550; 82803; 82962; 83735; 84100; 84439; 84443; 84480; 84484; 85007; 85025; 85027; 87070; 87076; 87186; 87205; 87324; 87493; 93005; 94002; 94003; 94640; 94760; G0378; J3490; Q9967; C9113; J0171; J0282; J1720; J1815; J1956; J2001; J3370; J3475; J3480; J7030; J7042; U0003